=== PATIENT | male | born 1955 | race American Indian/Alaskan Native ===

== ENCOUNTER 2017-06-13 16:26 | Emergency (ER) | payer OTHER ==
[~2017-06-13] VITALS: Ht 177.8 cm; Wt 68.0 kg
[~2017-06-13 16:26] MED LIST: CYCLOBENZAPRINE10 MG; FOLIC ACID1 MG PO; THIAMINE HCL100 MG PO; TRAMADOL HCL50 MG
[2017-06-23] MEDS ORDERED: ULTRAM50 MG PO (11:40)
== END 2017-06-13 18:37 | disposition home or self-care (01) ==
LOC: ED 16:26
PROC: 2W3RX1Z Immobilization of Left Lower Leg using Splint (ICD-10-PCS; principal; 2017-06-13)
DX: S82.842A Displaced bimalleolar fracture of left lower leg, initial encounter for closed fracture (principal); F17.200 Nicotine dependence, unspecified, uncomplicated; W00.0XXA Fall on same level due to ice and snow, initial encounter
CPT/HCPCS: 29515; 72100; 73610; 99283

== ENCOUNTER 2017-06-24 07:40 | Day surgery (SDC) | payer OTHER ==
[~2017-06-24] VITALS: Ht 167.6 cm; Wt 74.8 kg
[~2017-06-24 07:40] MED LIST changes: +ULTRAM50 MG PO
[2017-06-24] MEDS ORDERED: ADVIL200 M1 PO (08:06)
--- NOTE | 2017-06-24 08:36 | NUR ---
RAILS UP X2 INSTRUCTED TO NOT GET OOB WITH OUT ASSIST. STATES OK.
--- NOTE | 2017-06-24 08:51 | NUR ---
RATES PAIN 5/10 2MG MORE OF MORPHINE GIVEN.
[2017-06-24] MEDS ORDERED: HYDROCODON-ACE1 EA11 PO (11:10)
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
--- NOTE | 2017-06-25 07:51 | OR ---
[facility] [address] [place], [place] [address] Signed DATE OF OPERATION: 06/24/2017 SURGEON: Candice Osman MD PREOPERATIVE DIAGNOSIS: Severely displaced bimalleolar ankle fracture, left. POSTOPERATIVE DIAGNOSIS: Severely displaced bimalleolar ankle fracture, left. PROCEDURE PERFORMED: Open reduction and internal fixation, left bimalleolar ankle fracture. LUMBER MARKER: AICHA Preston was present in critical positioning, retraction, and wound closure. ANESTHESIA: Spinal with sciatic block. TOURNIQUET TIME: 50 minutes. IMPLANTS: A 3.8 x 130 FibuLock with 2 locking screws and a 3.5 mm hook plate with 3 screws. BRIEF HISTORY: Ladarius is a 61-year-old gentleman, who suffered a ground-level fall with a fracture and dislocation of his ankle. It was reduced in the ER, showed up in my clinic 9 days later. The risks, benefits, and alternatives of surgery were discussed with him and he elected to proceed. DESCRIPTION OF PROCEDURE: Once consent was obtained, he was taken to the operating room. After adequate anesthesia, he was placed on the operating room table. All downside pressure points were well-padded. The left leg was placed in well-padded proximal thigh tourniquet and prepped and draped in standard sterile fashion. Leg was exsanguinated using an Esmarch bandage. Tourniquet inflated to 250 mmHg. The fibula was marked out on image intensifier views. The fracture was then closed, reduced, and clamped through 2 stab Electronically Signed By: CANDICE OSMAN MD 06/25/17 0751 PATIENT NAME: LADARIUS ABBASI OPERATIVE REPORT DATE OF : 59 PHYSICIAN: CANDICE OSMAN MD REPORT #: [id number] REPORT IS CONFIDENTIAL AND NOT TO BE RELEASED WITHOUT AUTHORIZATION [facility] [address] [place], [place] [address] Signed incisions. The reduction was anatomic and near anatomic. A 1 cm incision was made distal to the tip of the fibula, blunt dissection down to the tip. The first K-wire was then introduced and passed up the canal of the fibula. This was reamed using the 6 mm reamer. The longer guidewire was then exchanged and the proximal fibula was reamed. There was mild chowder with the 4.0 drill. The 3.8 FibuLock was then selected placed into the fibula and advanced until it was properly seated. The proximal release was then deployed. The 2 distal interlocking screws were placed through separate stab incisions. The clamp was released. The fracture remained anatomically reduced. The wounds were copiously irrigated and closed with zuhair. Attention was then turned to the medial side. A qfcm-sec-ieye incision was then made over the medial malleolus. Blunt dissection down to the periosteum. The periosteum was split and elevated and the fracture piece was reduced using the June 23, 2017ick and a clamp. It was held in position and pinned with a K-wire. We then placed the hook plate over the K-wire and passed until it was well seated. We hooked the fragment and placed the plate against the tibia. One screw was placed proximally. The K-wire was then removed and a second screw was placed from the tip of the fracture fragment across the fracture engaging the body of the tibia. The third screw was then placed proximally. Anatomic reduction was obtained. The wound was copiously irrigated with antibiotic solution and closed with 2-0 Monocryl and zuhair. Both wounds were dressed with Mepilex Ag dressing, ABD, and Gaurav wrap. This was placed back into his fracture boot, taken to recovery room in satisfactory condition. All sponge, needle, and instrument counts were correct. Candice Osman MD BA/MODL /[id number] Electronically Signed By: CANDICE OSMAN MD 06/25/17 0751 PATIENT NAME: LADARIUS ABBASI OPERATIVE REPORT DATE OF : 59 PHYSICIAN: CANDICE OSMAN MD REPORT #: [id number] REPORT IS CONFIDENTIAL AND NOT TO BE RELEASED WITHOUT AUTHORIZATION
== END 2017-06-24 13:45 | disposition home or self-care (01) ==
LOC: DS 07:40
PROVIDERS: Specialist
PROC: 0QSH04Z Reposition Left Tibia with Internal Fixation Device, Open Approach (ICD-10-PCS; principal; 2017-06-24 09:45)
DX: S82.842A Displaced bimalleolar fracture of left lower leg, initial encounter for closed fracture (principal); F17.210 Nicotine dependence, cigarettes, uncomplicated; Z98.890 Other specified postprocedural states; Z86.73 Personal history of transient ischemic attack (TIA), and cerebral infarction without residual deficits; Z79.899 Other long term (current) drug therapy; W22.8XXA Striking against or struck by other objects, initial encounter; Y93.89 Activity, other specified; Y92.488 Other paved roadways as the place of occurrence of the external cause
CPT/HCPCS: 01480; 64445; 73600; 76942; C1713; J0690; J1100; J1885; J2250; J2270; J2405; J2704; J2765; J3010; J7120

== ENCOUNTER 2020-01-14 11:00 | Emergency (ER) | payer OTHER ==
[~2020-01-14] VITALS: Ht 167.6 cm; Wt 72.6 kg
--- OUTSIDE RECORDS SUMMARY | ~2020-01-14 | XMS | Clinical Summary ---
Demographics + + + | Address | [address] | | | [place] [address] | + + + | Home Phone | | + + + | Preferred Language | Unknown | + + + | Marital Status | Single | + + + | Taoist Affiliation | Unknown | + + + | Race | Unknown | + + + | Ethnic Group | Unknown | + + + Author + + + | Author | [facility] | | | and [place] | + + + | Organization | [facility] | | | and [place] | + + + | Address | Unknown | + + + | Phone | Unavailable | + + + Support + + +---------+ + | Name | Relationship | Address | Phone | + + +---------+ + | Cheyenne | ECON | Unknown | | | [place] | | | | + + +---------+ + Care Team Providers + +------+ + | Care Junior Linux Administrator Name | Role | Phone | + +------+ + | No, Physician | PCP | Unavailable | + +------+ + Allergies No Known Allergies Medications No known medications Active Problems Not on file Immunizations + + + + | Name | Administration Dates | Next Due | + + + + | PNEUMOCOCCAL | 03/22/2014 | | | POLYSACCHARIDE | | | | 23-VALENT (PPSV23) | | | + + + + | TDAP, (ADOL/ADULT) | 03/23/2019 | | + + + + Social History + +-------+ +--------+------+ | Tobacco Use | Types | Packs/Day | Years | Date | | | | | Used | | + +-------+ +--------+------+ | Current Every Day | | 1 | | | | Smoker | | | | | + +-------+ +--------+------+ + + + | Sex Assigned at | Date Recorded | | | | + + + | Not on file | | + + + Last Filed Vital Signs + + + + + | Vital Sign | Reading | Time Taken | Comments | + + + + + | Blood Pressure | 128/70 | 03/23/2019 2:08 PM | | | | | PDT | | + + + + + | Pulse | 84 | 03/23/2019 2:08 PM | | | | | PDT | | + + + + + | Temperature | 37.1 C (98.8 F) | 03/23/2019 10:55 AM | | | | | PDT | | + + + + + | Respiratory Rate | 18 | 03/23/2019 1:15 PM | | | | | PDT | | + + + + + | Oxygen Saturation | 98% | 03/23/2019 2:08 PM | | | | | PDT | | + + + + + | Inhaled Oxygen | - | - | | | Concentration | | | | + + + + + | Weight | 72.6 kg (160 lb) | 03/23/2019 10:55 AM | | | | | PDT | | + + + + + | Height | 167.6 cm (5' 6") | 03/23/2019 10:55 AM | | | | | PDT | | + + + + + | Body Mass Index | 25.82 | 03/23/2019 10:55 AM | | | | | PDT | | + + + + + Plan of Treatment + + + + + | Health Maintenance | Due Date | Last | Comments | | | | Done | | + + + + + | Colorectal Cancer | | | | | Screening | 8 | | | | (Colonoscopy) | | | | + + + + + | Vaccine: Zoster (1 | | | | | of 2) | 8 | | | + + + + + | Vaccine: Influenza | | 03/30/20 | | | (#1) | 0 | 17, | | | | | 07/01/19 | | | | | 17, | | | | | 04/18/20 | | | | | 15, | | | | | Addition | | | | | al | | | | | history | | | | | exists | | + + + + + | Vaccine: | | 03/23/20 | | | Dtap/Tdap/Td (4 - | 9 | 19, | | | Td) | | 04/10/20 | | | | | 18, | | | | | 09/09/19 | | | | | 12 | | + + + + + | Hepatitis C | Completed | 03/22/20 | | | Screening | | 14 | | + + + + + | Vaccine: | Completed | 03/22/20 | | | Pneumococcal 19-64 | | 14 | | + + + + + Results Not on filefrom Last 3 Months Insurance + +--------+ +--------+ +---------+--------+ | Payer | Benefi | Subscriber | Effect | Phone | Address | Type | | | t Plan | ID | tod | | | | | | / | | Dates | | | | | | Group | | | | | | + +--------+ +--------+ +---------+--------+ | COMMERCIAL GENERIC | COMMER | [id number] | 06/15/19 | | | PPO | | | CIAL | | 19-Pre | | | | | | PPO | | sent | | | | | | OTHER | | | | | | + +--------+ +--------+ +---------+--------+ | [employer] | MODA | [id number] | | [phone] | | Medica | | MEDICAID HMO | HEALTH | | [phone]-Pr | 1 | | id | | | MDCD | | esent | | | | | | [place] | | | | | | + +--------+ +--------+ +---------+--------+ + +--------+ +--------+ + + | Guarantor Name | Accoun | Relation to | Date | Phone | Billing Address | | | t Type | Patient | of | | | | | | | | | | + +--------+ +--------+ + + | Ladarius Sheriff | Person | Self [birth year] | | [address] | | [place] | al/Daryl | | 8 | [phone] | [place] | | | hillary | | | 6 (Home) | [address] | + +--------+ +--------+ + + | Ladarius Sheriff | Clyde | Self | [birth year] | | [address] | | [place] | Alliance Party | | 1956 | [phone] | [place] | | | Liabil | | | [address] ([place]) | [address] | | | ity | | | | | + +--------+ +--------+ + + Advance Directives + + + + + | Type | Date Recorded | Patient | Explanation | | | | Bi Lead | | + + + + + | Power of | | | | | Deck Specialist | | | | + + + + + | Advance | 03/23/2019 12:00 | | | | Directive | PM | | | + + + + +
--- OUTSIDE RECORDS SUMMARY | ~2020-01-14 | XMS | Encounter Summary ---
Demographics + + + | Address | [address] | | | [place] [address] | + + + | Home Phone | | + + + | Preferred Language | Unknown | + + + | Marital Status | | + + + | Christianity Affiliation | Unknown | + + + | Race | or | + + + | Ethnic Group | Not or | + + + Author + + + | Author | [facility] [employer] [facility] | + + + | Organization | [facility] [employer] [facility] | + + + | Address | Unknown | + + + | Phone | Unavailable | + + + Support + + + + + | Name | Relationship | Address | Phone | + + + + + | Elen Sheriff | ECON | [address] | | | | | #[place], [place] | | | | | [address] | | + + + + + Care Team Providers + +------+ + | Care Pharmacy Helper Name | Role | Phone | + +------+ + PCP | Unavailable | + +------+ + Encounter Details +--------+ + + + + | Date | Type | Department | Care Team | Description | +--------+ + + + + | 11/15/ | Office | General Internal | Note, Outpatient | Progress Note | | 1997 | Visit-Trans | Medicine [address] | Clinic | | | | criluiza | Mitzi [facility] | | | | | | Mailcode: [id number] | | | | | | Outpatient Clinic | | | | | | [facility], [address] | | | | | | [place], [place] | | | | | | [address] | | | | | | [phone] | | | +--------+ + + + + Social History + +-------+ +--------+------+ | Tobacco Use | Types | Packs/Day | Years | Date | | | | | Used | | + +-------+ +--------+------+ | Never Assessed | | | | | + +-------+ +--------+------+ + + + | Sex Assigned at | Date Recorded | | | | + + + | Not on file | | + + + + + + + | Job Start Date | Occupation | Industry | + + + + | Not on file | Not on file | Not on file | + + + + + + + + | Travel History | Travel Start | Travel End | + + + + + + | No recent travel history available. | + + documented as of this encounter Progress Notes Interface, Brewery Technician In - 07/05/2006 5:00 AM PST CLINIC DATE: 11/15/97 OTOLARYNGOLOGY CLINIC Ladarius is seen postoperatively for a right tympanomastoidectomy with canal wall up and a tympanoplasty. Gelfoam and wicking was removed from the outer ear canal. There is still a little bare bone where the incision was made over the posterior canal. However the canal appears to be sealing quite satisfactorily. There is no discharge or inflammation. The sutures are removed. The patient is doing well and he was asked to return in four weeks for follow-up. Fidencio Claire M.D. Professor and Clinical Pharmacologist, Department of Otolaryngology Head and Neck Surgery MORELIA:rani documented in this encounter Plan of Treatment Not on filedocumented as of this encounter Visit Diagnoses Not on filedocumented in this encounter"
--- OUTSIDE RECORDS SUMMARY | ~2020-01-14 | XMS | Encounter Summary ---
Demographics + + + | Address | [address] | | | [place] [address] | + + + | Home Phone | | + + + | Preferred Language | Unknown | + + + | Marital Status | | + + + | Nondenominational Affiliation | Unknown | + + + | Race | or | + + + | Ethnic Group | Not or | + + + Author + + + | Author | [facility] [employer] [facility] | + + + | Organization | [facility] [employer] [facility] | + + + | Address | Unknown | + + + | Phone | Unavailable | + + + Support + + + + + | Name | Relationship | Address | Phone | + + + + + | Elen Sheriff | ECON | [address] | | | | | #[place] | | | | | [address] | | + + + + + Care Team Providers + +------+ + | Care Automobile Mechanic Helper Name | Role | Phone | + +------+ + PCP | Unavailable | + +------+ + Encounter Details +--------+ + + + + | Date | Type | Department | Care Team | Description | +--------+ + + + + | 06/30/ | Document-Sc | NON-[facility] EPIC | Wei [facility] | | | 2015 | edwina | Department | SON[facility] | | | | | | [facility] [address] | | | | | | [address] | | | | | | [address] | | | | | | [place] [address] | | | | | | [phone] | | | | | | | | +--------+ + + + [...] + + documented as of this encounter Plan of Treatment Not on filedocumented as of this encounter Visit Diagnoses Not on filedocumented in this encounter"
--- OUTSIDE RECORDS SUMMARY | ~2020-01-14 | XMS | Encounter Summary ---
Demographics + + + | Address | [address] | | | [place] [address] | + + + | Home Phone | | + + + | Preferred Language | Unknown | + + + | Marital Status | | + + + | Rastafarian Affiliation | Unknown | + + + | Race | or | + + + | Ethnic Group | Not or | + + + Author + + + | Author | [facility] [employer] [facility] | + + + | Organization | [facility] [employer] [facility] | + + + | Address | Unknown | + + + | Phone | Unavailable | + + + Support + + + + + | Name | Relationship | Address | Phone | + + + + + | Elen Sheriff | ECON | [address] | | | | | #[place], [place] | | | | | [address] | | + + + + + Care Team Providers + +------+ + | Care Infusion Pharmacist Name | Role | Phone | + +------+ + | Wei Eden | PCP | | + +------+ + Reason for Visit + + + | Reason | Comments | + + + | Examination Of Skin | 2wk f/u on body rash | + + + Office Visit - E/M Services (Routine) +--------+ + + + + + | Status | Reason | Specialty | Diagnoses / | Referred By | Referred To | | | | | Procedures | Contact | Contact | +--------+ + + + + + | Closed | Specialty | Dermatology | Diagnoses | Drm Med | Drm Med | | | Services | | Rash and | [address] | | | Required | | other | [address] | [address] | | | | | nonspecific | Center for | Center for | | | | | skin | Health and | Health and | | | | | eruption | Healing, | Healing, | | | | | Contact | [address], | [address], | | | | | dermatitis | [address]th Floor | [address] Floor | | | | | and other | [place], [place] | [place] | | | | | eczema, due | [address] | [address] | | | | | to | Phone: | Phone: | | | | | unspecified | [phone] | [phone] | | | | | cause | Fax: | Fax: | | | | | Procedures | [phone] | [phone] | | | | | [place] | | | | | | | OFFICE/OUTPT | | | | | | | | | | | | | | VISIT,EST,LE | | | | | | | HUBERT III | | | +--------+ + + + + + Encounter Details +--------+---------+ + + + | Date | Type | Department | Care Team | Description | +--------+---------+ + + + | 09/07/ | Office | Dermatology | Enrike Velasquez, | Rash and other | | 2015 | Visit | [facility] at [facility] [address] | MD [address] | nonspecific skin | | | | [address] [place] | [place], [place] | eruption (Primary | | | | for Health and | [address] | Dx) | | | | [facility] [address], | [phone] | | | | | [address] Floor | | | | | | [place], [place] | | | | | | [address] | | | | | | [phone] | | | +--------+---------+ + + + Social History + + + +--------+------+ | Tobacco Use | Types | Packs/Day | Years | Date | | | | | Used | | + + + +--------+------+ | Current Every Day | Cigarettes | 20 | | | | Smoker | | | | | + + + +--------+------+ + +---+---+---+ | Smokeless Tobacco: | | | | | Never Used | | | | + +---+---+---+ + + +---------+ + | Alcohol Use | Drinks/Week | oz/Week | Comments | + + +---------+ + | Not Asked | | | | + + +---------+ + + + + | Sex Assigned at [...] documented as of this encounter Progress Notes Enrike Velasquez MD - 09/02/2014 9:04 AM PDT59 YO man Last seen Dr Pruitt 08/27. Pt had been rx for scabies before being seen here & came in to be seen with multiple papules- r kevin on Trunk & predominenently on buttocks & post thighs . Bx L lower back & L flank = spong iotic dermatitis with eos- compatible with arthropod bite . No rx Pending results Bx. Has r x self Many times q week Here to have a skin exam Review of Systems: Other than stated in the HPI and PMHx, the patient denied any fever, chills, abdominal pain , diarrhea, VIGIL, vision changes, swollen lymph nodes, dizziness, mouth lesions, genital lesio ns, weight change, psychiatric changes, arthalgias, chest pain, weakness, or respiratory com plaints. PE: Well developed, well nourished white man oriented in Some distress. papular rash buttocks & post thighs- all healed - only PIPA lesions Finger webs- neg wrist burows - none genital lesion neg Other than stated above, there were no pertinent findings on scalp, face, neck, eyelids, l ips, abdomen, chest, back, bilateral arms, bilateral legs, digits. A/P: TAC oint bid Hydroxyzine 25 mg Daily hs see prn documented i n this encounter Plan of Treatment Not on filedocumented as of this encounter Visit Diagnoses + + | Diagnosis | + + | Rash and other nonspecific skin eruption - Primary | + + documented in this encounter"
--- OUTSIDE RECORDS SUMMARY | ~2020-01-14 | XMS | Encounter Summary ---
Demographics + + + | Address | [address] | | | [place] [address] | + + + | Home Phone | | + + + | Preferred Language | Unknown | + + + | Marital Status | | + + + | Episcopal Affiliation | Unknown | + + + | Race | or | + + + | Ethnic Group | Not or | + + + Author + + + | Author | [facility] [employer] [facility] | + + + | Organization | [facility] | + + + | Address | Unknown | + + + | Phone | Unavailable | + + + Support + + + + + | Name | Relationship | Address | Phone | + + + + + | Elen Sheriff | ECON | [address] | | | | | #[place] | | | | | [address] | | + + + + + Care Team Providers + +------+ + | Care Production Trainer Name | Role | Phone | + +------+ + PCP | Unavailable | + +------+ + Encounter Details +--------+ + + + + | Date | Type | Department | Care Team | Description | +--------+ + + + + | 11/07/ | Procedure - | [facility] | Record, Operation | Operative Report | | 1997 | | [facility] [place] [address] | | | | | Transcribed | [facility] | | | | | | for Health and | | | | | | [facility] | | | | | | [place], [place] | | | | | | [address] | | | | | | [phone] | | | +--------+ + + + [...] Not on filedocumented as of this encounter Procedures + +--------+ + + + | Procedure Name | Priori | Date/Time | Associated Diagnosis | Comments | | | ty | | | | + +--------+ + + + | OPERATION RECORD | | 11/07/1997 | | Results for this | | | | 12:00 AM | | procedure are in the | | | | PDT | | results section. | + +--------+ + + + documented in this encounter Results OPERATION RECORD (11/07/1997 12:00 AM PDT) + + | Procedure Note | + + | 11/07/1997 12:00 AM PDT [place] | | [facility] | | [address], [place] [address] | | [facility] | | | | OPERATION RECORD | | | | Med Rec No.: [id number] Date: 11/07/97 | | | | Name: Ladarius Sheriff | | | | | | ATTENDING SURGEON: | | Fidencio Claire M.D. | | Professor and Sports Psychologist, | | Department of Otolaryngology | | Head and Neck Surgery | | MEAT GRINDER(S): | | Shadi Matos M.D. | | Resident, Otolaryngology, | | Head and Neck Surgery | | PREOPERATIVE DIAGNOSIS(ES): Right chronic suppurative otitis media. | | Tympanic membrane perforation. | | | | POSTOPERATIVE DIAGNOSIS(ES): Same. | | | | OPERATION(S) PERFORMED: Right tympanomastoidectomy (canal wall up). | | | | SPECIMEN(S) REMOVED: None. | | | | INDICATIONS: The patient is a 42-year-old male with | | chronic right ear drainage. It has been | | unresponsive to medical therapy. he | | has a magnetic resonance imaging scan which reveals inflammation throughout | | his mastoid cavity. He is here for operative repair. | | | | FINDINGS: The patient has an anterior perforation | | approximately one-quarter of the drum. It | | was central. The middle ear was | | filled with thick mucoid discharge and this was sent for culture. The | | ossicles were intact. The posterior middle ear space was unremarkable. The | | mastoid cavity was very poorly pneumatized. There was some thickened mucosa | | and some granulation tissue in the antrum. No cholesteatoma was noted. No | | concerning masses or lesions were noted. The facial nerve was identified | | and preserved. The chordae tympani was preserved. The semicircular canals | | were identified and preserved. The ossicles were identified and preserved. | | | | PROCEDURE: The patient was properly identified, taken | | to the Operating Room, and placed in the | | supine position. General | | anesthesia was induced. The facial nerve monitor was used in the standard | | fashion and monitored throughout the case. He was sterilely prepped and | | draped in the standard fashion. His right ear was examined under the | | microscope. The anterior perforation was noted. Through this thick | | purulent discharge was suctioned and sent for culture. | | | | | | | | | | A vascular strip incision was then made. A #1 knife was used to make | | incisions at twelve and six o'clock and a #2 knife was used to make an | | incision approximately 3 mm lateral to the annulus. A postauricular | | incision was then made with a #15 blade. This was carried through skin and | | down to the temporalis fascia. Bovie electrocautery was used to make | | periosteal flaps. A T-incision was made at the temporal line. A periosteal | | elevator was used to expose mastoid bone and extend forward to the external | | auditory canal. A true temporalis fascia was harvested and set aside for a | | graft. Hemostasis was obtained with Bovie electrocautery. | | | | The mastoid bone was then identified and a complete mastoidectomy was | | performed. A #6 cutting bur was used to drill up at the tegmen and the | | posterior canal. The bone was very hard and poorly pneumatized. This was | | carried back to the sigmoid sinus which was identified and skeletonized. | | Drilling continued along the roof up towards the antrum. The antrum was | | identified. There was some granulation tissue throughout the a antrum | | overlying the semicircular canal and up towards the incus. This was drilled | | down to smooth bone. The canal wall was thin, but left intact. The | | sinodural angle was identified and drilled completely. | | | | Drilling continued up into the antrum with a #3 ren drill to expose the | | incus. It was present and mobile. The facial nerve canal could be seen | | deep to the horizontal canal. There was still some granulation above the | | horizontal canal. This was drilled down to the superior canal. Drilling | | continued inferiorly along the sigmoid. This was thoroughly irrigated and | | all gross disease and granulation had been removed. There was no notable | | abnormality to the granulation or to the air cells. The tympanomeatal flap | | was then raised in the ear canal. The middle ear mucosa was fairly normal | | posteriorly, but somewhat thickened anteriorly. The ossicles were | | identified and were normal and mobile. The chordae tympani was identified | | and preserved. Elevation continued up to the malleus. | | | | The tympanic membrane perforation was rimmed with a middle ear needle. Cup | | forceps were used to remove the remaining drum. Gelfoam soaked in | | bacitracin was then used to fill the middle ear cavity. It was also placed | | along some of the air cells in the mastoid cavity. The previously harvested | | temporalis fascia graft was then inserted on top of the Gelfoam underneath | | the [place] tympanic membrane. This was tucked anteriorly. It was laid back | | along the canal wall and the tympanomeatal flap was laid against this. | | The previous vascular strip incision was then laid in its previous position | | and the medial ear canal was filled with Gelfoam. An Atlantic-Wick was placed on | | top of this. The postauricular incision was closed with interrupted 4-0 | | | | Vicryl and a running 5-0 nylon. A mastoid dressing was applied. The facial | | nerve monitor was then discontinued. | | | | The patient was then extubated and taken to the Post Anesthesia Care Unit in | | good condition. | | | | | | | | | | | | | | | | | | | | | | | | | | | | There were no apparent complications. | | | | Doctor Claire was present throughout the entire procedure. | | | | | | | | Shadi Matos M.D. | | Resident, Otolaryngology, | | Head and Neck Surgery | | Fidencio Claire M.D. | | Professor and Sports Psychologist, | | Department of Otolaryngology | | Head and Neck Surgery | | [place] | | | | A | | | | cc: | | | + + documented in this encounter Visit Diagnoses Not on filedocumented in this encounter"
--- OUTSIDE RECORDS SUMMARY | ~2020-01-14 | XMS | Encounter Summary ---
Demographics + + + | Address | [address] | | | [place] [address] | + + + | Home Phone | | + + + | Preferred Language | Unknown | + + + | Marital Status | | + + + | Spiritism Affiliation | Unknown | + + + | Race | or | + + + | Ethnic Group | Not or | + + + Author + + + | Author | [facility] | + + + | Organization | [facility] | + + + | Address | Unknown | + + + | Phone | Unavailable | + + + Support + + + + + | Name | Relationship | Address | Phone | + + + + + | Elen Sheriff | ECON | [address] | | | | | #[place] | | | | | [address] | | + + + + + Care Team Providers + +------+ + | Care Buildings Painter Name | Role | Phone | + +------+ + PCP | Unavailable | + +------+ + Encounter Details +--------+ + + + + | Date | Type | Department | Care Team | Description | +--------+ + + + + | 11/07/ | Results | Registration [id number] | | | | 1997 | Only | [address] | | | | | | [address] Mailcode: [address] | | | | | | [place] | | | | | | [address] | | | | | | [phone] | | | +--------+ + + + [...] | + +--------+ + + + | CULTURE, EAR BACTI | Routin | 11/07/1997 | | Results for this | | | e | 12:20 PM | | procedure are in the | | | | PDT | | results section. | + +--------+ + + + documented in this encounter Results CULTURE, EAR BACTI (11/07/1997 12:20 PM PDT) + + + + + + | Component | Value | Ref Range | Performed | Pathologist | | | | | At | Signature | + + + + + + | CULTURE | Cult Ear | | | | | RESULT | ""Gram Smear:[facility] | | | | | | NO ORGANISMS SEEN | | | | | | WBC | | | | | | RARE | | | | | | Epi RARE | | | | | | RBC | | | | | | 1+Diagnosis | | | | | | NOT INDICATEDTest | | | | | | Ordered EAR | | | | | | CULTUREOrdering Loc | | | | | | SSUSpec Set Up | | | | | | Date pec Set Up | | | | | | Time | | | | | | 1700Source Body Site | | | | | | RIGHT MIDDLE | | | | | | EARReport Status | | | | | | FINALPrelim Result | | | | | | NO GROWTH TO | | | | | | DATECulture Result | | | | | | GROWTH, SEE | | | | | | ISOLATE(S)Date Of Final | | | | | | Re [id number] | | | | | | 01 Prelim Isolate | | | | | | 1 COLONY(S) GRAM POS | | | | | | COCCI Final Isolate | | | | | | 1 COLONY(S) | | | | | | STAPHYLOCOCCUS COAGULASE | | | | | | NEGATIVE | | | | + + + + + + + + | Specimen | + + | | + + + + + + + | Performing | Address | City/State/Zipcode | Phone Number | | Organization | | | | + + + + + | [facility] | [address] | [place] [address] | | | PATHOLOGY | [address] | | | + + + + + documented in this encounter Visit Diagnoses Not on filedocumented in this encounter
--- OUTSIDE RECORDS SUMMARY | ~2020-01-14 | XMS | Encounter Summary ---
Demographics + + + | Address | [address] | | | [place] [address] | + + + | Home Phone | | + + + | Preferred Language | Unknown | + + + | Marital Status | | + + + | Cheondoism Affiliation | Unknown | + + + | Race | or | + + + | Ethnic Group | Not or | + + + Author + + + | Author | [facility] | + + + | Organization | [facility] [employer] [facility] | + + + | Address | Unknown | + + + | Phone | Unavailable | + + + Support + + + + + | Name | Relationship | Address | Phone | + + + + + | Elen Sheriff | ECON | [address] | | | | | #[place] | | | | | [address] | | + + + + + Care Team Providers + +------+ + | Care Tuckpointer Cleaner Caulker Name | Role | Phone | + +------+ + PCP | Unavailable | + +------+ + Encounter Details +--------+ + + + + | Date | Type | Department | Care Team | Description | +--------+ + + + + | 11/07/ | Results | Registration [id number] | | | | 1997 | Only | [address] | | | | | | [address] Mailcode: [address] | | | | | | [place] | | | | | | [address] | | | | | | [phone] | | | +--------+ + + + [...] | | | | | | Re [id number] | | | | | | 01 [...] | + + + + + | [facility] | [address] | [place] [address] | | | PATHOLOGY | [address] | | | + + + + + documented in this encounter Visit Diagnoses Not on filedocumented in this encounter
--- OUTSIDE RECORDS SUMMARY | ~2020-01-14 | XMS | Encounter Summary ---
Demographics + + + | Address | [address] | | | [place] [address] | + + + | Home Phone | | + + + | Preferred Language | Unknown | + + + | Marital Status | | + + + | Yarsani Affiliation | Unknown | + + + | Race | or | + + + | Ethnic Group | Not or | + + + Author + + + | Author | [facility] | + + + | Organization | [facility] | + + + | Address | Unknown | + + + | Phone | Unavailable | + + + Support + + + + + | Name | Relationship | Address | Phone | + + + + + | Elen Sheriff | ECON | [address] | | | | | #[place] | | | | | [address] | | + + + + + Care Team Providers + +------+ + | Care Sales Designer Name | Role | Phone | + +------+ + | Wei Flannery | PCP | | + +------+ + Reason for Visit + + + | Reason | Comments | + + + | New patient | | | consultation | | + + + | Dermatitis | | + + + Consultation (Routine) +--------+ + + + + + | Status | Reason | Specialty | Diagnoses / | Referred By | Referred To | | | | | Procedures | Contact | Contact | +--------+ + + + + + | Closed | Specialty | Dermatology | Diagnoses | [facility] | [facility] | | | Services | | Contact | Wei Eugene | [address] | | | Required | | dermatitis | [place] | [address] | | | | | and other | [place] | [facility] for | | | | | eczema, due | HEALTH | Health and | | | | | to | CENTER | Healing, | | | | | unspecified | [address] | [address], | | | | | cause | [facility] | [address] Floor | | | | | dermatitis. | [address] | [place], [place] | | | | | likely | [address] | [address] | | | | | scabies w/ | [place], | Phone: | | | | | noncompliant | [place] [address] | [phone] | | | | | pt | Phone: | Fax: | | | | | Procedures | [phone] | [phone] | | | | | eval & tx | Fax: | | | | | | | [phone] | | +--------+ + + + + + Encounter Details +--------+---------+ + + + | Date | Type | Department | Care Team | Description | +--------+---------+ + + + | 08/01/ | Office | Dermatology | Greg Garza, | Rash and other | | 2014 | Visit | Medical at [facility] [address] | MD [address] | nonspecific skin | | | | [address] | [place], [place] | eruption (Primary | | | | for Health and | [address] | Dx) | | | | Healing, [address], | [phone] | | | | | 16 Floor | | | | | | [place], [place] | | | | | | [address] | | | | | | [phone] | | | +--------+---------+ + + + [...] + + documented as of this encounter Last Filed Vital Signs + + + + + | Vital Sign | Reading | Time Taken | Comments | + + + + + | Blood Pressure | - | - | | + + + + + | Pulse | - | - | | + + + + + | Temperature | - | - | | + + + + + | Respiratory Rate | - | - | | + + + + + | Oxygen Saturation | - | - | | + + + + + | Inhaled Oxygen | - | - | | | Concentration | | | | + + + + + | Weight | 80.2 kg (176 lb 12.9 | 08/01/2014 1:18 PM | | | | oz) | PST | | + + + + + | Height | - | - | | + + + + + | Body Mass Index | - | - | | + + + + + documented in this encounter Patient Instructions Patient Instructions Cheyenne Cuevas MA - 08/01/2014 1:20 PM PSTPrevent Winter Itch The winter time usually means forced dry heat in the home and hot showers- two major causes of dry skin. Here are some tips that can prevent you from developing dry and itchy skin ov er the winter time. Do not use hot water. Hot water removes your natural skin oils more quickly. Warm water is best for bathing. Use a gentle cleanser. Soaps can strip oils from the skin. Stop using deodorant bars, antib acterial soaps, perfumed soaps, and skin care products containing alcohol, like hand sanitiz ers. Look for either a mild, fragrance-free soap or a soap substitute that moisturizes. Limit time in the bathtub or shower. A 5- to 10-minute bath or shower adds moisture to the skin. Spending more time in the water often leaves your skin less hydrated than before you s tarted unless you use a thick moisturizer on your skin after bathing. Do not bathe more ofte n than once a day. Moisturize right after baths and showers. To lock in moisture from a bath or shower, apply a moisturizer while the skin is still damp. The thicker the moisturizer, the better. Before you shave, soften skin. It is best to shave right after bathing, when hairs are soft . To lessen the irritating effects of shaving your face or legs, use a shaving cream or gel. Leave the product on your skin about 3 minutes before starting to shave. Shave in the direc tion that the hair grows. Change razor blades after 5 to 7 shaves. A dull blade bothers dry skin. Use a humidifier. Keep the air in your home moist with a humidifier. Soothe chapped lips. At bedtime, apply a lip balm that contains petrolatum. Other names for this ingredient are petroleum jelly and mineral oil. Cover up outdoors in the winter. In the cold, wear a scarf to help prevent chapped lips and gloves to protect hands and help prevent chapped hands. Be good to your face. If you have very dry skin, cleanse your face just once a day, at nigh t. In the morning, rinse your face with cool water. THE "ABCDE" RULE AND MELANOMA DETECTION Asymmetry - compare one half of the growth to the other half to determine if the halves are equal in size. Border - If the mole's border is irregular, notched, scalloped, or indistinct, it should be checked by a doctor. Color - Variation of color (e.g., more than one color or shade) within a mole is a suspicio us finding. Diameter - Any mole that has a diameter larger than a pencil's eraser should be checked by a doctor. Evolving - If a mole is changing in size, shape, color, elevation, surface texture or becom es itchy or painful, it should be checked by a doctor. Additional sunscreen and melanoma information is available at the following websites: http://www.[facility].edu/xd/health/services/dermatology/for-patients/health_info.cfm - [facility] Derm atology http://www.aad.org/public/sun/smart.html - AAD Website documented in this encounter Progress Notes Doc Pruitt MD - 08/18/2014 10:05 PM PSTI have seen and examined the pt w/ the resident. I have read and edited, when appropriate, the resident's note and I agree w/ the history, ex am, assessment, and plan. I directly supervised and/or performed the procedures. Procedures were performed after a P ARQ conference and resulting scars were discussed. Greg Seals MD - 0 08/18/2014 8:31 AM PST Quick Note: Patient missed his follow-up appt. Attempted to call patient - but mail box full. Will try again, but may have to send letter informing him of diagnosis. Greg Seals MD - 08/01/2014 1:38 PM PST DERMATOLOGY NEW PATIENT VISIT Primary Care Provider: Wei FLANNERY Referring Provider: Wei Flannery CHIEF COMPLAINT: rash HISTORY OF PRESENT ILLNESS: Ladarius Sheriff is a 59 y.o. male who presents for evaluation of rash since March, prev iously treated as scabies. Patient states that since March he has developed small itchy bu mps on trunk, buttocks, and posterior thighs. He does report a history of childhood eczema, but has not had problems with this since younger. He was seen by his PCP who has treated h im with scabies with not much improvement. He is currently using Triamcinolone which helps with the itch. Pt otherwise feels well. No fevers, chills, weight loss, night sweats or LAD . The patient's dermatology intake form was reviewed, signed, and dated. His relevant PMH, F H, and SH includes: PAST MEDICAL HISTORY: No history of melanoma or non-melanoma skin cancer. Eczema FAMILY HISTORY: No history of melanoma or non-melanoma skin cancer. SOCIAL HISTORY: Occasional alcohol. 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 In addition, he denies fever, chills, sweats, weight loss or loss of appetite, and has no further skin complaints. PHYSICAL EXAMINATION: Wt 80.2 kg (176 lb 12.9 oz) Well-developed, well-nourished male in no acute distress. Awake, alert and oriented. Plea vivek and cooperative mood. A complete skin examination was performed including the scalp/hair, head/face, eyelids/conj unctivae, lips, teeth, gums, oropharynx, neck, chest, back, abdomen, buttocks, bilateral arm s and legs, bilateral hands and feet, and nails. Findings were within normal limits except for the following: Multiple small 2-6 mm brown slightly scaly thin papules scattered on trunk but predominantl y on buttocks and posterior thighs Negative Darier's sign ASSESSMENT AND PLAN: 1. Multiple small 2-6 mm brown slightly scaly thin papules scattered on trunk but predomin antly on buttocks and posterior thighs - possibly PLC v resolving nummular dermatitis v mast ocytosis (UP) v bites with PIPA v less likely DH with PIPA -- 4 mm punch biopsy performed today; will contact patient with results and arrange for fur ther care if needed Procedure Note - Biopsy by Punch Technique x 2, L flank and L lower back Prior to beginning the procedure the team paused to verify the patient's identity, as well as the procedure to be performed and the biopsy site. All equipment required was ready and available. The patient was positioned appropriately. After PARQ addressed and scar factors discussed, the area was prepped with an isopropyl alcohol pad. Anesthesia was obtained by alicea bcutaneous infusion of buffered 1% lidocaine with 1:100,000 epinephrine. The punch biopsy w as performed and the resultant defect closed with 4-0 nylon suture. Blood loss was minimal. The site was dressed with white petrolatum jelly and a bandage. Verbal and written wound c are instructions were given to the patient. Patient reports no pain after the procedure. --Suture(s) to be removed in 10-14 days. --further recommendations pending biopsies RETURN VISIT: 2 weeks Department of Dermatology [facility] 08/01/2014 documented in this en counter Plan of Treatment Not on filedocumented as of this encounter Procedures + +--------+ + + + | Procedure Name | Priori | Date/Time | Associated Diagnosis | Comments | | | ty | | | | + +--------+ + + + | GA BIOPSY, EACH | Routin | 08/04/2014 | Rash and other | | | ADDED LESION | e | 3:27 PM | nonspecific skin | | | | | PST | eruption | | + +--------+ + + + | GA BIOPSY OF SKIN | Routin | 08/04/2014 | Rash and other | | | LESION | e | 3:27 PM | nonspecific skin | | | | | PST | eruption | | + +--------+ + + + | DERM PATHOLOGY | Routin | 08/01/2014 | Rash and other | Results for this | | | e | | nonspecific skin | procedure are in the | | | | | eruption | results section. | + +--------+ + + + documented in this encounter Results DERM PATHOLOGY (08/01/2014) + + + + + + | Component | Value | Ref Range | Performed | Pathologist | | | | | At | Signature | + + + + + + | DERMATOPATH | SOURCE OF SPECIMEN:A Lt. | | [facility] | | | OLOGY(WET | lower back, Lt. flank, | | DERMATOPATH | | | MNT) | punch biopsy | | OLOGY | | | | CLINICAL | | | | | | DESCRIPTION:Multiple | | | | | | brown small 4-6 mm | | | | | | slightly scaly pruritic | | | | | | papules scattered | | | | | | ontrunk, buttocks, | | | | | | posterior thighs; | | | | | | nummular dermatitis vs | | | | | | PLC vsmastocytosis vs | | | | | | bites with PIPA vs less | | | | | | likely DH with PIPA. | | | | | | GROSS | | | | | | DESCRIPTION:Received in | | | | | | formalin is a specimen | | | | | | labeled [place], | | | | | | Ladarius:A: Specimen is | | | | | | labeled "L lower back" | | | | | | and consists of two 4mm | | | | | | punches ofbrown-valdez | | | | | | skin, cut to depths of | | | | | | 6mm and 4mm. The larger | | | | | | tissue is inkedblue, the | | | | | | smaller tissue is inked | | | | | | black, and both are | | | | | | bisected. Both | | | | | | areentirely submitted in | | | | | | cassette A1. | | | | | | MICROSCOPIC | | | | | | DESCRIPTION:There is | | | | | | focal parakeratosis | | | | | | overlying foci of | | | | | | spongiosis, and | | | | | | asuperficial and | | | | | | mid-perivascular mixed | | | | | | infiltrate of | | | | | | lymphocytes andscattered | | | | | | eosinophils. Tryptase | | | | | | highlights mostly | | | | | | expected numbers of | | | | | | mastcells. | | | | | | DIAGNOSIS:SPONGIOTIC | | | | | | MIXED DERMATITIS WITH | | | | | | EOSINOPHILS X2. | | | | | | NOTE: The changes are | | | | | | similar in both | | | | | | specimens, where the | | | | | | numbers ofeosinophils, | | | | | | and extension around | | | | | | adnexae, suggest the | | | | | | possibility ofARTHROPOD | | | | | | BITE REACTION. The | | | | | | differential includes | | | | | | primary | | | | | | spongioticconditions, | | | | | | while the changes are | | | | | | not typical of | | | | | | pityriasis lichenoides | | | | | | ordermatitis | | | | | | herpetiformis. | | | | | | KPW:mm2/ My | | | | | | electronic signature | | | | | | indicates that I have | | | | | | personally reviewed | | | | | | alldiagnostic slides, | | | | | | the gross and/or | | | | | | microscopic portion of | | | | | | thisreport and | | | | | | formulated the final | | | | | | diagnosis. | | | | | | Rendering Diagnostician: | | | | | | Aleksander Huynh | | | | | | HanPathologistElectroni | | | | | | reva Signed 08/04/2014 | | | | | | 11:06AM | | | | + + + + + + + + | Specimen | + + | Biopsy | + + + + + + + | Performing | Address | City/State/Zipcode | Phone Number | | Organization | | | | + + + + + | [facility] | [address] | [place] [address] | | | DERMATOPATHOLOGY | [address] | | | + + + + + documented in this encounter Visit Diagnoses + + | Diagnosis | + + | Rash and other nonspecific skin eruption - Primary | + + documented in this encounter
--- OUTSIDE RECORDS SUMMARY | ~2020-01-14 | XMS | Encounter Summary ---
Demographics + + + | Address | [address] | | | [place] [address] | + + + | Home Phone | | + + + | Preferred Language | Unknown | + + + | Marital Status | | + + + | Judaism Affiliation | Unknown | + + + | Race | or | + + + | Ethnic Group | Not or | + + + Author + + + | Author | [facility] [employer] | + + + | Organization | [facility] [employer] [facility] | + + + | Address | Unknown | + + + | Phone | Unavailable | + + + Support + + + + + | Name | Relationship | Address | Phone | + + + + + | Elen Sheriff | ECON | [address] | | | | | #[place] | | | | | [address] | | + + + + + Care Team Providers + +------+ + | Care Electrician Control Equipment Name | Role | Phone | + [...] [facility] | | | | | | [facility] [address] | | | | | | [address] | | | | | | [address] | | | | | | [place] [address] | | | | | | [phone] | | | | | | | [...]
--- OUTSIDE RECORDS SUMMARY | ~2020-01-14 | XMS | Encounter Summary ---
Demographics + + + | Address | [address] | | | [place] [address] | + + + | Home Phone | | + + + | Preferred Language | Unknown | + + + | Marital Status | | + + + | Rastafari Affiliation | Unknown | + + + | Race | or | + + + | Ethnic Group | Not or | + + + Author + + + | Author | [facility] | + + + | Organization | [facility] [employer] [facility] | + + + | Address | Unknown | + + + | Phone | Unavailable | + + + Support + + + + + | Name | Relationship | Address | Phone | + + + + + | Elen Sheriff | ECON | [address] | | | | | #[place] | | | | | [address] | | + + + + + Care Team Providers + +------+ + | Care Signal Tester Name | Role | Phone | + +------+ + PCP | Unavailable | + +------+ + Encounter Details +--------+ + + + + | Date | Type | Department | Care Team | Description | +--------+ + + + + | 11/07/ | Procedure - | Digestive Health | Record, Operation | Operative Report | | 1997 | | Center at [facility] [address] | | | | | Transcribed | [facility] | | | | | | for Health and | | | | | | [facility] [address] | | | | | | [place], [place] | | | | | | [address] | | | | | | [phone] | | | +--------+ + + + [...] + + | 11/07/1997 12:00 AM PDT [place] | | [facility] | | [address] [place], [place] [address] | | [facility] | | | | OPERATION RECORD | | | | Med Rec No.: [id number] Date: 11/07/97 | | | | Name: Ladarius Sheriff | | | | | | ATTENDING SURGEON: | | Fidencio Claire M.D. | | Professor and Cardio Clinician, | | Department of Otolaryngology | | Head and Neck Surgery | | PRESS TENDER SMOKE SIGNAL(S): | | Shadi Matos M.D. | | [...] of the Gelfoam underneath | | the sk[place] tympanic membrane. This was tucked anteriorly. It was laid back | | along the canal wall and the tympanomeatal flap was laid against this. | | The previous vascular strip incision was then laid in its previous position | | and the medial ear canal was filled with Gelfoam. An Ava-Wick was placed on | | top of [...] Fidencio Claire M.D. | | Professor and Cardio Clinician, | | Department of Otolaryngology | | Head and Neck Surgery | | Ramiro | | | | A | | | | cc: | | | + + documented in this encounter Visit Diagnoses Not on filedocumented in this encounter"
--- OUTSIDE RECORDS SUMMARY | ~2020-01-14 | XMS | Encounter Summary ---
Demographics + + + | Address | [address] | | | [place] [address] | + + + | Home Phone | | + + + | Preferred Language | Unknown | + + + | Marital Status | | + + + | Hoahaoism Affiliation | Unknown | + + + | Race | or | + + + | Ethnic Group | Not or | + + + Author + + + | Author | [facility] | + + + | Organization | [facility] [employer] [facility] | + + + | Address | Unknown | + + + | Phone | Unavailable | + + + Support + + + + + | Name | Relationship | Address | Phone | + + + + + | Elen Sheriff | ECON | [address] | | | | | #[place], [place] | | | | | [address] | | + + + + + Care Team Providers + +------+ + | Care Energy Systems Laboratory Director Name | Role | Phone | + [...] | | | | and other | [place] | | | | | eczema, due | [address] | [address] | | | | | to | Phone: | Phone: | | | | | unspecified | [phone] | [phone] | | | | | cause | Fax: | Fax: | | | | | Procedures | [phone] | [phone] | | | | | [place] | | | | | | | [...] | 2015 | Visit | Medical at [facility] [address] | MD [address] | nonspecific skin | | | | [address] [place] | [place], [place] | eruption (Primary | | | | for Health and | [address] | Dx) | | | | [facility], [facility] 1, | [phone] | | | | | 16th Floor | | | | | | [place], [place] | | | | | | [address] | | | | | | [phone] | | | +--------+---------+ + + + [...]
--- OUTSIDE RECORDS SUMMARY | ~2020-01-14 | XMS | Encounter Summary ---
Demographics + + + | Address | [address] | | | [place] [address] | + + + | Home Phone | | + + + | Preferred Language | Unknown | + + + | Marital Status | | + + + | Sikhism Affiliation | Unknown | + + + | Race | or | + + + | Ethnic Group | Not or | + + + Author + + + | Author | [facility] | + + + | Organization | [facility] | + + + | Address | Unknown | + + + | Phone | Unavailable | + + + Support + + + + + | Name | Relationship | Address | Phone | + + + + + | Elen Sheriff | ECON | [address] | | | | | #[place], [place] | | | | | [address] | | + + + + + Care Team Providers + +------+ + | Care Viticulturist Name | Role | Phone | + +------+ + PCP | Unavailable | + +------+ + Encounter Details +--------+ + + + + | Date | Type | Department | Care Team | Description | +--------+ + + + + | 12/14/ | Office | General Internal | Note, Outpatient | Progress Note | | 1997 | Visit-Trans | Medicine [address] | Clinic | | | | criluiza | [facility] [place] | | | | | | Mailcode: [id number] | | | | | | Outpatient Clinic | | | | | | [facility], [address] | | | | | | [place], [place] | | | | | | [address] | | | | | | [phone] | | | +--------+ + + + [...] as of this encounter Progress Notes Interface, [employer] In - 07/02/2006 1:04 AM [facility] CL[facility] DATE: 12/14/97 OTOLARYNGOLOGY CLINIC: Mr. Sheriff is now five weeks post tympanomastoidectomy on the right. His right ear is no longer draining. Examination shows still a very small portion of granulation tissue on the posterior canal wall. The drum is intact and appears to be mobile. His hearing test today shows an SRT of 25 with excellent hearing except for high frequency loss, very little air-bone gap. At this particular time, I advised him to continue to keep his ear dry for another month. I touched the canal with some Gentian johan. He is to be rechecked as necessary. Fidencio Claire M.D. Professor and Evidence Custodian, Department of Otolaryngology Head and Neck Surgery [place]/sct documented in this encounter Plan of Treatment Not on filedocumented as of this encounter Visit Diagnoses Not on filedocumented in this encounter"
--- OUTSIDE RECORDS SUMMARY | ~2020-01-14 | XMS | Clinical Summary ---
Demographics + + + | Address | [address] | | | [place] [address] | + + + | Home Phone | | + + + | Preferred Language | Unknown | + + + | Marital Status | | + + + | Baptism Affiliation | Unknown | + + + | Race | or | + + + | Ethnic Group | Not or | + + + Author + + + | Author | [facility] | + + + | Organization | [facility] | + + + | Address | Unknown | + + + | Phone | Unavailable | + + + Support + + + + + | Name | Relationship | Address | Phone | + + + + + | Elen Sheriff | ECON | [address] | | | | | [place], [place] | | | | | [address] | | + + + + + Care Team Providers + +------+ + | Care Eating Disorder Psychologist Name | Role | Phone | + +------+ + | Wei Eden | PCP | | + +------+ + Source Comments AMANDA is fully live on both [facility] Ambulatory and [facility] InPatient.[facility] Allergies No Known Allergies Medications + + + +---------+------+------+-------+ | Medication | Sig | Dispensed | Refills | Star | End | Statu | | | | | | t | Date | s | | | | | | Date | | | + + + +---------+------+------+-------+ | triamcinolone | Apply to affected | 454 g | 1 | 03/2 | | Activ | | acetonide 0.1 % | area two times | | | 6/20 | | e | | topical ointment | daily. Apply thin | | | 15 | | | | | film to affected | | | | | | | | areas. | | | | | | + + + +---------+------+------+-------+ | hydrOXYzine 25 mg | Take 1 tablet by | 30 | 3 | 03/2 | | Activ | | oral tablet | mouth every four | tablet | | 6/20 | | e | | | hours as needed. | | | 15 | | | + + + +---------+------+------+-------+ Active Problems + + + | Problem | Noted Date | + + + | Rash and other nonspecific skin eruption | 08/18/2014 | + + + Social History + + [...] recent travel history available. | + + Last Filed Vital Signs + [...] Health Maintenance | Due Date | Last Done | Comments | + + + + + | Pneumococcal | | | | | vaccination (1 of 1 | 4 | | | | - PPSV23) | | | | + + + + + | Influenza (Flu) | | | | | vaccination (#1) | 9 | | | + + + + + Results Not on filefrom Last 3 Months Insurance + +--------+ +--------+ + +--------+ | Payer | Benefi | Subscriber | Effect | Phone | Address | Type | | | t Plan | ID | tod | | | | | | / | | Dates | | | | | | Group | | | | | | + +--------+ +--------+ + +--------+ | [place] | OHP | xxxxxxxx | 06/15/19 | [phone] | [address] | [address] | | | PLUS | | 14-Pre | 6 | [address] | id | | | OPEN | | sent | | [place], [place] | | | | CARD | | | | [id number] | | + +--------+ +--------+ + +--------+ | [facility] | [facility] | xxxxxxxxx | Effect | | | Agency | | SERVICE | | | tod | | | | | | HEALTH | | for | | | | | | | | all | | | | | | SERVIC | | dates | | | | | | E | | | | | | + +--------+ +--------+ + +--------+ + +--------+ +--------+ + + | Guarantor Name | Accoun | Relation to | Date | Phone | Billing Address | | | t Type | Patient | of | | | | | | | | | | + +--------+ +--------+ + + | Ladarius Sheriff | Person | Self [birth year] | | [address] | | | al/Fam | | 1956 | [phone] | [place], [place] | | | hillary | | | 6 (Home) | [address] | + +--------+ +--------+ + + | Ladarius Sheriff | Agency | Self | [birth year] | | [address] | | | | | 1956 | [phone] | [place], [place] | | | | | | [address] (Home) | [address] | + +--------+ +--------+ + +"
--- OUTSIDE RECORDS SUMMARY | ~2020-01-14 | XMS | Encounter Summary ---
Demographics + + + | Address | [address] | | | [place] [address] | + + + | Home Phone [...] + + | Author | [facility] [employer] [facility] | + + + | Organization | [facility] [employer] [facility] | + [...] #[place], [place] | | | | | [address] | | + + + + + Care Team Providers + +------+ + | Care Sausage Canner Name | Role | Phone | + [...] Clinic | | | | | | [facility], [address] | | | | | | [place], [place] | | | | | | [address] | | | | | | [phone] | | | +--------+ + + + [...] as of this encounter Progress Notes Interface, Floral Assistant In - 07/02/2006 1:04 AM [facility] CLINIC DATE: 12/14/97 OTOLARYNGOLOGY CLINIC: [...] as necessary. Fidencio Claire M.D. Professor and Gelatin Plant Supervisor, Department of Otolaryngology Head and Neck Surgery MORELIA/sct documented in this encounter Plan of Treatment Not on filedocumented as of this encounter Visit Diagnoses Not on filedocumented in this encounter"
--- OUTSIDE RECORDS SUMMARY | ~2020-01-14 | XMS | Encounter Summary ---
Demographics + + + | Address | [address] | | | [place] [address] | + + + | Home Phone | | + + + | Preferred Language | Unknown | + + + | Marital Status | | + + + | Gnosticist Affiliation | Unknown | + + + | Race | or | + + + | Ethnic Group | Not or | + + + Author + + + | Author | [facility] [employer] [facility] | + + + | Organization | [facility] [employer] [facility] | + + + | Address | Unknown | + + + | Phone | Unavailable | + + + Support + + + + + | Name | Relationship | Address | Phone | + + + + + | Elen Sheriff | ECON | [address] | | | | | #[place] | | | | | [address] | | + + + + + Care Team Providers + +------+ + | Care Visitor Services Representative Name | Role | Phone | + [...] | | | | and other | [facility] for | | | | | eczema, due | HEALTH | Health and | | | | | to | CENTER | Healing, | | | | | unspecified | [address] | [address], | | | | | cause | [facility] | [address] Floor | | | | | dermatitis. | [address] | [place], [place] | | | | | likely | [address] | [address] | | | | | scabies w/ | [place], | Phone: | | | | | noncompliant | [place] [address] | [phone] | | | | | pt | Phone: | Fax: | | | | | Procedures | [phone] | [phone] | | | | | eval & tx | Fax: | | | | | | | [phone] | | +--------+ + + + + + Encounter Details +--------+---------+ + + + | Date | Type | Department | Care Team | Description | +--------+---------+ + + + | 08/01/ | Office | Dermatology | Greg Garza, | Rash and other | | 2014 | Visit | [facility] [address] | MD [address] | nonspecific skin | | | | [address] | [place], [place] | eruption (Primary | | | | for Health and | [address] | Dx) | | | | Healing, [address], | [phone] | | | | | [address] Floor | | | | | | [place], [place] | | | | | | [address] | | | | | | [phone] | | | +--------+---------+ + + + [...] information is available at the following websites: [email or web address] - [facility] Derm atology [email or web address]://[email or web address]/public/sun/[email or web address] - [facility] Website documented [...] 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 MEDICATIONS: Current Medication List Not on File [...] RETURN VISIT: 2 weeks Department of Dermatology [facility] 08/01/2014 documented in this en counter Plan of Treatment Not on filedocumented as of this encounter Procedures + +--------+ + + + | Procedure Name | Priori | Date/Time | Associated Diagnosis | Comments | | | ty | | | | + +--------+ + + + | [place] BIOPSY, EACH | Routin | 08/04/2014 | Rash and other | | | ADDED LESION | e | 3:27 PM | nonspecific skin | | | | | PST | eruption | | + +--------+ + + + | [place] BIOPSY OF SKIN | Routin | 08/04/2014 [...] AMANDA | [address] | [place] [address] | | | DERMATOPATHOLOGY | [address] | | | + + + + + documented in this encounter Visit Diagnoses + + | Diagnosis | + + | Rash and other nonspecific skin eruption - Primary | + + documented in this encounter
--- OUTSIDE RECORDS SUMMARY | ~2020-01-14 | XMS | Encounter Summary ---
Demographics + + + | Address | [address] | | | [place] [address] | + + + | Home Phone | | + + + | Preferred Language | Unknown | + + + | Marital Status | | + + + | Tenriism Affiliation | Unknown | + + + | Race | or | + + + | Ethnic Group | Not or | + + + Author + + + | Author | [facility] | + + + | Organization | [facility] | + + + | Address | Unknown | + + + | Phone | Unavailable | + + + Support + + + + + | Name | Relationship | Address | Phone | + + + + + | Elen Sheriff | ECON | [address] | | | | | #[place], [place] | | | | | [address] | | + + + + + Care Team Providers + +------+ + | Care Search Director Name | Role | Phone | + +------+ + PCP | Unavailable | + +------+ + Encounter Details +--------+ + + + + | Date | Type | Department | Care Team | Description | +--------+ + + + + | 10/30/ | Office | General Internal | Note, Outpatient | Progress Note | | 1997 | Visit-Trans | Medicine [address] | Clinic | | | | cribed | [address] | | | | | | Mailcode: [id number] | | | | | | Outpatient Clinic | | | | | | [facility], [address] | | | | | | [place], [place] | | | | | | [address] | | | | | | [phone] | | | +--------+ + + + [...] as of this encounter Progress Notes Interface, Specialty Food Products Supervisor In - 07/09/2006 1:03 AM PST CLINIC DATE: 10/30/97 OTOLARYNGOLOGY CLINIC Mr. 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 He is being referred by Dr. Wilkins in [place], mainly because of abnormal x-rays suggesting petrous involvement. He states that he has had a problem off and on for many years, but the past year and a half there have been repetitive ear infections and his ear has continued to drain, occasionally quite painful, associated with some odor, but most of the time very much mucus. He does describe removing a foxtail sticker from his ear about three months ago which he felt was irritating and causing some of the discharge, but he had discharge long before. His hearing has diminished on the right side. He denies any dizziness or unsteadiness, however. He has been seen by Dr. Wilkins since early September. He was treated with Cortisporin Otic drops and Ciprofloxacin. This was then followed because his symptoms did not completely improve. He was followed with Lotrisone ointment to the external canal, which the patient feels has given some relief and then he was started on Levaquin along with Cortisporin drops and Tylenol for pain because of a recurrence of symptoms six days ago. He gives no history of ear operations in the past. 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 FAMILY HISTORY: Positive in that his brother has an ear problem. The patient himself says that he has not been particularly good about taking his medications and has frequently stopped taking them in the past. PAST MEDICAL HISTORY: No history of cardiac, pulmonary, gastrointestinal or genitourinary complaints. He states that he has never had hepatitis or diabetes. MEDICATIONS: 1. Tylenol with codeine, p.r.n. 2. Cortisporin. 3. Levaquin, 500 mg once a day. PREVIOUS SURGERIES: None. ALLERGIES: None to drugs or medications. No types of food. Pollen - negative. HABITS: He has smoked for 29 years, a pack plus a day. Alcohol is significant. He has had a problem with alcohol and drug abuse in the past. Caffeine - ten plus cups a day. PHYSICAL EXAMINATION: Exam reveals a pleasant German male in no distress. Ears - tympanic membrane on the right demonstrates 50% perforation. There is very thick, yellowish, tenacious mucus which was aspirated from the anterior portion of the ear canal. The remainder of his ear shows some thickness of the drum but no active discharge at this time. Air conduction is slightly better than bone conduction in both ears, although the patient lateralizes to the right. Nose is clear, there is no discharge. Mouth- there are no significant oral lesions. There are several teeth missing. Hypopharynx and larynx - unable to see. NECK: No unusual adenopathy. Thyroid is not enlarged. Audiogram was sent down by Dr. Watt and shows an asymmetric neurosensory hearing loss. High tone loss on the right at 4000, coming back up at 6000 and a 25 to 35 decibel air conduction level with 10 to 15 decibel air conduction level threshold on the right. The patient came with his x-rays which were reviewed. He had an MRI which showed significant mastoid disease. However, it is difficult for me to interpret the extension into the piriform aperture. 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 The patient is a candidate for tympanomastoidectomy, certainly on the basis of my findings, although the extension into the petrous is still undecided. I will review the films with Dr. Cueva. The patient will be scheduled within the next couple weeks. Fidencio Claire M.D. Professor and Loop Tender, Department of Otolaryngology Head and Neck Surgery MORELIA/monserrat documented in this encounter Plan of Treatment Not on filedocumented as of this encounter Visit Diagnoses Not on filedocumented in this encounter"
--- OUTSIDE RECORDS SUMMARY | ~2020-01-14 | XMS | Encounter Summary ---
Demographics + + + | Address | [address] | | | [place] [address] | + + + | Home Phone | | + + + | Preferred Language | Unknown | + + + | Marital Status | | + + + | Adventist Affiliation | Unknown | + + + | Race | or | + + + | Ethnic Group | Not or | + + + Author + + + | Author | [facility] [employer] [facility] | + + + | Organization | [facility] [employer] [facility] | + + + | Address | Unknown | + + + | Phone | Unavailable | + + + Support + + + + + | Name | Relationship | Address | Phone | + + + + + | Elen Sheriff | ECON | [address] | | | | | #[place], [place] | | | | | [address] | | + + + + + Care Team Providers + +------+ + | Care Edge Worker Name | Role | Phone | + [...] Clinic | | | | | | [facility], [address] | | | | | | [place], [place] | | | | | | [address] | | | | | | [phone] | | | +--------+ + + + [...] as of this encounter Progress Notes Interface, Agile Java Developer In - 07/09/2006 1:03 AM PST CLINIC DATE: 10/30/97 OTOLARYNGOLOGY CLINIC Mr. 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 He is being referred by Dr. Wilkins in [place], mainly because of abnormal x-rays suggesting petrous [...] day. PHYSICAL EXAMINATION: Exam reveals a pleasant Brazilian male in no distress. Ears - tympanic [...] couple weeks. Fidencio Claire M.D. Professor and Administrative Assistant Front Desk, Department of Otolaryngology Head and Neck Surgery MORELIA/monserrat documented in this encounter Plan of Treatment Not on filedocumented as of this encounter Visit Diagnoses Not on filedocumented in this encounter"
--- OUTSIDE RECORDS SUMMARY | ~2020-01-14 | XMS | Encounter Summary ---
Demographics + + + | Address | [address] | | | [place] [address] | + + + | Home Phone | | + + + | Preferred Language | Unknown | + + + | Marital Status | Single | + + + | Latter-Day Affiliation | Unknown | + + + | Race | Unknown | + + + | Ethnic Group | Unknown | + + + Author + + + | Author | [facility] | | | and [place] | + + + | Organization | [facility] | | | and [...] Team Providers + +------+ + | Care Manager Quality Systems Name | Role | Phone | + +------+ + PCP | Unavailable | + +------+ + Encounter Details +--------+ + + + + | Date | Type | Department | Care Team | Description | +--------+ + + + + | 03/21/ | Hospital | [facility] | Conversion | Hypotension, | | 2013 - | Encounter | [facility] | Transaction, | unspecified; Acute | | | | CLINICAL DECISION | Provider Unknown | respiratory failure | | 04/03/ | | [address] | [phone] | (FORM[facility]); Altered | | 2013 | | [place], [place] | | mental status; | | | | [phone] | | Alcohol withdrawal | | | | [phone] | | syndrome ([facility]); | | | | | | Unspecified | | | | | | essential | | | | | | hypertension; DTs | | | | | | (delirium tremens) | | | | | | ([facility]) | +--------+ + + + + Social [...] on file | | + + + documented as of this encounter Discharge Summaries Lang Flannery MD - 04/03/2014 1:14 PM PDTFormatting of this note might be diff erent from the original. Discharge Summaries by Lang Flannery MD at 04/03/14 1314 Author: Lang Flannery MD Service: Hospitalist Author Type: Physician Filed: 04/04/14 0113 Date of Service: 04/03/141313 Status: Signed Photographs Curator: Lang Flannery MD (Physician) [facility] Service: Hospitalist Discharge Summary Date of Admission: 03/21/2014 Date of Discharge: 04/03/2014 Discharge Provider: Lang Flannery MD Treatment Team: Admitting Provider: Ravin Avila MD Discharge Diagnoses: Principal Problem (Resolved): Alcohol withdrawal syndrome Active Problems: Alcohol abuse, continuous Resolved Problems: Aspiration into lower respiratory tract Acute respiratory failure Altered mental status DTs (delirium tremens) Procedures: * No surgery found * Significant Diagnostic Studies: X-ray Chest 1 View 04/01/2014 1. Minimal bibasilar subsegmental atelectasis. Xr Chest 1 View 03/31/2014 1. Resolution of previous alveolar infiltrates with probable residual mild i nterstitial pulmonary edema and or acute/chronic bronchitis. 2. Satisfactory left PICC line . X-ray Chest 1 View 03/28/2014 1. Decreasing atelectasis/pneumonia at the left lung base. 2. Persistent di ffuse mild interstitial infiltrate suggesting interstitial pulmonary edema, unchanged. 3. I nterval removal of the nasogastric feeding tube. F HISTORY OF PRESENTATION: As per population health coach admitting H and P and transfer note " Laadrius Abbasi is a 58 y. o. male who apparently today was found down by his family in [place]. He was transferred to a hospital in this region where he was admitted due to delirium tremens and alcohol withdrawa l. The patient became more agitated overnight, requiring up to 20 mg of Ativan. He continued to be very agitated and required intubation for patient safety. The patient was consulted t o us and transferred to our institution due to respiratory failure secondary to alcohol with drawal. ICU Timeline: 03/21: Admit to ICU. Transferred from [facility]. Last drink thought to be early in the am of 03/21. 03/22: No acute events. DT's managed with Precedex. Now on SBT and beginning to wake. During SBT spiked a fever. Will hold off on extubation. Started on Zosyn. 03/23: No acute events. Sedation holiday this am. More appropriate. Calm. No acute evidence of w/d. Required 1L NS overnight for hypotension. Increased secretions this am. 03/24: Episode of acute delirium overnight despite Precedex. Increased to 1.5mcg/kg/min. 03/25: Remained extubated overnight. Requires intermittent NT suctioning for upper airway i ssues (coarse/sonorous). Agitated intermittently. Remains on Dex. Transitioned from Valium t o Haldol with some improvement. 03/26: Re intubated. 03/27: Extubated. 03/28: remained extubated HOSPITAL COURSE: After transfr to acute care floor patient remained weak and confused and this cleared slowl y during his stay in acute care floor, discussion swere done with sister Noelle with regards to where patient could be discharged too and finallyfamily and patient decided on discharge to SNF for further strengthening . During stay in hospital tarun couselled extensively to s top dringking alcohol and warned of consequences all the way leading to if he continue d to drink alcohol. Past Medical History Diagnosis Date Current smoker No past surgical history on file. No Known Allergies No prescriptions prior to admission DISCHARGE EXAM Vital Signs: BP 125/73 | Pulse 119 | Temp(Src) 99.8 F (37.7 C) (Oral) | Resp 18 | Ht 1.702 m (5' 7") | Wt 72.938 kg (160 lb 12.8 oz) | BMI 25.18 kg/m2 | SpO2 98% Physical Exam General Appearance: Alert, cooperative, no distress, appears older than stated age, not sh aky anymore Head: Normocephalic, without obvious abnormality, atraumatic Eyes: PERRL, conjunctiva/corneas clear, EOM's intact, fundi benign, both eyes Ears: Normal TM's and external ear canals, both ears Nose: Nares normal, status post cleft lip repair mucosa normal, no drainage or sinus tende rness Throat: Lips, mucosa, and tongue normal; teeth and gums normal Neck: Supple, symmetrical, trachea midline, no adenopathy; thyroid: No enlargement/tenderness/nodules; no carotid bruit or JVD Back: Symmetric, no curvature, ROM normal, no CVA tenderness Lungs: Clear to auscultation bilaterally, respirations unlabored Chest wall: No tenderness or deformity Heart: Regular rate and rhythm, S1 and S2 normal, no murmur, rub or gallop Abdomen: Soft, non-tender, bowel sounds active all four quadrants, no masses, no organomegaly Extremities: Extremities normal, atraumatic, no cyanosis or edema Pulses: 2+ and symmetric all extremities Skin: Skin color, texture, turgor normal, no rashes or lesions Lymph nodes: Cervical, supraclavicular, and axillary nodes normal Neurologic: CNII-XII intact. Motor strength equal upper and lower extremity, 4 over 5. Disposition: Home Condition: Good Code Status: Full Code Discharge Instructions Referral to Speech Therapy Referral Priority: Routine Referral Type: Speech Therapy Referral Reason: Specialty Services Required Requested Specialty: Speech Pathology Number of Visits Requested: 1 Referral to Physical Therapy Referral Priority: Routine Referral Type: Physical Medicine Referral Reason: Specialty Services Required Requested Specialty: Physical Therapy Number of Visits Requested: 1 Referral to Occupational Therapy Referral Priority: Routine Referral Type: Occupational Therapy Referral Reason: Specialty Services Required Requested Specialty: Occupational Therapy Number of Visits Requested: 1 Diet Cardiac Order Comments: Dysphagia Advanced Recommendations Set up with meals;Check on patients frequently throught out meals;Dysphagia treatment Risk for Aspiration Mild Compensatory Swallowing Strategies Upright as possible for all oral intake;Small bites/sips;Eat/feed slowly;No straws Recommended Form of Meds Meds floated in puree Activity as Advised by Physical Therapy Call MD for: Temperature > 100.4F (38C) Call MD for: Persistant Nausea and Vomiting Follow up: AICHA Forbes Medication List START taking these medications folic acid 1 MG tablet QTY: 30 tablet Refills: 0 Commonly known as: FOLVITE Take 1 tablet by mouth daily. ipratropium-albuterol 0.5-2.5 mg/3mL QTY: 360 mL Refills: 0 Commonly known as: DUO-NEB Take 3 mLs by nebulization every 6 (six) hours as needed (wheezing). metoprolol 25 MG tablet QTY: 60 tablet Refills: 11 Commonly known as: LOPRESSOR Take 1 tablet by mouth 2 (two) times daily. nicotine 14 MG/24HR QTY: 30 patch Refills: 0 Commonly known as: NICODERM CQ Place 1 patch onto the skin daily. thiamine 100 MG tablet QTY: 30 tablet Refills: 0 Commonly known as: VITAMIN B-1 Take 1 tablet by mouth daily. 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 You may get the following medications from any pharmacy - folic acid 1 MG tablet - ipratropium-albuterol 0.5-2.5 mg/3mL - metoprolol 25 MG tablet - nicotine 14 MG/24HR - thiamine 100 MG tablet An After Visit Summary was printed and given to the patient. Patient verbalized understanding, agreement, and compliance with discharge plan. Discharge took more than 35 minutes, to include final examination, discussion of admission , and preparation of prescriptions, instructions for on-going care, follow-up and documentat ion of discharge summary. Lang Flannery MD 04/03/2014 documented in this encounter Progress Notes Katia Raines MS CCC-TURBINE ENGINE ASSEMBLER - 04/03/2014 2:24 PM PDTFormatting of this note might be differen t from the original. Therapy Progress Note by Katia Raines MS CCC-TURBINE ENGINE ASSEMBLER at 04/03/14 2089 Author: Katia Raines MS CCC-TURBINE ENGINE ASSEMBLER Service: (none) Author Type: Speech and Language Pathol ogist Filed: 04/03/14 2587 Date of Service: 04/03/141423 Status: Signed Photographs Curator: Katia Raines MS CCC-TURBINE ENGINE ASSEMBLER (Speech and Language Pathologist) 04/03/14 7797 Swallowing Assessment Eval Swallowing Treatment Yes Thin Presentation Straw;Self Fed Oral Phase Thin WFL Pharyngeal Phase No overt signs or symptoms of aspiration Regular Presentation Self Fed Oral Phase WFL Pharyngeal Phase No overt signs or symptoms of aspiration Recommendations Liquids Consistency Recommendations Thin Diet Consistency Recommendation Regular Recommendations Check on patients frequently throught out meals;Set up with meals Risk for Aspiration Mild Compensatory Swallowing Strategies Upright as possible for all oral intake;Small bites/sips ;Eat/feed slowly Recommended Form of Meds Meds with recommended liquid Summary Pt w/imp'd ability to tolerate thin liquids when alternating w/ solid food trials. Pt able to recall swallow precautions independently. Pt reports he is d/cing today, if not, pt's diet can be upgraded to regular textures w/thin liquids. No need for further skilled sp eech therapy at this time. Staff Notified RN Plan of Care Treatment Plan No futher therapy recommended;Discharge from at this time Dysphagia Goals Pt will have safe/efficient oral intake Thin liquids;Regular diet;Goal met Pt will tolerate tolerate liquid consistency Thin liquids;Goal met KATIA RAINES MS CCC-TURBINE ENGINE ASSEMBLER 04/03/2014 onversion Black saction, Provider Unknown - 04/03/2014 2:02 PM PDTFormatting of this note might be differen t from the original. Case Management by Afua Granda RN at 04/03/14 3423 Author: Afua Granda RN Service: (none) Author Type: Registered Nurse Filed: 04/03/14 7508 Date of Service: 04/03/141401 Status: Signed Photographs Curator: Afua Granda RN (Registered Nurse) Disposition: [facility] [place] Transportation: Facility Van All orders, signed AVS, and prescriptions have been faxed All DC paperwork completed Patient and family in agreement with discharge plan Medicare important message (N/A): AFUA GRANDA onver mynor Transaction, Provider Unknown - 04/03/2014 12:46 PM PDT Progress Notes by MC Leyva at 04/03/14 5983 Author: MC Leyva Service: (none) Author Type: Registered Dietitian Filed: 04/03/14 1255 Date of Service: 04/03/14 1246 Status: Signed Photographs Curator: MC Leyva (Registered Dietitian) Nutrition Assessment and Recommendations Assessment: Moderate to high nutrition risk follow up. Pt was walking [id number] in the room when I visited. Pt reported he tolerates his diet well. He had eggs and sausage at breakfast to day. Nutritionally pertinent labs: elevated FBS 108 today Current intake: dysphagia advanced diet. Thin liquid. Nutrition Diagnosis: Dysphagia Intervention: Diet advancement per ST Goals: po intake meeting 75% of his nutrition needs, Recommendations: Continue current diet as ordered. Monitoring: Will follow up in 5 days Hiral Hermosillo MS.CN. onver mynor Transaction, Provider Unknown - 04/03/2014 11:50 AM PDT Case Management by Afua Granda RN at 04/03/14 1150 Author: Afua Granda RN Service: (none) Author Type: Registered Nurse Filed: 04/03/14 1401 Date of Service: 04/03/14 1150 Status: Addendum Photographs Curator: Afua Granda RN (Registered Nurse) Related Notes: Original Note by Afua Granda RN (Registered Nurse) filed at 04/03/14 11 53 CM spoke with patient's sister Elizabeth [phone] regarding patient returning to her home or to [facility]. Elizabeth stated she is unable to provide care for her brother as of this time due to additional family issues. Patient and sister are in agreement for transfer to [facility] at discharge. SNF paperwork signed and on chart. [facility] transportation at discharge. onver mynor Transaction, Provider Unknown - 04/03/2014 11:10 AM PDT Case Management by Afua Granda RN at 04/03/14 1110 Author: Afua Granda RN Service: (none) Author Type: Registered Nurse Filed: 04/03/14 1113 Date of Service: 04/03/14 1110 Status: Signed Photographs Curator: Afua Granda RN (Registered Nurse) CM spoke with Carlos A Street Sweeper Operator of [facility], Carlos A stated bed available for paul will today, requesting updated clinical. Clinical e faxed to [phone] per request. Carlos A to notify CM when clinical has been reviewed and patient is accepted for placement. onver mynor Transaction, Provider Unknown - 04/03/2014 9:14 AM PDT Therapy Progress Note by JOSEPH Mace at 04/03/14913 Author: JOSEPH Mace Service: (none) Author Type: Occupational Therapist Filed: 04/03/14 1017 Date of Service: 04/03/14913 Status: Signed Photographs Curator: JOSEPH Mace (Occupational Therapist) 04/03/14913 OT Last Visit OT Received On 04/03/14 Reason for Treatment Deconditioning Requires OT Follow Up No Assistance Required Independent Propeller Engineer Needed No Family/Caregiver Present No Other Comments Comments Pt up walking around in room independently upon OT arrival. Pt completed re-asses sment of cognition using the [place] Cognitive Assessment. Pt scored 22/30 (73%) indicating mild cog deficits which is an improvement from previously scoring 14/22 (63%). The pt was u nable to complete trailmaking task, able to copy a [place], able to draw a clock but not able to accurately place the hands. Pt was able to name 3/3 animals. no difficulty noted with at tention tasks, pt was only able to name 6 words beginning with "S" in 1 minute (WNL is 11 or better), able to recall 0/5 words after delay, oriented 6/6. Pt also completed the home saf ety questionnaire See below for details. LE Dressing LE Dressing (declined-pt states he will be showering soon ) Activity Tolerance Activity Tolerance Patient tolerated treatment well Safety Devices Type of Devices Call lite in place Safety Awareness Questionnaire: 1. If you fell down at home and couldn't get up, what would you do? Crawl to the phone and call 911 2. If a herrera of grease caught on fire, what would you do? Use a fire extinguisher to put it out 3 What would you do if you had a cold? Take cold medicine 4. What would you do if a child swallowed poison? Make him puke it up and call 911 5. What would you do if you smelled gas in your house? Open windows, call the [employer] and get out 6. What would you do if your furnace would not work and you knew it was going to get cold? Use the electric heater or the wood stove 7. What would you do if your neighbor was out of town and you saw strangers? Call the microfabrication engineer manager 8. What would you do if your roommate fall? Call 911 9. What would you do if you got something in your eye? Flush it out 10. What if your toaster cord was frayed and you had been shocked before? Throw it away and not use it anymore 11. What would you do if your tooth started to ache? Go to the Dentist 12. What would you do if you need to get a can of soup out of the cabinet that was higher t ashby you could reach? Use a step stool 13. What would you do if you found a stray dog in your yard and it was growling at you? Grab a stick and connie it off... Or shoot it. With cueing pt stated he would call the [employer] 14. What would you do if you dropped a glass bowl of vegetables onto the floor and it broke ? Sweep it up into a dust herrera and throw it all away Scoring: Good- Requires occasional verbal cues only Fair- Requires frequent verbal cues Poor -Requires constant verbal cues 04/03/14 0914 Plan Treatment Interventions (Per OT POC ) Progress Progressing toward goals Requires OT Follow Up No Recommendation Recommendation No skilled OT; OT recommends assistance with IADLs at home with medication m anagement, cooking, and driving tasks d/t cog deficits -difficulty with memory and visuospat ial abilities; pt states he has a friend who is a caregiver that he could ask for assistance . No Skilled OT Safe to return home with IADL assistance d/t cog deficits Equipment Recommended Shower chair with back;Grab bars withing home Education Completed: Education Topic: home safety; cognitive deficits Completed with: Patient, Spouse / Significant Other, Family, Caregiver Completed by: Written Material, Verbal Education, Demonstration Response to Education: Stated Understanding, Returned Demonstration, Reinforcement Bella jeffers for Education Understanding Occupational Therapy Plan: Discontinue OT services at this time. Reason for D/C: no need for continued skilled acu te OT The following recommendations are made for d/c planning at this time: Return to home w/ family support Pt would benefit from OPOT for inc indep with IADLs and for improved cognition Lang Goodman MD - 04/02/2014 8:19 AM PDTFormatting of this note might be different f rom the original. Progress Notes by Lang Flannery MD at 04/02/14818 Author: Lang Flannery MD Service: Hospitalist Author Type: Physician Filed: 04/02/14 1634 Date of Service: 04/02/14818 Status: Signed Photographs Curator: Lang Flannery MD (Physician) [facility] Service: Hospitalist Progress Note Hospital Day: LOS: 12 days Post-Op Day: * No surgery found * SUBJECTIVE Patient Summary: Events Overnight: Patient seen and examined at bedside and follow-up. Patient continu es to be hemodynamically stable, continues to be afebrile, he continues to show no signs of delirium tremens. Patient has been eating more, has been ambulating, he continues to feel s tronger and asks when he can go home. He denies any chest pain, denies any shortness of anjali ath. He has not had any diarrhea, he has not been having any nausea. He did not appear con fused to me today. Scheduled Medications docusate sodium 100 mg Oral BID Or docusate 100 mg Per OG Tube BID enoxaparin 40 mg Subcutaneous Q24H eucerin Topical Daily folic acid 1 mg Oral Daily lidocaine buffered 1% 0.5 mL Intradermal Once metoprolol 5 mg Intravenous Q6H nicotine 1 patch Transdermal Daily polyethylene glycol 17 g Oral Daily QUEtiapine 50 mg Oral Nightly sodium chloride 0.9 % 10 mL Intravenous Q12H VARUN thiamine 100 mg Oral Daily Continuous Infusions PRN Medications acetaminophen, acetaminophen, diazepam, diazepam, diazepam, hydrALAZINE, ipratropium-albute rol, nystatin, ondansetron, ondansetron, sodium chloride 0.9 % OBJECTIVE Vital Signs: BP 130/74 | Pulse 105 | Temp(Src) 99 F (37.2 C) (Oral) | Resp 16 | Ht 1.702 m (5' 7") | Wt 73.029 kg (161 lb) | BMI 25.21 kg/m2 | SpO2 96% General Appearance: Alert, cooperative, no distress, appears older than stated age, not shaky anymore Head: Normocephalic, without obvious abnormality, atraumatic Eyes: PERRL, conjunctiva/corneas clear, EOM's intact, fundi benign, both eyes Ears: Normal TM's and external ear canals, both ears Nose: Nares normal, status post cleft lip repair mucosa normal, no drainage or sinus t enderness Throat: Lips, mucosa, and tongue normal; teeth and gums normal Neck: Supple, symmetrical, trachea midline, no adenopathy; thyroid: No enlargement/tenderness/nodules; no carotid bruit or JVD Back: Symmetric, no curvature, ROM normal, no CVA tenderness Lungs: Clear to auscultation bilaterally, respirations unlabored Chest wall: No tenderness or deformity Heart: Regular rate and rhythm, S1 and S2 normal, no murmur, rub or gallop Abdomen: Soft, non-tender, bowel sounds active all four quadrants, no masses, no organomegaly Extremities: Extremities normal, atraumatic, no cyanosis or edema Pulses: 2+ and symmetric all extremities Skin: Skin color, texture, turgor normal, no rashes or lesions Lymph nodes: Cervical, supraclavicular, and axillary nodes normal Neurologic: CNII-XII intact. Motor strength equal upper and lower extremity, 4 over 5. DATA CBC: Lab Results Component Value Date WBC 12.2* 04/01/2014 RBC 3.05* 04/01/2014 HGB 8.8* 04/01/2014 HCT 27.6* 04/01/2014 MCV 90.5 04/01/2014 MCH 28.9 04/01/2014 MCHC 31.9* 04/01/2014 RDW 53.8* 04/01/2014 PLT 650* 04/01/2014 MPV 6.9 04/01/2014 DIFFTYPE MANUAL 04/01/2014 CMP: Lab Results Component Value Date NA 139 04/02/2014 K 3.4* 04/02/2014 CL 106 04/02/2014 CO2 25 04/02/2014 ANIONGAP 11 04/02/2014 GLUF 103* 04/02/2014 BUN 16 04/02/2014 CREATININE 0.62* 04/02/2014 BCR 26 04/02/2014 CA 8.8 04/02/2014 PROT 7.7 03/30/2014 ALB 3.4* 03/30/2014 GLOB 4.3 03/30/2014 BILITOT 0.4 03/30/2014 ALP 111 03/30/2014 AST 21 03/30/2014 ALT 17 03/30/2014 EGFR >60 04/02/2014 Calcium: No results found for this basename: CALCIUM Magnesium: Lab Results Component Value Date MG 1.7 04/02/2014 Phosphorus: Lab Results Component Value Date PHOS 3.9 04/02/2014 PT/INR: Lab Results Component Value Date INR 1.0 03/22/2014 PTT: No results found for this basename: APTT [APTT} U/A: Lab Results Component Value Date CLARITYU CLEAR 04/01/2014 LEUKOCYTESUR NEGATIVE 04/01/2014 NITRITE NEGATIVE 04/01/2014 UROBILINOGEN 0.2 04/01/2014 PHUR 6.0 04/01/2014 BLOODU NEGATIVE 04/01/2014 KETONES NEGATIVE 04/01/2014 BILIRUBINUR NEGATIVE 04/01/2014 GLUCOSEU NEGATIVE 04/01/2014 X-ray Abdomen 1 View 03/27/2014 1. New enteric tubes as above. The Dobbhoff tube is superimposed over the ga stric fundus and is new. The nasogastric tube is pre-existing and the tip is superimposed ov er the gastric antrum 2. Stable interstitial edema, perhaps evidence of pneumonitis or diff use infection. Retrocardiac atelectasis or infiltrate is unchanged also Electronically sign ed by Ash Diaz MD on 03/27/2014 12:08 PM X-ray Chest 1 View 04/01/2014 1. Minimal bibasilar subsegmental atelectasis. Xr Chest 1 View 03/31/2014 1. Resolution of previous alveolar infiltrates with probable residual mild i nterstitial pulmonary edema and or acute/chronic bronchitis. 2. Satisfactory left PICC line . X-ray Chest 1 View 03/28/2014 1. Decreasing atelectasis/pneumonia at the left lung base. 2. Persistent di ffuse mild interstitial infiltrate suggesting interstitial pulmonary edema, unchanged. 3. I nterval removal of the nasogastric feeding tube. X-ray Chest 1 View 03/27/2014 1. Extensive interstitial pulmonary changes without cardiac enlargement. Kathia cation is ARDS or noncardiogenic pulmonary edema. Pneumonia less likely. Small left pleural effusion. 2. Proper position of ET tube, central line and recently added feeding tube Meaghan ctronically signed by Tino Crain MD on 03/27/2014 6:52 PM X-ray Chest 1 View 03/27/2014 1. Persistent left lower lobe segmental atelectasis/pneumonia. 2. Mild impr ovement of diffuse interstitial lung infiltrates, nonspecific, possibly representing interst itial pulmonary edema. 3. Satisfactory position of life-support catheters. X-ray Chest 1 View 03/26/2014 1. Endotracheal tube and nasogastric tube remain in satisfactory position. 2. Lungs show a coarse reticular pattern suggesting interstitial edema unchanged from yesterd ay but slowly increasing since admission. Electronically signed by Nguyễn Garnica DO on 7:07 AM X-ray Chest Ap Only 03/25/2014 1. Tubes and lines, as above. No pneumothorax. 2. Severe diffuse lung diseas e, similar to the prior study. 14 9:55 PM PROBLEM LIST Principal Problem: Alcohol withdrawal syndrome Active Problems: Aspiration into lower respiratory tract Altered mental status DTs (delirium tremens) Alcohol abuse, continuous ASSESSMENT & PLAN Patient Active Hospital Problem List: Alcohol withdrawal syndrome (03/21/2014) Assessment: Improved Plan: valium as needed, continue thiamine as oral instead of IV, Continue PT. diet as p er speech therapy recommendation. I did discuss with the patient's sister Noelle as to [facility] the patient can be taken care of at her house. According to Noelle she would not be able to watch him all the time and he could wander off. As well as she does not believe he is at baseline. Altered mental status (03/21/2014) Assessment: improving Plan: Continue with Seroquel, valium prn as noted above DTs (delirium tremens) (03/21/2014) Assessment: Improving Plan: As above Alcohol abuse, continuous (03/21/2014) Assessment: Chronic Plan: Patient advised to stop drinking and start going to AA on discharge. Aspiration pneumonia Assessment: Acute from his alcohol intoxication Plan: Discontinue Zosyn for now , CBC slightly elevated, repeat urinalysis negative, repea t chest x-ray only shows atelectasis. We will continue with incentive spirometry. I explained lab findings and plan of care to patient and his friends at bedside and they ve rbalized understanding and agreement and had no more questions for me after my interaction w ith him. More than 25 minutes spent directly face to face with patient and more than 65% spe nt for physical examination and talking with patient and his friends and cousins at bedside , on chart review, coordinating care with other providers, formulating a plan of care and ma nagement as well as Computerized Physician Clergy Member. Dictation software, [employer], used which may contain error for similar sounding words even af ter review. Disposition: To SNF tomorrow Code Status: Full Code Lang Flannery MD 04/02/2014 onversion Transaction, Provider Unknown - 04/01/2014 1:55 PM PDTFormatting of this note might be diff erent from the original. Therapy Progress Note by GODWIN Guzman at 04/01/14 2390 Author: GODWIN Guzman Service: (none) Author Type: Occupational Therapist Filed: 04/01/14 2491 Date of Service: 04/01/14 5052 Status: Signed Photographs Curator: GODWIN Guzman (Vessel Crew Member) 04/01/14 1887 OT Last Visit OT Received On 10/18/14 Reason for Treatment Deconditioning Requires OT Follow Up Yes Assistance Required Independent Propeller Engineer Needed No Family/Caregiver Present No Precautions Other Precautions fall precautions Other Comments Comments pt standing at bedside upon SB arrival. pt willing to participate in therapy sess ion today. Discussed OT role. Pt demo UE ex hes been working on. pt able to demo ex. while s tanding with blue theraband 15x2 chest pull elbow flex/ext. Per pt. report has L shoulder st iffness from old injury. Pt given yellow theraband for less resistance during ex. activities . Pt able to demo 12x2 diagonal up/down. Pt needing verbal cueing/instruction for proper joshua hnique. Activity Tolerance Activity Tolerance Patient tolerated treatment well Safety Devices Safety Devices in Place Yes Type of Devices Call lite in place 04/01/14 9349 Plan Treatment Interventions (per OT POC) Progress Progressing toward goals Requires OT Follow Up Yes Recommendation Recommendation Short-term skilled OT;Long-term skilled OT Equipment Recommended Grab bars withing home Education Completed: Education Topic: OT role, UE strengthening Completed with: Patient, Completed by: Verbal Education, Demonstration Response to Education: Stated Understanding, Returned Demonstration, Reinforcement Bella jeffers for Education Understanding Occupational Therapy Plan: Continue OT treatment per POC Migdalia Sanchez MS CCC-TURBINE ENGINE ASSEMBLER - 04/01/2014 12:08 PM PDT Therapy Progress Note by Katia Raines MS CCC-TURBINE ENGINE ASSEMBLER at 04/01/14 1208 Author: Katia Raines MS CCC-TURBINE ENGINE ASSEMBLER Service: (none) Author Type: Speech and Language Pathol ogist Filed: 04/01/14 1208 Date of Service: 04/01/14 1208 Status: Signed Photographs Curator: Katia Raines MS CCC-TURBINE ENGINE ASSEMBLER (Speech and Language Pathologist) 04/01/14 1150 Swallowing Assessment Eval Swallowing Treatment Yes Thin Presentation Cup;Self Fed Oral Phase Thin WFL Pharyngeal Phase No overt signs or symptoms of aspiration Regular Presentation Self Fed Oral Phase Prolonged mastication Pharyngeal Phase No overt signs or symptoms of aspiration Recommendations Liquids Consistency Recommendations Thin Diet Consistency Recommendation Dysphagia Advanced Recommendations Set up with meals;Check on patients frequently throught out meals;Dysphagia treatment Risk for Aspiration Mild Compensatory Swallowing Strategies Upright as possible for all oral intake;Small bites/sips ;Eat/feed slowly;No straws Recommended Form of Meds Meds floated in puree Summary Pt w/imp'd ability to tolerate thin liquids w/DA lunch texture. Pt following swallo w precautions independently. TURBINE ENGINE ASSEMBLER to f/u 1x to ensure tolerance of thin liquids. Staff Notified RN Plan of Care Treatment Plan Alter current plan;Follow up x1 to ensure tolerance Dysphagia Goals Pt will tolerate tolerate liquid consistency Goal progressing KATIA RAINES MS CCC-TURBINE ENGINE ASSEMBLER 04/01/2014 Ron Aponte MD - 04/01/2014 9:19 AM PDTFormatting of this note might be different from the o riginal. Progress Notes by Lang Flannery MD at 04/01/14918 Author: Lang Flannery MD Service: Hospitalist Author Type: Physician Filed: 04/01/14 1442 Date of Service: 04/01/14918 Status: Signed Photographs Curator: Lang Flannery MD (Physician) [facility] Service: Hospitalist Progress Note Hospital Day: LOS: 11 days Post-Op Day: * No surgery found * SUBJECTIVE Patient Summary: Events Overnight: Patient seen and examined at bedside and follow-up, regine rivero nurse and cousins are visiting, patient is able to conversation with them. According to the nurse the patient normally walks all over the [place]. In people watch out for him. Aicha cruz wishes to go home to sister's house and according to the nurse and cousins alcohol is not allowed in the house, however patient's sister has medical problems too. Patient is orie nted to place and person but is off on time by the date however he was looking at the board, no slurred speech. Patient has been eating more, has been ambulating, he continues to feel stronger and asks when he can go home. He denies any chest pain, denies any shortness of b reath. He has not had any diarrhea, he has not been having any nausea. He still seems to b e confused. Scheduled Medications docusate sodium 100 mg Oral BID Or docusate 100 mg Per OG Tube BID enoxaparin 40 mg Subcutaneous Q24H eucerin Topical Daily folic acid (FOLVITE) IVPB 1 mg Intravenous Daily lidocaine buffered 1% 0.5 mL Intradermal Once metoprolol 5 mg Intravenous Q6H nicotine 1 patch Transdermal Daily polyethylene glycol 17 g Oral Daily QUEtiapine 50 mg Oral Nightly sodium chloride 0.9 % 10 mL Intravenous Q12H VARUN thiamine (VITAMIN B1) IVPB 100 mg Intravenous Q24H Continuous Infusions PRN Medications acetaminophen, acetaminophen, diazepam, diazepam, diazepam, hydrALAZINE, ipratropium-albute rol, nystatin, ondansetron, ondansetron, sodium chloride 0.9 % OBJECTIVE Vital Signs: BP 129/75 | Pulse 111 | Temp(Src) 98.1 F (36.7 C) (Oral) | Resp 21 | Ht 1.702 m (5' 7") | Wt 74.571 kg (164 lb 6.4 oz) | BMI 25.74 kg/m2 | SpO2 97% General Appearance: Alert, cooperative, no distress, appears older than stated age, not shaky anymore Head: Normocephalic, without obvious abnormality, atraumatic Eyes: PERRL, conjunctiva/corneas clear, EOM's intact, fundi benign, both eyes Ears: Normal TM's and external ear canals, both ears Nose: Nares normal, status post cleft lip repair mucosa normal, no drainage or sinus t enderness Throat: Lips, mucosa, and tongue normal; teeth and gums normal Neck: Supple, symmetrical, trachea midline, no adenopathy; thyroid: No enlargement/tenderness/nodules; no carotid bruit or JVD Back: Symmetric, no curvature, ROM normal, no CVA tenderness Lungs: Clear to auscultation bilaterally, respirations unlabored Chest wall: No tenderness or deformity Heart: Regular rate and rhythm, S1 and S2 normal, no murmur, rub or gallop Abdomen: Soft, non-tender, bowel sounds active all four quadrants, no masses, no organomegaly Extremities: Extremities normal, atraumatic, no cyanosis or edema Pulses: 2+ and symmetric all extremities Skin: Skin color, texture, turgor normal, no rashes or lesions Lymph nodes: Cervical, supraclavicular, and axillary nodes normal Neurologic: CNII-XII intact. Motor strength equal upper and lower extremity, 4 over 5. DATA CBC: Lab Results Component Value Date WBC 12.2* 04/01/2014 RBC 3.05* 04/01/2014 HGB 8.8* 04/01/2014 HCT 27.6* 04/01/2014 MCV 90.5 04/01/2014 MCH 28.9 04/01/2014 MCHC 31.9* 04/01/2014 RDW 53.8* 04/01/2014 PLT 650* 04/01/2014 MPV 6.9 04/01/2014 DIFFTYPE MANUAL 04/01/2014 CMP: Lab Results Component Value Date NA 143 04/01/2014 K 3.6 04/01/2014 CL 110* 04/01/2014 CO2 28 04/01/2014 ANIONGAP 9 04/01/2014 GLUF 108* 04/01/2014 BUN 22 04/01/2014 CREATININE 0.73 04/01/2014 BCR 30 04/01/2014 CA 8.9 04/01/2014 PROT 7.7 03/30/2014 ALB 3.4* 03/30/2014 GLOB 4.3 03/30/2014 BILITOT 0.4 03/30/2014 ALP 111 03/30/2014 AST 21 03/30/2014 ALT 17 03/30/2014 EGFR >60 04/01/2014 Calcium: No results found for this basename: CALCIUM Magnesium: Lab Results Component Value Date MG 2.1 04/01/2014 Phosphorus: Lab Results Component Value Date PHOS 4.4 04/01/2014 PT/INR: Lab Results Component Value Date INR 1.0 03/22/2014 PTT: No results found for this basename: APTT [APTT} U/A: Lab Results Component Value Date CLARITYU CLEAR 04/01/2014 LEUKOCYTESUR NEGATIVE 04/01/2014 NITRITE NEGATIVE 04/01/2014 UROBILINOGEN 0.2 04/01/2014 PHUR 6.0 04/01/2014 BLOODU NEGATIVE 04/01/2014 KETONES NEGATIVE 04/01/2014 BILIRUBINUR NEGATIVE 04/01/2014 GLUCOSEU NEGATIVE 04/01/2014 X-ray Abdomen 1 View 03/27/2014 1. New enteric tubes as above. The Dobbhoff tube is superimposed over the ga stric fundus and is new. The nasogastric tube is pre-existing and the tip is superimposed ov er the gastric antrum 2. Stable interstitial edema, perhaps evidence of pneumonitis or diff use infection. Retrocardiac atelectasis or infiltrate is unchanged also Electronically sign ed by Ash Diaz MD on 03/27/2014 12:08 PM X-ray Chest 1 View 04/01/2014 1. Minimal bibasilar subsegmental atelectasis. Xr Chest 1 View 03/31/2014 1. Resolution of previous alveolar infiltrates with probable residual mild i nterstitial pulmonary edema and or acute/chronic bronchitis. 2. Satisfactory left PICC line . X-ray Chest 1 View 03/28/2014 1. Decreasing atelectasis/pneumonia at the left lung base. 2. Persistent di ffuse mild interstitial infiltrate suggesting interstitial pulmonary edema, unchanged. 3. I nterval removal of the nasogastric feeding tube. X-ray Chest 1 View 03/27/2014 1. Extensive interstitial pulmonary changes without cardiac enlargement. Kathia cation is ARDS or noncardiogenic pulmonary edema. Pneumonia less likely. Small left pleural effusion. 2. Proper position of ET tube, central line and recently added feeding tube Meaghan ctronically signed by Tino Crain MD on 03/27/2014 6:52 PM X-ray Chest 1 View 03/27/2014 1. Persistent left lower lobe segmental atelectasis/pneumonia. 2. Mild impr ovement of diffuse interstitial lung infiltrates, nonspecific, possibly representing interst itial pulmonary edema. 3. Satisfactory position of life-support catheters. X-ray Chest 1 View 03/26/2014 1. Endotracheal tube and nasogastric tube remain in satisfactory position. 2. Lungs show a coarse reticular pattern suggesting interstitial edema unchanged from yesterd ay but slowly increasing since admission. Electronically signed by Nguyễn Garnica DO on 7:07 AM X-ray Chest Ap Only 03/25/2014 1. Tubes and lines, as above. No pneumothorax. 2. Severe diffuse lung diseas e, similar to the prior study. 14 9:55 PM PROBLEM LIST Principal Problem: Alcohol withdrawal syndrome Active Problems: Aspiration into lower respiratory tract Altered mental status DTs (delirium tremens) Alcohol abuse, continuous ASSESSMENT & PLAN Patient Active Hospital Problem List: Alcohol withdrawal syndrome (03/21/2014) Assessment: Improved Plan: valium as needed, continue thiamine as oral instead of IV, and we will discontinue the CIWA-Ar protocol. Continue PT. diet as per speech therapy recommendation Altered mental status (03/21/2014) Assessment: improving Plan: Continue with Seroquel, valium prn as noted above DTs (delirium tremens) (03/21/2014) Assessment: Improving Plan: As above Alcohol abuse, continuous (03/21/2014) Assessment: Chronic Plan: Patient advised to stop drinking and start going to AA on discharge. Aspiration pneumonia Assessment: Acute from his alcohol intoxication Plan: Discontinue Zosyn for now , CBC slightly elevated, repeat urinalysis negative, repea t chest x-ray only shows atelectasis. We will continue with incentive spirometry. I explained lab findings and plan of care to patient and his friends at bedside and they ve rbalized understanding and agreement and had no more questions for me after my interaction w ith him. More than 35 minutes spent directly face to face with patient and more than 65% spe nt for physical examination and talking with patient and his friends and cousins at bedside , on chart review, coordinating care with other providers, formulating a plan of care and ma nagement as well as Computerized Physician Clergy Member. Dictation software, [employer], used which may contain error for similar sounding words even af ter review. Disposition:HOme vs SNF Code Status: Full Code Lang Flannery MD 04/01/2014 onversion Transaction, Provider Unknown - 03/31/2014 4:26 PM PDTFormatting of this note might be diff erent from the original. Case Management by Sailaja Pagan RN at 03/31/14 5117 Author: Sailaja Pagan RN Service: (none) Author Type: Registered Nurse Filed: 03/31/14 1253 Date of Service: 03/31/14 1626 Status: Addendum Photographs Curator: Sailaja Pagan RN (Registered Nurse) Related Notes: Original Note by Sailaja Pagan RN (Registered Nurse) filed at 03/31 1630 Discharge Planning: Received return call from Jessica at [facility] in [place], [place] a t approx noon today. Jessica stated they anticipate they can accept pt after he no longer re quires a sitter for at least 48hrs-Per Jessica, earliest can accept is Thursday. Per Nancy WOODARD lead, pt no longer needs a sitter and has been discontinued today. Jessica at [facility] stated they will need to re-review and verify coverage on Thursday befo re can finalize acceptance to their facility. Dr. Blackwood will be facility MD. Faxed referral to [facility] in [place], [place] as backup-if not accepted to [facility] on Thursday, will need to f/u with [facility]. Met with pt to discuss. Informed of need for rehab, and that [facility] will likely a ccept him on Thursday. Pt pleasant, but very quiet, almost whispering-did not indicate willin gness or unwillingness to go. Will need to f/u with him on Thursday for his ability to partic ipate in decisions. Pt also has a sister who has visited, not currently visiting. SAILAJA PAGAN 03/31/2014 4:30 PM Jessica Rae COTA - 03/31/2014 1:45 PM PDT Therapy Progress Note by GODWIN Garcia at 03/31/14 9557 Author: GODWIN Garcia Service: (none) Author Type: Occupational Therapy Assistan t Filed: 03/31/14 1865 Date of Service: 03/31/14 1345 Status: Addendum Photographs Curator: GODWIN Garcia (Vessel Crew Member) Related Notes: Original Note by SB Ortiz/Marquis (Vessel Crew Member) filed at 03/31/14 9236 03/31/14 1345 Plan Treatment Interventions ADL retraining;Functional transfer training;Functional dynamic acti vities;UE strengthening;Cognitive reorientation;Patient/Family training Progress Progressing toward goals Requires OT Follow Up Yes Recommendation Recommendation Short-term skilled OT;Long-term skilled OT Equipment Recommended Grab bars withing home;AD walker;Shower chair with back 03/31/14 1345 OT Last Visit OT Received On 03/31/14 Reason for Treatment Deconditioning Requires OT Follow Up Yes Assistance Required Independent Propeller Engineer Needed No Family/Caregiver Present No Therapeutic Exercise - Strength Strength Yes Strength Exercise Provided blue theraband: elbow flex/ext for x 10 rep for x 2 reps. Exercise Tools Exercise Tools Yes Theraband Use blue theraband for elbow flex/ext to increase UE. Education Completed: Education Topic: HEP Completed with: Patient Completed by: Verbal Education Response to Education: Stated Understanding Occupational Therapy Plan: Continue OT treatment per POC The following recommendations are made for d/c planning at this time: Return to home w/ family support Horacio SPIVEY 03/31/2017 2:03 Horacio SPIVEY present and participating as directed per GODWIN this date in care of the pa anthony. The patient and patient's caregiver was aware and in agreement with the student's par ticipation in the care provided on this date. I have read and reviewed this annotation of the therapy session completed on 03/31/2014 as documented by the OT/S. I am in agreement with this annotation and the billing of this melissa ent for the date of services provided on 03/31/2014 . I was present and involved in the care of this patient throughout the entirety of the session. GODWIN GARCIA 03/31/2014 onversion Transac tion, Provider Unknown - 03/31/2014 11:47 AM PDTFormatting of this note might be different f rom the original. Therapy Progress Note by Flor Garcia PT at 03/31/14 4333 Author: Flor Garcia PT Service: (none) Author Type: Physical Therapist Filed: 03/31/14 4568 Date of Service: 03/31/14 7974 Status: Signed Photographs Curator: Flor Jose, PT (Physical Therapist) 03/31/14 7317 PT Last Visit PT Received On 03/31/14 Reason for Treatment Deconditioning Requires PT Follow Up No Follow up PT Only? No Assistance Required Independent Other Comments Comments Pt in bed sleeping, wakes easily and agreeable to PT. Improved to independent w/m obility, SBA only for line management and navigation. Improved orientation but may continue to have cog needs. Appears safe to d/c per elderly mobility scale. Bed Mobility Supine to Sit Modified independent Transfers Sit to/from Stand Independent Mobility Ambulation Assistance Independent;Supervision (SBA for lines and navigation) Maximal Ambulation Distance (feet) 200 Total Ambulation Distance (feet) 200 Distance limited by? Therapist/staff discretion Pattern Alternating;Decreased redd Assistive Device None Balance Balance (see elderly mobility scale) Modalities Other Therapy ed on mobility techniques, fall precautions, poc and recommendations Activity Tolerance Activity Tolerance Patient tolerated treatment without report of fatigue Nurse Made Aware RN Raheem notified of pt mobility status and recommendations Safety Devices Safety Devices in Place Not applicable Plan Treatment/Interventions Discharge skilled PT services Recommendation Recommendations Other (comment) (improved mobility but may have continued cog needs) Equipment Recommended None Elderly Mobility Scale Lying to Sitting 2 Independent 1 Needs help of 1 person 0 Needs help of 2+ people Sitting to Lying 2 Independent 1 Needs help of 1 person 0 Needs help of 2+ people Sitting to Standing 3 Independent in under 3 seconds 2 Independent in over 3 seconds 1 Needs help of 1 person 0 Needs help of 2+ people Standing 3 Stands without support and able to reach 2 Stands without support but needs support to reach 1 Stands but needs support 0 Stands only with physical support of another person Gait 3 Independent (+ / - stick) 2 Independent with frame 1 Mobile with walking aid but erratic / unsafe 0 Needs physical help to walk or constant supervision Timed Walk (6 metres) Recorded time in seconds: 3 Under 15 seconds 2 16 30 seconds 1 Over 30 seconds 0 Unable to cover 6 metres Functional Reach 4 Over 20 cm. 2 10 - 20 cm. 0 Under 10 cm. Total Score: 20/ 20 Scores over 14 Generally these patients are able to perform mobility manoeuvres alone a nd safely and are independent in basic ADL. Scores between 10 13 generally these patients are borderline in terms of safe mobil ity and independence in ADL i.e. they require some help with some mobility manoeuvres. Scores under 10 generally these patients are dependent in mobility manoeuvres; require help with basic ADL, such as transfers, toileting and dressing. Higher EMS scores for hospitalized patients discharged to home (range=14 20 points) edelmira red with those discharged to home with a caregiver (range=5 13 points) or discharged to [facility] home (range=0 6 points). (Mason et al. 1996) onver mynor Transaction, Provider Unknown - 03/31/2014 9:52 AM PDT Case Management by Sailaja Pagan RN at 03/31/14 0952 Author: Sailaja Pagan RN Service: (none) Author Type: Registered Nurse Filed: 03/31/14 1028 Date of Service: 03/31/14951 Status: Addendum Photographs Curator: Sailaja Pagan RN (Registered Nurse) Related Notes: Original Note by Sailaja Pagan RN (Registered Nurse) filed at 03/31 1021 Discharge Planning: No return calls from [facility] at this time. Called Anin oseguera coordinator for [facility] in [place], [place], left VM awaiting return call re: if they will accept to their facility. SAILAJA PAGAN 03/31/2014 9:53 AM 1020 Received return call from Jessica at [facility]. Jessica stated they have not yet agreed to accept pt to their facility. Requested updated MD, case mgt, and therapy notes b e e-faxed to [phone] (done). She will call back with decision. SAILAJA PAGAN 03/31/2014 10:21 AM [address] [facility] in [place], [place] as backup. Will discuss w/pt and f amily today. SAILAJA PAGAN 03/31/2014 10:28 AM ang Granado MD - 03/31/2014 8:21 AM PDTFormatting of this note might be different f rom the original. Progress Notes by Lang Flannery MD at 03/31/14820 Author: Lang Flannery MD Service: Hospitalist Author Type: Physician Filed: 03/31/141803 Date of Service: 03/31/14820 Status: Addendum Photographs Curator: Lang Flannery MD (Physician) Related Notes: Original Note by Lang Flannery MD (Physician) filed at 03/31/141802 [facility] Service: Hospitalist Progress Note Hospital Day: LOS: 10 days Post-Op Day: * No surgery found * SUBJECTIVE Patient Summary: Events Overnight: Patient seen and examined at bedside and follow-up, Patient is orien vipin to place and person but not the time, no slurred speech. Patient has been eating more, has been ambulating, he continues to feel stronger and asks when he can go home. He denies any chest pain, denies any shortness of breath. He has not had any diarrhea, he has not bee n having any nausea. He still seems to be confused. Scheduled Medications docusate sodium 100 mg Oral BID Or docusate 100 mg Per OG Tube BID enoxaparin 40 mg Subcutaneous Q24H eucerin Topical Daily folic acid (FOLVITE) IVPB 1 mg Intravenous Daily lidocaine buffered 1% 0.5 mL Intradermal Once metoprolol 5 mg Intravenous Q6H nicotine 1 patch Transdermal Daily piperacillin-tazobactam 3.375 g Intravenous Q8H polyethylene glycol 17 g Oral Daily QUEtiapine 50 mg Oral Nightly sodium chloride 0.9 % 10 mL Intravenous Q12H VARUN thiamine (VITAMIN B1) IVPB 100 mg Intravenous Q24H Continuous Infusions PRN Medications acetaminophen, acetaminophen, diazepam, diazepam, diazepam, hydrALAZINE, ipratropium-albute rol, nystatin, ondansetron, ondansetron, sodium chloride 0.9 % OBJECTIVE Vital Signs: BP 136/81 | Pulse 106 | Temp(Src) 99.1 F (37.3 C) (Oral) | Resp 20 | Ht 1.702 m (5' 7") | Wt 76.023 kg (167 lb 9.6 oz) | BMI 26.24 kg/m2 | SpO2 90% General Appearance: Alert, cooperative, no distress, appears older than stated age, not shaky anymore Head: Normocephalic, without obvious abnormality, atraumatic Eyes: PERRL, conjunctiva/corneas clear, EOM's intact, fundi benign, both eyes Ears: Normal TM's and external ear canals, both ears Nose: Nares normal, status post cleft lip repair mucosa normal, no drainage or sinus t enderness Throat: Lips, mucosa, and tongue normal; teeth and gums normal Neck: Supple, symmetrical, trachea midline, no adenopathy; thyroid: No enlargement/tenderness/nodules; no carotid bruit or JVD Back: Symmetric, no curvature, ROM normal, no CVA tenderness Lungs: Clear to auscultation bilaterally, respirations unlabored Chest wall: No tenderness or deformity Heart: Regular rate and rhythm, S1 and S2 normal, no murmur, rub or gallop Abdomen: Soft, non-tender, bowel sounds active all four quadrants, no masses, no organomegaly Extremities: Extremities normal, atraumatic, no cyanosis or edema Pulses: 2+ and symmetric all extremities Skin: Skin color, texture, turgor normal, no rashes or lesions Lymph nodes: Cervical, supraclavicular, and axillary nodes normal Neurologic: CNII-XII intact. Weak, but eqaul upper and lower and left and right extremit ies DATA CBC: Lab Results Component Value Date WBC 12.1* 03/31/2014 RBC 3.09* 03/31/2014 HGB 9.1* 03/31/2014 HCT 27.9* 03/31/2014 MCV 90.2 03/31/2014 MCH 29.3 03/31/2014 MCHC 32.5 03/31/2014 RDW 52.5 03/31/2014 PLT 629* 03/31/2014 MPV 6.8 03/31/2014 DIFFTYPE MANUAL 03/31/2014 CMP: Lab Results Component Value Date NA 142 03/31/2014 K 3.4* 03/31/2014 CL 107 03/31/2014 CO2 30 03/31/2014 ANIONGAP 8 03/31/2014 GLUF 145* 03/31/2014 BUN 23 03/31/2014 CREATININE 0.81 03/31/2014 BCR 28 03/31/2014 CA 9.1 03/31/2014 PROT 7.7 03/30/2014 ALB 3.4* 03/30/2014 GLOB 4.3 03/30/2014 BILITOT 0.4 03/30/2014 ALP 111 03/30/2014 AST 21 03/30/2014 ALT 17 03/30/2014 EGFR >60 03/31/2014 Calcium: No results found for this basename: CALCIUM Magnesium: Lab Results Component Value Date MG 2.0 03/31/2014 Phosphorus: Lab Results Component Value Date PHOS 4.3 03/31/2014 PT/INR: Lab Results Component Value Date INR 1.0 03/22/2014 PTT: No results found for this basename: APTT [APTT} U/A: Lab Results Component Value Date CLARITYU CLEAR 03/25/2014 LEUKOCYTESUR NEGATIVE 03/25/2014 NITRITE NEGATIVE 03/25/2014 UROBILINOGEN 4.0* 03/25/2014 PHUR 8.5* 03/25/2014 BLOODU TRACE* 03/25/2014 KETONES TRACE* 03/25/2014 BILIRUBINUR NEGATIVE 03/25/2014 GLUCOSEU NEGATIVE 03/25/2014 X-ray Abdomen 1 View 03/27/2014 1. New enteric tubes as above. The Dobbhoff tube is superimposed over the ga stric fundus and is new. The nasogastric tube is pre-existing and the tip is superimposed ov er the gastric antrum 2. Stable interstitial edema, perhaps evidence of pneumonitis or diff use infection. Retrocardiac atelectasis or infiltrate is unchanged also Electronically sign ed by Ash Diaz MD on 03/27/2014 12:08 PM X-ray Chest 1 View 03/28/2014 1. Decreasing atelectasis/pneumonia at the left lung base. 2. Persistent di ffuse mild interstitial infiltrate suggesting interstitial pulmonary edema, unchanged. 3. I nterval removal of the nasogastric feeding tube. X-ray Chest 1 View 03/27/2014 1. Extensive interstitial pulmonary changes without cardiac enlargement. Kathia cation is ARDS or noncardiogenic pulmonary edema. Pneumonia less likely. Small left pleural effusion. 2. Proper position of ET tube, central line and recently added feeding tube Meaghan ctronically signed by Tino Crain MD on 03/27/2014 6:52 PM X-ray Chest 1 View 03/27/2014 1. Persistent left lower lobe segmental atelectasis/pneumonia. 2. Mild impr ovement of diffuse interstitial lung infiltrates, nonspecific, possibly representing interst itial pulmonary edema. 3. Satisfactory position of life-support catheters. X-ray Chest 1 View 03/26/2014 1. Endotracheal tube and nasogastric tube remain in satisfactory position. 2. Lungs show a coarse reticular pattern suggesting interstitial edema unchanged from yesterd ay but slowly increasing since admission. Electronically signed by Nguyễn Garnica DO on 7:07 AM X-ray Chest Ap Only 03/25/2014 1. Tubes and lines, as above. No pneumothorax. 2. Severe diffuse lung diseas e, similar to the prior study. 14 9:55 PM X-ray Chest 1 View 03/25/2014 1. Worsening of diffuse mixed interstitial and airspace infiltrates, but with interval removal of the ET tube. 2. Unchanged NG tube. 3. Subtle left effusion. Electron ically signed by Tai Chacon MD on 03/25/2014 8:03 AM X-ray Chest 1 View 03/24/2014 1. Endotracheal tube tip is slightly low at the molly and could be repositio kaila. Otherwise stable chest. X-ray Chest 1 View 03/23/2014 1. Tubes and lines, as above. No pneumothorax. 2. Persistent mild bilateral i nfiltrates or edema with little significant change. X-ray Chest 1 View 03/22/2014 1. Developing mild infiltrate in the right lung base. Otherwise stable chest. LEM LIST Principal Problem: Alcohol withdrawal syndrome Active Problems: Aspiration into lower respiratory tract Altered mental status DTs (delirium tremens) Alcohol abuse, continuous ASSESSMENT & PLAN Patient Active Hospital Problem List: Alcohol withdrawal syndrome (03/21/2014) Assessment: Improved Plan: Continue CIWA-Ar protocol, valium as needed, continue vitamin B, and we may be able to discontinue the CIWA-Ar protocol. Continue PT. diet as per speech therapy recommendati on Altered mental status (03/21/2014) Assessment: improving Plan: Continue with Seroquel, valium prn as noted above DTs (delirium tremens) (03/21/2014) Assessment: Improving Plan: As above Alcohol abuse, continuous (03/21/2014) Assessment: Chronic Plan: Patient advised to stop drinking and start going to AA on discharge. Aspiration pneumonia Assessment: Acute from his alcohol intoxication Plan: Continue Zosyn for now dc tomorrow, CBC slightly elevated, will repeat urinalysis aft er catheter has been removed, we will also repeat chest x-ray tomorrow. We will continue wi th incentive spirometry. I explained lab findings and plan of care to patient and he verbalized understanding and ag reement and had no more questions for me after my interaction with him. More than 35 minutes spent directly face to face with patient and more than 65% spent for physical examination and talking with patient at bedside, on chart review, coordinating care with other provider s, formulating a plan of care and management as well as Computerized Physician Clergy Member. Dictation software, [employer], used which may contain error for similar sounding words even af ter review. Disposition:HOme vs SNF Code Status: Full Code Lang Flannery MD 03/31/2014 onversion Transaction, Provider Unknown - 03/30/2014 3:58 PM PDTFormatting of this note might be diff erent from the original. Case Management by Sailaja Pagan RN at 03/30/14 7676 Author: Sailaja Pagan RN Service: (none) Author Type: Registered Nurse Filed: 03/30/14 1212 Date of Service: 03/30/141557 Status: Signed Photographs Curator: Sailaja Pagan RN (Registered Nurse) Discharge Planning: Called Christina at [facility] in [place], [place] re: if they have agr eed to accept pt when he is medically stable. Left VM, awaiting return call. SAILAJA PAGAN 03/30/2014 3:59 PM onver mynor Transaction, Provider Unknown - 03/30/2014 2:15 PM PDT Progress Notes by Lakeisha De La Rosa RD at 03/30/14 1415 Author: Lakeisha De La Rosa RD Service: (none) Author Type: Registered Dietitian Filed: 03/30/14 1427 Date of Service: 03/30/14 141 Status: Signed Photographs Curator: Lakeisha De La Rosa RD (Registered Dietitian) Nutrition Assessment and Recommendations Assessment: Consult today initially for TPN, but order was discontinued d/t advanced diet o rder. Pt seen by TURBINE ENGINE ASSEMBLER today and placed on dysphagia advanced diet with nectar thickened liqui ds. He is OK for sips of water between meals. Pt reports he is hungry today. His responses t o questions are delayed, but he answers appropriately. Current intake: Pt reports he ate 2 containers of peaches, a pudding, diana crackers. He r equested a bowl of oatmeal with butter, brown sugar, and toast for breakfast. Ordered pt a M agic Cup, will monitor for acceptance. Nutrition Diagnosis: Swallowing difficulty r/t prior mechanical ventilation as evidenced by dysphagia diet order Intervention: Diet/liquids per TURBINE ENGINE ASSEMBLER General diet Encourage intake Magic Cups on meal trays. Goals: Pt will consume at least 75% of all meals and snacks. Recommendations: 1) House diet to ensure consistent meal delivery 2) Magic Cups TID on meal trays. Monitoring: Will follow up in [address] La Rosa RD 03/30/2014 2:27 PM onver mynor Transaction, Provider Unknown - 03/30/2014 10:05 AM PDT Therapy Progress Note by REGINALDO Matute/Yobani at 03/30/14 1005 Author: JOSEPH Matute Service: (none) Author Type: Occupational Therapist Filed: 03/30/14 1241 Date of Service: 03/30/14 1005 Status: Signed Photographs Curator: JOSEPH Matute (Occupational Therapist) 03/30/14 1005 OT Last Visit OT Received On 03/30/14 Reason for Treatment Deconditioning Requires OT Follow Up Yes Propeller Engineer Needed No Family/Caregiver Present No Grooming Grooming Level of Assistance Independent Grooming Where Assessed Other (Comment) (seated in chair) Grooming Comments pt. was able to wash his face and comb his hair, given additional time to complete task. Therapeutic Exercise - Strength Strength Yes Strength Exercise Provided blue tband: shoulder abd/add, elbow flex/ext 15 reps x1. Pt. wou ld benefit from further education and practice in UE HEP to increase strength for mobility a nd transfers. Additional Activities Additional Activities Comments This OT administered the Shashi Cognitive Assessment (MoCA )-BLIND, pt. scoring 14/22, which suggests moderate cognitive impairment. This is recommende d supervision for safety during all ADLs/IADLs. Pt. was able to repeat numbers forwards, but not backwards. Pt. was able to subtract 7 andrew 100 and continue sequnece 4x. Pt. was able to repeat sentences, and name 8 words beginning with the letter "F" in one minute. Pt. was u nable to recall 0/5 words. Pt. oriented to month/year/place. Currently there is a sitter in the room. 03/30/14 1005 Plan Treatment Interventions ADL retraining;Endurance training;Cognitive reorientation;Patient/F amily training;UE strengthening Progress Progressing toward goals Requires OT Follow Up Yes Recommendation Recommendation Short-term skilled OT;24 hour supervision/assist;Long-term skilled OT Equipment Recommended Shower chair with back;Grab bars withing home;AD walker Education Completed: Education Topic: ADLs. UE strengthening, cognitive reintegration Completed with: Patient Completed by: Verbal Education, Demonstration Response to Education: Stated Understanding, Returned Demonstration, Reinforcement Bella jeffers for Education Understanding Occupational Therapy Plan: Continue OT treatment per POC The following recommendations are made for d/c planning at this time: Cont. Acute skilled OT services Return to home w/ 24 hr assistance SNF Barriers to d/c at this time include: Equipment needs shower chair, grab bars, FWW Physical deficits impacting functional independence Self-care deficits impacting functional independence VENANCIO Matute, CSRS 03/30/2014 Lilian Luna, MS CCC-TURBINE ENGINE ASSEMBLER - 03/30/2014 9:34 AM PDTFormatting of this note might be different fr om the original. Therapy Progress Note by Lilian Carter MS CCC-TURBINE ENGINE ASSEMBLER at 03/30/14933 Author: Lilian Carter MS CCC-TURBINE ENGINE ASSEMBLER Service: (none) Author Type: Speech Therapist Filed: 03/30/1452 Date of Service: 03/30/14933 Status: Signed Photographs Curator: Lilian Carter MS CCC-TURBINE ENGINE ASSEMBLER (Speech Therapist) 03/30/14933 Swallowing Assessment Eval Swallowing Treatment Yes Initial Swallow Assessment Behavior/Cognition Alert;Cooperative Patient Positioning Upright in chair Baseline Vocal Quality Weak Volitional Cough Strong Thin Presentation Cup;Self Fed (6 oz while alt with solid trials) Oral Phase Thin WFL Pharyngeal Phase Delayed swallow initiated;Decreased laryngeal elevation upon palpation;Thr oat clearing - immediate;Cough - immediate (cough x1) [place]rum Presentation Cup;Self Fed (4 oz while alt with trials) Oral WFL Pharyngeal Phase Delayed swallow initiated;Decreased laryngeal elevation upon palpation Puree Presentation Self Fed;Spoon Oral Phase WFL Pharyngeal Delayed Swallow;Decreased Laryngeal Elevation Dysphagia Mechanically Altered Presentation Self Fed;Spoon Oral Phase WFL;Prolonged mastication Pharyngeal Phase Delayed Swallow;Decreased Laryngeal Elevation Regular Presentation Self Fed Oral Phase Prolonged mastication Pharyngeal Phase Delayed Swallow;Decreased Laryngeal Elevation;Cough - Delayed Recommendations Liquids Consistency Recommendations [place]rum thick;Sips of thin water ok between meals-wait 3 0 min Diet Consistency Recommendation Dysphagia Advanced Recommendations Dysphagia treatment;Set up with meals;Check on patients frequently throught out meals Risk for Aspiration Mild (mild to mod) Compensatory Swallowing Strategies Upright as possible for all oral intake;Remain upright f or 30 minutes after meals;Alternate solids and liquids;No straws;Small bites/sips;Eat/feed s lowly;Effortful swallow Recommended Form of Meds Meds with recommended liquid Summary Pt swallow reassessed. Recommend NT with DA. okay for thin liquid between. Pt wi th immeidate coughing x1 with thin and some sporatic throat clearing. Staff Notified MD;RN Plan of Care Treatment Plan ST to follow;Dysphagia treatment;Daily 4 to 6 times a week Follow up treatments Swallow strategies;Diet tolerance monitoring;Patient/Family education; Assessment for upgrade Dysphagia Goals Jail Goals Safe/efficient oral intake Pt will have safe/efficient oral intake Ice chips;Goal met;Thin liquids;New/revised goal Short Term Goals Tolerate diet upgrade trials;Tolerate liquid consistency Pt will tolerate diet upgrade trials Goal met Pt will tolerate tolerate liquid consistency Thin liquids;With min supervision;New/revised goal Fadi, Lang Brown MD - 03/30/2014 9:04 AM PDTFormatting of this note might be different from th e original. Progress Notes by Lang Flannery MD at 03/30/14 0904 Author: Lang Flannery MD Service: Hospitalist Author Type: Physician Filed: 03/30/14 1618 Date of Service: 03/30/14903 Status: Signed Photographs Curator: Lang Flannery MD (Physician) [facility] Service: Hospitalist Progress Note Hospital Day: LOS: 9 days Post-Op Day: * No surgery found * SUBJECTIVE Patient Summary: Events Overnight: Patient seen and examined at bedside and follow-up, Patient is orien vipin to place and person but not the time, no slurred speech. Patient states he feels strong er today, wants to eat, speech therapy has seen him and advance his diet. He denies any ch est pain, denies any shortness of breath. He has not had any diarrhea, he has not been havi ng any nausea. He has episodes of confusion. Scheduled Medications docusate sodium 100 mg Oral BID Or docusate 100 mg Per OG Tube BID enoxaparin 40 mg Subcutaneous Q24H eucerin Topical Daily fat emulsion 250 mL Intravenous Daily folic acid (FOLVITE) IVPB 1 mg Intravenous Daily insulin aspart 0-16 Units Subcutaneous Q6H lidocaine buffered 1% 0.5 mL Intradermal Once metoprolol 5 mg Intravenous Q6H nicotine 1 patch Transdermal Daily piperacillin-tazobactam 3.375 g Intravenous Q8H polyethylene glycol 17 g Oral Daily QUEtiapine 50 mg Oral Nightly sodium chloride 0.9 % 10 mL Intravenous Q12H VARUN thiamine (VITAMIN B1) IVPB 100 mg Intravenous Q24H Continuous Infusions TPN ADULT 50 mL/hr at 03/29/14 2137 PRN Medications acetaminophen, acetaminophen, dextrose, diazepam, diazepam, diazepam, hydrALAZINE, ipratrop ium-albuterol, lip moisturizer, magnesium sulfate, magnesium sulfate, magnesium sulfate, nys tatin, nystatin, ondansetron, ondansetron, potassium chloride, potassium chloride, potassium chloride, sodium chloride 0.9 %, sodium phosphate IVPB 15 mmol, sodium phosphate IVPB 30 mm ol OBJECTIVE Vital Signs: BP 146/83 | Pulse 88 | Temp(Src) 98.2 F (36.8 C) (Oral) | Resp 18 | Ht 1.702 m (5' 7") | Wt 76.023 kg (167 lb 9.6 oz) | BMI 26.24 kg/m2 | SpO2 100% General Appearance: Alert, cooperative, no distress, appears older than stated age, not shaky anymore Head: Normocephalic, without obvious abnormality, atraumatic Eyes: PERRL, conjunctiva/corneas clear, EOM's intact, fundi benign, both eyes Ears: Normal TM's and external ear canals, both ears Nose: Nares normal, status post cleft lip repair mucosa normal, no drainage or sinus t enderness Throat: Lips, mucosa, and tongue normal; teeth and gums normal Neck: Supple, symmetrical, trachea midline, no adenopathy; thyroid: No enlargement/tenderness/nodules; no carotid bruit or JVD Back: Symmetric, no curvature, ROM normal, no CVA tenderness Lungs: Clear to auscultation bilaterally, respirations unlabored Chest wall: No tenderness or deformity Heart: Regular rate and rhythm, S1 and S2 normal, no murmur, rub or gallop Abdomen: Soft, non-tender, bowel sounds active all four quadrants, no masses, no organomegaly Extremities: Extremities normal, atraumatic, no cyanosis or edema Pulses: 2+ and symmetric all extremities Skin: Skin color, texture, turgor normal, no rashes or lesions Lymph nodes: Cervical, supraclavicular, and axillary nodes normal Neurologic: CNII-XII intact. Weak, but eqaul upper and lower and left and right extremit ies DATA CBC: Lab Results Component Value Date WBC 11.9* 03/30/2014 RBC 3.34* 03/30/2014 HGB 9.6* 03/30/2014 HCT 29.5* 03/30/2014 MCV 88.5 03/30/2014 MCH 28.8 03/30/2014 MCHC 32.5 03/30/2014 RDW 52.1 03/30/2014 PLT 597* 03/30/2014 MPV 6.9 03/30/2014 DIFFTYPE AUTOMATED 03/30/2014 CMP: Lab Results Component Value Date NA 142 03/30/2014 K 3.2* 03/30/2014 CL 102 03/30/2014 CO2 33* 03/30/2014 ANIONGAP 10 03/30/2014 GLUF 109* 03/30/2014 BUN 19 03/30/2014 CREATININE 0.74 03/30/2014 BCR 26 03/30/2014 CA 9.2 03/30/2014 PROT 7.7 03/30/2014 ALB 3.4* 03/30/2014 GLOB 4.3 03/30/2014 BILITOT 0.4 03/30/2014 ALP 111 03/30/2014 AST 21 03/30/2014 ALT 17 03/30/2014 EGFR >60 03/30/2014 Calcium: No results found for this basename: CALCIUM Magnesium: Lab Results Component Value Date MG 2.2 03/30/2014 Phosphorus: Lab Results Component Value Date PHOS 4.5 03/30/2014 PT/INR: Lab Results Component Value Date INR 1.0 03/22/2014 PTT: No results found for this basename: APTT [APTT} U/A: Lab Results Component Value Date CLARITYU CLEAR 03/25/2014 LEUKOCYTESUR NEGATIVE 03/25/2014 NITRITE NEGATIVE 03/25/2014 UROBILINOGEN 4.0* 03/25/2014 PHUR 8.5* 03/25/2014 BLOODU TRACE* 03/25/2014 KETONES TRACE* 03/25/2014 BILIRUBINUR NEGATIVE 03/25/2014 GLUCOSEU NEGATIVE 03/25/2014 X-ray Abdomen 1 View 03/27/2014 1. New enteric tubes as above. The Dobbhoff tube is superimposed over the ga stric fundus and is new. The nasogastric tube is pre-existing and the tip is superimposed ov er the gastric antrum 2. Stable interstitial edema, perhaps evidence of pneumonitis or diff use infection. Retrocardiac atelectasis or infiltrate is unchanged also Electronically sign ed by Ash Diaz MD on 03/27/2014 12:08 PM X-ray Chest 1 View 03/28/2014 1. Decreasing atelectasis/pneumonia at the left lung base. 2. Persistent di ffuse mild interstitial infiltrate suggesting interstitial pulmonary edema, unchanged. 3. I nterval removal of the nasogastric feeding tube. X-ray Chest 1 View 03/27/2014 1. Extensive interstitial pulmonary changes without cardiac enlargement. Kathia cation is ARDS or noncardiogenic pulmonary edema. Pneumonia less likely. Small left pleural effusion. 2. Proper position of ET tube, central line and recently added feeding tube Meaghan ctronically signed by Tino Crain MD on 03/27/2014 6:52 PM X-ray Chest 1 View 03/27/2014 1. Persistent left lower lobe segmental atelectasis/pneumonia. 2. Mild impr ovement of diffuse interstitial lung infiltrates, nonspecific, possibly representing interst itial pulmonary edema. 3. Satisfactory position of life-support catheters. X-ray Chest 1 View 03/26/2014 1. Endotracheal tube and nasogastric tube remain in satisfactory position. 2. Lungs show a coarse reticular pattern suggesting interstitial edema unchanged from yesterd ay but slowly increasing since admission. Electronically signed by Nguyễn Garnica DO on 7:07 AM X-ray Chest Ap Only 03/25/2014 1. Tubes and lines, as above. No pneumothorax. 2. Severe diffuse lung diseas e, similar to the prior study. 14 9:55 PM X-ray Chest 1 View 03/25/2014 1. Worsening of diffuse mixed interstitial and airspace infiltrates, but with interval removal of the ET tube. 2. Unchanged NG tube. 3. Subtle left effusion. Electron ically signed by Tai Chacon MD on 03/25/2014 8:03 AM X-ray Chest 1 View 03/24/2014 1. Endotracheal tube tip is slightly low at the molly and could be repositio kaila. Otherwise stable chest. X-ray Chest 1 View 03/23/2014 1. Tubes and lines, as above. No pneumothorax. 2. Persistent mild bilateral i nfiltrates or edema with little significant change. X-ray Chest 1 View 03/22/2014 1. Developing mild infiltrate in the right lung base. Otherwise stable chest. LEM LIST Principal Problem: Alcohol withdrawal syndrome Active Problems: Altered mental status DTs (delirium tremens) Alcohol abuse, continuous ASSESSMENT & PLAN Patient Active Hospital Problem List: Alcohol withdrawal syndrome (03/21/2014) Assessment: Improved Plan: Continue CIWA-Ar protocol, valium as needed, continue vitamin B, may be able to dis continue sitter in a day or 2, discontinue TPN. Continue PT. 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 Aspiration pneumonia Assessment: Acute from his alcohol intoxication Plan: Continue Zosyn for now dc in a couple of days, CBC slightly elevated I explained lab findings and plan of care to patient and niece and they verbalized understa nding and agreement and had no more questions for me after my interaction with them. More th an 35 minutes spent directly face to face with patient and more than 65% spent for physical examination and talking with patient and relatives at bedside, on chart review, coordinatin g care with other providers, formulating a plan of care and management as well as Computeriz ed Physician Clergy Member. Dictation software, [employer], used which may contain error for similar sounding words even af ter review. Disposition:HOme vs SNF Code Status: Full Code Lang Flannery MD 03/30/2014 onversion Transaction, Provider Unknown - 03/30/2014 8:50 AM PDTFormatting of this note might be diff erent from the original. Therapy Progress Note by Flor Garcia, PT at 03/30/14 0850 Author: Flor Garcia, PT Service: (none) Author Type: Physical Therapist Filed: 03/30/1442 Date of Service: 03/30/14849 Status: Addendum Photographs Curator: Flor Garcia, PT (Physical Therapist) Related Notes: Original Note by Flor Garcia, PT (Physical Therapist) filed at 03/30/1438 03/30/14849 PT Last Visit PT Received On 03/30/14 Reason for Treatment Deconditioning Requires PT Follow Up Yes Follow up PT Only? No Assistance Required 1 person;2 person (2pA only for lines) Other Comments Comments Pt with improved CIWA score to 4 today, pt coorperative and following commands. A greeable to PT. Improved to sBA for transfers but requires Steve for gait for safety d/t mil n-mod balance deficits. Needs ongoing PT for strength/balance/mobility training. Pt unable to accurately describe living situation but will either need SNF or 24hr assist at this gregory e. Cognition Overall Cognitive Status Impaired Transfers Sit to/from Stand Standby assist;Verbal instruction Mobility Ambulation Assistance Minimal assist Maximal Ambulation Distance (feet) 400 Total Ambulation Distance (feet) 400 Distance limited by? Therapist/staff discretion Pattern Alternating;Decreased redd Assistive Device Walker front wheeled Modalities Modalities Other therapy Other Therapy ed on mobility techniques, ad use, fall precautions, poc and recommendations Activity Tolerance Activity Tolerance Patient limited by fatigue Nurse Made Aware VANCE Dominguez notified of pt mobility status and recommendations Safety Devices Safety Devices in Place Yes Type of Devices 2:1 sitter maintained (fall precautions) Plan Treatment/Interventions Continue per Primary PT POC Progress Progressing toward goals Recommendation Recommendations SNF;Home with 24 hr supervision/assist Equipment Recommended (currently needs walker) Pre/peak/post Position BP Pulse rate O2 sats L/min End amb 128/71 100 6 nc onver mynor Transaction, Provider Unknown - 03/30/2014 7:55 AM PDT Progress Notes by Flaca Hernandez RPH at 03/30/14 9942 Author: Flaca Hernandez RPH Service: (none) Author Type: Pharmacist Filed: 03/30/14 0752 Date of Service: 03/30/14754 Status: Signed Photographs Curator: Flaca Hernandez RPH (Pharmacist) INITIATION OF Parenteral Nutrition: PERIPHERAL LINE formula started 03/29. In Epic, a PIC C line is noted. Will look into this and inquire about starting central line TPN formulatio toshia Abbasi 58 y.o. male Height: Ht Readings from Last 1 Encounters: 03/29/14 1.702 m (5' 7") Weight: Wt Readings from Last 1 Encounters: 03/29/14 76.023 kg (167 lb 9.6 oz) Creatinine: CREATININE Date Value Range Status 03/30/2014 0.74 0.70 - 1.30 mg/dL Final Testing performed at [facility], [address] [place] [address] Estimated CrCl : CREATININE: 0.74 (03/30/14 050) Estimated creatinine clearance - 104.2 mL/min Estimated Needs: Basal Energy Expenditure (BEE): 1584 Range of total caloric requirement = 1584 to 1900 Protein Requirements: Maintenance, Stressed: 1 -1.2 g/kg/day PN Line: Peripheral Dextrose: 10% Amino Acids: 3% Lipid 20% 250 mL PN Rate on Day 1: 50 mL/hr for 24 hours Pharmacist: FLACA HERNANDEZ 03/30/2014 7:41 AM onver mynor Transaction, Provider Unknown - 03/30/2014 5:02 AM PDT Nurse Progress Note by Estrella Pruitt RN at 03/30/14501 Author: Estrella Pruitt RN Service: (none) Author Type: Registered Nurse Filed: 03/30/14 0504 Date of Service: 03/30/14501 Status: Signed Photographs Curator: Estrella Pruitt RN (Registered Nurse) Patient resting in bed. Vital signs have been stable. He has been afebrile. Patient did b ecome agitated and trying to climb out of bed. Medicated per CIWA protocol. No complaints o f nausea, vomiting, or pain. Otherwise no acute changes from previous assessment. Patient visualized hourly and needs addressed. Will discuss plan of care with oncoming RN. igdalia childers MS CCC-TURBINE ENGINE ASSEMBLER - 03/29/2014 5:49 PM PDT Therapy Progress Note by Katia Raines MS CCC-TURBINE ENGINE ASSEMBLER at 03/29/141748 Author: Katia Raines MS CCC-TURBINE ENGINE ASSEMBLER Service: (none) Author Type: Speech and Language Pathol ogist Filed: 03/29/141748 Date of Service: 03/29/141748 Status: Signed Photographs Curator: Katia Raines MS CCC-TURBINE ENGINE ASSEMBLER (Speech and Language Pathologist) 03/29/14 170 Swallowing Assessment Eval Swallowing Treatment Yes Ice Chips Presentation Spoon Oral Phase WFL Pharyngeal Phase Cough - Delayed;Throat Clearing - Delayed;Throat Clearing - Immediate;Coug h - Immediate;Decreased laryngeal elevation upon palpation Recommendations Liquids Consistency Recommendations NPO/No liquids (oral swabs for comfort) Diet Consistency Recommendation NPO/No solids Recommendations Dysphagia treatment Risk for Aspiration Severe Recommended Form of Meds (non oral is most safe) Summary Pt con'ts to demo delayed swallow initiation, congested weak cough after all ice ch ip trials. Sitter reported that she asked family to stop giving pt ice chips d/t pt coughing consistently w/them earlier in the day. Staff Notified RN Plan of Care Treatment Plan Continue with current plan Follow up treatments Assessment for upgrade;Patient/Family education KATIA RAINES MS CCC-TURBINE ENGINE ASSEMBLER 03/29/2014 onversion Black saction, Provider Unknown - 03/29/2014 4:15 PM PDTFormatting of this note might be differen t from the original. Case Management by Farrah Lau RN at 03/29/145 Author: Farrah Lau RN Service: (none) Author Type: Registered Nurse Filed: 03/29/14 161 Date of Service: 03/29/141614 Status: Signed Photographs Curator: Farrah Lau RN (Registered Nurse) DCP- On list at [facility]. Is a [employer] client. Livier Jiménez, wire bound box machine operator, for black sport and PCP. Possible plan for TPN. No order as yet. onver mynor Transaction, Provider Unknown - 03/29/2014 1:30 PM PDT Therapy Progress Note by Raven Ladd OTR/L at 03/29/14 1330 Author: Raven Ladd OTR/Yobani Service: (none) Author Type: Occupational Therapist Filed: 03/29/14 1452 Date of Service: 03/29/14 1330 Status: Signed Photographs Curator: REGINALDO Matute/L (Occupational Therapist) 03/29/14 1330 OT Last Visit OT Received On 03/29/14 Requires OT Follow Up On hold;Yes Pt.'s RN noted pt. Is not following commands and withdrawing at this time. Plan to follow u p for OT tx tomorrow, 03/30/14. HUBER Matute/Yobani, CSRS 03/29/2014 onver mynor Transaction, Provider Unknown - 03/29/2014 1:28 PM PDT Therapy Progress Note by Flor Garcia, PT at 03/29/14 1328 Author: Flor Garcia PT Service: (none) Author Type: Physical Therapist Filed: 03/29/14 1331 Date of Service: 03/29/14 1328 Status: Signed Photographs Curator: Flor Garcia PT (Physical Therapist) 03/29/14 1328 PT Last Visit PT Received On 03/29/14 Requires PT Follow Up On hold;Yes (see comments) Other Comments Comments Pt transferred to acute floor last PM. Continues to be on CIWA, score 8-11 this A M. Spoke w/VANCE Dominguez who notes pt still actively withdrawing, confused, attempted to crawl OOB and not following commands. Currently inappropriate to participate in PT. Will f/u for continued mobility training if appropriate. ang Granado MD - 03/29/2014 8:11 AM PDTFormatting of this note might be different f rom the original. Progress Notes by Lang Flannery MD at 03/29/14810 Author: Lang Flannery MD Service: Hospitalist Author Type: Physician Filed: 03/29/141611 Date of Service: 03/29/14810 Status: Signed Photographs Curator: Lang Flannery MD (Physician) [facility] Service: Hospitalist Progress Note Hospital Day: LOS: 8 days Post-Op Day: * No surgery found * SUBJECTIVE Patient Summary: Events Overnight: Patient seen and examined at bedside and follow-up, Patient is orien vipin to place and person but not the time, no slurred speech. He appears less shaky than yes terday but is still weak. He and he continues to be nothing by mouth. He denies any chest pain denies any shortness of breath. He has episodes of confusion. Scheduled Medications docusate sodium 100 mg Oral BID Or docusate 100 mg Per OG Tube BID enoxaparin 40 mg Subcutaneous Q24H eucerin Topical Daily folic acid (FOLVITE) IVPB 1 mg Intravenous Daily furosemide 40 mg Intravenous Once lidocaine buffered 1% 0.5 mL Intradermal Once metoprolol 5 mg Intravenous Q6H piperacillin-tazobactam 3.375 g Intravenous Q8H polyethylene glycol 17 g Oral Daily QUEtiapine 50 mg Oral Nightly sodium chloride 0.9 % 10 mL Intravenous Q12H VARUN sodium chloride 0.9 % 10 mL Intravenous Q12H VARUN thiamine (VITAMIN B1) IVPB 100 mg Intravenous Q24H Continuous Infusions PRN Medications acetaminophen, acetaminophen, diazepam, diazepam, diazepam, hydrALAZINE, ipratropium-albute rol, lip moisturizer, magnesium sulfate, magnesium sulfate, magnesium sulfate, magnesium sul fate, nystatin, nystatin, ondansetron, ondansetron, phosphorus, potassium chloride, potassiu m chloride, potassium chloride, potassium chloride, potassium chloride, potassium chloride, sodium chloride 0.9 %, sodium chloride 0.9 %, sodium phosphate IVPB 15 mmol sodium phosphate IVPB 30 mmol OBJECTIVE Vital Signs: BP 138/81 | Pulse 106 | Temp(Src) 98.4 F (36.9 C) (Axillary) | Resp 38 | Ht 1.702 m (5' 7.01") | Wt 76.023 kg (167 lb 9.6 oz) | BMI 26.24 kg/m2 | SpO2 91% General Appearance: Alert, cooperative, no distress, appears older than stated age, melissa ent still shaky Head: Normocephalic, without obvious abnormality, atraumatic Eyes: PERRL, conjunctiva/corneas clear, EOM's intact, fundi benign, both eyes Ears: Normal TM's and external ear canals, both ears Nose: Nares normal, status post cleft lip repair mucosa normal, no drainage or sinus t enderness Throat: Lips, mucosa, and tongue normal; teeth and gums normal Neck: Supple, symmetrical, trachea midline, no adenopathy; thyroid: No enlargement/tenderness/nodules; no carotid bruit or JVD Back: Symmetric, no curvature, ROM normal, no CVA tenderness Lungs: Clear to auscultation bilaterally, respirations unlabored Chest wall: No tenderness or deformity Heart: Regular rate and rhythm, S1 and S2 normal, no murmur, rub or gallop Abdomen: Soft, non-tender, bowel sounds active all four quadrants, no masses, no organomegaly Extremities: Extremities normal, atraumatic, no cyanosis or edema Pulses: 2+ and symmetric all extremities Skin: Skin color, texture, turgor normal, no rashes or lesions Lymph nodes: Cervical, supraclavicular, and axillary nodes normal Neurologic: CNII-XII intact. Weak, but eqaul upper and lower and left and right extremit ies DATA CBC: Lab Results Component Value Date WBC 13.2* 03/29/2014 RBC 3.22* 03/29/2014 HGB 9.3* 03/29/2014 HCT 28.8* 03/29/2014 MCV 89.2 03/29/2014 MCH 28.7 03/29/2014 MCHC 32.2 03/29/2014 RDW 52.5 03/29/2014 PLT 523* 03/29/2014 MPV 7.2 03/29/2014 DIFFTYPE AUTOMATED 03/29/2014 CMP: Lab Results Component Value Date NA 138 03/29/2014 K 3.1* 03/29/2014 CL 96* 03/29/2014 CO2 31 03/29/2014 ANIONGAP 14 03/29/2014 GLUF 115* 03/29/2014 BUN 12 03/29/2014 CREATININE 0.70 03/29/2014 BCR 17 03/29/2014 CA 9.4 03/29/2014 PROT 6.6 03/22/2014 ALB 2.4* 03/22/2014 BILITOT 0.6 03/22/2014 ALP 191* 03/22/2014 AST 153* 03/22/2014 ALT 77* 03/22/2014 EGFR >60 03/29/2014 Calcium: No results found for this basename: CALCIUM Magnesium: Lab Results Component Value Date MG 2.0 03/29/2014 Phosphorus: Lab Results Component Value Date PHOS 4.4 03/29/2014 PT/INR: Lab Results Component Value Date INR 1.0 03/22/2014 PTT: No results found for this basename: APTT [APTT} U/A: Lab Results Component Value Date CLARITYU CLEAR 03/25/2014 LEUKOCYTESUR NEGATIVE 03/25/2014 NITRITE NEGATIVE 03/25/2014 UROBILINOGEN 4.0* 03/25/2014 PHUR 8.5* 03/25/2014 BLOODU TRACE* 03/25/2014 KETONES TRACE* 03/25/2014 BILIRUBINUR NEGATIVE 03/25/2014 GLUCOSEU NEGATIVE 03/25/2014 X-ray Abdomen 1 View 03/27/2014 1. New enteric tubes as above. The Dobbhoff tube is superimposed over the ga stric fundus and is new. The nasogastric tube is pre-existing and the tip is superimposed ov er the gastric antrum 2. Stable interstitial edema, perhaps evidence of pneumonitis or diff use infection. Retrocardiac atelectasis or infiltrate is unchanged also Electronically sign ed by Ash Diaz MD on 03/27/2014 12:08 PM X-ray Chest 1 View 03/28/2014 1. Decreasing atelectasis/pneumonia at the left lung base. 2. Persistent di ffuse mild interstitial infiltrate suggesting interstitial pulmonary edema, unchanged. 3. I nterval removal of the nasogastric feeding tube. X-ray Chest 1 View 03/27/2014 1. Extensive interstitial pulmonary changes without cardiac enlargement. Kathia cation is ARDS or noncardiogenic pulmonary edema. Pneumonia less likely. Small left pleural effusion. 2. Proper position of ET tube, central line and recently added feeding tube Meaghan ctronically signed by Tino Crain MD on 03/27/2014 6:52 PM X-ray Chest 1 View 03/27/2014 1. Persistent left lower lobe segmental atelectasis/pneumonia. 2. Mild impr ovement of diffuse interstitial lung infiltrates, nonspecific, possibly representing interst itial pulmonary edema. 3. Satisfactory position of life-support catheters. X-ray Chest 1 View 03/26/2014 1. Endotracheal tube and nasogastric tube remain in satisfactory position. 2. Lungs show a coarse reticular pattern suggesting interstitial edema unchanged from yesterd ay but slowly increasing since admission. Electronically signed by Nguyễn Garnica DO on 7:07 AM X-ray Chest Ap Only 03/25/2014 1. Tubes and lines, as above. No pneumothorax. 2. Severe diffuse lung diseas e, similar to the prior study. 14 9:55 PM X-ray Chest 1 View 03/25/2014 1. Worsening of diffuse mixed interstitial and airspace infiltrates, but with interval removal of the ET tube. 2. Unchanged NG tube. 3. Subtle left effusion. Electron ically signed by Tai Chacon MD on 03/25/2014 8:03 AM X-ray Chest 1 View 03/24/2014 1. Endotracheal tube tip is slightly low at the molly and could be repositio kaila. Otherwise stable chest. X-ray Chest 1 View 03/23/2014 1. Tubes and lines, as above. No pneumothorax. 2. Persistent mild bilateral i nfiltrates or edema with little significant change. X-ray Chest 1 View 03/22/2014 1. Developing mild infiltrate in the right lung base. Otherwise stable chest. LEM LIST Principal Problem: Alcohol withdrawal syndrome Active Problems: Altered mental status DTs (delirium tremens) Alcohol abuse, continuous ASSESSMENT & PLAN Patient Active Hospital Problem List: Alcohol withdrawal syndrome (03/21/2014) Assessment: Ongoing Plan: Continue CIWA-Ar protocol, valium as needed, continue vitamin B, continue sitter, w e will start TPN. Continue PT. 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 Aspiration pneumonia Assessment: Acute from his alcohol intoxication Plan: Continue Zosyn for now dc in a couple of days, CBC slightly elevated I explained lab findings and plan of care to patient and niece and they verbalized understa nding and agreement and had no more questions for me after my interaction with them. More th an 35 minutes spent directly face to face with patient and more than 65% spent for physical examination and talking with patient and relatives at bedside, on chart review, coordinatin g care with other providers, formulating a plan of care and management as well as Computeriz ed Physician Clergy Member. Dictation software, [employer], used which may contain error for similar sounding words even af ter review. Disposition:HOme vs SNF Code Status: Full Code Lang Flannery MD 03/29/2014 onversion Transaction, Provider Unknown - 03/29/2014 5:27 AM PDTFormatting of this note might be diff erent from the original. Nurse Progress Note by Smita Childers RN at 03/29/14526 Author: Smita Childers RN Service: (none) Author Type: Registered Nurse Filed: 03/29/1431 Date of Service: 03/29/14526 Status: Signed Photographs Curator: Smita Childers RN (Registered Nurse) Pt continues to be restless, increased resp rate coming down to 30s. Pt denies SOB or pain. Pt refused oral care, but allowed RN to wash his face. Rectal tube and seymour in place. PT i s able to answer some questions appropriately but others not so well. Pts speech ranges from slurred to comprehensible. Pt has no questions at this time. Pt has been repositioned. Pt a lso is changing positions frequently himself. SMITA CHILDERS onver mynor Transaction, Provider Unknown - 03/29/2014 2:03 AM PDT Nurse Progress Note by Smita Childers RN at 03/29/14202 Author: Smita Childers RN Service: (none) Author Type: Registered Nurse Filed: 03/29/14203 Date of Service: 03/29/14202 Status: Signed Photographs Curator: Smita Childers RN (Registered Nurse) Patient continues to be restless and sweaty, valium IV given. SMITA CHILDERS onver mynor Transaction, Provider Unknown - 03/28/2014 7:07 PM PDT Progress Notes by Yesi Higginbotham RN at 03/28/141906 Author: Yesi Higginbotham RN Service: (none) Author Type: Registered Nurse Filed: 03/28/141907 Date of Service: 03/28/141906 Status: Signed Photographs Curator: Yesi Higginbotham RN (Registered Nurse) Transfer to [place] [address] via wheelchair without incident. VSS. No Pain complaints. Report watts d to VANCE Amezcua onver mynor Transaction, Provider Unknown - 03/28/2014 4:26 PM PDT Nurse Progress Note by Noelle Johnson RN at 03/28/141625 Author: Noelle Johnson RN Service: Wound/Ostomy Care Author Type: Registered Nurse Filed: 03/28/141627 Date of Service: 03/28/141625 Status: Signed Photographs Curator: Noelle Johnson RN (Registered Nurse) Patient seen today by pawn shop keeper for evaluation due to a weekly follow up on a low Brade n score. Today's Oren scale score is 15 indicating the patient is low risk for pressure ul cer development or injury. Pt's skin, per VANCE Narayan, is free from injury d/t pressure amando freire pt has very dry flaky skin on his buttocks. To reduce the chance of cracking or injury d /t this dryness, Eucerin cream daily is recommended. Please consult wound care if further needs arise. Thank you, Noelle Johnson RN 4:27 PM 03/28/2014 Samantha Vásquez OTR/L - 03/28/2014 10:50 AM PDT Therapy Progress Note by JOSEPH Mallory at 03/28/14 1050 Author: JOSEPH Mallory Service: (none) Author Type: Occupational Therapist Filed: 03/28/14 1129 Date of Service: 03/28/14 1050 Status: Signed Photographs Curator: JOSEPH Mallory (Occupational Therapist) 03/28/14 1050 Precautions Other Precautions hx of agreesive behaviors secondary to dt, fall precautions Home Environment Additional Comments The patient reports that he lives from home to home with his friends an d plans to return. Without steps into / within the home. Reports using crutches about 20 y ears ago secondary to broken leg otherwise no AE use hxically. The patient reports that josé antonio or to coming to the hospital he was able to get dressed / undressed and prep meals on his ow n. 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 Vision-Basic Assessment Current Vision No visual deficits (no reported changes) Tracking Able to track stimulus in all quads without difficulty (slight nystagmus noted, ongoing assessment required ) Acuity (unable to assess in full) Cognition Overall Cognitive Status Impaired Orientation Level Oriented;Disoriented Oriented To person Disoriented To place;To time;To situation (stated it was October 2009, at clinic at home) RUE Assessment RUE Assessment X (the patient presents with general deconditioning) RUE Strength RUE Overall Strength Deficits (tremors ellicited with mmt and strength based assessment) LUE Assessment LUE Assessment X (the patient presents with general deconditioning) LUE Strength LUE Overall Strength Deficits Hand Function Gross Grasp Tremors;Slowed (functional for tasks) Impaired Gross Grasp (slowed with tremors bilaterally) Coordination Impaired;Tremors;Slowed (unable to oppose thumb to 4th / 5th digit) Assessment Assessment Decreased ADL status;Decreased UE strength;Decreased Safe judgement during ADL Prognosis Fair Goal Formulation Patient Further Evaluation Goals Patient Will Tolerate Further ADL Treatment Within 3-5 sessions Patient Will Tolerate Further Visual Treatment Within 3-5 sessions Pt Will Tolerate Further Sensory Treatment (baseline standardized cognitive assessment will be completed) ADL Goals Pt Will Perform Grooming In chair;Standing at sink;With min assist;With mod assist Functional Transfer Goals Pt Will Perform All Functional Transfers (standing tolerance without LOB x7 minutes fx task ) Arm Goals Pt Will Complete Theraband Exer B UE;3 sets;10 reps;Level 2 Theraband;Level 3 Theraband;Ashby douts;With activity tolerance;Without significant changes in vital signs;Without complain/si gn of pain;With visual cues;With verbal cues Pt Will Complete Theraputty Exer B UE;2 sets;Mod resistance putty (red);With good activity tolerance RUE Coordination RUE Coordination Impaired MORE;Impaired FTN;Impaired finger opposition eyes open;Impaired fi nger opposition eyes closed LUE Coordination LUE Coordination Impaired finger opposition eyes open;Impaired finger opposition eyes close d;Impaired FTN;Impaired MORE 03/28/14 1050 Further Evaluation Goals Patient Will Tolerate Further ADL Treatment Within 3-5 sessions Patient Will Tolerate Further Visual Treatment Within 3-5 sessions Pt Will Tolerate Further Sensory Treatment (baseline standardized cognitive assessment will be completed) ADL Goals Pt Will Perform Grooming In chair;Standing at sink;With min assist;With mod assist Functional Transfer Goals Pt Will Perform All Functional Transfers (standing tolerance without LOB x7 minutes fx task ) Arm Goals Pt Will Complete Theraband Exer B UE;3 sets;10 reps;Level 2 Theraband;Level 3 Theraband;Ashby douts;With activity tolerance;Without significant changes in vital signs;Without complain/si gn of pain;With visual cues;With verbal cues Pt Will Complete Theraputty Exer B UE;2 sets;Mod resistance putty (red);With good activity tolerance Plan Treatment Interventions ADL retraining;Functional transfer training;Functional dynamic acti vities;UE strengthening;Cognitive reorientation;Patient/Family training Progress (initiated OT POC) OT Frequency 5x/wk;QD;2-3 weeks therapy duration Requires OT Follow Up Awaiting tx order Recommendation Recommendation (acute OT) Education Completed: Education Topic: OT Role in care, POC, goals for intervention Completed with: Patient Completed by: Verbal Education Response to Education: Stated Understanding, Reinforcement Necessary for Education Under standing Occupational Therapy Plan: Continue OT treatment per POC The following recommendations are made for d/c planning at this time: SNF Barriers to d/c at this time include: Family support Cognitive deficits impacting functional independence Physical deficits impacting functional independence Self-care deficits impacting functional independence Ron Aponte MD - 03/28/2014 10:37 AM PDTFormatting of this note might be different from the o riginal. Progress Notes by Lang Flannery MD at 03/28/14 1037 Author: Lang Flannery MD Service: Hospitalist Author Type: Physician Filed: 03/28/14 1650 Date of Service: 03/28/14 1037 Status: Signed Photographs Curator: Lang Flannery MD (Physician) [facility] Service: Hospitalist Progress Note Hospital Day: LOS: 7 days Post-Op Day: * No surgery found * SUBJECTIVE Patient Summary: Events Overnight: Patient's and examined at bedside in ICU on follow-up after turnover by population health coach hospitalist service. Patient is not oriented to place and time only oriente d to person this point no slurred speech. He still appears shaky. Scheduled Medications docusate sodium 100 mg Oral BID Or docusate 100 mg Per OG Tube BID enoxaparin 40 mg Subcutaneous Q24H famotidine 20 mg Oral BID Or famotidine 20 mg Intravenous BID folic acid (FOLVITE) IVPB 1 mg Intravenous Daily Or multivitamin & minerals w iron/FA 1 tablet Oral Daily lidocaine buffered 1% 0.5 mL Intradermal Once piperacillin-tazobactam 3.375 g Intravenous Q8H polyethylene glycol 17 g Oral Daily QUEtiapine 50 mg Oral BID sodium chloride 0.9 % 10 mL Intravenous Q12H VARUN sodium chloride 0.9 % 10 mL Intravenous Q12H VARUN thiamine (VITAMIN B1) IVPB 100 mg Intravenous Q24H Or thiamine 100 mg Oral Q24H Continuous Infusions PRN Medications acetaminophen, acetaminophen, diazepam, diazepam, diazepam, haloperidol lactate, hydrALAZIN E, ipratropium-albuterol, lip moisturizer, magnesium sulfate, magnesium sulfate, magnesium s ulfate, magnesium sulfate, nystatin, nystatin, ondansetron, ondansetron, pancrelipase (Lip-P rot-Amyl) 10,000 units, petrolatum, phosphorus, potassium chloride, potassium chloride, pota ssium chloride, potassium chloride, potassium chloride, potassium chloride sodium bicarbonate, sodium chloride 0.9 %, sodium chloride 0.9 %, sodium phosphate IVPB 15 mmol, sodium phosphate IVPB 30 mmol OBJECTIVE Vital Signs: BP 169/91 | Pulse 111 | Temp(Src) 98.3 F (36.8 C) (Oral) | Resp 32 | Ht 1.702 m (5' 7.0 1") | Wt 63.3 kg (139 lb 8.8 oz) | BMI 21.85 kg/m2 | SpO2 85% General Appearance: Alert, cooperative, no distress, appears older than stated age, melissa ent still shaky Head: Normocephalic, without obvious abnormality, atraumatic Eyes: PERRL, conjunctiva/corneas clear, EOM's intact, fundi benign, both eyes Ears: Normal TM's and external ear canals, both ears Nose: Nares normal, status post cleft lip repair mucosa normal, no drainage or sinus t enderness Throat: Lips, mucosa, and tongue normal; teeth and gums normal Neck: Supple, symmetrical, trachea midline, no adenopathy; thyroid: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 Electrolytes WNL. BG has been well controlled. Continues on f olic acid and thiamine supplementation. Current intake: NPO. Receiving TF of Jevity 1.5 at 60 mL/hr via OG tube. Tolerating well wi th minimal gastric residuals. Abdomen soft. Rectal tube in place due to diarrhea. C. diff test negative per RN. Nutrition Diagnosis: Inadequate intake related to inability to eat with mechanical ventilation as evidenced by N PO order. Intervention: Continue TF of Jevity 1.5 at 60 mL/hr (assuming 20-hour continuous delivery). Add Beneprote in 1 scoop TID for an additional 75 kcal and 18 g protein. Overall, TF plus Beneprotein will provide 1875 kcal and 95 g protein which supplies 29.3 kcal/kg and 1.5 g protein/kg. Will c ontinue to monitor clinical course and adjust nutrition goals PRN. Goals: Pt will tolerate TF at goal rate. EN will be adequate to meet estimated nutritional require ments. Recommendations: 1) Continue TF of Jevity 1.5 at 60 mL/hr. 2) Add Beneprotein 1 scoop TID in water flushes. Monitoring: Will follow up in [address], CD 03/27/2014 edwic k, ANDREW Harvey - 03/27/2014 9:42 AM PDTFormatting of this note might be different f rom the original. Progress Notes by ANDREW Hui at 03/27/14941 Author: ANDREW Hui Service: Assessment Clinician Author Type: Assessment Clinician Filed: 03/28/14 1027 Date of Service: 03/27/14941 Status: Signed Photographs Curator: ANDREW Hui (Nurse Practitioner) [facility]: Assessment Clinician Progress Note Ladarius Abbasi 58 y.o. Hospital Day: LOS: 6 days Post-Op Day: * No surgery found * Consulting Physicians Treatment Team: Admitting Provider: Ravin Avila MD SUBJECTIVE Patient Summary: Mr. Ladarius Abbasi is a 58-year-old male patient who apparently t katarina was found down by his family in [place]. He was transferred to a hospital in this region where he was admitted due to delirium tremens and alcohol withdrawal. The patient became mo re agitated overnight, requiring up to 20 mg of Ativan. He continued to be very agitated and required intubation for patient safety. The patient was consulted to us and transferred to our institution due to respiratory failure secondary to alcohol withdrawal. ICU Timeline: 03/21: Admit to ICU. Transferred from [facility]. Last drink thought to be early in the am of 03/21. 03/22: No acute events. DT's managed with Precedex. Now on SBT and beginning to wake. During SBT spiked a fever. Will hold off on extubation. Started on Zosyn. 03/23: No acute events. Sedation holiday this am. More appropriate. Calm. No acute evidence of w/d. Required 1L NS overnight for hypotension. Increased secretions this am. 03/24: Episode of acute delirium overnight despite Precedex. Increased to 1.5mcg/kg/mi n. 03/25: Remained extubated overnight. Requires intermittent NT suctioning for upper air way issues (coarse/sonorous). Agitated intermittently. Remains on Dex. Transitioned from Valium to Haldol with some improvement Events Overnight: Intubated, unable to protect airway--thick tenacious secretions. P t with difficult airway. ?seizure. Ordered single dose Ativan. Day one of re-intubation. PAST MEDICAL HISTORY No past medical history on file. PAST SURGICAL HISTORY No past surgical history on file. ALLERGIES No Known Allergies MEDICATIONS PRIOR TO ADMISSION No prescriptions prior to admission SCHEDULED MEDICATIONS carBAMazepine 400 mg Oral BID docusate sodium 100 mg Oral BID Or docusate 100 mg Per OG Tube BID enoxaparin 40 mg Subcutaneous Q24H famotidine 20 mg Oral BID Or famotidine 20 mg Intravenous BID folic acid (FOLVITE) IVPB 1 mg Intravenous Daily Or multivitamin & minerals w iron/FA 1 tablet Oral Daily piperacillin-tazobactam 3.375 g Intravenous Q8H polyethylene glycol 17 g Oral Daily QUEtiapine 50 mg Oral BID sodium chloride 0.9 % 10 mL Intravenous Q12H VARUN thiamine (VITAMIN B1) IVPB 100 mg Intravenous Q24H Or thiamine 100 mg Oral Q24H vancomycin 1,000 mg Intravenous Q8H CONTINUOUS INFUSIONS dexmedetomidine in NS 0.4 mcg/kg/hr (03/27/14 0750) fentaNYL in NS 5 mcg/mL 200 mcg/hr (03/27/14 0940) norepinephrine in D5W 64 mcg/mL Stopped (03/26/14 0310) propofol 60 mcg/kg/min (03/27/14 0725) PRN MEDICATIONS acetaminophen, acetaminophen, diazepam, diazepam, diazepam, haloperidol lactate, hydrALAZIN E, ipratropium-albuterol, lip moisturizer, magnesium sulfate, magnesium sulfate, magnesium s ulfate, magnesium sulfate, nystatin, nystatin, ondansetron, ondansetron, pancrelipase (Lip-P rot-Amyl) 10,000 units, petrolatum, phosphorus, potassium chloride, potassium chloride, pota ssium chloride, potassium chloride, potassium chloride, potassium chloride sodium bicarbonate, sodium chloride 0.9 %, sodium phosphate IVPB 15 mmol, sodium phosphate IVPB 30 mmol OBJECTIVE VITAL SIGNS BP 103/60 | Pulse 110 | Temp(Src) 98 F (36.7 C) (Axillary) | Resp 16 | Ht 1.702 m (5' 7 .01") | Wt 67 kg (147 lb 11.3 oz) | BMI 23.13 kg/m2 | SpO2 97% Temp: [97.6 F (36.4 C)-99.1 F (37.3 C)] 98 F (36.7 C) (03/27 800) BP: (93-130)/(51-77) 103/60 mmHg (03/27 545) Heart Rate: [90-131] 110 (03/27 720) Resp: [16-18] 16 (03/27 800) SpO2: [94 %-100 %] 97 % (03/27 545) Weight: [67 kg (147 lb 11.3 oz)] 67 kg (147 lb 11.3 oz) (03/27 404) FiO2 : [30 %-40 %] 30 % (03/27 824) Intake/Output Summary (Last 24 hours) at 03/27/14 09 Last data filed at 03/27/14 08 Gross per 24 hour Intake 2542 ml Output 1280 ml Net 1262 ml EXAM GEN: intubated, sedated. NEURO: PERRLA, EOMI, no facial asymmetry, moves all extremities well HEENT: sclerae clear, nonicteric, oral dry, pink NECK: supple, trachea midline, intubated, OG HEART: RRR, no murmur, rub or gallop LUNGS: LS clear t/o, no wheezing, crackles or rhonchi. Intermittent thick/tenacous secreti ons. ABD: soft, slightly distended, nontender to palpation, no masses EXTR: no edema, clubbing or cyanosis SKIN: warm, dry, no rash or mottling; no e/o skin breakdown over the occiput, scapulae, elb ows, sacrum or heels. Abrasions to bilat shins DATA CBC Recent Labs Lab 03/27/14 0600 03/26/14214503/26/14 0330 WBC 12.1* 10.9 7.8 HGB 8.8* 8.5* 8.4* HCT 27.2* 25.2* 25.2* PLT 364 347 308 CMP Recent Labs Lab 03/27/14 0600 03/26/14 2146 03/26/14 1720 03/26/14 0330 03/25/14 0024 03/22/14 0859 03/22/14 0406 NA 140 -- -- 134* -- 136 < > -- 138 K 4.2 3.4* 4.0 3.3* < > 3.6 < > -- 3.5 CL 106 -- -- 100 -- 99 < > -- 107 CO2 29 -- -- 25 -- 29 < > -- 27 BUN 8 -- -- 9 -- 4* < > -- 8 CREATININE 0.85 -- -- 0.62* -- 0.74 < > -- 0.71 PROT -- -- -- -- -- -- -- 6.6 -- BILITOT -- -- -- -- -- -- -- 0.6 -- ALT -- -- -- -- -- -- -- 77* -- AST -- -- -- -- -- -- -- 153* -- < > = values in this interval not displayed. IMAGING X-ray Chest 1 View 03/22/2014 1. Developing mild infiltrate in the right lung base. Otherwise stable chest. X-ray Chest 1 View 03/21/2014 1. Tubes and lines, as above. 2. Mild left lower lobe atelectasis. Ngoci reva signed by Jad Coker MD on 03/21/2014 7:39 AM X-ray Pelvis 1 View 03/21/2014 1. No acute findings. Ct Head Cervical Spine Without Contrast 03/21/[address]: No acute or focal intracranial abnormality. Ancillary findings as out lined above. Medial blowout fracture right orbit , possibly old . Cervical Spine CT: No evid ence of fracture or malalignment in the cervical spine . Patchy bilateral apical lung diseas e . RADIA Electronically signed by Kermit Olivo MD on Mar 21 2014 6:45AM Referring Provi alex Line: [phone] ID: [id number] PROBLEM LIST Principal Problem: Alcohol withdrawal syndrome Active Problems: Acute respiratory failure Altered mental status DTs (delirium tremens) Alcohol abuse, continuous ASSESSMENT & PLAN NEURO: Acute alcohol withdrawal. On CIWA protocol. Controlled with Dex. With Dex reduced pt becomes very agitated/tachycardic/worsening DTs. Seems well controlled with Dex at 1.5 mcg/ kg/min. Added Tegretol (level 7. Dose reduced to BID)/Haldol. Limit Benzo's. Required re intubation 03/26 d/t worsening neuro/pulm status. Cont sedation holiday Qshift. Will hold off on SBT until 03/27 CAM ICU daily Metabolic encephalopathy/Toxic encephalopathy. Will add tegretol for mood stabilization /ETOH w/d. Daily level (see above). CARDIOVASCULAR: Tachycardia--better today, 101. Likely seeing this in the context of acute w/d HTN -- no meds. Likely d/t ETOH w/d. Stable currently on Dex Elevated CPK at time of admit. Trending down. F/u Trop negligible PULMONARY: Acute respiratory failure (Vent Settin, 30%, P=8)--tolerating SBT. Extubated and re intubated 03/26 d/t worsening stridor/inability to control secretions/obtunded. H old off on SBT until 03/27. Aspiration PNA: Fever, thick secretions, radiologic evidence--CXR much improved. Afebr ile. Reduced secretion. Zosyn/Vanc. Increasing interstitial edema (slowly progressing sin ce admission) Tenacious secretions--re intubated and deep suction. ?Bronch today. Pt at risk for aty pical infections to include SHAHRIAR. Will send TB culture (more concerned for SHAHRIAR). Will resen d sputum. GI: Chronic ETOH abuse. Covered with thiamine/B1/MVI. Dietary consult. TFs at goal LFTs elevated. hepatitis panel negative. INR 1.0. Ammonia level 34. RENAL: No acute issues (Cr 0.62-03/26) Lytes replacement per protocol INFECTIOUS DISEASE: Radiologic evidence of aspiration PNA. Leukocytosis. Thick secretions + fever. Started on Zosyn. WBC trending down (now 9.4-03/24). No fever overnight. ProCal 0.33. Re intubat ed 03/26 HEME: Mild anemia. On MVI. Scant dried blood suctioned from ETT. Otherwise no evidence of b leeding. ENDOCRINE: No hx of DM. BGs prn MUSCULOSKELETAL: PT/OT when able. PROPHYLAXIS: Stress ulcer prophylaxis: pepcid DVT prophylaxis: Lovenox VAP bundle: chlorhexadine oral care, HOB >30 degrees. Disposition: ICU. Re intubated (extubated 03/24 and re intubated 03/26) d/t AMS/worsening pulmonary status Code Status: Full Code *Please bill 40 minutes of critical care time spent evaluating the patient, reviewing the d samuel and formulating a plan exclusive of all other procedures. ANDREW HUI 03/27/2014 9:42 AM onversion Transaction, Provider Unknown - 03/27/2014 3:12 AM PDTFormatting of this note might be diff erent from the original. Nurse Progress Note by Mike Lyon RN at 03/27/14311 Author: Mike Lyon RN Service: (none) Author Type: Registered Nurse Filed: 03/27/14316 Date of Service: 03/27/14311 Status: Signed Photographs Curator: Mike Lyon RN (Registered Nurse) Pt shoulder and knee joints are extremely stiff. Extensive range of motion exercises perfo rmed; however pt. Appears to be pushing against me/resisting me and becomes very anxious the reby making it difficult to perform. Mike Lyon RN onver mynor Transaction, Provider Unknown - 03/26/2014 10:38 PM PDT Progress Notes by Lakeisha Gaspar RPH at 03/26/142237 Author: Lakeisha Gaspar RPH Service: (none) Author Type: Pharmacist Filed: 03/26/142237 Date of Service: 03/26/142237 Status: Signed Photographs Curator: Lakeisha Gaspar RPH (Pharmacist) Vancomycin Monitoring Day 5 CREATININE: 0.62 mg/dL ABNORMAL (03/26/14 0330) Estimated creatinine clearance - 121.9 mL/min WBC = 7.8 K/uL Recent Trough level: 20.2 mcg/mL (Goal 15-20 mcg/mL) Drawn: 1914 on 03/26/2014 Wt Readings from Last 3 Encounters: 03/26/14 64.8 kg (142 lb 13.7 oz) Plan per protocol: Change regimen to: Vancomycin 1000 mg Q8H. (15.4 mg/kg) (The former Vancomycin 1250 mg dose due at 2000 ran for only about 5 minutes before it was stopped by nursing. First dose of Vancomycin 1000 mg was administered at 2130.) Next Trough Level due: 03/27/2014 @ 1930 10/17/2013 12:55 PM Pharmacist: Lakeisha Gaspar Aye Middleton ARNP - 03/26/2014 6:45 AM PDT Progress Notes by ANDREW Escamilla at 03/26/1445 Author: ANDREW Escamilla Service: Assessment Clinician Author Type: Nurse Practitioner Filed: 03/26/14 1017 Date of Service: 03/26/1445 Status: Signed Photographs Curator: ANDREW Escamilla (Nurse Practitioner) [facility]: Assessment Clinician Progress Note Ladarius Abbasi 58 y.o. Hospital Day: LOS: 5 days Post-Op Day: * No surgery found * Consulting Physicians Treatment Team: Admitting Provider: Ravin Avila MD SUBJECTIVE Patient Summary: Mr. Ladarius Abbasi is a 58-year-old male patient who apparently t katarina was found down by his family in [place]. He was transferred to a hospital in this region where he was admitted due to delirium tremens and alcohol withdrawal. The patient became mo re agitated overnight, requiring up to 20 mg of Ativan. He continued to be very agitated and required intubation for patient safety. The patient was consulted to us and transferred to our institution due to respiratory failure secondary to alcohol withdrawal. ICU Timeline: 03/21: Admit to ICU. Transferred from [facility]. Last drink thought to be early in the am of 03/21. 03/22: No acute events. DT's managed with Precedex. Now on SBT and beginning to wake. During SBT spiked a fever. Will hold off on extubation. Started on Zosyn. 03/23: No acute events. Sedation holiday this am. More appropriate. Calm. No acute evidence of w/d. Required 1L NS overnight for hypotension. Increased secretions this am. 03/24: Episode of acute delirium overnight despite Precedex. Increased to 1.5mcg/kg/mi n. 03/25: Remained extubated overnight. Requires intermittent NT suctioning for upper air way issues (coarse/sonorous). Agitated intermittently. Remains on Dex. Transitioned from Valium to Haldol with some improvement Events Overnight: Intubated, unable to protect airway--thick tenacious secretions. P t with difficult airway. ?seizure. Ordered single dose Ativan. Day one of re-intubation. PAST MEDICAL HISTORY No past medical history on file. PAST SURGICAL HISTORY No past surgical history on file. ALLERGIES No Known Allergies MEDICATIONS PRIOR TO ADMISSION No prescriptions prior to admission SCHEDULED MEDICATIONS carBAMazepine 400 mg Oral Q8H VARUN docusate sodium 100 mg Oral BID Or docusate 100 mg Per OG Tube BID enoxaparin 40 mg Subcutaneous Q24H famotidine 20 mg Oral BID Or famotidine 20 mg Intravenous BID folic acid (FOLVITE) IVPB 1 mg Intravenous Daily Or multivitamin & minerals w iron/FA 1 tablet Oral Daily piperacillin-tazobactam 3.375 g Intravenous Q8H polyethylene glycol 17 g Oral Daily QUEtiapine 25 mg Oral BID sodium chloride 0.9 % 10 mL Intravenous Q12H VARUN thiamine (VITAMIN B1) IVPB 100 mg Intravenous Q24H Or thiamine 100 mg Oral Q24H vancomycin 17 mg/kg Intravenous Q8H CONTINUOUS INFUSIONS dexmedetomidine in NS Stopped (03/25/14 2200) fentaNYL in NS 5 mcg/mL 200 mcg/hr (03/26/14 0620) norepinephrine in D5W 64 mcg/mL Stopped (03/26/14 0310) propofol 30 mcg/kg/min (03/26/145) PRN MEDICATIONS acetaminophen, acetaminophen, diazepam, diazepam, diazepam, haloperidol lactate, hydrALAZIN E, ipratropium-albuterol, lip moisturizer, magnesium sulfate, magnesium sulfate, magnesium s ulfate, magnesium sulfate, nystatin, nystatin, ondansetron, ondansetron, pancrelipase (Lip-P rot-Amyl) 10,000 units, petrolatum, phosphorus, potassium chloride, potassium chloride, pota ssium chloride, sodium bicarbonate, sodium chloride 0.9 % sodium phosphate IVPB 15 mmol, sodium phosphate IVPB 30 mmol OBJECTIVE VITAL SIGNS BP 86/54 | Pulse 74 | Temp(Src) 98.5 F (36.9 C) (Oral) | Resp 16 | Ht 1.702 m (5' 7") | Wt 64.8 kg (142 lb 13.7 oz) | BMI 22.37 kg/m2 | SpO2 100% Temp: [97.9 F (36.6 C)-100.1 F (37.8 C)] 98.5 F (36.9 C) (03/26 345) BP: (81-171)/(51-93) 86/54 mmHg (03/26 345) Heart Rate: [70-115] 74 (03/26 400) Resp: [16-40] 16 (03/26 345) SpO2: [94 %-100 %] 100 % (03/26 400) Weight: [64.8 kg (142 lb 13.7 oz)] 64.8 kg (142 lb 13.7 oz) (03/26 346) FiO2 : [40 %-51 %] 50 % (03/26 400) Intake/Output Summary (Last 24 hours) at 03/26/14644 Last data filed at 03/26/14399 Gross per 24 hour Intake 1975 ml Output 3500 ml Net -1525 ml EXAM GEN: intubated, sedated. NEURO: PERRLA, EOMI, no facial asymmetry, moves all extremities well HEENT: sclerae clear, nonicteric, oral dry, pink NECK: supple, trachea midline, intubated, OG HEART: RRR, no murmur, rub or gallop LUNGS: LS clear t/o, no wheezing, crackles or rhonchi. Intermittent thick/tenacous secreti ons. ABD: soft, slightly distended, nontender to palpation, no masses EXTR: no edema, clubbing or cyanosis SKIN: warm, dry, no rash or mottling; no e/o skin breakdown over the occiput, scapulae, elb ows, sacrum or heels. Abrasions to bilat shins DATA CBC Recent Labs Lab 03/26/1432903/25/144 03/24/14351 WBC 7.8 12.4* 9.4 HGB 8.4* 9.7* 8.6* HCT 25.2* 29.1* 26.4* PLT 308 307 235 CMP Recent Labs Lab 03/26/14330 03/12/14 0024 03/25/14 0603 03/25/14 0024 03/24/14 1430 03/22/14 0859 03/22/14 0406 NA 134* -- -- 136 138 < > -- 138 K 3.3* 3.4* 3.7 3.6 3.6 < > -- 3.5 CL 100 -- -- 99 103 < > -- 107 CO2 25 -- -- 29 28 < > -- 27 BUN 9 -- -- 4* 5* < > -- 8 CREATININE 0.62* -- -- 0.74 0.82 < > -- 0.71 PROT -- -- -- -- -- -- 6.6 -- BILITOT -- -- -- -- -- -- 0.6 -- ALT -- -- -- -- -- -- 77* -- AST -- -- -- -- -- -- 153* -- < > = values in this interval not displayed. IMAGING X-ray Chest 1 View 03/22/2014 1. Developing mild infiltrate in the right lung base. Otherwise stable chest. X-ray Chest 1 View 03/21/2014 1. Tubes and lines, as above. 2. Mild left lower lobe atelectasis. Electroni reva signed by Jad Coker MD on 03/21/2014 7:39 AM X-ray Pelvis 1 View 03/21/2014 1. No acute findings. Ct Head Cervical Spine Without Contrast 03/21/[address]: No acute or focal intracranial abnormality. Ancillary findings as out lined above. Medial blowout fracture right orbit , possibly old . Cervical Spine CT: No evid ence of fracture or malalignment in the cervical spine . Patchy bilateral apical lung diseas e . RADIA Electronically signed by Kermit Olivo MD on Mar 21 2014 6:45AM Referring Provi alex Line: [phone] ID: [id number] PROBLEM LIST Principal Problem: Alcohol withdrawal syndrome Active Problems: Acute respiratory failure Altered mental status DTs (delirium tremens) Alcohol abuse, continuous ASSESSMENT & PLAN NEURO: Acute alcohol withdrawal. On CIWA protocol. Controlled with Dex. With Dex reduced pt becomes very agitated/tachycardic/worsening DTs. Seems well controlled with Dex at 1.5 mcg/ kg/min. Added Tegretol (level 7. Dose reduced to BID)/Haldol. Limit Benzo's. Required re intubation 03/26 d/t worsening neuro/pulm status. Cont sedation holiday Qshift. Will hold off on SBT until 03/27 CAM ICU daily Metabolic encephalopathy/Toxic encephalopathy. Will add tegretol for mood stabilization /ETOH w/d. Daily level (see above). CARDIOVASCULAR: Tachycardia--better today, 101. Likely seeing this in the context of acute w/d HTN -- no meds. Likely d/t ETOH w/d. Stable currently on Dex Elevated CPK at time of admit. Trending down. F/u Trop negligible PULMONARY: Acute respiratory failure (Vent Settin, 30%, P=8)--tolerating SBT. Extubated and re intubated 03/26 d/t worsening stridor/inability to control secretions/obtunded. H old off on SBT until 03/27. Aspiration PNA: Fever, thick secretions, radiologic evidence--CXR much improved. Afebr ile. Reduced secretion. Zosyn/Vanc. Increasing interstitial edema (slowly progressing sin ce admission) Tenacious secretions--re intubated and deep suction. ?Bronch today. Pt at risk for aty pical infections to include SHAHRIAR. Will send TB culture (more concerned for SHAHRIAR). Will resen d sputum. GI: Chronic ETOH abuse. Covered with thiamine/B1/MVI. Dietary consult. TFs at goal LFTs elevated. hepatitis panel negative. INR 1.0. Ammonia level 34. RENAL: No acute issues (Cr 0.62-03/26) Lytes replacement per protocol INFECTIOUS DISEASE: Radiologic evidence of aspiration PNA. Leukocytosis. Thick secretions + fever. Started on Zosyn. WBC trending down (now 9.4-03/24). No fever overnight. ProCal 0.33. Re intubat ed 03/26 HEME: Mild anemia. On MVI. Scant dried blood suctioned from ETT. Otherwise no evidence of b leeding. ENDOCRINE: No hx of DM. BGs prn MUSCULOSKELETAL: PT/OT when able. PROPHYLAXIS: Stress ulcer prophylaxis: pepcid DVT prophylaxis: Lovenox VAP bundle: chlorhexadine oral care, HOB >30 degrees. Disposition: ICU. Re intubated (extubated 03/24 and re intubated 03/26) d/t AMS/worsening pulmonary status Code Status: Full Code *Please bill 40 minutes of critical care time spent evaluating the patient, reviewing the d samuel and formulating a plan exclusive of all other procedures. ANDREW Escamilla 03/26/2014 6:45 AM onversion Tra nsaction, Provider Unknown - 03/26/2014 4:00 AM PDTFormatting of this note might be differe nt from the original. Nurse Progress Note by Mike Lyon RN at 03/26/14399 Author: Mike Lyon RN Service: (none) Author Type: Registered Nurse Filed: 03/26/14514 Date of Service: 03/26/14399 Status: Signed Photographs Curator: Mike Lyon RN (Registered Nurse) Pt. Had large liquid brown stool. Per protocol, pt. placed on contact enteric isolation. Mike Lyon RN onver mynor Transaction, Provider Unknown - 03/25/2014 8:35 PM PDT Progress Notes by Lakeisha Gaspar RPH at 03/25/142034 Author: Lakeisha Gaspar RPH Service: (none) Author Type: Pharmacist Filed: 03/25/142034 Date of Service: 03/25/142034 Status: Signed Photographs Curator: Lakeisha Gaspar RPH (Pharmacist) Vancomycin Monitoring Day 4 CREATININE: 0.74 (03/25/14 0024) Estimated creatinine clearance - 104.2 mL/min WBC = 12.4 K/uL Recent Trough level: 13.9 mcg/mL (Goal 15-20 mcg/mL) Drawn: 1900 on 03/25/2014 Plan per protocol: Change regimen to: Vancomycin 1250 mg Q8H. (18 mg/kg). First dose to be given 03/26/2014 @ 0400 Next Trough Level due: 03/26/2014 @ 1900 10/17/2013 12:55 PM Pharmacist: Lakeisha Gaspar Aye Middleton ARNP - 03/25/2014 8:57 AM PDT Progress Notes by ANDREW Escamilla at 03/25/14 0857 Author: ANDREW Escamilla Service: Assessment Clinician Author Type: Nurse Practitioner Filed: 03/26/14 0917 Date of Service: 03/25/14856 Status: Addendum Photographs Curator: ANDREW Escamilla (Nurse Practitioner) Related Notes: Original Note by ANDREW Escamilla (Nurse Practitioner) filed at 03/15 06/28 1225 [facility] Service: Assessment Clinician Progress Note Ladarius Abbasi 58 y.o. Hospital Day: LOS: 4 days Post-Op Day: * No surgery found * Consulting Physicians Treatment Team: Admitting Provider: Ravin Avila MD SUBJECTIVE Patient Summary: Mr. Ladarius Abbasi is a 58-year-old male patient who apparently t katarina was found down by his family in [place]. He was transferred to a hospital in this region where he was admitted due to delirium tremens and alcohol withdrawal. The patient became mo re agitated overnight, requiring up to 20 mg of Ativan. He continued to be very agitated and required intubation for patient safety. The patient was consulted to us and transferred to our institution due to respiratory failure secondary to alcohol withdrawal. ICU Timeline: 03/21: Admit to ICU. Transferred from [facility]. Last drink thought to be early in the am of 03/21. 03/22: No acute events. DT's managed with Precedex. Now on SBT and beginning to wake. During SBT spiked a fever. Will hold off on extubation. Started on Zosyn. 03/23: No acute events. Sedation holiday this am. More appropriate. Calm. No acute evidence of w/d. Required 1L NS overnight for hypotension. Increased secretions this am. 03/24: Episode of acute delirium overnight despite Precedex. Increased to 1.5mcg/kg/mi n. Events Overnight: Remained extubated overnight. Requires intermittent NT suctioning for upper airway issues (coarse/sonorous). Agitated intermittently. Remains on Dex. Trans itioned from Valium to Haldol with some improvement PAST MEDICAL HISTORY No past medical history on file. PAST SURGICAL HISTORY No past surgical history on file. ALLERGIES No Known Allergies MEDICATIONS PRIOR TO ADMISSION No prescriptions prior to admission SCHEDULED MEDICATIONS docusate sodium 100 mg Oral BID Or docusate 100 mg Per OG Tube BID enoxaparin 40 mg Subcutaneous Q24H famotidine 20 mg Oral BID Or famotidine 20 mg Intravenous BID folic acid (FOLVITE) IVPB 1 mg Intravenous Daily Or multivitamin & minerals w iron/FA 1 tablet Oral Daily piperacillin-tazobactam 3.375 g Intravenous Q8H polyethylene glycol 17 g Oral Daily QUEtiapine 25 mg Oral BID sodium chloride 0.9 % 10 mL Intravenous Q12H VARUN thiamine (VITAMIN B1) IVPB 100 mg Intravenous Q24H Or thiamine 100 mg Oral Q24H vancomycin 15 mg/kg Intravenous Q8H CONTINUOUS INFUSIONS dexmedetomidine in NS 1.5 mcg/kg/hr (03/25/14 0757) fentaNYL in NS 5 mcg/mL 50 mcg/hr (03/24/14 0535) sodium chloride (IV) 110 mL/hr at 03/23/14 1846 PRN MEDICATIONS acetaminophen, acetaminophen, diazepam, diazepam, diazepam, haloperidol lactate, hydrALAZIN E, ipratropium-albuterol, lip moisturizer, magnesium sulfate, magnesium sulfate, magnesium s ulfate, magnesium sulfate, nystatin, nystatin, ondansetron, ondansetron, pancrelipase (Lip-P rot-Amyl) 10,000 units, petrolatum, phosphorus, potassium chloride, potassium chloride, pota ssium chloride, sodium bicarbonate, sodium chloride 0.9 % sodium phosphate IVPB 15 mmol, sodium phosphate IVPB 30 mmol OBJECTIVE VITAL SIGNS BP 136/73 | Pulse 85 | Temp(Src) 98 F (36.7 C) (Axillary) | Resp 27 | Ht 1.702 m (5' 7" ) | Wt 69.3 kg (152 lb 12.5 oz) | BMI 23.92 kg/m2 | SpO2 100% Temp: [98 F (36.7 C)-99.1 F (37.3 C)] 98 F (36.7 C) (03/25 800) BP: (129-175)/(70-113) 136/73 mmHg (03/25 800) Heart Rate: [79-142] 85 (03/25 800) Resp: [24-42] 27 (03/25 800) SpO2: [90 %-100 %] 100 % (03/25 800) Weight: [69.3 kg (152 lb 12.5 oz)] 69.3 kg (152 lb 12.5 oz) (03/25 430) FiO2 : [30 %-50 %] 50 % (03/25 800) Intake/Output Summary (Last 24 hours) at 03/25/14 0857 Last data filed at 03/25/14 0757 Gross per 24 hour Intake 3622 ml Output 35056 ml Net -6803 ml EXAM GEN: awakens to voice. Opens eyes. NAD. Increased agitation with decreased dex. Now zita m on 1.5mcg/kg/min. NEURO: PERRLA, EOMI, no facial asymmetry, moves all extremities well GCS: 13 HEENT: sclerae clear, nonicteric, oral dry, pink, nasal trumpet in place. Intermittent NT sxn NECK: supple, trachea midline, intubated, NG in place HEART: RRR, no murmur, rub or gallop LUNGS: LS clear t/o, no wheezing, crackles or rhonchi. Intermittent thick/tenacous secreti ons. ABD: soft, slightly distended, nontender to palpation, no masses EXTR: no edema, clubbing or cyanosis SKIN: warm, dry, no rash or mottling; no e/o skin breakdown over the occiput, scapulae, elb ows, sacrum or heels. Abrasions to bilat shins DATA CBC Recent Labs Lab 03/25/14 0024 03/24/14 0352 03/23/14 0335 WBC 12.4* 9.4 10.4 HGB 9.7* 8.6* 9.3* HCT 29.1* 26.4* 29.2* PLT 307 235 221 CMP Recent Labs Lab 03/25/14 0603 03/25/14 0024 03/24/14 1430 03/24/14 0352 03/22/14 0859 03/22/14 0406 NA -- 136 138 -- 134* < > -- 138 K 3.7 3.6 3.6 < > 3.6 < > -- 3.5 CL -- 99 103 -- 105 < > -- 107 CO2 -- 29 28 -- 24 < > -- 27 BUN -- 4* 5* -- 8 < > -- 8 CREATININE -- 0.74 0.82 -- 0.63* < > -- 0.71 PROT -- -- -- -- -- -- 6.6 -- BILITOT -- -- -- -- -- -- 0.6 -- ALT -- -- -- -- -- -- 77* -- AST -- -- -- -- -- -- 153* -- < > = values in this interval not displayed. IMAGING X-ray Chest 1 View 03/22/2014 1. Developing mild infiltrate in the right lung base. Otherwise stable chest. X-ray Chest 1 View 03/21/2014 1. Tubes and lines, as above. 2. Mild left lower lobe atelectasis. Ngoci reva signed by Jad Coker MD on 03/21/2014 7:39 AM X-ray Pelvis 1 View 03/21/2014 1. No acute findings. Ct Head Cervical Spine Without Contrast 03/21/[address]: No acute or focal intracranial abnormality. Ancillary findings as out lined above. Medial blowout fracture right orbit , possibly old . Cervical Spine CT: No evid ence of fracture or malalignment in the cervical spine . Patchy bilateral apical lung diseas e . RADIA Electronically signed by Kermit Olivo MD on Mar 21 2014 6:45AM Referring Provi alex Line: [phone] ID: [id number] PROBLEM LIST Principal Problem: Alcohol withdrawal syndrome Active Problems: Acute respiratory failure Altered mental status DTs (delirium tremens) Alcohol abuse, continuous ASSESSMENT & PLAN NEURO: Acute alcohol withdrawal. On CIWA protocol. Controlled with Dex. With Dex reduced pt becomes very agitated/tachycardic/worsening DTs. Seems well controlled with Dex at 1.5 mcg/ kg/min. Added Tegretol/Haldol. Limit Benzo's. CAM ICU daily Metabolic encephalopathy/Toxic encephalopathy. Will add tegretol for mood stabilization /ETOH w/d. Daily level. CARDIOVASCULAR: Tachycardia--better today, 101. Likely seeing this in the context of acute w/d HTN -- no meds. Likely d/t ETOH w/d. Stable currently on Dex Elevated CPK at time of admit. Trending down. F/u Trop negligible PULMONARY: Acute respiratory failure (Vent Settin, 30%, P=8)--tolerating SBT. Extubated . Requiring CPAP today with marked improvement in RR. ABGs WNL. Aspiration PNA: Fever, thick secretions, radiologic evidence--CXR much improved. Afebr ile. Reduced secretion. Zosyn/Vanc. Tenacious secretions--much less so today (03/24). Cont to aggressively suction to clear upper airway. Heated coil in place. Monitor for evidence of sinusitis. GI: Chronic ETOH abuse. Covered with thiamine/B1/MVI. Dietary consult. TFs on hold. Will restart @ 10ml/hr. Will add LFTs to am labs. Elevated. hepatitis panel negative. INR 1.0. Ammonia level 34. RENAL: No acute issues (Cr 0.63-03/24) Lytes replacement per protocol INFECTIOUS DISEASE: Radiologic evidence of aspiration PNA. No leukocytosis. Thick secretions + fever. Sta rted on Zosyn. WBC trending down (now 9.4-03/24). No fever overnight. ProCal 0.33 HEME: Mild anemia. On MVI. Scant dried blood suctioned from ETT. Otherwise no evidence of b leeding. ENDOCRINE: No hx of DM. BGs prn MUSCULOSKELETAL: PT/OT when able. PROPHYLAXIS: Stress ulcer prophylaxis: pepcid DVT prophylaxis: Lovenox VAP bundle: chlorhexadine oral care, HOB >30 degrees. Disposition: Extubated x24hrs. Maintained on Dex. Requiring CPAP intermittently. Pulmon zan status tenuous. Code Status: Full Code *Please bill 45 minutes of critical care time spent evaluating the patient, reviewing the d samuel and formulating a plan exclusive of all other procedures. ANDREW Escamilla 03/25/2014 8:57 AM onversion Tra nsaction, Provider Unknown - 03/24/2014 5:30 PM PDTFormatting of this note might be differe nt from the original. Progress Notes by Cadence Reddy at 03/24/14 173 Author: Cadence Reddy Service: (none) Author Type: Filed: 03/24/14 173 Date of Service: 03/24/141729 Status: Signed Photographs Curator: Cadence Reddy () Attempted visit. Pt sleeping no family in room. Chaplain Cadence Reddy onver mynor Transaction, Provider Unknown - 03/24/2014 4:25 PM PDT Progress Notes by Noemi Lam RD, NICO at 03/24/14 1625 Author: Noemi Lam RD, NICO Service: (none) Author Type: Registered Dietitian Filed: 03/24/14 1631 Date of Service: 03/24/141624 Status: Signed Photographs Curator: Noemi Lam RD, CD (Registered Dietitian) Nutrition Assessment and Recommendations Assessment: Extubated to oxymask. Continue to have acute ETOH withdrawal. Confused and restless this af ternoon. Nutritionally pertinent labs: BG has been controlled in the 100s-150s. Electrolytes WNL. Current intake: NPO. NG tube has been at suction at times, currently clamped. Had been rece iving TF of Jevity 1.5 at 60 mL/hr. Was tolerating feeds well but feeds are currently on hol d in case pt requires reintubation. Nutrition Diagnosis: Inadequate intake related to inability to eat with AMS as evidenced by NPO order. Intervention: TF of Jevity 1.5 at 60 mL/hr when indicated. Provides 1800 kcal, 77 g protein, 1494 NPC, 12 00 mL total volume, and 912 mL free water which supplies 28 kcal/kg and 1.2 g protein/kg. Wi ll continue to monitor clinical course and provide further recs for nutrition intervention a s needed. Goals: Pt will tolerate enteral nutrition at goal rate. Recommendations: 1) Resume TF of Jevity 1.5 with goal rate of 60 mL/hr when indicated. 2) Continue folic acid and thiamin supplementation. Monitoring: Will follow up in [address], CD 03/24/2014 onver mynor Transaction, Provider Unknown - 03/24/2014 3:23 PM PDT Progress Notes by Mitchell Gould RPH at 03/24/141522 Author: Mitchell Gould RPH Service: (none) Author Type: Pharmacist Filed: 03/24/141522 Date of Service: 03/24/141522 Status: Signed Photographs Curator: Mitchell Gould RPH (Pharmacist) Vancomycin day 3, est crcl 122.4ml/min, trough today at 0824 was 9.7 (goal 15-20). Will ch maureen dosing from Vancomycin 1250mg IV q12h to 1000mg IV q8h. Will check trough level at 190 0 on 03/25 onver mynor Transaction, Provider Unknown - 03/24/2014 12:04 PM PDT Case Management by AARON Jc at 03/24/14 1202 Author: AARON Jc Service: (none) Author Type: Director Of Programming Filed: 03/24/14 2198 Date of Service: 03/24/14 120 Status: Signed Photographs Curator: AARON Jc (Director Of Programming) Attended morning rounds. Pt was extubated today. RN has no contact for family. Emergency n umber for sister (Jennifer Mckeon [phone]) is no longer in service. Placed t/c to [facility] ([phone]) in [place] and left message requesting return call with any famil y contact info. As a back up plan, i placed pt on list at [facility] in [place] in c ase he needs rehab upon d/c. Aye Middleton ARNP - 03/24/2014 8:34 AM PDT Progress Notes by ANDREW Escamilla at 03/24/14833 Author: ANDREW Escamilla Service: Assessment Clinician Author Type: Nurse Practitioner Filed: 03/24/1406 Date of Service: 03/24/14833 Status: Signed Photographs Curator: ANDREW Escamilla (Nurse Practitioner) [facility] Service: Assessment Clinician Progress Note Ladarius Abbasi 58 y.o. Hospital Day: LOS: 3 days Post-Op Day: * No surgery found * Consulting Physicians Treatment Team: Admitting Provider: Ravin Avila MD SUBJECTIVE Patient Summary: Mr. Ladarius Abbasi is a 58-year-old male patient who apparently t katarina was found down by his family in [place]. He was transferred to a hospital in this region where he was admitted due to delirium tremens and alcohol withdrawal. The patient became mo re agitated overnight, requiring up to 20 mg of Ativan. He continued to be very agitated and required intubation for patient safety. The patient was consulted to us and transferred to our institution due to respiratory failure secondary to alcohol withdrawal. ICU Timeline: 03/21: Admit to ICU. Transferred from [facility]. Last drink thought to be early in the am of 03/21. 03/22: No acute events. DT's managed with Precedex. Now on SBT and beginning to wake. During SBT spiked a fever. Will hold off on extubation. Started on Zosyn. 03/23: No acute events. Sedation holiday this am. More appropriate. Calm. No acute evidence of w/d. Required 1L NS overnight for hypotension. Increased secretions this am. Events Overnight: Episode of acute delirium overnight despite Precedex. Increased to 1.5mcg/kg/min. PAST MEDICAL HISTORY No past medical history on file. PAST SURGICAL HISTORY No past surgical history on file. ALLERGIES No Known Allergies MEDICATIONS PRIOR TO ADMISSION No prescriptions prior to admission SCHEDULED MEDICATIONS chlorhexidine gluconate 15 mL Mouth/Throat Q12H docusate sodium 100 mg Oral BID Or docusate 100 mg Per OG Tube BID enoxaparin 40 mg Subcutaneous Q24H famotidine 20 mg Oral BID Or famotidine 20 mg Intravenous BID folic acid (FOLVITE) IVPB 1 mg Intravenous Daily Or multivitamin & minerals w iron/FA 1 tablet Oral Daily piperacillin-tazobactam 3.375 g Intravenous Q8H polyethylene glycol 17 g Oral Daily sodium chloride 0.9 % 10 mL Intravenous Q12H VARUN thiamine (VITAMIN B1) IVPB 100 mg Intravenous Q24H Or thiamine 100 mg Oral Q24H vancomycin 18 mg/kg Intravenous Q12H CONTINUOUS INFUSIONS dexmedetomidine in NS 1.5 mcg/kg/hr (03/24/14 0821) fentaNYL in NS 5 mcg/mL 50 mcg/hr (03/24/14 0535) sodium chloride (IV) 110 mL/hr at 03/23/14 1846 PRN MEDICATIONS acetaminophen, acetaminophen, diazepam, diazepam, diazepam, hydrALAZINE, lip moisturizer, m agnesium sulfate, magnesium sulfate, magnesium sulfate, magnesium sulfate, nystatin, nystati n, ondansetron, ondansetron, pancrelipase (Zry-Agig-Vhgb) 10,000 units, petrolatum, phosphor us, potassium chloride, potassium chloride, potassium chloride, sodium bicarbonate, sodium c hloride 0.9 %, sodium phosphate IVPB 15 mmol, sodium phosphate IVPB 30 mmol OBJECTIVE VITAL SIGNS BP 123/78 | Pulse 87 | Temp(Src) 98.8 F (37.1 C) (Oral) | Resp 14 | Ht 1.702 m (5' 7") | Wt 71.4 kg (157 lb 6.5 oz) | BMI 24.65 kg/m2 | SpO2 97% Temp: [98.8 F (37.1 C)-101.6 F (38.7 C)] 98.8 F (37.1 C) (03/24 400) BP: (84-200)/(53-126) 123/78 mmHg (03/24 645) Heart Rate: [66-158] 87 (03/24 645) Resp: [14-15] 14 (03/24 400) SpO2: [94 %-100 %] 97 % (03/24 645) Weight: [71.4 kg (157 lb 6.5 oz)] 71.4 kg (157 lb 6.5 oz) (10/10 0430) FiO2 : [28 %-30 %] 30 % (03/24 0645) Intake/Output Summary (Last 24 hours) at 03/24/14 0834 Last data filed at 03/24/14 0640 Gross per 24 hour Intake 5320 ml Output 2290 ml Net 3030 ml EXAM GEN: awakens to voice. Opens eyes. NAD. Increased agitation with decreased dex. Now zita m on 1.5mcg/kg/min. NEURO: PERRLA, EOMI, no facial asymmetry, moves all extremities well GCS: 4T6 HEENT: sclerae clear, nonicteric, oral dry, pink, thick oral/ETT secretions. NECK: supple, trachea midline, intubated, OG in place HEART: RRR, no murmur, rub or gallop LUNGS: LS clear t/o, no wheezing, crackles or rhonchi. Intermittent thick/tenacous secreti ons. ABD: soft, slightly distended, nontender to palpation, no masses EXTR: no edema, clubbing or cyanosis SKIN: warm, dry, no rash or mottling; no e/o skin breakdown over the occiput, scapulae, elb ows, sacrum or heels. Abrasions to bilat shins DATA CBC Recent Labs Lab 03/24/14 0352 03/23/145 03/22/14 0406 WBC 9.4 10.4 11.0 HGB 8.6* 9.3* 10.6* HCT 26.4* 29.2* 33.2* PLT 235 221 202 CMP Recent Labs Lab 03/24/14 0352 03/23/14 1752 03/23/14 0335 03/22/14 0859 03/22/14 0406 NA 134* -- 137 -- -- 138 K 3.6 3.6 3.9 < > -- 3.5 CL 105 -- 109 -- -- 107 CO2 24 -- 24 -- -- 27 BUN 8 -- 8 -- -- 8 CREATININE 0.63* -- 0.66* -- -- 0.71 PROT -- -- -- -- 6.6 -- BILITOT -- -- -- -- 0.6 -- ALT -- -- -- -- 77* -- AST -- -- -- -- 153* -- < > = values in this interval not displayed. IMAGING X-ray Chest 1 View 03/22/2014 1. Developing mild infiltrate in the right lung base. Otherwise stable chest. X-ray Chest 1 View 03/21/2014 1. Tubes and lines, as above. 2. Mild left lower lobe atelectasis. Ngoci reva signed by Jad Coker MD on 03/21/2014 7:39 AM X-ray Pelvis 1 View 03/21/2014 1. No acute findings. Ct Head Cervical Spine Without Contrast 03/21/[address]: No acute or focal intracranial abnormality. Ancillary findings as out lined above. Medial blowout fracture right orbit , possibly old . Cervical Spine CT: No evid ence of fracture or malalignment in the cervical spine . Patchy bilateral apical lung diseas e . RADIA Electronically signed by Kermit Olivo MD on Mar 21 2014 6:45AM Referring Provi alex Line: [phone] ID: [id number] PROBLEM LIST Principal Problem: Alcohol withdrawal syndrome Active Problems: Acute respiratory failure Altered mental status DTs (delirium tremens) Alcohol abuse, continuous ASSESSMENT & PLAN NEURO: Acute alcohol withdrawal. On CIWA protocol. Controlled with Dex. With Dex reduced pt becomes very agitated/tachycardic/worsening DTs. Seems well controlled with Dex at 1.5 mcg/ kg/min CAM ICU daily Metabolic encephalopathy/Toxic encephalopathy CARDIOVASCULAR: Tachycardia--better today, 101. Likely seeing this in the context of acute w/d HTN -- no meds. Likely d/t ETOH w/d. Stable currently on Dex PULMONARY: Acute respiratory failure (Vent Settin, 30%, P=8)--tolerating SBT. Working towar d extubation Aspiration PNA: Fever, thick secretions, radiologic evidence--CXR much improved. Afebr ile. Reduced secretion. Zosyn. Tenacious secretions--much less so today (03/24). Cont to aggressively suction to clear upper airway. Heated coil in place. Monitor for evidence of sinusitis. GI: Chronic ETOH abuse. Covered with thiamine/B1/MVI. Dietary consult. TFs running Will add LFTs to am labs. Elevated. hepatitis panel negative. INR 1.0. Ammonia level 34. RENAL: No acute issues (Cr 0.63-10/10) Lytes replacement per protocol INFECTIOUS DISEASE: Radiologic evidence of aspiration PNA. No leukocytosis. Thick secretions + fever. Sta rted on Zosyn. WBC trending down (now 9.4-10/10). No fever overnight HEME: Mild anemia. On MVI. Scant dried blood suctioned from ETT. Otherwise no evidence of b leeding. ENDOCRINE: No hx of DM. BGs prn MUSCULOSKELETAL: PT/OT when able. PROPHYLAXIS: Stress ulcer prophylaxis: pepcid DVT prophylaxis: Lovenox VAP bundle: chlorhexadine oral care, HOB >30 degrees. Disposition: ICU. Remains intubated, requires frequent monitoring for acute DTs. Will re -attempt SBT this am with the plan to extubate on Dex if able. Code Status: Full Code *Please bill 45 minutes of critical care time spent evaluating the patient, reviewing the d samuel and formulating a plan exclusive of all other procedures. ANDREW Escamilla 03/24/2014 8:34 AM onversion Tra nsaction, Provider Unknown - 03/23/2014 2:34 PM PDTFormatting of this note might be differe nt from the original. Progress Notes by Mitchell Gould RPH at 03/23/14 1434 Author: Mitchell Gould RPH Service: (none) Author Type: Pharmacist Filed: 03/23/14 1434 Date of Service: 03/23/141433 Status: Signed Photographs Curator: Mitchell Gould RPH (Pharmacist) Vancomycin day 2, est crcl 116.8ml/min, awaiting trough level at 0800 03/24 Aye Middleton ARNP - 03/23/2014 7:48 AM PDT Progress Notes by ANDREW Escamilla at 03/23/14 0751 Author: ANDREW Escamilla Service: Assessment Clinician Author Type: Nurse Practitioner Filed: 03/23/14 0941 Date of Service: 03/23/14747 Status: Signed Photographs Curator: ANDREW Escamilla (Nurse Practitioner) [facility] Service: Assessment Clinician Progress Note Ladarius Abbasi 58 y.o. Hospital Day: LOS: 2 days Post-Op Day: * No surgery found * Consulting Physicians Treatment Team: Admitting Provider: Ravin Avila MD SUBJECTIVE Patient Summary: Mr. Ladarius Abbasi is a 58-year-old male patient who apparently t katarina was found down by his family in [place]. He was transferred to a hospital in this region where he was admitted due to delirium tremens and alcohol withdrawal. The patient became mo re agitated overnight, requiring up to 20 mg of Ativan. He continued to be very agitated and required intubation for patient safety. The patient was consulted to us and transferred to our institution due to respiratory failure secondary to alcohol withdrawal. ICU Timeline: 03/21: Admit to ICU. Transferred from [facility]. Last drink though t to be early in the am of 03/21. 03/22: No acute events. DT's managed with Precedex. Now on SBT and beginning to wake. During SBT spiked a fever. Will hold off on extubation. Started on Zosyn. Events Overnight: No acute events. Sedation holiday this am. More appropriate. Ca lm. No acute evidence of w/d. Required 1L NS overnight for hypotension. Increased secreti ons this am. PAST MEDICAL HISTORY No past medical history on file. PAST SURGICAL HISTORY No past surgical history on file. ALLERGIES No Known Allergies MEDICATIONS PRIOR TO ADMISSION No prescriptions prior to admission SCHEDULED MEDICATIONS chlorhexidine gluconate 15 mL Mouth/Throat Q12H docusate sodium 100 mg Oral BID Or docusate 100 mg Per OG Tube BID enoxaparin 40 mg Subcutaneous Q24H famotidine 20 mg Oral BID Or famotidine 20 mg Intravenous BID folic acid (FOLVITE) IVPB 1 mg Intravenous Daily Or multivitamin & minerals w iron/FA 1 tablet Oral Daily piperacillin-tazobactam 3.375 g Intravenous Q8H polyethylene glycol 17 g Oral Daily sodium chloride 0.9 % 10 mL Intravenous Q12H VARUN thiamine (VITAMIN B1) IVPB 100 mg Intravenous Q24H Or thiamine 100 mg Oral Q24H vancomycin 18 mg/kg Intravenous Q12H CONTINUOUS INFUSIONS dexmedetomidine in NS 0.5 mcg/kg/hr (03/22/14 0134) fentaNYL in NS 5 mcg/mL Stopped (03/23/14 0645) sodium chloride (IV) 110 mL/hr at 03/23/14 0342 PRN MEDICATIONS acetaminophen, acetaminophen, diazepam, diazepam, diazepam, hydrALAZINE, lip moisturizer, m agnesium sulfate, magnesium sulfate, magnesium sulfate, magnesium sulfate, nystatin, nystati n, ondansetron, ondansetron, pancrelipase (Wmc-Lcvi-Ipof) 10,000 units, petrolatum, phosphor us, potassium chloride, potassium chloride, potassium chloride, sodium bicarbonate, sodium c hloride 0.9 %, sodium phosphate IVPB 15 mmol, sodium phosphate IVPB 30 mmol OBJECTIVE VITAL SIGNS BP 139/84 | Pulse 102 | Temp(Src) 98.8 F (37.1 C) (Oral) | Resp 24 | Ht 1.702 m (5' 7") | Wt 70.4 kg (155 lb 3.3 oz) | BMI 24.3 kg/m2 | SpO2 99% Temp: [98.4 F (36.9 C)-103.1 F (39.5 C)] 98.8 F (37.1 C) (03/23 400) BP: (75-147)/(50-90) 139/84 mmHg (03/23 700) Heart Rate: [72-117] 102 (03/23 700) Resp: [15-24] 24 (03/23 400) SpO2: [96 %-100 %] 99 % (03/23 700) Weight: [70.4 kg (155 lb 3.3 oz)] 70.4 kg (155 lb 3.3 oz) (03/23 500) FiO2 : [30 %] 30 % (03/23 700) Intake/Output Summary (Last 24 hours) at 03/23/14 0748 Last data filed at 03/23/14 0500 Gross per 24 hour Intake 6826 ml Output 1900 ml Net 4926 ml EXAM GEN: awakens to voice. Opens eyes. NAD. Increased agitation with decreased dex NEURO: PERRLA, EOMI, no facial asymmetry, moves all extremities well GCS: 4T6 HEENT: sclerae clear, nonicteric, oral dry, pink, thick oral/ETT secretions. NECK: supple, trachea midline, intubated, OG in place HEART: RRR, no murmur, rub or gallop LUNGS: LS clear t/o, no wheezing, crackles or rhonchi. Copious thick/tenacous secretions. ABD: soft, slightly distended, nontender to palpation, no masses EXTR: no edema, clubbing or cyanosis SKIN: warm, dry, no rash or mottling; no e/o skin breakdown over the occiput, scapulae, elb ows, sacrum or heels. Abrasions to bilat shins DATA CBC Recent Labs Lab 03/23/1433403/22/14 0406 WBC 10.4 11.0 HGB 9.3* 10.6* HCT 29.2* 33.2* PLT 221 202 CMP Recent Labs Lab 03/23/1433403/22/14 2120 03/22/14 1547 03/22/14 0859 03/22/14 0406 03/21/14 0732 NA 137 -- -- -- 138 140 K 3.9 3.6 3.8 -- 3.5 3.5 CL 109 -- -- -- 107 109 CO2 24 -- -- -- 27 26 BUN 8 -- -- -- 8 6* CREATININE 0.66* -- -- -- 0.71 0.68* PROT -- -- -- 6.6 -- -- BILITOT -- -- -- 0.6 -- -- ALT -- -- -- 77* -- -- AST -- -- -- 153* -- -- IMAGING X-ray Chest 1 View 03/22/2014 1. Developing mild infiltrate in the right lung base. Otherwise stable chest. X-ray Chest 1 View 03/21/2014 1. Tubes and lines, as above. 2. Mild left lower lobe atelectasis. Steve ardon signed by Jad Coker MD on 03/21/2014 7:39 AM X-ray Pelvis 1 View 03/21/2014 1. No acute findings. Ct Head Cervical Spine Without Contrast 03/21/[address]: No acute or focal intracranial abnormality. Ancillary findings as out lined above. Medial blowout fracture right orbit , possibly old . Cervical Spine CT: No evid ence of fracture or malalignment in the cervical spine . Patchy bilateral apical lung diseas e . RADIA Electronically signed by Kermit Olivo MD on Mar 21 2014 6:45AM Referring Provi alex Line: [phone] ID: [id number] PROBLEM LIST Principal Problem: Alcohol withdrawal syndrome Active Problems: Acute respiratory failure Altered mental status DTs (delirium tremens) Alcohol abuse, continuous ASSESSMENT & PLAN NEURO: Acute alcohol withdrawal. On CIWA protocol. Controlled with Dex. With Dex reduced pt becomes very agitated/tachycardic/worsening DTs. Seems well controlled with Dex at 0.4mcg/k g/min CAM ICU daily Metabolic encephalopathy/Toxic encephalopathy CARDIOVASCULAR: Tachycardia--better today, 101. Likely seeing this in the context of acute w/d HTN -- no meds. Has actually had issues with hypotension and rc'd 1L NS overnight PULMONARY: Acute respiratory failure (Vent Settin, 30%, P=8) Aspiration PNA: Fever, thick secretions, radiologic evidence. Started on Zosyn. Tenacious secretions. Thick/pink tinged. Has the appearance of pulmonary edema but LS clear. Cont to aggressively suction to clear upper airway. Heated coil in place. Monitor for evidence of sinusitis. GI: Chronic ETOH abuse. Covered with thiamine/B1/MVI. Dietary consult. TFs running Will add LFTs to am labs. Elevated. Will check hepatitis panel negative. INR 1.0. Ammonia level 34. RENAL: No acute issues (Cr 0.71-03/22) Lytes replacement per protocol INFECTIOUS DISEASE: Radiologic evidence of aspiration PNA. No leukocytosis. Thick secretions + fever. Sta rted on Zosyn. WBC trending down. T max 101.8. HEME: Mild anemia. On MVI. Scant dried blood suctioned from ETT. Otherwise no evidence of b leeding. ENDOCRINE: No hx of DM. BGs prn MUSCULOSKELETAL: PT/OT when able. PROPHYLAXIS: Stress ulcer prophylaxis: pepcid DVT prophylaxis: Lovenox VAP bundle: chlorhexadine oral care, HOB >30 degrees. Disposition: ICU. Remains intubated, requires frequent monitoring for acute DTs. Will re -attempt SBT this afternoon with the plan to extubate on Dex (min of 0.4mcg/kg/min) if able. Code Status: Full Code *Please bill 35 minutes of critical care time spent evaluating the patient, reviewing the d samuel and formulating a plan exclusive of all other procedures. ANDREW Escamilla 03/23/2014 7:48 AM onversion Tra nsaction, Provider Unknown - 03/22/2014 8:46 PM PDTFormatting of this note might be differe nt from the original. Progress Notes by Jade Valderrama RPH at 03/22/142045 Author: Jade Valderrama RPH Service: (none) Author Type: Pharmacist Filed: 03/22/142045 Date of Service: 03/22/142045 Status: Signed Photographs Curator: Jade Valderrama RPH (Pharmacist) Clinical Pharmacy Note: Pharmacy Dosing Vancomycin; Day 1 Ladarius Freitaspentower 58 y.o. male Ht Readings from Last 1 Encounters: 03/21/14 1.702 m (5' 7") Wt Readings from Last 1 Encounters: 03/22/14 65.9 kg (145 lb 4.5 oz) CREATININE: 0.71 (03/22/14 0406) Estimated creatinine clearance - 108.3 mL/min WBC Date Value Range Status 03/22/2014 11.0 3.8 - 11.0 K/uL Final Testing performed at [facility], [address] [place] [address] INDICATION: HAP Will begin Vancomycin 1250 mg (18 mg/kg) IV Q12H Level due 03/24 at 0800; goal 15 to 20 mcg/ml. Pharmacy will continue to monitor for changes in renal function and adjust accordingly. Jade Valderrama RPh 03/22/2014 8:45 PM onver mynor Transaction, Provider Unknown - 03/22/2014 10:21 AM PDT Case Management by AARON Jc at 03/22/14 1021 Author: AARON Jc Service: (none) Author Type: Director Of Programming Filed: 03/22/14 1022 Date of Service: 03/22/14 1021 Status: Signed Photographs Curator: AARON Jc (Director Of Programming) Received t/c from [facility] ([phone]). She is available t o assist with d/c planning needs as they arise Valentina Ashraf ARNP - 03/22/2014 9:15 AM PDTFormatting of this note might be different from the o riginal. Progress Notes by Valentina Robin RN at 03/22/14914 Author: Valentina Robin RN Service: (none) Author Type: Registered Nurse Filed: 03/22/14915 Date of Service: 03/22/14914 Status: Signed Photographs Curator: Valentina Robin RN (Registered Nurse) Pt. Febrile at 103 per VANCE Fu. Blood culture being drawn at this time. Peripheral IV s tarted with ultrasound. PICC order cancelled at this time. Please re-order if needed. Aye Alex ARNP - 03/22/2014 8:36 AM PDTFormatting of this note might be different from th e original. Progress Notes by ANDREW Escamilla at 03/22/1436 Author: ANDREW Escamilla Service: Assessment Clinician Author Type: Nurse Practitioner Filed: 03/22/14 1006 Date of Service: 03/22/14835 Status: Signed Photographs Curator: ANDREW Escamilla (Nurse Practitioner) [facility] Service: Assessment Clinician Progress Note Ladarius Abbasi 58 y.o. Hospital Day: LOS: 1 day Post-Op Day: * No surgery found * Consulting Physicians Treatment Team: Admitting Provider: Ravin Avila MD SUBJECTIVE Patient Summary: Mr. Ladarius Abbasi is a 58-year-old male patient who apparently t katarina was found down by his family in [place]. He was transferred to a hospital in this region where he was admitted due to delirium tremens and alcohol withdrawal. The patient became mo re agitated overnight, requiring up to 20 mg of Ativan. He continued to be very agitated and required intubation for patient safety. The patient was consulted to us and transferred to our institution due to respiratory failure secondary to alcohol withdrawal. ICU Timeline: 03/21: Admit to ICU. Transferred from [facility]. Last drink though t to be early in the am of 03/21. Events Overnight: No acute events. DT's managed with Precedex. Now on SBT and begin mckenna to wake. During SBT spiked a fever. Will hold off on extubation. Started on Zosyn. PAST MEDICAL HISTORY No past medical history on file. PAST SURGICAL HISTORY No past surgical history on file. ALLERGIES No Known Allergies MEDICATIONS PRIOR TO ADMISSION No prescriptions prior to admission SCHEDULED MEDICATIONS chlorhexidine gluconate 15 mL Mouth/Throat Q12H docusate sodium 100 mg Oral BID Or docusate 100 mg Per OG Tube BID enoxaparin 40 mg Subcutaneous Q24H famotidine 20 mg Oral BID Or famotidine 20 mg Intravenous BID folic acid (FOLVITE) IVPB 1 mg Intravenous Daily Or multivitamin & minerals w iron/FA 1 tablet Oral Daily influenza vaccine quadrivalent-split 0.5 mL Intramuscular Once Immunization lidocaine buffered 1% 0.5 mL Intradermal Once pneumococcal 23-valent vaccine 0.5 mL Intramuscular Once Immunization sodium chloride 0.9 % 10 mL Intravenous Q12H VARUN thiamine (VITAMIN B1) IVPB 100 mg Intravenous Q24H Or thiamine 100 mg Oral Q24H CONTINUOUS INFUSIONS dexmedetomidine in NS 0.5 mcg/kg/hr (03/21/14 1807) fentaNYL in NS 5 mcg/mL Stopped (03/22/14 0615) propofol Stopped (03/21/14 1400) sodium chloride (IV) 110 mL/hr at 03/21/14 1613 PRN MEDICATIONS acetaminophen, acetaminophen, diazepam, diazepam, diazepam, hydrALAZINE, lip moisturizer, m agnesium sulfate, magnesium sulfate, magnesium sulfate, magnesium sulfate, nystatin, nystati n, ondansetron, ondansetron, pancrelipase (Svd-Cpll-Tryk) 10,000 units, petrolatum, phosphor us, potassium chloride, potassium chloride, potassium chloride, sodium bicarbonate, sodium c hloride 0.9 %, sodium phosphate IVPB 15 mmol, sodium phosphate IVPB 30 mmol OBJECTIVE VITAL SIGNS BP 140/79 | Pulse 109 | Temp(Src) 97.8 F (36.6 C) (Axillary) | Resp 14 | Ht 1.702 m (5' 7") | Wt 65.9 kg (145 lb 4.5 oz) | BMI 22.75 kg/m2 | SpO2 98% Temp: [97.6 F (36.4 C)-98.3 F (36.8 C)] 97.8 F (36.6 C) (03/22 400) BP: (92-174)/(51-100) 140/79 mmHg (03/22 600) Heart Rate: [72-109] 109 (03/22 600) Resp: [14] 14 (03/22 400) SpO2: [98 %-100 %] 98 % (03/22 600) Weight: [65.9 kg (145 lb 4.5 oz)] 65.9 kg (145 lb 4.5 oz) (03/22 430) FiO2 : [30 %-50 %] 30 % (03/22 600) Intake/Output Summary (Last 24 hours) at 03/22/14 0836 Last data filed at 03/22/14 0656 Gross per 24 hour Intake 4598.4 ml Output 2350 ml Net 2248.4 ml EXAM GEN: awakens to voice. Opens eyes. Follows basic commands but then drifts back asleep, NA D NEURO: PERRLA, EOMI, no facial asymmetry, moves all extremities well GCS: 4T6 HEENT: sclerae clear, nonicteric, oral dry, pink, no exudates NECK: supple, trachea midline, intubated, OG in place HEART: RRR, no murmur, rub or gallop LUNGS: coarse expiratory breath sounds, no wheezing, crackles or rhonchi ABD: soft, slightly distended, nontender to palpation, no masses EXTR: no edema, clubbing or cyanosis SKIN: warm, dry, no rash or mottling; no e/o skin breakdown over the occiput, scapulae, elb ows, sacrum or heels. Abrasions to bilat shins DATA CBC Recent Labs Lab 03/22/14 0406 WBC 11.0 HGB 10.6* HCT 33.2* PLT 202 CMP Recent Labs Lab 03/22/14 0406 03/21/14 0732 NA 138 140 K 3.5 3.5 CL 107 109 CO2 27 26 BUN 8 6* CREATININE 0.71 0.68* IMAGING X-ray Chest 1 View 03/22/2014 1. Developing mild infiltrate in the right lung base. Otherwise stable chest. X-ray Chest 1 View 03/21/2014 1. Tubes and lines, as above. 2. Mild left lower lobe atelectasis. Ngoci reva signed by Jad Coker MD on 03/21/2014 7:39 AM X-ray Pelvis 1 View 03/21/2014 1. No acute findings. Ct Head Cervical Spine Without Contrast 03/21/[address]: No acute or focal intracranial abnormality. Ancillary findings as out lined above. Medial blowout fracture right orbit , possibly old . Cervical Spine CT: No evid ence of fracture or malalignment in the cervical spine . Patchy bilateral apical lung diseas e . RADIA Electronically signed by Kermit Olivo MD on Mar 21 2014 6:45AM Referring Provi alex Line: [phone] ID: [id number] PROBLEM LIST Principal Problem: Alcohol withdrawal syndrome Active Problems: Acute respiratory failure Altered mental status DTs (delirium tremens) Alcohol abuse, continuous ASSESSMENT & PLAN NEURO: Acute alcohol withdrawal. On CIWA protocol CAM ICU daily Metabolic encephalopathy/Toxic encephalopathy CARDIOVASCULAR: Tachycardia HTN PULMONARY: Acute respiratory failure (Vent Settin, 30%, P=8) Aspiration PNA: Fever, thick secretions, radiologic evidence. Started on Zosyn. GI: Chronic ETOH abuse. Covered with thiamine/B1/MVI. Dietary consult. TFs running Will add LFTs to am labs. Elevated. Will check hepatitis panel today (03/22). INR added to am labs. Ammonia level 34. RENAL: No acute issues (Cr 0.71-03/22) Lytes replacement per protocol INFECTIOUS DISEASE: Radiologic evidence of aspiration PNA. No leukocytosis. Thick secretions + fever. Sta rted on Zosyn HEME: Mild anemia. On MVI. Scant dried blood suctioned from ETT. Otherwise no evidence of b leeding. ENDOCRINE: No hx of DM. BGs prn MUSCULOSKELETAL: PT/OT when able. PROPHYLAXIS: Stress ulcer prophylaxis: pepcid DVT prophylaxis: Lovenox VAP bundle: chlorhexadine oral care, HOB >30 degrees. Disposition: ICU. Remains intubated, requires frequent monitoring for acute DTs Code Status: Full Code *Please bill 45 minutes of critical care time spent evaluating the patient, reviewing the d samuel and formulating a plan exclusive of all other procedures. ANDREW Escamilla 03/22/2014 8:36 AM onversion Tra nsaction, Provider Unknown - 03/21/2014 1:55 PM PDTFormatting of this note might be differe nt from the original. Nurse Progress Note by Noelle Johnson RN at 03/21/14 3579 Author: Noelle Johnson RN Service: Wound/Ostomy Care Author Type: Registered Nurse Filed: 03/21/14 5284 Date of Service: 03/21/14 8226 Status: Signed Photographs Curator: Noelle Johnson RN (Registered Nurse) Patient seen today by pawn shop keeper for evaluation due to a low Oren score. Today's Brade n scale score is 11 indicating the patient is at high risk for pressure ulcer development or injury. Pt has abrasions to his face and knees, a rash to his groin and very calloused feet but no injury d/t pressure at this time. Recommend cleansing and covering abrasions with hydrocolloid dressings. To be changed every 3 days. Please consult wound care if further needs arise. Thank you, Noelle Johnson RN 1:55 PM 03/21/2014 onver mynor Transaction, Provider Unknown - 03/21/2014 1:40 PM PDT Progress Notes by Jan Howard RRT at 03/21/14 8472 Author: Jan Howard RRT Service: (none) Author Type: Registered Respiratory Therapis t Filed: 03/21/14 1358 Date of Service: 03/21/14 1340 Status: Signed Photographs Curator: Jan Howard RRT (Registered Respiratory Therapist) Replaced pt et tube miranda. onver mynor Transaction, Provider Unknown - 03/21/2014 7:08 AM PDT Progress Notes by Hussein Alejandra RPH at 03/21/14707 Author: Hussein Alejandra RPH Service: (none) Author Type: Pharmacist Filed: 03/21/14707 Date of Service: 03/21/14707 Status: Signed Photographs Curator: Hussein Alejandra RPH (Pharmacist) Renal Dosing Monitoring: Ladarius Abbasi 58 y.o. female Pharmacy dosing for renal function per Dr. Avila Medication(s): no height charted Plan per protocol: Medication / Dose: Need additional lab information Will come back and assess Pharmacy will continue monitoring patient for appropriate dosing per renal function. 03/21/2014 7:07 AM Pharmacist: HUSSEIN ALEJANDRA docume nted in this encounter H&P Notes Conversion Transaction, Provider Unknown - 03/21/2014 6:57 AM PDTFormatting of this note m ight be different from the original. H&P by Ravin Avila DMD at 03/21/1457 Author: Ravin Avila DMD Service: Assessment Clinician Author Type: Physician Filed: 03/22/14 0354 Date of Service: 03/21/1457 Status: Signed Photographs Curator: Ravin Avila DMD (Dentist) Related Notes: Original Note by Ravin Avila DMD (Dentist) filed at 03/21/14706 CHIEF COMPLAINT DTs. Transferred from another institution due to respiratory failure. HISTORY OF PRESENT ILLNESS Mr. Ladarius Abbasi is a 58-year-old male patient who apparently today was found down by his family in [place]. He was transferred to a hospital in this region where he was admitted due to delirium tremens and alcohol withdrawal. The patient became more agitated overnight, requiring up to 20 mg of Ativan. He continued to be very agitated and required intubation fo r patient safety. The patient was consulted to us and transferred to our institution due to respiratory failure secondary to alcohol withdrawal. PAST MEDICAL HISTORY Unable to obtain at this time. According to chart review, no prior medical history other th an alcoholism. PAST SURGICAL HISTORY Unable to obtain. REVIEW OF SYSTEMS Unable to obtain. ALLERGIES No known allergies at this time. MEDICATIONS The patient was transferred with an Ativan drip at 2 mg/hr and a propofol drip at 30. SOCIAL HISTORY The patient, according to history, is a known alcoholic. Once it goes below 200, the patien t starts showing tremors and withdrawal. PHYSICAL EXAMINATION GENERAL: Sedated and paralyzed prior to arrival by EMS. VITAL SIGNS: Within normal limits. HEENT: Moist oral mucosa. Pupils equally round and reactive to light and accommodation. Ext raocular movements intact. No cephalohematomas are noted. No evidence of traumatic injury to the head. Endotracheal tube in place. NECK: Cervical spine with no tenderness and no stepoff. Trachea midline. No crepitus. Cervi zita collar placed in the intensive care unit upon arrival. CHEST: Symmetrical expansion. No tenderness, no crepitus. Gynecomastia is noted. LUNGS: Clear to auscultation bilaterally. HEART: Regular rate and rhythm. No murmurs. ABDOMEN: Soft and depressible. No distention, no tenderness. PELVIS: Stable. EXTREMITIES: No long bone deformities. All joints with full range of motion. No hematomas. BACK: No stepoff, no tenderness. NEUROLOGIC: The patient is sedated and paralyzed at this time. According to EMS transfer, chantal zarate moved his arms prior to being paralyzed for transport in the helicopter. CT scan of the head performed here shows no intracranial injuries. CT scan of the cervical spine shows no abnormalities or deformities. Labs were done at the outlying institution and not provided here, but by signout of the braden se, the potassium was 5, and myoglobin was greater than 7000. ASSESSMENT AND PLAN 1. Respiratory failure secondary to deep sedation due to active delirium tremens. Will tommie p him on low tidal volumes and lung protective strategies. Wean as tolerated as soon as he i s off delirium. 2. Delirium tremens. The patient will be given propofol in addition to Ativan and possibly Precedex to assist in his sedation and help him through his alcohol withdrawal. Will continu e to monitor his vital signs and his recovery. 3. DVT prophylaxis. SCDs and Lovenox. 4. Peptic ulcer disease prophylaxis. H2 blockers at this time. 5. Will consult co founder for starting a tube feed diet. 6. Will monitor electrolytes. 7. Thiamine, multivitamin and folic acid have been ordered. 8. Social, as soon as there is family. We will ascertain further history for situation that culminated in the patient being admitted to our institution. Total critical care time exclusive of procedures: Greater than 35 minutes. docume nted in this encounter Procedure Notes Jad Orellana MD - 03/26/2014 12:24 AM PDTFormatting of this note might be different f rom the original. Procedures by Jad Orellana MD at 03/26/1423 Author: Jad Orellana MD Service: Assessment Clinician Author Type: Physician Filed: 03/26/1428 Date of Service: 03/26/1423 Status: Signed Photographs Curator: Jad Orellana MD (Physician) Pre-procedure Diagnoses: 1. Acute respiratory failure (HCC) [518.81] Post-procedure Diagnoses: 1. Acute respiratory failure (HCC) [518.81] Procedures: 1. INTUBATION [PRO89 (Custom)] - Called to bedside for worsening WOB and possible stridor. - Pt with RR in mid 30s, usin accessory muscles for respiration on bipap. Not responsive. - Very course / dimished BS throughout the lung schwartz with mild stridorous sounds. Pt preoxygenated with 100% - Etomidate / Propofol Given for intubation - Mac 4 used for visualization, grade 4 view, bougie used. Tracheal rings felt. - 8.0 ETT passed over bougie. + colour change and bilateral breath sounds. - CXR shows good position. - Frothy red sputum out of ett. - Sats never fell below 90 Aye Alex ARNP - 03/22/2014 1:20 PM PDTFormatting of this note might be different from th e original. Procedures by ANDREW Escamilla at 03/22/14 1320 Author: ANDREW Escamilla Service: Assessment Clinician Author Type: Nurse Practitioner Filed: 03/22/141321 Date of Service: 03/22/141319 Status: Signed Photographs Curator: ANDREW Escamilla (Nurse Practitioner) Procedure Orders: 1. Central line [[id number]] ordered by ANDREW Escamilla at 03/22/141319 Post-procedure Diagnoses: 1. Hypotension, unspecified [458.9] 2. Acute respiratory failure (HCC) [518.81] 3. Altered mental status [780.97] 4. Alcohol withdrawal syndrome (HCC) [291.81] [facility]: Assessment Clinician BEDSIDE PROCEDURE NOTE Central Line Date/Time: 03/22/2014 1:20 PM Performed by: AYE MACDONALD Authorized by: AYE MACDONALD Consent: Verbal consent not obtained. written consent not obtained. The procedure was perfo rmed in an emergent situation. Procedure consent: procedure consent matches procedure scheduled Relevant documents: relevant documents present and verified Test results: test results available and properly labeled Site marked: the operative site was marked Imaging studies: imaging studies available Required items: required blood products, implants, devices, and special equipment available Patient identity confirmed: arm band and hospital-assigned identification number Time out: Immediately prior to procedure a "time out" was called to verify the correct melissa ent, procedure, equipment, physician support coordinator and site/side marked as required. Indications: vascular access Patient sedated: no Preparation: skin prepped with ChloraPrep Skin prep agent dried: skin prep agent completely dried prior to procedure Sterile barriers: all five maximum sterile barriers used - cap, mask, sterile gown, sterile gloves, and large sterile sheet Hand hygiene: hand hygiene performed prior to central venous catheter insertion Location details: left femoral Site selection rationale: c collar in place, limited vascular access in neck/chest. Patient position: flat Catheter type: triple lumen Catheter size: 6 Fr Pre-procedure: landmarks identified Ultrasound guidance: no Number of attempts: 1 Successful placement: yes Post-procedure: line sutured and dressing applied Assessment: blood return through all ports Patient tolerance: Patient tolerated the procedure well with no immediate complications Comments: BioPatch applied. Supervised by ANDREW Calvert 03/22/2014 documented in this encounter Consult Notes Conversion Transaction, Provider Unknown - 03/21/2014 1:39 PM PDTFormatting of this note m ight be different from the original. Consults by Brock Nieto RD at 03/21/14 7694 Author: Brock Nieto RD Service: (none) Author Type: Registered Dietitian Filed: 03/21/14 3122 Date of Service: 03/21/14 5420 Status: Signed Photographs Curator: Brock Nieto RD (Registered Dietitian) Consult Orders: 1. Dietitian Consult [[id number]] ordered by Ravin Avila DMD at 03/21/14 0657 Nutrition Assessment and Recommendations Assessment: Pt admitted for ETOH intoxication, AMS, respiratory failure, CT of head was negative. Intubated, NPO, plan is to initiate Enteral nutrition. No family available at time of visit, unable to obtain information on pt's wt and diet hx. Propofol running at 9.2 ml/hr provides approx 243, pt will be weaned off propofol and switc hed over to precedex per rounds. BUN, Cr are low, Ammonia elevated 34. K+, Mg, and phos are all wnl, pt has lyte protocol or dered. BMI: 22.1 NS running at 110 ml/hr. Estimated needs: Kcal: 1598 - 1917 Protein: 77 - 96 Nutrition Diagnosis: Inadequate intake related to sedation - induced inability to eat as evidence by NPO diet or alex. Intervention: Recommend Jevity 1.5 at goal rate of 60 ml/hr (20 hrs) to provide 1800 kcal (28 kcal/kg), 7 7 g protein (1.2 g/kg), 1200 ml TV, 1494 NPC, 912 ml free water. TF at goal would meet 100% of pt's estimated nutrition needs. Due to inability to obtain accurate wt and diet hx and pt's hx of ETOH abuse, monitor lytes closely and replace prn to prevent possible refeeding syndrome. Goals: Pt will tolerate EN at goal rate. Recommendations: 1.) Jevity 1.5 at goal rate of 60 ml/hr. 2.) Monitor lytes closely, replace prn. Monitoring: Will follow up in 1 - [address] 03/21/14. docume nted in this encounter Miscellaneous Notes Plan of Care - Conversion Transaction, Provider Unknown - 03/28/2014 10:36 AM PDT Plan of Care by Yesi Higginbotham RN at 03/28/14 1036 Author: Yesi Higginbotham RN Service: (none) Author Type: Registered Nurse Filed: 03/28/14 1036 Date of Service: 03/28/14 103 Status: Signed Photographs Curator: Yesi Higginbotham RN (Registered Nurse) Problem: Discharge Barriers Goal: Patient s discharge needs are met Collaborate with interdisciplinary team and initiate plans and interventions as needed. Outcome: Progressing RN pt sees on reservation in contact with special events planner for after hospital plan for pt. Pt sister notified today of pt current location in hospital as family has not yet been made aware of his whereabouts. Pt. Approved for sister to be notified lan o f Care - Conversion Transaction, Provider Unknown - 03/28/2014 10:34 AM PDTFormatting of daly s note might be different from the original. Plan of Care by Yesi Higginbotham RN at 03/28/14 1034 Author: Yesi Higginbotham RN Service: (none) Author Type: Registered Nurse Filed: 03/28/14 1034 Date of Service: 03/28/14 1034 Status: Signed Photographs Curator: Yesi Higginbotham RN (Registered Nurse) Problem: Daily Care Goal: Daily care needs are met Assess and monitor ability to perform self care and identify potential discharge needs. Outcome: Progressing Intervention: Encourage independent activity per ability Encouraging pt to move more on his own lan o f Care - Conversion Transaction, Provider Unknown - 03/28/2014 10:32 AM PDTFormatting of thi s note might be different from the original. Plan of Care by Yesi Higginbotham RN at 03/28/14 1032 Author: Yesi Higginbotham RN Service: (none) Author Type: Registered Nurse Filed: 03/28/141031 Date of Service: 03/28/141031 Status: Signed Photographs Curator: Yesi Higginbotham RN (Registered Nurse) Problem: Safety Goal: Patient will be injury free during hospitalization Assess and monitor vitals signs, neurological status including level of consciousness and o rientation. Assess patient s risk for falls and implement fall prevention plan of care and interventions per hospital policy. Ensure arm band on, uncluttered walking paths in room, adequate room lighting, call light a nd overbed table within reach, bed in low position, wheels locked, side rails up per policy, and non-skid footwear provided. Outcome: Progressing Pt more responsive and aware of safety issues. lan o f Care - Conversion Transaction, Provider Unknown - 03/27/2014 10:40 PM PDTFormatting of thi s note might be different from the original. Plan of Care by Dennis Chanel RN at 03/27/142239 Author: Dennis Chanel RN Service: (none) Author Type: Registered Nurse Filed: 03/27/142239 Date of Service: 03/27/142239 Status: Signed Photographs Curator: Dennis Chanel RN (Registered Nurse) Problem: Psychosocial Needs Goal: Demonstrates ability to cope with hospitalization/illness Assess and monitor patients ability to cope with his/her illness. Intervention: Encourage verbalization of feelings/concerns/expectations Pt reoriented to place, time, person and situation. lan o f [place] - Luis Carter ARNP - 03/23/2014 9:00 AM PDTFormatting of this note might be diffe rent from the original. Plan of Care by Luis Carter RN at 03/23/14899 Author: Luis Carter RN Service: (none) Author Type: Registered Nurse Filed: 03/23/14899 Date of Service: 03/23/14899 Status: Signed Photographs Curator: Luis Carter RN (Registered Nurse) Problem: Pain Goal: Patient s pain/discomfort is manageable Assess and monitor patient s pain using appropriate pain scale. Collaborate with interdis ciplinary team and initiate plan and interventions as ordered. Re-assess patient s pain le jed approximately 1-2 hours after pain management intervention. Premedicate as needed. . documented in this e ncounter Plan of Treatment Not on filedocumented as of this encounter Procedures + +--------+ + + + | Procedure Name | Priori | Date/Time | Associated Diagnosis | Comments | | | ty | | | | + +--------+ + + + | PHOSPHORUS | Routin | 04/03/2014 | | Results for this | | | e | 4:30 AM | | procedure are in the | | | | PDT | | results section. | + +--------+ + + + | MAGNESIUM | Routin | 04/03/2014 | | Results for this | | | e | 4:30 AM | | procedure are in the | | | | PDT | | results section. | + +--------+ + + + | BASIC METABOLIC | Routin | 04/03/2014 | | Results for this | | PANEL | e | 4:30 AM | | procedure are in the | | | | PDT | | results section. | + +--------+ + + + | PHOSPHORUS | Routin | 04/02/2014 | | Results for this | | | e | 4:03 AM | | procedure are in the | | | | PDT | | results section. | + +--------+ + + + | MAGNESIUM | Routin | 04/02/2014 | | Results for this | | | e | 4:03 AM | | procedure are in the | | | | PDT | | results section. | + +--------+ + + + | BASIC METABOLIC | Routin | 04/02/2014 | | Results for this | | PANEL | e | 4:03 AM | | procedure are in the | | | | PDT | | results section. | + +--------+ + + + | URINALYSIS WITH | Routin | 04/01/2014 | | Results for this | | MICROSCOPIC WITH | e | 6:31 AM | | procedure are in the | | CULTURE IF INDICATED | | PDT | | results section. | + +--------+ + + + | XR CHEST 1 VIEW | Routin | 04/01/2014 | | Results for this | | | e | 6:14 AM | | procedure are in the | | | | PDT | | results section. | + +--------+ + + + | EXTERNAL LAB: CBC | Routin | 04/01/2014 | | Results for this | | | e | 2:56 AM | | procedure are in the | | | | PDT | | results section. | + +--------+ + + + | PHOSPHORUS | Routin | 04/01/2014 | | Results for this | | | e | 2:56 AM | | procedure are in the | | | | PDT | | results section. | + +--------+ + + + | MAGNESIUM | Routin | 04/01/2014 | | Results for this | | | e | 2:56 AM | | procedure are in the | | | | PDT | | results section. | + +--------+ + + + | BASIC METABOLIC | Routin | 04/01/2014 | | Results for this | | PANEL | e | 2:56 AM | | procedure are in the | | | | PDT | | results section. | + +--------+ + + + | XR CHEST 1 VIEW | Routin | 03/31/2014 | | Results for this | | | e | 9:01 AM | | procedure are in the | | | | PDT | | results section. | + +--------+ + + + | EXTERNAL LAB: CBC | Routin | 03/31/2014 | | Results for this | | | e | 5:48 AM | | procedure are in the | | | | PDT | | results section. | + +--------+ + + + | PHOSPHORUS | Routin | 03/31/2014 | | Results for this | | | e | 5:48 AM | | procedure are in the | | | | PDT | | results section. | + +--------+ + + + | MAGNESIUM | Routin | 03/31/2014 | | Results for this | | | e | 5:48 AM | | procedure are in the | | | | PDT | | results section. | + +--------+ + + + | BASIC METABOLIC | Routin | 03/31/2014 | | Results for this | | PANEL | e | 5:48 AM | | procedure are in the | | | | PDT | | results section. | + +--------+ + + + | HISTORICAL | Timed | 03/30/2014 | | Results for this | | MICROBIOLOGY RESULT | | 12:38 PM | | procedure are in the | | | | PDT | | results section. | + +--------+ + + + | POC GLUCOSE | Routin | 03/30/2014 | | Results for this | | | e | 5:47 AM | | procedure are in the | | | | PDT | | results section. | + +--------+ + + + | EXTERNAL LAB: CBC | Routin | 03/30/2014 | | Results for this | | | e | 5:04 AM | | procedure are in the | | | | PDT | | results section. | + +--------+ + + + | TRIGLYCERIDES | Routin | 03/30/2014 | | Results for this | | | e | 5:04 AM | | procedure are in the | | | | PDT | | results section. | + +--------+ + + + | PREALBUMIN | Routin | 03/30/2014 | | Results for this | | | e | 5:04 AM | | procedure are in the | | | | PDT | | results section. | + +--------+ + + + | PHOSPHORUS | Routin | 03/30/2014 | | Results for this | | | e | 5:04 AM | | procedure are in the | | | | PDT | | results section. | + +--------+ + + + | MAGNESIUM | Routin | 03/30/2014 | | Results for this | | | e | 5:04 AM | | procedure are in the | | | | PDT | | results section. | + +--------+ + + + | COMPREHENSIVE | Routin | 03/30/2014 | | Results for this | | METABOLIC PANEL | e | 5:04 AM | | procedure are in the | | | | PDT | | results section. | + +--------+ + + + | CALCIUM, IONIZED | Routin | 03/30/2014 | | Results for this | | | e | 5:03 AM | | procedure are in the | | | | PDT | | results section. | + +--------+ + + + | EXTERNAL LAB: CBC | Routin | 03/29/2014 | | Results for this | | | e | 4:02 AM | | procedure are in the | | | | PDT | | results section. | + +--------+ + + + | PHOSPHORUS | Routin | 03/29/2014 | | Results for this | | | e | 4:02 AM | | procedure are in the | | | | PDT | | results section. | + +--------+ + + + | MAGNESIUM | Routin | 03/29/2014 | | Results for this | | | e | 4:02 AM | | procedure are in the | | | | PDT | | results section. | + +--------+ + + + | BASIC METABOLIC | Routin | 03/29/2014 | | Results for this | | PANEL | e | 4:02 AM | | procedure are in the | | | | PDT | | results section. | + +--------+ + + + | CARBAMAZEPINE LEVEL | Routin | 03/28/2014 | | Results for this | | | e | 10:05 AM | | procedure are in the | | | | PDT | | results section. | + +--------+ + + + | XR CHEST 1 VIEW | Routin | 03/28/2014 | | Results for this | | | e | 5:55 AM | | procedure are in the | | | | PDT | | results section. | + +--------+ + + + | EXTERNAL LAB: CBC | Routin | 03/28/2014 | | Results for this | | | e | 5:26 AM | | procedure are in the | | | | PDT | | results section. | + +--------+ + + + | PHOSPHORUS | Routin | 03/28/2014 | | Results for this | | | e | 5:26 AM | | procedure are in the | | | | PDT | | results section. | + +--------+ + + + | MAGNESIUM | Routin | 03/28/2014 | | Results for this | | | e | 5:26 AM | | procedure are in the | | | | PDT | | results section. | + +--------+ + + + | CARBAMAZEPINE LEVEL | Routin | 03/28/2014 | | Results for this | | | e | 5:26 AM | | procedure are in the | | | | PDT | | results section. | + +--------+ + + + | BASIC METABOLIC | Routin | 03/28/2014 | | Results for this | | PANEL | e | 5:26 AM | | procedure are in the | | | | PDT | | results section. | + +--------+ + + + | XR CHEST 1 VIEW | Routin | 03/27/2014 | | Results for this | | | e | 6:41 PM | | procedure are in the | | | | PDT | | results section. | + +--------+ + + + | POTASSIUM | Routin | 03/27/2014 | | Results for this | | | e | 6:22 PM | | procedure are in the | | | | PDT | | results section. | + +--------+ + + + | XR ABDOMEN AP | Routin | 03/27/2014 | | Results for this | | | e | 11:35 AM | | procedure are in the | | | | PDT | | results section. | + +--------+ + + + | EXTERNAL LAB: [place] | Routin | 03/27/2014 | | Results for this | | | e | 6:00 AM | | procedure are in the | | | | PDT | | results section. | + +--------+ + + + | PHOSPHORUS | Routin | 03/27/2014 | | Results for this | | | e | 6:00 AM | | procedure are in the | | | | PDT | | results section. | + +--------+ + + + | MAGNESIUM | Routin | 03/27/2014 | | Results for this | | | e | 6:00 AM | | procedure are in the | | | | PDT | | results section. | + +--------+ + + + | CARBAMAZEPINE LEVEL | Routin | 03/27/2014 | | Results for this | | | e | 6:00 AM | | procedure are in the | | | | PDT | | results section. | + +--------+ + + + | BASIC METABOLIC | Routin | 03/27/2014 | | Results for this | | PANEL | e | 6:00 AM | | procedure are in the | | | | PDT | | results section. | + +--------+ + + + | XR CHEST 1 VIEW | Routin | 03/27/2014 | | Results for this | | | e | 5:51 AM | | procedure are in the | | | | PDT | | results section. | + +--------+ + + + | EXTERNAL LAB: CBC | Routin | 03/26/2014 | | Results for this | | | e | 9:46 PM | | procedure are in the | | | | PDT | | results section. | + +--------+ + + + | POTASSIUM | Routin | 03/26/2014 | | Results for this | | | e | 9:46 PM | | procedure are in the | | | | PDT | | results section. | + +--------+ + + + | PHOSPHORUS | Routin | 03/26/2014 | | Results for this | | | e | 9:46 PM | | procedure are in the | | | | PDT | | results section. | + +--------+ + + + | MAGNESIUM | Routin | 03/26/2014 | | Results for this | | | e | 9:46 PM | | procedure are in the | | | | PDT | | results section. | + +--------+ + + + | POC GLUCOSE | Routin | 03/26/2014 | | Results for this | | | e | 9:44 PM | | procedure are in the | | | | PDT | | results section. | + +--------+ + + + | VANCOMYCIN, TROUGH | Routin | 03/26/2014 | | Results for this | | | e | 7:15 PM | | procedure are in the | | | | PDT | | results section. | + +--------+ + + + | POTASSIUM | Routin | 03/26/2014 | | Results for this | | | e | 5:20 PM | | procedure are in the | | | | PDT | | results section. | + +--------+ + + + | CULTURE, AFB, AND | Timed | 03/26/2014 | | Results for this | | SMEAR | | 12:53 PM | | procedure are in the | | | | PDT | | results section. | + +--------+ + + + | GRAM STAIN, REFLEX | Timed | 03/26/2014 | | Results for this | | SPUTUM CULTURE | | 12:53 PM | | procedure are in the | | | | PDT | | results section. | + +--------+ + + + | HISTORICAL | Timed | 03/26/2014 | | Results for this | | MICROBIOLOGY RESULT | | 9:04 AM | | procedure are in the | | | | PDT | | results section. | + +--------+ + + + | XR CHEST 1 VIEW | Routin | 03/26/2014 | | Results for this | | | e | 5:52 AM | | procedure are in the | | | | PDT | | results section. | + +--------+ + + + | EXTERNAL LAB: CBC | Routin | 03/26/2014 | | Results for this | | | e | 3:30 AM | | procedure are in the | | | | PDT | | results section. | + +--------+ + + + | PHOSPHORUS | Routin | 03/26/2014 | | Results for this | | | e | 3:30 AM | | procedure are in the | | | | PDT | | results section. | + +--------+ + + + | MAGNESIUM | Routin | 03/26/2014 | | Results for this | | | e | 3:30 AM | | procedure are in the | | | | PDT | | results section. | + +--------+ + + + | CARBAMAZEPINE LEVEL | Routin | 03/26/2014 | | Results for this | | | e | 3:30 AM | | procedure are in the | | | | PDT | | results section. | + +--------+ + + + | BASIC METABOLIC | Routin | 03/26/2014 | | Results for this | | PANEL | e | 3:30 AM | | procedure are in the | | | | PDT | | results section. | + +--------+ + + + | POTASSIUM | Routin | 03/26/2014 | | Results for this | | | e | 12:24 AM | | procedure are in the | | | | PDT | | results section. | + +--------+ + + + | MAGNESIUM | Routin | 03/26/2014 | | Results for this | | | e | 12:24 AM | | procedure are in the | | | | PDT | | results section. | + +--------+ + + + | XR CHEST 1 VIEW | Routin | 03/25/2014 | | Results for this | | | e | 9:46 PM | | procedure are in the | | | | PDT | | results section. | + +--------+ + + + | VANCOMYCIN, TROUGH | Routin | 03/25/2014 | | Results for this | | | e | 6:54 PM | | procedure are in the | | | | PDT | | results section. | + +--------+ + + + | XR CHEST 1 VIEW | Routin | 03/25/2014 | | Results for this | | | e | 7:26 AM | | procedure are in the | | | | PDT | | results section. | + +--------+ + + + | PROCALCITONIN, SERUM | Routin | 03/25/2014 | | Results for this | | | e | 6:03 AM | | procedure are in the | | | | PDT | | results section. | + +--------+ + + + | TROPONIN I | Routin | 03/25/2014 | | Results for this | | | e | 6:03 AM | | procedure are in the | | | | PDT | | results section. | + +--------+ + + + | POTASSIUM | Routin | 03/25/2014 | | Results for this | | | e | 6:03 AM | | procedure are in the | | | | PDT | | results section. | + +--------+ + + + | MAGNESIUM | Routin | 03/25/2014 | | Results for this | | | e | 6:03 AM | | procedure are in the | | | | PDT | | results section. | + +--------+ + + + | URINALYSIS WITH | Routin | 03/25/2014 | | Results for this | | MICROSCOPIC IF | e | 2:08 AM | | procedure are in the | | INDICATED | | PDT | | results section. | + +--------+ + + + | URINALYSIS, | Routin | 03/25/2014 | | Results for this | | MICROSCOPIC ONLY | e | 2:08 AM | | procedure are in the | | | | PDT | | results section. | + +--------+ + + + | POC GLUCOSE | Routin | 03/25/2014 | | Results for this | | | e | 1:15 AM | | procedure are in the | | | | PDT | | results section. | + +--------+ + + + | EXTERNAL LAB: CBC | Routin | 03/25/2014 | | Results for this | | | e | 12:24 AM | | procedure are in the | | | | PDT | | results section. | + +--------+ + + + | PHOSPHORUS | Routin | 03/25/2014 | | Results for this | | | e | 12:24 AM | | procedure are in the | | | | PDT | | results section. | + +--------+ + + + | MAGNESIUM | Routin | 03/25/2014 | | Results for this | | | e | 12:24 AM | | procedure are in the | | | | PDT | | results section. | + +--------+ + + + | BASIC METABOLIC | Routin | 03/25/2014 | | Results for this | | PANEL | e | 12:24 AM | | procedure are in the | | | | PDT | | results section. | + +--------+ + + + | BASIC METABOLIC | Routin | 03/24/2014 | | Results for this | | PANEL | e | 2:30 PM | | procedure are in the | | | | PDT | | results section. | + +--------+ + + + | POTASSIUM | Routin | 03/24/2014 | | Results for this | | | e | 8:24 AM | | procedure are in the | | | | PDT | | results section. | + +--------+ + + + | MAGNESIUM | Routin | 03/24/2014 | | Results for this | | | e | 8:24 AM | | procedure are in the | | | | PDT | | results section. | + +--------+ + + + | VANCOMYCIN, TROUGH | Routin | 03/24/2014 | | Results for this | | | e | 8:24 AM | | procedure are in the | | | | PDT | | results section. | + +--------+ + + + | XR CHEST 1 VIEW | Routin | 03/24/2014 | | Results for this | | | e | 6:25 AM | | procedure are in the | | | | PDT | | results section. | + +--------+ + + + | EXTERNAL LAB: CBC | Routin | 03/24/2014 | | Results for this | | | e | 3:52 AM | | procedure are in the | | | | PDT | | results section. | + +--------+ + + + | PHOSPHORUS | Routin | 03/24/2014 | | Results for this | | | e | 3:52 AM | | procedure are in the | | | | PDT | | results section. | + +--------+ + + + | MAGNESIUM | Routin | 03/24/2014 | | Results for this | | | e | 3:52 AM | | procedure are in the | | | | PDT | | results section. | + +--------+ + + + | BASIC METABOLIC | Routin | 03/24/2014 | | Results for this | | PANEL | e | 3:52 AM | | procedure are in the | | | | PDT | | results section. | + +--------+ + + + | POC GLUCOSE | Routin | 03/24/2014 | | Results for this | | | e | 3:37 AM | | procedure are in the | | | | PDT | | results section. | + +--------+ + + + | POTASSIUM | Routin | 03/23/2014 | | Results for this | | | e | 5:52 PM | | procedure are in the | | | | PDT | | results section. | + +--------+ + + + | MAGNESIUM | Routin | 03/23/2014 | | Results for this | | | e | 5:52 PM | | procedure are in the | | | | PDT | | results section. | + +--------+ + + + | XR CHEST 1 VIEW | Routin | 03/23/2014 | | Results for this | | | e | 5:43 AM | | procedure are in the | | | | PDT | | results section. | + +--------+ + + + | EXTERNAL LAB: CBC | Routin | 03/23/2014 | | Results for this | | | e | 3:35 AM | | procedure are in the | | | | PDT | | results section. | + +--------+ + + + | PHOSPHORUS | Routin | 03/23/2014 | | Results for this | | | e | 3:35 AM | | procedure are in the | | | | PDT | | results section. | + +--------+ + + + | MAGNESIUM | Routin | 03/23/2014 | | Results for this | | | e | 3:35 AM | | procedure are in the | | | | PDT | | results section. | + +--------+ + + + | BASIC METABOLIC | Routin | 03/23/2014 | | Results for this | | PANEL | e | 3:35 AM | | procedure are in the | | | | PDT | | results section. | + +--------+ + + + | POC GLUCOSE | Routin | 03/23/2014 | | Results for this | | | e | 12:22 AM | | procedure are in the | | | | PDT | | results section. | + +--------+ + + + | POTASSIUM | Routin | 03/22/2014 | | Results for this | | | e | 9:20 PM | | procedure are in the | | | | PDT | | results section. | + +--------+ + + + | PHOSPHORUS | Routin | 03/22/2014 | | Results for this | | | e | 9:20 PM | | procedure are in the | | | | PDT | | results section. | + +--------+ + + + | MAGNESIUM | Routin | 03/22/2014 | | Results for this | | | e | 9:20 PM | | procedure are in the | | | | PDT | | results section. | + +--------+ + + + | POTASSIUM | Routin | 03/22/2014 | | Results for this | | | e | 3:47 PM | | procedure are in the | | | | PDT | | results section. | + +--------+ + + + | MAGNESIUM | Routin | 03/22/2014 | | Results for this | | | e | 3:47 PM | | procedure are in the | | | | PDT | | results section. | + +--------+ + + + | HEPATITIS PANEL, | Routin | 03/22/2014 | | Results for this | | ACUTE | e | 10:17 AM | | procedure are in the | | | | PDT | | results section. | + +--------+ + + + | PROTIME INR | Routin | 03/22/2014 | | Results for this | | | e | 10:17 AM | | procedure are in the | | | | PDT | | results section. | + +--------+ + + + | CULTURE, BLOOD | STAT | 03/22/2014 | | Results for this | | | | 9:15 AM | | procedure are in the | | | | PDT | | results section. | + +--------+ + + + | CULTURE, BLOOD | STAT | 03/22/2014 | | Results for this | | | | 9:10 AM | | procedure are in the | | | | PDT | | results section. | + +--------+ + + + | HEPATIC FUNCTION | Routin | 03/22/2014 | | Results for this | | PANEL | e | 8:59 AM | | procedure are in the | | | | PDT | | results section. | + +--------+ + + + | XR CHEST 1 VIEW | Routin | 03/22/2014 | | Results for this | | | e | 5:47 AM | | procedure are in the | | | | PDT | | results section. | + +--------+ + + + | EXTERNAL LAB: CBC | Routin | 03/22/2014 | | Results for this | | | e | 4:06 AM | | procedure are in the | | | | PDT | | results section. | + +--------+ + + + | PHOSPHORUS | Routin | 03/22/2014 | | Results for this | | | e | 4:06 AM | | procedure are in the | | | | PDT | | results section. | + +--------+ + + + | MAGNESIUM | Routin | 03/22/2014 | | Results for this | | | e | 4:06 AM | | procedure are in the | | | | PDT | | results section. | + +--------+ + + + | BASIC METABOLIC | Routin | 03/22/2014 | | Results for this | | PANEL | e | 4:06 AM | | procedure are in the | | | | PDT | | results section. | + +--------+ + + + | CK TOTAL | Routin | 03/21/2014 | | Results for this | | | e | 7:55 PM | | procedure are in the | | | | PDT | | results section. | + +--------+ + + + | GRAM STAIN, REFLEX | Timed | 03/21/2014 | | Results for this | | SPUTUM CULTURE | | 1:17 PM | | procedure are in the | | | | PDT | | results section. | + +--------+ + + + | URINALYSIS, REFLEX | Routin | 03/21/2014 | | Results for this | | MICROSCOPIC AND/OR | e | 1:17 PM | | procedure are in the | | CULTURE | | PDT | | results section. | + +--------+ + + + | URINALYSIS, | Routin | 03/21/2014 | | Results for this | | MICROSCOPIC ONLY | e | 1:17 PM | | procedure are in the | | | | PDT | | results section. | + +--------+ + + + | CULTURE, URINE | Routin | 03/21/2014 | | Results for this | | | e | 1:17 PM | | procedure are in the | | | | PDT | | results section. | + +--------+ + + + | MRSA NAAT | Routin | 03/21/2014 | | Results for this | | | e | 12:26 PM | | procedure are in the | | | | PDT | | results section. | + +--------+ + + + | AMMONIA | Routin | 03/21/2014 | | Results for this | | | e | 7:54 AM | | procedure are in the | | | | PDT | | results section. | + +--------+ + + + | PHOSPHORUS | Routin | 03/21/2014 | | Results for this | | | e | 7:32 AM | | procedure are in the | | | | PDT | | results section. | + +--------+ + + + | MYOGLOBIN | Routin | 03/21/2014 | | Results for this | | | e | 7:32 AM | | procedure are in the | | | | PDT | | results section. | + +--------+ + + + | MAGNESIUM | Routin | 03/21/2014 | | Results for this | | | e | 7:32 AM | | procedure are in the | | | | PDT | | results section. | + +--------+ + + + | LACTIC ACID | Routin | 03/21/2014 | | Results for this | | | e | 7:32 AM | | procedure are in the | | | | PDT | | results section. | + +--------+ + + + | CK TOTAL | Routin | 03/21/2014 | | Results for this | | | e | 7:32 AM | | procedure are in the | | | | PDT | | results section. | + +--------+ + + + | BASIC METABOLIC | Routin | 03/21/2014 | | Results for this | | PANEL | e | 7:32 AM | | procedure are in the | | | | PDT | | results section. | + +--------+ + + + | XR PELVIS 1 OR 2 VW | Routin | 03/21/2014 | | Results for this | | | e | 7:17 AM | | procedure are in the | | | | PDT | | results section. | + +--------+ + + + | XR CHEST 1 VIEW | Routin | 03/21/2014 | | Results for this | | | e | 7:17 AM | | procedure are in the | | | | PDT | | results section. | + +--------+ + + + | CT HEAD CERVICAL | Routin | 03/21/2014 | | Results for this | | SPINE WO CONTRAST | e | 6:23 AM | | procedure are in the | | | | PDT | | results section. | + +--------+ + + + | XR CHEST 1 VIEW | Routin | 03/21/2014 | | Results for this | | | e | 6:06 AM | | procedure are in the | | | | PDT | | results section. | + +--------+ + + + documented in this encounter Results Phosphorus (04/03/2014 4:30 AM PDT) + + + + + + | Component | Value | Ref Range | Performed | Pathologist | | | | | At | Signature | + + + + + + | PHOSPHORUS | 3.8Comment: Testing | 2.3 - 4.8 mg/dL | EXTERNAL | | | | performed at [facility], [address] | | LAB | | | | [address], | | | | | | [place] [address] | | | | + + + + + + + + | Specimen | + + | Blood specimen | | (specimen) | + + + +---------+ + + | Performing | Address | City/State/Zipcode | Phone Number | | Organization | | | | + +---------+ + + | EXTERNAL LAB | | | | + +---------+ + + Magnesium (04/03/2014 4:30 AM PDT) + + + + + + | Component | Value | Ref Range | Performed | Pathologist | | | | | At | Signature | + + + + + + | Magnesium | 1.7Comment: Testing | 1.7 - 2.4 mg/dL | EXTERNAL | | | | performed at [facility], [address] | | LAB | | | | [address], | | | | | | [place] [address] | | | | + + + + + + + + | Specimen | + + | Blood specimen | | (specimen) | + + + +---------+ + + | Performing | Address | City/State/Zipcode | Phone Number | | Organization | | | | + +---------+ + + | EXTERNAL LAB | | | | + +---------+ + + Basic Metabolic Panel (04/03/2014 4:30 AM PDT) + + + + + + | Component | Value | Ref Range | Performed | Pathologist | | | | | At | Signature | + + + + + + | Na | 139Comment: Testing | 135 - 143 | EXTERNAL | | | | performed at [facility], [address] | mmol/L | LAB | | | | [address], | | | | | | [place] [address] | | | | + + + + + + | K | 3.4 (L)Comment: Testing | 3.5 - 4.9 | EXTERNAL | | | | performed at [facility], [address] | mmol/L | LAB | | | | [address], | | | | | | [place] [address] | | | | + + + + + + | Cl | 107Comment: Testing | 99 - 109 mmol/L | EXTERNAL | | | | performed at [facility], [address] | | LAB | | | | [address], | | | | | | [place], [place] [address] | | | | + + + + + + | CO2 | 26Comment: Testing | 23 - 32 mmol/L | EXTERNAL | | | | performed at [facility], [address] | | LAB | | | | [address], | | | | | | [place], [place] [address] | | | | + + + + + + | Anion Gap | 9Comment: Testing | 5 - 20 mmol/L | EXTERNAL | | | | performed at [facility], [address] | | LAB | | | | [address], | | | | | | [place] [address] | | | | + + + + + + | Glucose, | 94Comment: Testing | 65 - 99 mg/dL | EXTERNAL | | | Fasting | performed at [facility], [address] | | LAB | | | | [address], | | | | | | [place] [address] | | | | + + + + + + | BUN | 15Comment: Testing | 8 - 25 mg/dL | EXTERNAL | | | | performed at [facility], [address] | | LAB | | | | [address], | | | | | | [place] [address] | | | | + + + + + + | Creatinine | 0.63 (L)Comment: Testing | 0.70 - 1.30 | EXTERNAL | | | | performed at [facility], [address] | mg/dL | LAB | | | | [address], | | | | | | [place] [address] | | | | + + + + + + | BUN/Creatin | 24Comment: Testing | | EXTERNAL | | | ine Ratio | performed at [facility], [address] | | LAB | | | | [address], | | | | | | [place] [address] | | | | + + + + + + | Calcium | 8.7Comment: Testing | 8.5 - 10.2 | EXTERNAL | | | | performed at [facility], [address] | mg/dL | LAB | | | | [facility], | | | | | | [place] [address] | | | | + + + + + + | Estimated | >60Comment: GFR <60: | mL/min/1.73m2 | EXTERNAL | | | GFR | CHRONIC KIDNEY DISEASE, | | LAB | | | | IF FOUND OVER A 3 MONTH | | | | | | PERIOD.GFR <15: KIDNEY | | | | | | FAILURE.FOR | | | | | | AMERICANS, MULTIPLY THE | | | | | | CALCULATED GFR BY | | | | | | 1.210.Testing performed | | | | | | at [facility], [address] | | | | | | [facility] [address], | | | | | | [place] [address] | | | | + + + + + + + + | Specimen | + + | Blood specimen | | (specimen) | + + + +---------+ + + | Performing | Address | City/State/Zipcode | Phone Number | | Organization | | | | + +---------+ + + | EXTERNAL LAB | | | | + +---------+ + + Phosphorus (04/02/2014 4:03 AM PDT) + + + + + + | Component | Value | Ref Range | Performed | Pathologist | | | | | At | Signature | + + + + + + | PHOSPHORUS | 3.9Comment: Testing | 2.3 - 4.8 mg/dL | EXTERNAL | | | | performed at [facility], [address] | | LAB | | | | [address], | | | | | | [place] [address] | | | | + + + + + + + + | Specimen | + + | Blood specimen | | (specimen) | + + + +---------+ + + | Performing | Address | City/State/Zipcode | Phone Number | | Organization | | | | + +---------+ + + | EXTERNAL LAB | | | | + +---------+ + + Magnesium (04/02/2014 4:03 AM PDT) + + + + + + | Component | Value | Ref Range | Performed | Pathologist | | | | | At | Signature | + + + + + + | Magnesium | 1.7Comment: Testing | 1.7 - 2.4 mg/dL | EXTERNAL | | | | performed at [facility], [address] | | LAB | | | | [address], | | | | | | [place] [address] | | | | + + + + + + + + | Specimen | + + | Blood specimen | | (specimen) | + + + +---------+ + + | Performing | Address | City/State/Zipcode | Phone Number | | Organization | | | | + +---------+ + + | EXTERNAL LAB | | | | + +---------+ + + Basic Metabolic Panel (04/02/2014 4:03 AM PDT) + + + + + + | Component | Value | Ref Range | Performed | Pathologist | | | | | At | Signature | + + + + + + | Na | 139Comment: Testing | 135 - 143 | EXTERNAL | | | | performed at [facility], [address] | mmol/L | LAB | | | | [address], | | | | | | [place] [address] | | | | + + + + + + | K | 3.4 (L)Comment: Testing | 3.5 - 4.9 | EXTERNAL | | | | performed at [facility], [address] | mmol/L | LAB | | | | [address], | | | | | | [place] [address] | | | | + + + + + + | Cl | 106Comment: Testing | 99 - 109 mmol/L | EXTERNAL | | | | performed at [facility], [address] | | LAB | | | | [address], | | | | | | [place] [address] | | | | + + + + + + | CO2 | 25Comment: Testing | 23 - 32 mmol/L | EXTERNAL | | | | performed at [facility], [address] | | LAB | | | | [address], | | | | | | [place] [address] | | | | + + + + + + | Anion Gap | 11Comment: Testing | 5 - 20 mmol/L | EXTERNAL | | | | performed at [facility], [address] | | LAB | | | | [address], | | | | | | [place] [address] | | | | + + + + + + | Glucose, | 103 (H)Comment: Testing | 65 - 99 mg/dL | EXTERNAL | | | Fasting | performed at [facility], [address] | | LAB | | | [address], | | | | | | [place] [address] | | | | + + + + + + | BUN | 16Comment: Testing | 8 - 25 mg/dL | EXTERNAL | | | | performed at [facility], [address] | | LAB | | | | [address], | | | | | | [place] [address] | | | | + + + + + + | Creatinine | 0.62 (L)Comment: Testing | 0.70 - 1.30 | EXTERNAL | | | | performed at [facility], [address] | mg/dL | LAB | | | | [address], | | | | | | [place] [address] | | | | + + + + + + | BUN/Creatin | 26Comment: Testing | | EXTERNAL | | | ine Ratio | performed at [facility], [address] | | LAB | | | | [address], | | | | | | [place] [address] | | | | + + + + + + | Calcium | 8.8Comment: Testing | 8.5 - 10.2 | EXTERNAL | | | | performed at [facility], [address] | mg/dL | LAB | | | | [facility], | | | | | | [place] [address] | | | | + + + + + + | Estimated | >60Comment: GFR <60: | mL/min/1.73m2 | EXTERNAL | | | GFR | CHRONIC KIDNEY DISEASE, | | LAB | | | | IF FOUND OVER A 3 MONTH | | | | | | PERIOD.GFR <15: KIDNEY | | | | | | FAILURE.FOR | | | | | | AMERICANS, MULTIPLY THE | | | | | | CALCULATED GFR BY | | | | | | 1.210.Testing performed | | | | | | at [facility], [address] | | | | | | [employer], | | | | | | [place] [address] | | | | + + + + + + + + | Specimen | + + | Blood specimen | | (specimen) | + + + +---------+ + + | Performing | Address | City/State/Zipcode | Phone Number | | Organization | | | | + +---------+ + + | EXTERNAL LAB | | | | + +---------+ + + Urinalysis with Microscopic with Culture if Indicated (04/01/2014 6:31 AM PDT) + + + + + + | Component | Value | Ref Range | Performed | Pathologist | | | | | At | Signature | + + + + + + | Color | YELLOWComment: Testing | | EXTERNAL | | | | performed at [facility], [address] | | LAB | | | | [address], | | | | | | [place], [place] [address] | | | | + + + + + + | Clarity, | CLEARComment: Testing | | EXTERNAL | | | Urine | performed at [facility], [address] | | LAB | | | | [address], | | | | | | [place] [address] | | | | + + + + + + | Specific | 1.024Comment: Testing | 1.002 - 1.030 | EXTERNAL | | | [place], | performed at [facility], [address] | | LAB | | | Urine | [address], | | | | | | [place] [address] | | | | + + + + + + | Leukocyte | NEGATIVEComment: Testing | | EXTERNAL | | | Esterase, | performed at [facility], [address] | | LAB | | | Urine | [address], | | | | | | [place] [address] | | | | + + + + + + | Nitrite, | NEGATIVEComment: Testing | | EXTERNAL | | | Urine | performed at [facility], [address] | | LAB | | | | [address], | | | | | | [place] [address] | | | | + + + + + + | Urobilinoge | 0.2Comment: Testing | mg/dL | EXTERNAL | | | n, Urine | performed at [facility], [address] | | LAB | | | | [address], | | | | | | [place] [address] | | | | + + + + + + | Protein, | NEGATIVEComment: Testing | mg/dL | EXTERNAL | | | Urine | performed at [facility], [address] | | LAB | | | | [address], | | | | | | [place] [address] | | | | + + + + + + | pH, Urine | 6.0Comment: Testing | 5.0 - 8.0 | EXTERNAL | | | | performed at [facility], [address] | | LAB | | | | [address], | | | | | | [place] [address] | | | | + + + + + + | Blood, | NEGATIVEComment: Testing | | EXTERNAL | | | Urine | performed at [facility], [address] | | LAB | | | | [address], | | | | | | [place] [address] | | | | + + + + + + | Ketones | NEGATIVEComment: Testing | mg/dL | EXTERNAL | | | | performed at [facility], [address] | | LAB | | | | [address], | | | | | | [place] [address] | | | | + + + + + + | Bilirubin, | NEGATIVEComment: Testing | | EXTERNAL | | | Urine | performed at [facility], [address] | | LAB | | | | [address], | | | | | | [place] [address] | | | | + + + + + + | Glucose, | NEGATIVEComment: Testing | mg/dL | EXTERNAL | | | Urine | performed at [facility], [address] | | LAB | | | | [address], | | | | | | [place] [address] | | | | + + + + + + | WBC, UA | 1-5Comment: Testing | 0 - 5 /hpf | EXTERNAL | | | | performed at [facility], [address] | | LAB | | | | [address], | | | | | | [place] [address] | | | | + + + + + + | RBC, UA | 1-5Comment: Testing | 0 - 2 /hpf | EXTERNAL | | | | performed at [facility], [address] | | LAB | | | | [address], | | | | | | [place] [address] | | | | + + + + + + | Bacteria, | NONE SEENComment: | | EXTERNAL | | | UA | Testing performed at | | LAB | | | | [facility], [address] | | | | | | [place] | | | | | | [address] | | | | + + + + + + | Epithelial | 16-25Comment: Testing | /lpf | EXTERNAL | | | Cells | performed at [facility], [address] | | LAB | | | | [address], | | | | | | [place] [address] | | | | + + + + + + | HYALINE | 0-2Comment: Testing | | EXTERNAL | | | CASTS UA | performed at [facility], [address] | | LAB | | | | [address], | | | | | | [place] [address] | | | | + + + + + + + + | Specimen | + + | | + + + +---------+ + + | Performing | Address | City/State/Zipcode | Phone Number | | Organization | | | | + +---------+ + + | EXTERNAL LAB | | | | + +---------+ + + XR Chest 1 Vw (04/01/2014 6:14 AM PDT) + + | Specimen | + + | | + + + + + | Impressions | Performed At | + + + | 1. Minimal bibasilar subsegmental atelectasis. Electronically | | | signed by José Miguel Smith DO on 04/01/2014 7:50 AM | | + + + + + + | Narrative | Performed At | + + + | [facility] XR CHEST 1 VIEW HISTORY: 58 years. Male. | | | Followup pneumonia TECHNIQUE: Single portable anterior view of | | | the chest was obtained. COMPARISON: 03/31/2014 FINDINGS: | | | Heart is normal in size. No pulmonary vascular congestion. Left-sided | | | PICC line catheter tip located in region superior vena cava. Minimal | | | bibasilar opacities no pneumothorax. No pleural effusion. To likely | | | represent subsegmental atelectasis. | | + + + + + | Procedure Note | + + | Malachi, Rad Conversion - 01/28/2019 5:12 PM PDT [facility] CHEST 1 VIEW | | HISTORY:58 years. Male. Followup pneumonia TECHNIQUE:Single portable anterior view of | | the chest was obtained. COMPARISON:03/31/2014 FINDINGS:Heart is normal in size. No | | pulmonary vascular congestion. Left-sided PICC line catheter tip located in region | | superior vena cava. Minimal bibasilar opacities no pneumothorax. No pleural effusion. To | | likely represent subsegmental atelectasis. IMPRESSION: 1. Minimal bibasilar | | subsegmental atelectasis. | | AM | | | |COMPARISON: | |03/31/2014 | | | |FINDINGS: | |Heart is normal in size. No pulmonary vascular congestion. Left-sided PICC line catheter ti p located in region superior vena cava. Minimal bibasilar opacities no pneumothorax. No pleu ral effusion. To likely represent subsegmental atelectasis. | | | |IMPRESSION: | |1. Minimal bibasilar subsegmental atelectasis. | | | | | + + External Lab: [place] (04/01/2014 2:56 AM PDT) + + + + + + | Component | Value | Ref Range | Performed | Pathologist | | | | | At | Signature | + + + + + + | WBC | 12.2 (H)Comment: Testing | 3.8 - 11.0 K/uL | EXTERNAL | | | | performed at [facility], [address] | | LAB | | | | [address], | | | | | | [place] [address] | | | | + + + + + + | Non- | 3.05 (L)Comment: Testing | 4.20 - 5.70 | EXTERNAL | | | Red Blood | performed at [facility], [address] | M/uL | LAB | | | Cells | [address], | | | | | Counted | [place] [address] | | | | + + + + + + | Hemoglobin | 8.8 (L)Comment: Testing | 13.2 - 17.0 | EXTERNAL | | | | performed at [facility], [address] | g/dL | LAB | | | | [address], | | | | | | [place] [address] | | | | + + + + + + | Hematocrit, | 27.6 (L)Comment: Testing | 39.0 - 50.0 % | EXTERNAL | | | POC | performed at [facility], [address] | | LAB | | | | [address], | | | | | | [place] [address] | | | | + + + + + + | MCV | 90.5Comment: Testing | 80.0 - 100.0 fl | EXTERNAL | | | | performed at [facility], [address] | | LAB | | | | [address], | | | | | | [place] [address] | | | | + + + + + + | MCH | 28.9Comment: Testing | 27.0 - 34.0 pg | EXTERNAL | | | | performed at [facility], [address] | | LAB | | | | [address], | | | | | | [place] [address] | | | | + + + + + + | MCHC | 31.9 (L)Comment: Testing | 32.0 - 35.5 | EXTERNAL | | | | performed at [facility], [address] | g/dL | LAB | | | | [address], | | | | | | [place] [address] | | | | + + + + + + | RDW-CV | 53.8 (H)Comment: Testing | 37 - 53 fl | EXTERNAL | | | | performed at [facility], [address] | | LAB | | | | [address], | | | | | | [place] [address] | | | | + + + + + + | Platelet | 650 (H)Comment: Testing | 150 - 400 K/uL | EXTERNAL | | | Count | performed at [facility], [address] | | LAB | | | Plasma | [address], | | | | | | [place], [place] [address] | | | | + + + + + + | MPV | 6.9Comment: Testing | fl | EXTERNAL | | | | performed at [facility], [address] | | LAB | | | | [address], | | | | | | [place], [place] [address] | | | | + + + + + + | Differentia | MANUALComment: Testing | | EXTERNAL | | | l Type | performed at [facility], [address] | | LAB | | | | [address], | | | | | | [place], [place] [address] | | | | + + + + + + | Segmented | 58Comment: Testing | % | EXTERNAL | | | Neutrophils | performed at [facility], [address] | | LAB | | | Manual | [address], | | | | | | [place] [address] | | | | + + + + + + | Lymphocytes | 24Comment: Testing | % | EXTERNAL | | | Manual | performed at [facility], [address] | | LAB | | | | [address], | | | | | | [place] [address] | | | | + + + + + + | Monocytes | 7Comment: Testing | % | EXTERNAL | | | Manual | performed at [facility], [address] | | LAB | | | | [address], | | | | | | [place] [address] | | | | + + + + + + | Eosinophils | 11Comment: Testing | % | EXTERNAL | | | Manual | performed at [facility], [address] | | LAB | | | | [address], | | | | | | [place] [address] | | | | + + + + + + | Absolute | 7.1Comment: Testing | 1.9 - 7.4 K/uL | EXTERNAL | | | Neutrophils | performed at [facility], [address] | | LAB | | | | [address], | | | | | | [place] [address] | | | | + + + + + + | Absolute | 2.9Comment: Testing | 1.0 - 3.9 K/uL | EXTERNAL | | | Lymphocytes | performed at [facility], [address] | | LAB | | | | [address], | | | | | | [place] [address] | | | | + + + + + + | Absolute | 0.9 (H)Comment: Testing | 0 - 0.8 K/uL | EXTERNAL | | | Monocytes | performed at [facility], [address] | | LAB | | | | [address], | | | | | | [place] [address] | | | | + + + + + + | Absolute | 1.3 (H)Comment: Testing | 0 - 0.5 K/uL | EXTERNAL | | | Eosinophils | performed at [facility], [address] | | LAB | | | | [address], | | | | | | [place] [address] | | | | + + + + + + | RBC | RBC AND PLT MORPHOLOGY | | EXTERNAL | | | Morphology | APPEAR NORMALComment: | | LAB | | | | Testing performed at | | | | | | [facility], [address] | | | | | | [place] | | | | | | [address] | | | | + + + + + + + + | Specimen | + + | Blood specimen | | (specimen) | + + + +---------+ + + | Performing | Address | City/State/Zipcode | Phone Number | | Organization | | | | + +---------+ + + | EXTERNAL LAB | | | | + +---------+ + + Phosphorus (04/01/2014 2:56 AM PDT) + + + + + + | Component | Value | Ref Range | Performed | Pathologist | | | | | At | Signature | + + + + + + | PHOSPHORUS | 4.4Comment: Testing | 2.3 - 4.8 mg/dL | EXTERNAL | | | | performed at [facility], [address] | | LAB | | | | [address], | | | | | | [place] [address] | | | | + + + + + + + + | Specimen | + + | Blood specimen | | (specimen) | + + + +---------+ + + | Performing | Address | City/State/Zipcode | Phone Number | | Organization | | | | + +---------+ + + | EXTERNAL LAB | | | | + +---------+ + + Magnesium (04/01/2014 2:56 AM PDT) + + + + + + | Component | Value | Ref Range | Performed | Pathologist | | | | | At | Signature | + + + + + + | Magnesium | 2.1Comment: Testing | 1.7 - 2.4 mg/dL | EXTERNAL | | | | performed at [facility], [address] | | LAB | | | | [address], | | | | | | [place] [address] | | | | + + + + + + + + | Specimen | + + | Blood specimen | | (specimen) | + + + +---------+ + + | Performing | Address | City/State/Zipcode | Phone Number | | Organization | | | | + +---------+ + + | EXTERNAL LAB | | | | + +---------+ + + Basic Metabolic Panel (04/01/2014 2:56 AM PDT) + + + + + + | Component | Value | Ref Range | Performed | Pathologist | | | | | At | Signature | + + + + + + | Na | 143Comment: Testing | 135 - 143 | EXTERNAL | | | | performed at [facility], [address] | mmol/L | LAB | | | | [address], | | | | | | [place] [address] | | | | + + + + + + | K | 3.6Comment: Testing | 3.5 - 4.9 | EXTERNAL | | | | performed at [facility], [address] | mmol/L | LAB | | | | [address], | | | | | | [place] [address] | | | | + + + + + + | Cl | 110 (H)Comment: Testing | 99 - 109 mmol/L | EXTERNAL | | | | performed at [facility], [address] | | LAB | | | | [address], | | | | | | [place] [address] | | | | + + + + + + | CO2 | 28Comment: Testing | 23 - 32 mmol/L | EXTERNAL | | | | performed at [facility], [address] | | LAB | | | | [address], | | | | | | [place] [address] | | | | + + + + + + | Anion Gap | 9Comment: Testing | 5 - 20 mmol/L | EXTERNAL | | | | performed at [facility], [address] | | LAB | | | | [address], | | | | | | [place] [address] | | | | + + + + + + | Glucose, | 108 (H)Comment: Testing | 65 - 99 mg/dL | EXTERNAL | | | Fasting | performed at [facility], [address] | | LAB | | | | [address], | | | | | | [place] [address] | | | | + + + + + + | BUN | 22Comment: Testing | 8 - 25 mg/dL | EXTERNAL | | | | performed at [facility], [address] | | LAB | | | | [address], | | | | | | [place] [address] | | | | + + + + + + | Creatinine | 0.73Comment: Testing | 0.70 - 1.30 | EXTERNAL | | | | performed at [facility], [address] | mg/dL | LAB | | | | [address], | | | | | | [place] [address] | | | | + + + + + + | BUN/Creatin | 30Comment: Testing | | EXTERNAL | | | ine Ratio | performed at [facility], [address] | | LAB | | | | [address], | | | | | | [place] [address] | | | | + + + + + + | Calcium | 8.9Comment: Testing | 8.5 - 10.2 | EXTERNAL | | | | performed at [facility], [address] | mg/dL | LAB | | | | [address], | | | | | | [place] [address] | | | | + + + + + + | Estimated | >60Comment: GFR <60: | mL/min/1.73m2 | EXTERNAL | | | GFR | CHRONIC KIDNEY DISEASE, | | LAB | | | | IF FOUND OVER A 3 MONTH | | | | | | PERIOD.GFR <15: KIDNEY | | | | | | FAILURE.FOR | | | | | | AMERICANS, MULTIPLY THE | | | | | | CALCULATED GFR BY | | | | | | 1.210.Testing performed | | | | | | at [facility], [address] | | | | | | [address], | | | | | | [place] [address] | | | | + + + + + + + + | Specimen | + + | Blood specimen | | (specimen) | + + + +---------+ + + | Performing | Address | City/State/Zipcode | Phone Number | | Organization | | | | + +---------+ + + | EXTERNAL LAB | | | | + +---------+ + + XR Chest 1 Vw (03/31/2014 9:01 AM PDT) + + | Specimen | + + | | + + + + + | Impressions | Performed At | + + + | 1. Resolution of previous alveolar infiltrates with probable | | | residual mild interstitial pulmonary edema and or acute/chronic | | | bronchitis. 2. Satisfactory left PICC line. Electronically | | | signed by Cirilo Recinos MD on 03/31/2014 2:26 PM | | + + + + + + | Narrative | Performed At | + + + | [facility] XR CHEST 1 VIEW 03/31/2014 9:01 AM | | | History: 58 years. Male. Followup for respiratory failure and | | | alcohol withdrawal syndrome. Technique: AP portable upright | | | technique was performed at 0901 hours. Comparison: 03/28/14 | | | Findings: Previous moderate alveolar infiltrates have cleared. | | | Bronchial thickening and/or interstitial infiltrate is mild throughout | | | the lower lung schwartz, suggesting mild residual interstitial edema or | | | acute/chronic bronchitis. No pleural effusion noted. The | | | inspiratory effort is moderate. The cardiac volume and contour are | | | normal. The pulmonary vasculature is normal, without dilatation. | | | The pulmonary rhona and mediastinal contours are normal. There is mild | | | calcification of the thoracic aorta, but no aortic dilatation or | | | tortuosity. A LEFT brachial central venous PICC line is present | | | with the tip at the junction of The superior vena cava and right | | | atrium, in good position. | | + + + + + | Procedure Note | + + | Malachi, Rad Conversion - 01/28/2019 5:12 PM [facility] CHEST 1 | | VIEW03/31/2014 9:01 AM History: 58 years. Male. Followup for respiratory failure and | | alcohol withdrawal syndrome. Technique: AP portable upright technique was performed at | | 0901 hours.Comparison: 03/28/14 Findings: Previous moderate alveolar infiltrates have | | cleared. Bronchial thickening and/or interstitial infiltrate is mild throughout the | | lower lung schwartz, suggesting mild residual interstitial edema or acute/chronic | | bronchitis. No pleural effusion noted. The inspiratory effort is moderate. The cardiac | | volume and contour are normal. The pulmonary vasculature is normal, without dilatation. | | The pulmonary rhona and mediastinal contours are normal. There is mild calcification of | | the thoracic aorta, but no aortic dilatation or tortuosity. A LEFT brachial central | | venous PICC line is present with the tip at the junction of The superior vena cava and | | right atrium, in good position. IMPRESSION: 1. Resolution of previous alveolar | | infiltrates with probable residual mild interstitial pulmonary edema and or | | acute/chronic bronchitis.2. Satisfactory left PICC line. | | | |IMPRESSION: | |1. Resolution of previous alveolar infiltrates with probable residual mild interstitial p ulmonary edema and or acute/chronic bronchitis. | |2. Satisfactory left PICC line. | | | | | | | + + External Lab: CBC (03/31/2014 5:48 AM PDT) + + + + + + | Component | Value | Ref Range | Performed | Pathologist | | | | | At | Signature | + + + + + + | WBC | 12.1 (H)Comment: Testing | 3.8 - 11.0 K/uL | EXTERNAL | | | | performed at [facility], [address] | | LAB | | | | [address], | | | | | | [place] [address] | | | | + + + + + + | Non- | 3.09 (L)Comment: Testing | 4.20 - 5.70 | EXTERNAL | | | Red Blood | performed at [facility], [address] | M/uL | LAB | | | Cells | [address], | | | | | Counted | [place] [address] | | | | + + + + + + | Hemoglobin | 9.1 (L)Comment: Testing | 13.2 - 17.0 | EXTERNAL | | | | performed at [facility], [address] | g/dL | LAB | | | | [address], | | | | | | [place] [address] | | | | + + + + + + | Hematocrit, | 27.9 (L)Comment: Testing | 39.0 - 50.0 % | EXTERNAL | | | POC | performed at [facility], [address] | | LAB | | | | [address], | | | | | | [place] [address] | | | | + + + + + + | MCV | 90.2Comment: Testing | 80.0 - 100.0 fl | EXTERNAL | | | | performed at [facility], [address] | | LAB | | | | [address], | | | | | | [place] [address] | | | | + + + + + + | MCH | 29.3Comment: Testing | 27.0 - 34.0 pg | EXTERNAL | | | | performed at [facility], [address] | | LAB | | | | [address], | | | | | | [place] [address] | | | | + + + + + + | MCHC | 32.5Comment: Testing | 32.0 - 35.5 | EXTERNAL | | | | performed at [facility], [address] | g/dL | LAB | | | | [address], | | | | | | [place] [address] | | | | + + + + + + | RDW-CV | 52.5Comment: Testing | 37 - 53 fl | EXTERNAL | | | | performed at [facility], [address] | | LAB | | | | [address], | | | | | | [place] [address] | | | | + + + + + + | Platelet | 629 (H)Comment: Testing | 150 - 400 K/uL | EXTERNAL | | | Count | performed at [facility], [address] | | LAB | | | Plasma | [address], | | | | | | [place] [address] | | | | + + + + + + | MPV | 6.8Comment: Testing | fl | EXTERNAL | | | | performed at [facility], [address] | | LAB | | | | [address], | | | | | | [place] [address] | | | | + + + + + + | Differentia | MANUALComment: Testing | | EXTERNAL | | | l Type | performed at [facility], [address] | | LAB | | | | [address], | | | | | | [place] [address] | | | | + + + + + + | Segmented | 61Comment: Testing | % | EXTERNAL | | | Neutrophils | performed at [facility], [address] | | LAB | | | Manual | [address], | | | | | | [place] [address] | | | | + + + + + + | % Bands | 3Comment: Testing | % | EXTERNAL | | | | performed at [facility], [address] | | LAB | | | | [address], | | | | | | [place] [address] | | | | + + + + + + | Lymphocytes | 22Comment: Testing | % | EXTERNAL | | | Manual | performed at [facility], [address] | | LAB | | | | [address], | | | | | | [place] [address] | | | | + + + + + + | Monocytes | 6Comment: Testing | % | EXTERNAL | | | Manual | performed at [facility], [address] | | LAB | | | | [address], | | | | | | [place] [address] | | | | + + + + + + | Eosinophils | 8Comment: Testing | % | EXTERNAL | | | Manual | performed at [facility], [address] | | LAB | | | [address], | | | | | | [place] [address] | | | | + + + + + + | Absolute | 7.3Comment: Testing | 1.9 - 7.4 K/uL | EXTERNAL | | | Neutrophils | performed at [facility], [address] | | LAB | | | | [address], | | | | | | [place] [address] | | | | + + + + + + | Bands | 0.4 (H)Comment: Testing | 0 - 0.2 K/uL | EXTERNAL | | | Manual | performed at [facility], [address] | | LAB | | | | [address], | | | | | | [place] [address] | | | | + + + + + + | Absolute | 2.7Comment: Testing | 1.0 - 3.9 K/uL | EXTERNAL | | | Lymphocytes | performed at [facility], [address] | | LAB | | | | [address] [place], | | | | | | [place] [address] | | | | + + + + + + | Absolute | 0.7Comment: Testing | 0 - 0.8 K/uL | EXTERNAL | | | Monocytes | performed at [facility], [address] | | LAB | | | | [place] [place], | | | | | | [place] [address] | | | | + + + + + + | Absolute | 1.0 (H)Comment: Testing | 0 - 0.5 K/uL | EXTERNAL | | | Eosinophils | performed at [facility], [address] | | LAB | | | | [facility] [place], | | | | | | [place] [address] | | | | + + + + + + | RBC | RBC AND PLT MORPHOLOGY | | EXTERNAL | | | Morphology | APPEAR NORMALComment: | | LAB | | | | Testing performed at | | | | | | [facility], [address] | | | | | | [place] | | | | | | [address] | | | | + + + + + + + + | Specimen | + + | Blood specimen | | (specimen) | + + + +---------+ + + | Performing | Address | City/State/Zipcode | Phone Number | | Organization | | | | + +---------+ + + | EXTERNAL LAB | | | | + +---------+ + + Phosphorus (03/31/2014 5:48 AM PDT) + + + + + + | Component | Value | Ref Range | Performed | Pathologist | | | | | At | Signature | + + + + + + | PHOSPHORUS | 4.3Comment: Testing | 2.3 - 4.8 mg/dL | EXTERNAL | | | | performed at [facility], [address] | | LAB | | | | [address] [place], | | | | | | [place] [address] | | | | + + + + + + + + | Specimen | + + | Blood specimen | | (specimen) | + + + +---------+ + + | Performing | Address | City/State/Zipcode | Phone Number | | Organization | | | | + +---------+ + + | EXTERNAL LAB | | | | + +---------+ + + Magnesium (03/31/2014 5:48 AM PDT) + + + + + + | Component | Value | Ref Range | Performed | Pathologist | | | | | At | Signature | + + + + + + | Magnesium | 2.0Comment: Testing | 1.7 - 2.4 mg/dL | EXTERNAL | | | | performed at [facility], [address] | | LAB | | | | [place] [place], | | | | | | [place] [address] | | | | + + + + + + + + | Specimen | + + | Blood specimen | | (specimen) | + + + +---------+ + + | Performing | Address | City/State/Zipcode | Phone Number | | Organization | | | | + +---------+ + + | EXTERNAL LAB | | | | + +---------+ + + Basic Metabolic Panel (03/31/2014 5:48 AM PDT) + + + + + + | Component | Value | Ref Range | Performed | Pathologist | | | | | At | Signature | + + + + + + | Na | 142Comment: Testing | 135 - 143 | EXTERNAL | | | | performed at [facility], [address] | mmol/L | LAB | | | | [address], | | | | | | [place] [address] | | | | + + + + + + | K | 3.4 (L)Comment: Testing | 3.5 - 4.9 | EXTERNAL | | | | performed at [facility], [address] | mmol/L | LAB | | | | [place] [place], | | | | | | [place] [address] | | | | + + + + + + | Cl | 107Comment: Testing | 99 - 109 mmol/L | EXTERNAL | | | | performed at [facility], [address] | | LAB | | | | [address], | | | | | | [place] [address] | | | | + + + + + + | CO2 | 30Comment: Testing | 23 - 32 mmol/L | EXTERNAL | | | | performed at [facility], [address] | | LAB | | | | [address], | | | | | | [place] [address] | | | | + + + + + + | Anion Gap | 8Comment: Testing | 5 - 20 mmol/L | EXTERNAL | | | | performed at [facility], [address] | | LAB | | | | [address], | | | | | | [place] [address] | | | | + + + + + + | Glucose, | 145 (H)Comment: Testing | 65 - 99 mg/dL | EXTERNAL | | | Fasting | performed at [facility], [address] | | LAB | | | | [address], | | | | | | [place] [address] | | | | + + + + + + | BUN | 23Comment: Testing | 8 - 25 mg/dL | EXTERNAL | | | | performed at [facility], [address] | | LAB | | | | [address], | | | | | | [place] [address] | | | | + + + + + + | Creatinine | 0.81Comment: Testing | 0.70 - 1.30 | EXTERNAL | | | | performed at [facility], [address] | mg/dL | LAB | | | | [address], | | | | | | [place] [address] | | | | + + + + + + | BUN/Creatin | 28Comment: Testing | | EXTERNAL | | | ine Ratio | performed at [facility], [address] | | LAB | | | | [address], | | | | | | [place] [address] | | | | + + + + + + | Calcium | 9.1Comment: Testing | 8.5 - 10.2 | EXTERNAL | | | | performed at [facility], [address] | mg/dL | LAB | | | | [address], | | | | | | [place] [address] | | | | + + + + + + | Estimated | >60Comment: GFR <60: | mL/min/1.73m2 | EXTERNAL | | | GFR | CHRONIC KIDNEY DISEASE, | | LAB | | | | IF FOUND OVER A 3 MONTH | | | | | | PERIOD.GFR <15: KIDNEY | | | | | | FAILURE.FOR | | | | | | AMERICANS, MULTIPLY THE | | | | | | CALCULATED GFR BY | | | | | | 1.210.Testing performed | | | | | | at [facility], [address] | | | | | | [address], | | | | | | [place] [address] | | | | + + + + + + + + | Specimen | + + | Blood specimen | | (specimen) | + + + +---------+ + + | Performing | Address | City/State/Zipcode | Phone Number | | Organization | | | | + +---------+ + + | EXTERNAL LAB | | | | + +---------+ + + HISTORICAL MICROBIOLOGY RESULT (03/30/2014 12:38 PM PDT) + + | Specimen | + + | Stool specimen | | (specimen) | + + + + + | Narrative | Performed At | + + + | Toxigenic C Difficile NEGATIVE Testing | EXTERNAL LAB | | performed at [facility], [address] [place] [address] 027 | | | NAP1 BI 027 NAP1 BI PRESUMPTIVE | | | NEGATIVE Detection of 027 NAP1 BI strains of C. difficile is | | | presumptive and for epidemiological purposes and not intended to guide | | | or monitor treatment for C. difficile infections. Detection of 027 | | | NAP1 BI strains of C. difficile is presumptive and for epidemiological | | | purposes and not intended to guide or monitor treatment for C. | | | difficile infections. Testing performed at [facility], [address] [facility] | | | [facility] [place] [address] | | + + + + +---------+ + + | Performing | Address | City/State/Zipcode | Phone Number | | Organization | | | | + +---------+ + + | EXTERNAL LAB | | | | + +---------+ + + POC Glucose (03/30/2014 5:47 AM PDT) + + + + + + | Component | Value | Ref Range | Performed | Pathologist | | | | | At | Signature | + + + + + + | Glucose, | 118 (H)Comment: Testing | 65 - 99 mg/dL | EXTERNAL | | | Fingerstick | performed at [facility];[address] | | LAB | | | | [place] | | | | | | [address] | | | | + + + + + + + + | Specimen | + + | | + + + +---------+ + + | Performing | Address | City/State/Zipcode | Phone Number | | Organization | | | | + +---------+ + + | EXTERNAL LAB | | | | + +---------+ + + External Lab: CBC (03/30/2014 5:04 AM PDT) + + + + + + | Component | Value | Ref Range | Performed | Pathologist | | | | | At | Signature | + + + + + + | WBC | 11.9 (H)Comment: Testing | 3.8 - 11.0 K/uL | EXTERNAL | | | | performed at [facility], [address] | | LAB | | | | [address] [place] [place], | | | | | | [place] [address] | | | | + + + + + + | Non- | 3.34 (L)Comment: Testing | 4.20 - 5.70 | EXTERNAL | | | Red Blood | performed at [facility], [address] | M/uL | LAB | | | Cells | [address] [place], | | | | | Counted | [place] [address] | | | | + + + + + + | Hemoglobin | 9.6 (L)Comment: Testing | 13.2 - 17.0 | EXTERNAL | | | | performed at [facility], [address] | g/dL | LAB | | | | [address] [place], | | | | | | [place] [address] | | | | + + + + + + | Hematocrit, | 29.5 (L)Comment: Testing | 39.0 - 50.0 % | EXTERNAL | | | POC | performed at [facility], [address] | | LAB | | | | [address], | | | | | | [place] [address] | | | | + + + + + + | MCV | 88.5Comment: Testing | 80.0 - 100.0 fl | EXTERNAL | | | | performed at [facility], [address] | | LAB | | | | [place], | | | | | | [place] [address] | | | | + + + + + + | MCH | 28.8Comment: Testing | 27.0 - 34.0 pg | EXTERNAL | | | | performed at [facility], [address] | | LAB | | | | [address], | | | | | | [place] [address] | | | | + + + + + + | MCHC | 32.5Comment: Testing | 32.0 - 35.5 | EXTERNAL | | | | performed at [facility], [address] | g/dL | LAB | | | | [address], | | | | | | [place] [address] | | | | + + + + + + | RDW-CV | 52.1Comment: Testing | 37 - 53 fl | EXTERNAL | | | | performed at [facility], [address] | | LAB | | | | [address], | | | | | | [place] [address] | | | | + + + + + + | Platelet | 597 (H)Comment: Testing | 150 - 400 K/uL | EXTERNAL | | | Count | performed at [facility], [address] | | LAB | | | Plasma | [address], | | | | | | [place] [address] | | | | + + + + + + | MPV | 6.9Comment: Testing | fl | EXTERNAL | | | | performed at [facility], [address] | | LAB | | | | [address], | | | | | | [place] [address] | | | | + + + + + + | Differentia | AUTOMATEDComment: | | EXTERNAL | | | l Type | Testing performed at | | LAB | | | | [facility], [address] | | | | | | [place] | | | | | | [address] | | | | + + + + + + | % Segmented | 62.4Comment: Testing | % | EXTERNAL | | | | performed at [facility], [address] | | LAB | | | Neutrophils | [address], | | | | | | [place] [address] | | | | + + + + + + | % | 18.0Comment: Testing | % | EXTERNAL | | | Lymphocytes | performed at [facility], [address] | | LAB | | | | [address], | | | | | | [place] [address] | | | | + + + + + + | % Monocytes | 11.4Comment: Testing | % | EXTERNAL | | | | performed at [facility], [address] | | LAB | | | | [address], | | | | | | [place] [address] | | | | + + + + + + | % | 6.8Comment: Testing | % | EXTERNAL | | | Eosinophils | performed at [facility], [address] | | LAB | | | | [address], | | | | | | [place] [address] | | | | + + + + + + | % Basophils | 1.4Comment: Testing | % | EXTERNAL | | | | performed at [facility], [address] | | LAB | | | | [address], | | | | | | [place] [address] | | | | + + + + + + | Absolute | 7.4Comment: Testing | 1.9 - 7.4 K/uL | EXTERNAL | | | Segmented | performed at [facility], [address] | | LAB | | | Neutrophils | [address], | | | | | | [place] [address] | | | | + + + + + + | Absolute | 2.1Comment: Testing | 1.0 - 3.9 K/uL | EXTERNAL | | | Lymphocytes | performed at [facility], [address] | | LAB | | | [address], | | | | | | [place] [address] | | | | + + + + + + | Absolute | 1.4 (H)Comment: Testing | 0 - 0.8 K/uL | EXTERNAL | | | Monocytes | performed at [facility], [address] | | LAB | | | | [address], | | | | | | [place] [address] | | | | + + + + + + | Absolute | 0.8 (H)Comment: Testing | 0 - 0.5 K/uL | EXTERNAL | | | Eosinophils | performed at [facility], [address] | | LAB | | | [address], | | | | | | [place] [address] | | | | + + + + + + | Absolute | 0.2 (H)Comment: Testing | 0 - 0.1 K/uL | EXTERNAL | | | Basophils | performed at [facility], [address] | | LAB | | | | [address], | | | | | | [place] [address] | | | | + + + + + + + + | Specimen | + + | Blood specimen | | (specimen) | + + + +---------+ + + | Performing | Address | City/State/Zipcode | Phone Number | | Organization | | | | + +---------+ + + | EXTERNAL LAB | | | | + +---------+ + + Triglycerides (03/30/2014 5:04 AM PDT) + + + + + + | Component | Value | Ref Range | Performed | Pathologist | | | | | At | Signature | + + + + + + | Triglycerid | 212 (H)Comment: Testing | mg/dL | EXTERNAL | | | es | performed at [facility], [address] | | LAB | | | | [place], | | | | | | [place] [address] | | | | + + + + + + + + | Specimen | + + | Blood specimen | | (specimen) | + + + +---------+ + + | Performing | Address | City/State/Zipcode | Phone Number | | Organization | | | | + +---------+ + + | EXTERNAL LAB | | | | + +---------+ + + Prealbumin (03/30/2014 5:04 AM PDT) + + + + + + | Component | Value | Ref Range | Performed | Pathologist | | | | | At | Signature | + + + + + + | Prealbumin | 9.3 (L)Comment: Testing | 20.0 - 40.0 | EXTERNAL | | | | performed at [facility], [address] | mg/dL | LAB | | | | [facility], | | | | | | [place] [address] | | | | + + + + + + + + | Specimen | + + | Blood specimen | | (specimen) | + + + +---------+ + + | Performing | Address | City/State/Zipcode | Phone Number | | Organization | | | | + +---------+ + + | EXTERNAL LAB | | | | + +---------+ + + Phosphorus (03/30/2014 5:04 AM PDT) + + + + + + | Component | Value | Ref Range | Performed | Pathologist | | | | | At | Signature | + + + + + + | PHOSPHORUS | 4.5Comment: Testing | 2.3 - 4.8 mg/dL | EXTERNAL | | | | performed at [facility], [address] | | LAB | | | | [address], | | | | | | [place] [address] | | | | + + + + + + + + | Specimen | + + | Blood specimen | | (specimen) | + + + +---------+ + + | Performing | Address | City/State/Zipcode | Phone Number | | Organization | | | | + +---------+ + + | EXTERNAL LAB | | | | + +---------+ + + Magnesium (03/30/2014 5:04 AM PDT) + + + + + + | Component | Value | Ref Range | Performed | Pathologist | | | | | At | Signature | + + + + + + | Magnesium | 2.2Comment: Testing | 1.7 - 2.4 mg/dL | EXTERNAL | | | | performed at [facility], [address] | | LAB | | | | [place] [place], | | | | | | [place] [address] | | | | + + + + + + + + | Specimen | + + | Blood specimen | | (specimen) | + + + +---------+ + + | Performing | Address | City/State/Zipcode | Phone Number | | Organization | | | | + +---------+ + + | EXTERNAL LAB | | | | + +---------+ + + Comprehensive Metabolic Panel (03/30/2014 5:04 AM PDT) + + + + + + | Component | Value | Ref Range | Performed | Pathologist | | | | | At | Signature | + + + + + + | Na | 142Comment: Testing | 135 - 143 | EXTERNAL | | | | performed at [facility], [address] | mmol/L | LAB | | | | [address], | | | | | | [place] [address] | | | | + + + + + + | K | 3.2 (L)Comment: Testing | 3.5 - 4.9 | EXTERNAL | | | | performed at [facility], [address] | mmol/L | LAB | | | | [address], | | | | | | [place] [address] | | | | + + + + + + | Cl | 102Comment: Testing | 99 - 109 mmol/L | EXTERNAL | | | | performed at [facility], [address] | | LAB | | | | [address], | | | | | | [place] [address] | | | | + + + + + + | CO2 | 33 (H)Comment: Testing | 23 - 32 mmol/L | EXTERNAL | | | | performed at [facility], [address] | | LAB | | | | [address], | | | | | | [place] [address] | | | | + + + + + + | Anion Gap | 10Comment: Testing | 5 - 20 mmol/L | EXTERNAL | | | | performed at [facility], [address] | | LAB | | | | [address], | | | | | | [place] [address] | | | | + + + + + + | Glucose, | 109 (H)Comment: Testing | 65 - 99 mg/dL | EXTERNAL | | | Fasting | performed at [facility], [address] | | LAB | | | | [address], | | | | | | [place] [address] | | | | + + + + + + | BUN | 19Comment: Testing | 8 - 25 mg/dL | EXTERNAL | | | | performed at [facility], [address] | | LAB | | | | [address], | | | | | | [place] [address] | | | | + + + + + + | Creatinine | 0.74Comment: Testing | 0.70 - 1.30 | EXTERNAL | | | | performed at [facility], [address] | mg/dL | LAB | | | | [address], | | | | | | [place] [address] | | | | + + + + + + | BUN/Creatin | 26Comment: Testing | | EXTERNAL | | | ine Ratio | performed at [facility], [address] | | LAB | | | | [address], | | | | | | [place] [address] | | | | + + + + + + | Calcium | 9.2Comment: Testing | 8.5 - 10.2 | EXTERNAL | | | | performed at [facility], [address] | mg/dL | LAB | | | | [address], | | | | | | [place] [address] | | | | + + + + + + | Protein, | 7.7Comment: Testing | 6.3 - 8.2 g/dL | EXTERNAL | | | Total | performed at [facility], [address] | | LAB | | | | [address], | | | | | | [place] [address] | | | | + + + + + + | Albumin | 3.4 (L)Comment: Testing | 3.6 - 5.0 g/dL | EXTERNAL | | | | performed at [facility], [address] | | LAB | | | | [address], | | | | | | [place] [address] | | | | + + + + + + | Globulin | 4.3Comment: Testing | 1.3 - 4.9 g/dL | EXTERNAL | | | | performed at [facility], [address] | | LAB | | | | [address], | | | | | | [place] [address] | | | | + + + + + + | A/G Ratio | 0.8 (L)Comment: Testing | 1.0 - 2.4 | EXTERNAL | | | | performed at [facility], [address] | | LAB | | | | [address], | | | | | | [place] [address] | | | | + + + + + + | Bilirubin | 0.4Comment: Testing | 0.1 - 1.5 mg/dL | EXTERNAL | | | Total | performed at [facility], [address] | | LAB | | | | [address], | | | | | | [place] [address] | | | | + + + + + + | ALP, | 111Comment: Testing | 35 - 115 U/L | EXTERNAL | | | External | performed at [facility], [address] | | LAB | | | | [address], | | | | | | [place] [address] | | | | + + + + + + | AST | 21Comment: Testing | 10 - 45 U/L | EXTERNAL | | | | performed at [facility], [address] | | LAB | | | | [address], | | | | | | [place] [address] | | | | + + + + + + | ALT | 17Comment: Testing | 10 - 65 U/L | EXTERNAL | | | | performed at [facility], [address] | | LAB | | | | [address], | | | | | | [place] [address] | | | | + + + + + + | Estimated | >60Comment: GFR <60: | mL/min/1.73m2 | EXTERNAL | | | GFR | CHRONIC KIDNEY DISEASE, | | LAB | | | | IF FOUND OVER A 3 MONTH | | | | | | PERIOD.GFR <15: KIDNEY | | | | | | FAILURE.FOR | | | | | | AMERICANS, MULTIPLY THE | | | | | | CALCULATED GFR BY | | | | | | 1.210.Testing performed | | | | | | at [facility], [address] | | | | | | [address], | | | | | | [place] [address] | | | | + + + + + + + + | Specimen | + + | Blood specimen | | (specimen) | + + + +---------+ + + | Performing | Address | City/State/Zipcode | Phone Number | | Organization | | | | + +---------+ + + | EXTERNAL LAB | | | | + +---------+ + + Calcium, Ionized (03/30/2014 5:03 AM PDT) + + + + + + | Component | Value | Ref Range | Performed | Pathologist | | | | | At | Signature | + + + + + + | Calcium | 1.15Comment: Testing | 1.08 - 1.25 | EXTERNAL | | | (Calc) | performed at [facility];[address] | mmol/L | LAB | | | | [address];[place] | | | | | | [address] | | | | + + + + + + | pH, Bld | 7.434Comment: Testing | 7.300 - 7.450 | EXTERNAL | | | | performed at [facility];[address] | | LAB | | | | [address];[place] | | | | | | [address] | | | | + + + + + + + + | Specimen | + + | Blood specimen | | (specimen) | + + + +---------+ + + | Performing | Address | City/State/Zipcode | Phone Number | | Organization | | | | + +---------+ + + | EXTERNAL LAB | | | | + +---------+ + + External Lab: CBC (03/29/2014 4:02 AM PDT) + + + + + + | Component | Value | Ref Range | Performed | Pathologist | | | | | At | Signature | + + + + + + | WBC | 13.2 (H)Comment: Testing | 3.8 - 11.0 K/uL | EXTERNAL | | | | performed at [facility], [address] | | LAB | | | | [address], | | | | | | [place] [address] | | | | + + + + + + | Non- | 3.22 (L)Comment: Testing | 4.20 - 5.70 | EXTERNAL | | | Red Blood | performed at [facility], [address] | M/uL | LAB | | | Cells | [address], | | | | | Counted | [place] [address] | | | | + + + + + + | Hemoglobin | 9.3 (L)Comment: Testing | 13.2 - 17.0 | EXTERNAL | | | | performed at [facility], [address] | g/dL | LAB | | | [address], | | | | | | [place] [address] | | | | + + + + + + | Hematocrit, | 28.8 (L)Comment: Testing | 39.0 - 50.0 % | EXTERNAL | | | POC | performed at [facility], [address] | | LAB | | | | [address], | | | | | | [place] [address] | | | | + + + + + + | MCV | 89.2Comment: Testing | 80.0 - 100.0 fl | EXTERNAL | | | | performed at [facility], [address] | | LAB | | | | [address], | | | | | | [place] [address] | | | | + + + + + + | MCH | 28.7Comment: Testing | 27.0 - 34.0 pg | EXTERNAL | | | | performed at [facility], [address] | | LAB | | | | [address], | | | | | | [place] [address] | | | | + + + + + + | MCHC | 32.2Comment: Testing | 32.0 - 35.5 | EXTERNAL | | | | performed at [facility], [address] | g/dL | LAB | | | | [address], | | | | | | [place] [address] | | | | + + + + + + | RDW-CV | 52.5Comment: Testing | 37 - 53 fl | EXTERNAL | | | | performed at [facility], [address] | | LAB | | | | [address], | | | | | | [place] [address] | | | | + + + + + + | Platelet | 523 (H)Comment: Testing | 150 - 400 K/uL | EXTERNAL | | | Count | performed at [facility], [address] | | LAB | | | Plasma | [address], | | | | | | [place] [address] | | | | + + + + + + | MPV | 7.2Comment: Testing | fl | EXTERNAL | | | | performed at [facility], [address] | | LAB | | | | [address], | | | | | | [place] [address] | | | | + + + + + + | Differentia | AUTOMATEDComment: | | EXTERNAL | | | l Type | Testing performed at | | LAB | | | | [facility], [address] | | | | | | [place] | | | | | | [address] | | | | + + + + + + | % Segmented | 71.3Comment: Testing | % | EXTERNAL | | | | performed at [facility], [address] | | LAB | | | Neutrophils | [address], | | | | | | [place], [place] [address] | | | | + + + + + + | % | 15.4Comment: Testing | % | EXTERNAL | | | Lymphocytes | performed at [facility], [address] | | LAB | | | | [address], | | | | | | [place], [place] [address] | | | | + + + + + + | % Monocytes | 9.7Comment: Testing | % | EXTERNAL | | | | performed at [facility], [address] | | LAB | | | | [address], | | | | | | [place] [address] | | | | + + + + + + | % | 2.5Comment: Testing | % | EXTERNAL | | | Eosinophils | performed at [facility], [address] | | LAB | | | | [address], | | | | | | [place] [address] | | | | + + + + + + | % Basophils | 1.1Comment: Testing | % | EXTERNAL | | | | performed at [facility], [address] | | LAB | | | | [address], | | | | | | [place] [address] | | | | + + + + + + | Absolute | 9.4 (H)Comment: Testing | 1.9 - 7.4 K/uL | EXTERNAL | | | Segmented | performed at [facility], [address] | | LAB | | | Neutrophils | [address], | | | | | | [place] [address] | | | | + + + + + + | Absolute | 2.0Comment: Testing | 1.0 - 3.9 K/uL | EXTERNAL | | | Lymphocytes | performed at [facility], [address] | | LAB | | | | [address], | | | | | | [place] [address] | | | | + + + + + + | Absolute | 1.3 (H)Comment: Testing | 0 - 0.8 K/uL | EXTERNAL | | | Monocytes | performed at [facility], [address] | | LAB | | | | [address], | | | | | | [place] [address] | | | | + + + + + + | Absolute | 0.3Comment: Testing | 0 - 0.5 K/uL | EXTERNAL | | | Eosinophils | performed at [facility], [address] | | LAB | | | | [address], | | | | | | [place] [address] | | | | + + + + + + | Absolute | 0.1Comment: Testing | 0 - 0.1 K/uL | EXTERNAL | | | Basophils | performed at [facility], [address] | | LAB | | | | [address], | | | | | | [place] [address] | | | | + + + + + + + + | Specimen | + + | Blood specimen | | (specimen) | + + + +---------+ + + | Performing | Address | City/State/Zipcode | Phone Number | | Organization | | | | + +---------+ + + | EXTERNAL LAB | | | | + +---------+ + + Phosphorus (03/29/2014 4:02 AM PDT) + + + + + + | Component | Value | Ref Range | Performed | Pathologist | | | | | At | Signature | + + + + + + | PHOSPHORUS | 4.4Comment: Testing | 2.3 - 4.8 mg/dL | EXTERNAL | | | | performed at [facility], [address] | | LAB | | | | [address], | | | | | | [place] [address] | | | | + + + + + + + + | Specimen | + + | Blood specimen | | (specimen) | + + + +---------+ + + | Performing | Address | City/State/Zipcode | Phone Number | | Organization | | | | + +---------+ + + | EXTERNAL LAB | | | | + +---------+ + + Magnesium (03/29/2014 4:02 AM PDT) + + + + + + | Component | Value | Ref Range | Performed | Pathologist | | | | | At | Signature | + + + + + + | Magnesium | 2.0Comment: Testing | 1.7 - 2.4 mg/dL | EXTERNAL | | | | performed at [facility], [address] | | LAB | | | | [address], | | | | | | [place] [address] | | | | + + + + + + + + | Specimen | + + | Blood specimen | | (specimen) | + + + +---------+ + + | Performing | Address | City/State/Zipcode | Phone Number | | Organization | | | | + +---------+ + + | EXTERNAL LAB | | | | + +---------+ + + Basic Metabolic Panel (03/29/2014 4:02 AM PDT) + + + + + + | Component | Value | Ref Range | Performed | Pathologist | | | | | At | Signature | + + + + + + | Na | 138Comment: Testing | 135 - 143 | EXTERNAL | | | | performed at [facility], [address] | mmol/L | LAB | | | | [address], | | | | | | [place] [address] | | | | + + + + + + | K | 3.1 (L)Comment: Testing | 3.5 - 4.9 | EXTERNAL | | | | performed at [facility], [address] | mmol/L | LAB | | | | [address], | | | | | | [place] [address] | | | | + + + + + + | Cl | 96 (L)Comment: Testing | 99 - 109 mmol/L | EXTERNAL | | | | performed at [facility], [address] | | LAB | | | | [address], | | | | | | [place], [place] [address] | | | | + + + + + + | CO2 | 31Comment: Testing | 23 - 32 mmol/L | EXTERNAL | | | | performed at [facility], [address] | | LAB | | | | [address], | | | | | | [place] [address] | | | | + + + + + + | Anion Gap | 14Comment: Testing | 5 - 20 mmol/L | EXTERNAL | | | | performed at [facility], [address] | | LAB | | | | [address], | | | | | | [place] [address] | | | | + + + + + + | Glucose, | 115 (H)Comment: Testing | 65 - 99 mg/dL | EXTERNAL | | | Fasting | performed at [facility], [address] | | LAB | | | | [address], | | | | | | [place] [address] | | | | + + + + + + | BUN | 12Comment: Testing | 8 - 25 mg/dL | EXTERNAL | | | | performed at [facility], [address] | | LAB | | | | [address], | | | | | | [place] [address] | | | | + + + + + + | Creatinine | 0.70Comment: Testing | 0.70 - 1.30 | EXTERNAL | | | | performed at [facility], [address] | mg/dL | LAB | | | | [address], | | | | | | [place] [address] | | | | + + + + + + | BUN/Creatin | 17Comment: Testing | | EXTERNAL | | | ine Ratio | performed at [facility], [address] | | LAB | | | | [address], | | | | | | [place] [address] | | | | + + + + + + | Calcium | 9.4Comment: Testing | 8.5 - 10.2 | EXTERNAL | | | | performed at [facility], [address] | mg/dL | LAB | | | | [address], | | | | | | [place] [address] | | | | + + + + + + | Estimated | >60Comment: GFR <60: | mL/min/1.73m2 | EXTERNAL | | | GFR | CHRONIC KIDNEY DISEASE, | | LAB | | | | IF FOUND OVER A 3 MONTH | | | | | | PERIOD.GFR <15: KIDNEY | | | | | | FAILURE.FOR | | | | | | AMERICANS, MULTIPLY THE | | | | | | CALCULATED GFR BY | | | | | | 1.210.Testing performed | | | | | | at [facility], [address] | | | | | | [address], | | | | | | [place] [address] | | | | + + + + + + + + | Specimen | + + | Blood specimen | | (specimen) | + + + +---------+ + + | Performing | Address | City/State/Zipcode | Phone Number | | Organization | | | | + +---------+ + + | EXTERNAL LAB | | | | + +---------+ + + Carbamazepine Level (03/28/2014 10:05 AM PDT) + + + + + + | Component | Value | Ref Range | Performed | Pathologist | | | | | At | Signature | + + + + + + | Date of | UNKNOWNComment: Testing | | EXTERNAL | | | Last Dose | performed at [facility];[address] | | LAB | | | | [address];[place] | | | | | | [address] | | | | + + + + + + | Time of | UNKNOWNComment: Testing | | EXTERNAL | | | Last Dose | performed at [facility];[address] | | LAB | | | | [address];[place] | | | | | | [address] | | | | + + + + + + | Carbamazepi | 7.1Comment: Testing | 4.0 - 12.0 | EXTERNAL | | | ne Level | performed at [facility], [address] | ug/mL | LAB | | | | [address], | | | | | | [place] [address] | | | | + + + + + + + + | Specimen | + + | Blood specimen | | (specimen) | + + + +---------+ + + | Performing | Address | City/State/Zipcode | Phone Number | | Organization | | | | + +---------+ + + | EXTERNAL LAB | | | | + +---------+ + + XR Chest 1 Vw (03/28/2014 5:55 AM PDT) + + | Specimen | + + | | + + + + + | Impressions | Performed At | + + + | 1. Decreasing atelectasis/pneumonia at the left lung base. 2. | | | Persistent diffuse mild interstitial infiltrate suggesting | | | interstitial pulmonary edema, unchanged. 3. Interval removal of the | | | nasogastric feeding tube. | | + + + + + + | Narrative | Performed At | + + + | LADARIUS Purcell [employer] XR CHEST 1 VIEW 03/28/2014 5:55 AM | | | History: 58 years. Male. Followup for acute respiratory failure | | | and alcohol withdrawal syndrome. Technique: AP portable upright | | | technique was performed at 0520 hours. Comparison: 03/27/14 | | | Findings: The inspiratory effort is moderate. Diffuse interstitial | | | infiltrate is again noted throughout both lung schwartz centrally and | | | peripherally, unchanged. Decreasing consolidation/atelectasis is noted | | | the left lung base with better visualization of the left | | | hemidiaphragm. No visible pleural effusion. The cardiac volume is | | | normal. The pulmonary rhona and mediastinal contours are normal. The | | | thoracic aorta is normal, without dilatation or calcification. A | | | LEFT brachial central venous PICC line is present with the tip at the | | | junction of The superior vena cava and right atrium, in good position. | | | The recent nasogastric feeding catheter is been removed. | | + + + + + | Procedure Note | + + | Malachi, Rad Conversion - 01/28/2019 5:12 PM PDT [facility] | | VIEW03/28/2014 5:55 AM History: 58 years. Male. Followup for acute respiratory | | failure and alcohol withdrawal syndrome. Technique: AP portable upright technique was | | performed at 0520 hours.Comparison: 03/27/14 Findings: The inspiratory effort is | | moderate. Diffuse interstitial infiltrate is again noted throughout both lung schwartz | | centrally and peripherally, unchanged. Decreasing consolidation/atelectasis is noted the | | left lung base with better visualization of the left hemidiaphragm. No visible pleural | | effusion. The cardiac volume is normal. The pulmonary rhona and mediastinal contours are | | normal. The thoracic aorta is normal, without dilatation or calcification. A LEFT | | brachial central venous PICC line is present with the tip at the junction of The | | superior vena cava and right atrium, in good position. The recent nasogastric feeding | | catheter is been removed. IMPRESSION: 1. Decreasing atelectasis/pneumonia at the left | | lung base.2. Persistent diffuse mild interstitial infiltrate suggesting interstitial | | pulmonary edema, unchanged.3. Interval removal of the nasogastric feeding tube. | | | |A LEFT brachial central venous PICC line is present with the tip at the junction of The sup erior vena cava and right atrium, in good position. The recent nasogastric feeding catheter is been removed. | | | |IMPRESSION: | |1. Decreasing atelectasis/pneumonia at the left lung base. | |2. Persistent diffuse mild interstitial infiltrate suggesting interstitial pulmonary edema , unchanged. | |3. Interval removal of the nasogastric feeding tube. | | | | | | | + + External Lab: CBC (03/28/2014 5:26 AM PDT) + + + + + + | Component | Value | Ref Range | Performed | Pathologist | | | | | At | Signature | + + + + + + | WBC | 11.8 (H)Comment: Testing | 3.8 - 11.0 K/uL | EXTERNAL | | | | performed at [facility], [address] | | LAB | | | | [address], | | | | | | [place] [address] | | | | + + + + + + | Non- | 3.05 (L)Comment: Testing | 4.20 - 5.70 | EXTERNAL | | | Red Blood | performed at [facility], [address] | M/uL | LAB | | | Cells | [address], | | | | | Counted | [place] [address] | | | | + + + + + + | Hemoglobin | 8.9 (L)Comment: Testing | 13.2 - 17.0 | EXTERNAL | | | | performed at [facility], [address] | g/dL | LAB | | | | [address], | | | | | | [place] [address] | | | | + + + + + + | Hematocrit, | 27.3 (L)Comment: Testing | 39.0 - 50.0 % | EXTERNAL | | | POC | performed at [facility], [address] | | LAB | | | | [address], | | | | | | [place] [address] | | | | + + + + + + | MCV | 89.6Comment: Testing | 80.0 - 100.0 fl | EXTERNAL | | | | performed at [facility], [address] | | LAB | | | | [address], | | | | | | [place] [address] | | | | + + + + + + | MCH | 29.1Comment: Testing | 27.0 - 34.0 pg | EXTERNAL | | | | performed at [facility], [address] | | LAB | | | | [address], | | | | | | [place] [address] | | | | + + + + + + | MCHC | 32.4Comment: Testing | 32.0 - 35.5 | EXTERNAL | | | | performed at [facility], [address] | g/dL | LAB | | | | [address], | | | | | | [place] [address] | | | | + + + + + + | RDW-CV | 52.1Comment: Testing | 37 - 53 fl | EXTERNAL | | | | performed at [facility], [address] | | LAB | | | | [address], | | | | | | [place] [address] | | | | + + + + + + | Platelet | 406 (H)Comment: Testing | 150 - 400 K/uL | EXTERNAL | | | Count | performed at [facility], [address] | | LAB | | | Plasma | [address], | | | | | | [place] [address] | | | | + + + + + + | MPV | 7.2Comment: Testing | fl | EXTERNAL | | | | performed at [facility], [address] | | LAB | | | | [address], | | | | | | [place] [address] | | | | + + + + + + | Differentia | AUTOMATEDComment: | | EXTERNAL | | | l Type | Testing performed at | | LAB | | | | [facility], [address] | | | | | | [place] | | | | | | [address] | | | | + + + + + + | % Segmented | 68.6Comment: Testing | % | EXTERNAL | | | | performed at [facility], [address] | | LAB | | | Neutrophils | [address], | | | | | | [place] [address] | | | | + + + + + + | % | 13.7Comment: Testing | % | EXTERNAL | | | Lymphocytes | performed at [facility], [address] | | LAB | | | [address], | | | | | | [place] [address] | | | | + + + + + + | % Monocytes | 10.9Comment: Testing | % | EXTERNAL | | | | performed at [facility], [address] | | LAB | | | | [address], | | | | | | [place] [address] | | | | + + + + + + | % | 6.2Comment: Testing | % | EXTERNAL | | | Eosinophils | performed at [facility], [address] | | LAB | | | | [address], | | | | | | [place] [address] | | | | + + + + + + | % Basophils | 0.6Comment: Testing | % | EXTERNAL | | | | performed at [facility], [address] | | LAB | | | | [address], | | | | | | [place] [address] | | | | + + + + + + | Absolute | 8.1 (H)Comment: Testing | 1.9 - 7.4 K/uL | EXTERNAL | | | Segmented | performed at [facility], [address] | | LAB | | | Neutrophils | [address], | | | | | | [place] [address] | | | | + + + + + + | Absolute | 1.6Comment: Testing | 1.0 - 3.9 K/uL | EXTERNAL | | | Lymphocytes | performed at [facility], [address] | | LAB | | | | [address], | | | | | | [place] [address] | | | | + + + + + + | Absolute | 1.3 (H)Comment: Testing | 0 - 0.8 K/uL | EXTERNAL | | | Monocytes | performed at [facility], [address] | | LAB | | | | [address], | | | | | | [place] [address] | | | | + + + + + + | Absolute | 0.7 (H)Comment: Testing | 0 - 0.5 K/uL | EXTERNAL | | | Eosinophils | performed at [facility], [address] | | LAB | | | | [address], | | | | | | [place] [address] | | | | + + + + + + | Absolute | 0.1Comment: Testing | 0 - 0.1 K/uL | EXTERNAL | | | Basophils | performed at [facility], [address] | | LAB | | | | [address], | | | | | | [place] [address] | | | | + + + + + + + + | Specimen | + + | Blood specimen | | (specimen) | + + + +---------+ + + | Performing | Address | City/State/Zipcode | Phone Number | | Organization | | | | + +---------+ + + | EXTERNAL LAB | | | | + +---------+ + + Phosphorus (03/28/2014 5:26 AM PDT) + + + + + + | Component | Value | Ref Range | Performed | Pathologist | | | | | At | Signature | + + + + + + | PHOSPHORUS | 4.6Comment: Testing | 2.3 - 4.8 mg/dL | EXTERNAL | | | | performed at [facility], [address] | | LAB | | | | [address], | | | | | | [place] [address] | | | | + + + + + + + + | Specimen | + + | Blood specimen | | (specimen) | + + + +---------+ + + | Performing | Address | City/State/Zipcode | Phone Number | | Organization | | | | + +---------+ + + | EXTERNAL LAB | | | | + +---------+ + + Magnesium (03/28/2014 5:26 AM PDT) + + + + + + | Component | Value | Ref Range | Performed | Pathologist | | | | | At | Signature | + + + + + + | Magnesium | 1.8Comment: Testing | 1.7 - 2.4 mg/dL | EXTERNAL | | | | performed at [facility], [address] | | LAB | | | | [address], | | | | | | [place] [address] | | | | + + + + + + + + | Specimen | + + | Blood specimen | | (specimen) | + + + +---------+ + + | Performing | Address | City/State/Zipcode | Phone Number | | Organization | | | | + +---------+ + + | EXTERNAL LAB | | | | + +---------+ + + Carbamazepine Level (03/28/2014 5:26 AM PDT) + + + + + + | Component | Value | Ref Range | Performed | Pathologist | | | | | At | Signature | + + + + + + | Date of | UNKNOWNComment: Testing | | EXTERNAL | | | Last Dose | performed at [facility];[address] | | LAB | | | | [address];[place] | | | | | | [address] | | | | + + + + + + | Time of | UNKNOWNComment: Testing | | EXTERNAL | | | Last Dose | performed at [facility];[address] | | LAB | | | | [address];[place], [place] | | | | | | [address] | | | | + + + + + + | Carbamazepi | 12.2 (H)Comment: Testing | 4.0 - 12.0 | EXTERNAL | | | ne Level | performed at [facility], [address] | ug/mL | LAB | | | | [address], | | | | | | [place] [address] | | | | + + + + + + + + | Specimen | + + | Blood specimen | | (specimen) | + + + +---------+ + + | Performing | Address | City/State/Zipcode | Phone Number | | Organization | | | | + +---------+ + + | EXTERNAL LAB | | | | + +---------+ + + Basic Metabolic Panel (03/28/2014 5:26 AM PDT) + + + + + + | Component | Value | Ref Range | Performed | Pathologist | | | | | At | Signature | + + + + + + | Na | 139Comment: Testing | 135 - 143 | EXTERNAL | | | | performed at [facility], [address] | mmol/L | LAB | | | | [address], | | | | | | [place] [address] | | | | + + + + + + | K | 3.6Comment: Testing | 3.5 - 4.9 | EXTERNAL | | | | performed at [facility], [address] | mmol/L | LAB | | | | [address], | | | | | | [place] [address] | | | | + + + + + + | Cl | 98 (L)Comment: Testing | 99 - 109 mmol/L | EXTERNAL | | | | performed at [facility], [address] | | LAB | | | | [address], | | | | | | [place] [address] | | | | + + + + + + | CO2 | 32Comment: Testing | 23 - 32 mmol/L | EXTERNAL | | | | performed at [facility], [address] | | LAB | | | | [address], | | | | | | [place] [address] | | | | + + + + + + | Anion Gap | 13Comment: Testing | 5 - 20 mmol/L | EXTERNAL | | | | performed at [facility], [address] | | LAB | | | | [address], | | | | | | [place] [address] | | | | + + + + + + | Glucose, | 112 (H)Comment: Testing | 65 - 99 mg/dL | EXTERNAL | | | Fasting | performed at [facility], [address] | | LAB | | | | [address], | | | | | | [place] [address] | | | | + + + + + + | BUN | 8Comment: Testing | 8 - 25 mg/dL | EXTERNAL | | | | performed at [facility], [address] | | LAB | | | | [address], | | | | | | [place] [address] | | | | + + + + + + | Creatinine | 0.64 (L)Comment: Testing | 0.70 - 1.30 | EXTERNAL | | | | performed at [facility], [address] | mg/dL | LAB | | | | [address], | | | | | | [place] [address] | | | | + + + + + + | BUN/Creatin | 13Comment: Testing | | EXTERNAL | | | ine Ratio | performed at [facility], [address] | | LAB | | | | [address], | | | | | | [place] [address] | | | | + + + + + + | Calcium | 8.5Comment: Testing | 8.5 - 10.2 | EXTERNAL | | | | performed at [facility], [address] | mg/dL | LAB | | | | [address], | | | | | | [place] [address] | | | | + + + + + + | Estimated | >60Comment: GFR <60: | mL/min/1.73m2 | EXTERNAL | | | GFR | CHRONIC KIDNEY DISEASE, | | LAB | | | | IF FOUND OVER A 3 MONTH | | | | | | PERIOD.GFR <15: KIDNEY | | | | | | FAILURE.FOR | | | | | | AMERICANS, MULTIPLY THE | | | | | | CALCULATED GFR BY | | | | | | 1.210.Testing performed | | | | | | at [facility], [address] | | | | | | [address], | | | | | | [place] [address] | | | | + + + + + + + + | Specimen | + + | Blood specimen | | (specimen) | + + + +---------+ + + | Performing | Address | City/State/Zipcode | Phone Number | | Organization | | | | + +---------+ + + | EXTERNAL LAB | | | | + +---------+ + + XR Chest 1 Vw (03/27/2014 6:41 PM PDT) + + | Specimen | + + | | + + + + + | Impressions | Performed At | + + + | 1. Extensive interstitial pulmonary changes without cardiac | | | enlargement. Indication is ARDS or noncardiogenic pulmonary edema. | | | Pneumonia less likely. Small left pleural effusion. 2. Proper | | | position of ET tube, central line and recently added feeding tube | | | | | + + + + + + | Narrative | Performed At | + + + | [facility] XR CHEST 1 VIEW 03/27/2014 6:41 PM | | | HISTORY: 58 years. Male. Check feeding tube placement | | | TECHNIQUE: One view portable 03/31/55 COMPARISON: Earlier today | | | FINDINGS: Dobbhoff catheter advanced well into the stomach. Tip | | | lies in the cardia. Central line via left C., tip at the confluence of | | | right and left brachiocephalic veins. No cardiac enlargement. As | | | before, diffuse interstitial lung infiltrates, improving slightly when | | | compared with the earlier study. ET tube remains with tip just below | | | thoracic inlet but above the molly. Obscuration of the left | | | hemidiaphragm suggests a small pleural effusion | | + + + + ----+ | Procedure Note | + ----+ | Malachi, Rad Conversion - 01/28/2019 5:12 PM PDT LADARIUS Purcell [facility] CHEST 1 | | VIEW03/27/2014 6:41 PM HISTORY:58 years. Male. Check feeding tube placement | | TECHNIQUE:One view portable 03/31/55 COMPARISON:Earlier today FINDINGS:Dobbhoff catheter | | advanced well into the stomach. Tip lies in the cardia. Central line via left C., tip | | at the confluence of right and left brachiocephalic veins. No cardiac enlargement. As | | before, diffuse interstitial lung infiltrates, improving slightly when compared with the | | earlier study. ET tube remains with tip just below thoracic inlet but above the | | molly.Obscuration of the left hemidiaphragm suggests a small pleural | | effusionIMPRESSION: 1. Extensive interstitial pulmonary changes without cardiac | | enlargement. Indication is ARDS or noncardiogenic pulmonary edema. Pneumonia less | | likely. Small left pleural effusion. 2. Proper position of ET tube, central line and | | recently added feeding tube | | 6:52 PM | |FINDINGS: | |Dobbhoff catheter advanced well into the stomach. Tip lies in the cardia. Central line via left C., tip at the confluence of right and left brachiocephalic veins. No cardiac enlargeme nt. | | | |As before, diffuse interstitial lung infiltrates, improving slightly when compared with the earlier study. ET tube remains with tip just below thoracic inlet but above the molly. | |Obscuration of the left hemidiaphragm suggests a small pleural effusion | |IMPRESSION: | |1. Extensive interstitial pulmonary changes without cardiac enlargement. Indication is RONDA S or noncardiogenic pulmonary edema. Pneumonia less likely. Small left pleural effusion. | | | |2. Proper position of ET tube, central line and recently added feeding tube | | | | | + ----+ Potassium (03/27/2014 6:22 PM PDT) + + + + + + | Component | Value | Ref Range | Performed | Pathologist | | | | | At | Signature | + + + + + + | K | 3.6Comment: Testing | 3.5 - 4.9 | EXTERNAL | | | | performed at [facility];[address] | mmol/L | LAB | | | | [address];[place], [place] | | | | | | [address] | | | | + + + + + + + + | Specimen | + + | Blood specimen | | (specimen) | + + + +---------+ + + | Performing | Address | City/State/Zipcode | Phone Number | | Organization | | | | + +---------+ + + | EXTERNAL LAB | | | | + +---------+ + + XR Abdomen AP (03/27/2014 11:35 AM PDT) + + | Specimen | + + | | + + + + + | Impressions | Performed At | + + + | 1. New enteric tubes as above. The Dobbhoff tube is | | | superimposed over the gastric fundus and is new. The nasogastric tube | | | is pre-existing and the tip is superimposed over the gastric antrum | | | 2. Stable interstitial edema, perhaps evidence of pneumonitis or | | | diffuse infection. Retrocardiac atelectasis or infiltrate is unchanged | | | also | | | 12:08 PM | | + + + + + + | Narrative | Performed At | + + + | HISTORY: 58-year-old male, enteric tube placement TECHNIQUE: | | | 1. 1 view radiographic examination of the abdomen, high KUB Prior | | | study for review : None similar FINDINGS: 2 enteric tubes | | | tract the esophagus, one with a radiopaque tip superimposed over the | | | gastric fundus, the other tracts to the gastric antrum Bowel gas | | | pattern is nonobstructed Interstitial edema, retrocardiac opacity | | | and endotracheal tube all noted about the chest, these are stable | | | findings from the examination this morning | | + + + + + | Procedure Note | + + | Jeremy Ly Conversion - 01/28/2019 5:12 PM PDT HISTORY: 58-year-old male, enteric tube | | placement TECHNIQUE: 1. 1 view radiographic examination of the abdomen, high KUBPrior | | study for review : None similar FINDINGS: 2 enteric tubes tract the esophagus, one with | | a radiopaque tip superimposed over the gastric fundus, the other tracts to the gastric | | antrum Bowel gas pattern is nonobstructed Interstitial edema, retrocardiac opacity and | | endotracheal tube all noted about the chest, these are stable findings from the | | examination this morning IMPRESSION: 1. New enteric tubes as above. The Dobbhoff tube | | is superimposed over the gastric fundus and is new. The nasogastric tube is pre-existing | | and the tip is superimposed over the gastric antrum 2. Stable interstitial edema, | | perhaps evidence of pneumonitis or diffuse infection. Retrocardiac atelectasis or | | infiltrate is unchanged also Electronically signed by Ash Diaz MD on | | 03/27/2014 12:08 PM | | | |Interstitial edema, retrocardiac opacity and endotracheal tube all noted about the chest, t hese are stable findings from the examination this morning | | | |IMPRESSION: | | | |1. New enteric tubes as above. | | | |The Dobbhoff tube is superimposed over the gastric fundus and is new. The nasogastric tube is pre-existing and the tip is superimposed over the gastric antrum | | | |2. Stable interstitial edema, perhaps evidence of pneumonitis or diffuse infection. Retroca rdiac atelectasis or infiltrate is unchanged also | | | | | + + External Lab: CBC (03/27/2014 6:00 AM PDT) + + + + + + | Component | Value | Ref Range | Performed | Pathologist | | | | | At | Signature | + + + + + + | WBC | 12.1 (H)Comment: Testing | 3.8 - 11.0 K/uL | EXTERNAL | | | | performed at [facility];[address] | | LAB | | | | [address];[place] | | | | | | [address] | | | | + + + + + + | Non- | 3.02 (L)Comment: Testing | 4.20 - 5.70 | EXTERNAL | | | Red Blood | performed at [facility];[address] | M/uL | LAB | | | Cells | [address];[place] | | | | | Counted | [id number] | | | | + + + + + + | Hemoglobin | 8.8 (L)Comment: Testing | 13.2 - 17.0 | EXTERNAL | | | | performed at [facility];[address] | g/dL | LAB | | | | [address];[place] | | | | | | [address] | | | | + + + + + + | Hematocrit, | 27.2 (L)Comment: Testing | 39.0 - 50.0 % | EXTERNAL | | | POC | performed at [facility];[address] | | LAB | | | | [address];[place] | | | | | | [address] | | | | + + + + + + | MCV | 90.0Comment: Testing | 80.0 - 100.0 fl | EXTERNAL | | | | performed at [facility];[address] | | LAB | | | | [address];[place] | | | | | | [address] | | | | + + + + + + | MCH | 29.1Comment: Testing | 27.0 - 34.0 pg | EXTERNAL | | | | performed at [facility];[address] | | LAB | | | | [address];[place] | | | | | | [address] | | | | + + + + + + | MCHC | 32.4Comment: Testing | 32.0 - 35.5 | EXTERNAL | | | | performed at [facility];888 | g/dL | LAB | | | | [address];[place] | | | | | | [address] | | | | + + + + + + | RDW-CV | 54.3 (H)Comment: Testing | 37 - 53 fl | EXTERNAL | | | | performed at [facility];[address] | | LAB | | | | [address];[place] | | | | | | [address] | | | | + + + + + + | Platelet | 364Comment: Testing | 150 - 400 K/uL | EXTERNAL | | | Count | performed at [facility];888 | | LAB | | | Plasma | [address];[place] | | | | | | [address] | | | | + + + + + + | MPV | 6.8Comment: Testing | fl | EXTERNAL | | | | performed at [facility];[address] | | LAB | | | | [address];[place] | | | | | | [address] | | | | + + + + + + | Differentia | AUTOMATEDComment: | | EXTERNAL | | | l Type | Testing performed at | | LAB | | | | [facility];[address];[place] [address] | | | | + + + + + + | % Segmented | 60.5Comment: Testing | % | EXTERNAL | | | | performed at [facility];[address] | | LAB | | | Neutrophils | [address];[place] | | | | | | [address] | | | | + + + + + + | % | 14.1Comment: Testing | % | EXTERNAL | | | Lymphocytes | performed at [facility];[address] | | LAB | | | | [address];[place] | | | | | | [address] | | | | + + + + + + | % Monocytes | 15.7Comment: Testing | % | EXTERNAL | | | | performed at [facility];[address] | | LAB | | | | [address];[place] | | | | | | [address] | | | | + + + + + + | % | 9.2Comment: Testing | % | EXTERNAL | | | Eosinophils | performed at [facility];[address] | | LAB | | | | [address];[place] | | | | | | [address] | | | | + + + + + + | % Basophils | 0.5Comment: Testing | % | EXTERNAL | | | | performed at [facility];[address] | | LAB | | | | [address];[place] | | | | | | [address] | | | | + + + + + + | Absolute | 7.3Comment: Testing | 1.9 - 7.4 K/uL | EXTERNAL | | | Segmented | performed at [facility];[address] | | LAB | | | Neutrophils | [address];[place] | | | | | | [address] | | | | + + + + + + | Absolute | 1.7Comment: Testing | 1.0 - 3.9 K/uL | EXTERNAL | | | Lymphocytes | performed at [facility];[address] | | LAB | | | | [address];[place] | | | | | | [address] | | | | + + + + + + | Absolute | 1.9 (H)Comment: Testing | 0 - 0.8 K/uL | EXTERNAL | | | Monocytes | performed at [facility];[address] | | LAB | | | | [address];[place] | | | | | | [address] | | | | + + + + + + | Absolute | 1.1 (H)Comment: Testing | 0 - 0.5 K/uL | EXTERNAL | | | Eosinophils | performed at [facility];[address] | | LAB | | | | [address];[place] | | | | | | [address] | | | | + + + + + + | Absolute | 0.1Comment: Testing | 0 - 0.1 K/uL | EXTERNAL | | | Basophils | performed at [facility];[address] | | LAB | | | | [address];[place] | | | | | | [address] | | | | + + + + + + + + | Specimen | + + | Blood specimen | | (specimen) | + + + +---------+ + + | Performing | Address | City/State/Zipcode | Phone Number | | Organization | | | | + +---------+ + + | EXTERNAL LAB | | | | + +---------+ + + Phosphorus (03/27/2014 6:00 AM PDT) + + + + + + | Component | Value | Ref Range | Performed | Pathologist | | | | | At | Signature | + + + + + + | PHOSPHORUS | 3.1Comment: Testing | 2.3 - 4.8 mg/dL | EXTERNAL | | | | performed at [facility];[address] | | LAB | | | | [address];[place], [place] | | | | | | [address] | | | | + + + + + + + + | Specimen | + + | Blood specimen | | (specimen) | + + + +---------+ + + | Performing | Address | City/State/Zipcode | Phone Number | | Organization | | | | + +---------+ + + | EXTERNAL LAB | | | | + +---------+ + + Magnesium (03/27/2014 6:00 AM PDT) + + + + + + | Component | Value | Ref Range | Performed | Pathologist | | | | | At | Signature | + + + + + + | Magnesium | 2.0Comment: Testing | 1.7 - 2.4 mg/dL | EXTERNAL | | | | performed at [facility];[address] | | LAB | | | | [address];[place], [place] | | | | | | [address] | | | | + + + + + + + + | Specimen | + + | Blood specimen | | (specimen) | + + + +---------+ + + | Performing | Address | City/State/Zipcode | Phone Number | | Organization | | | | + +---------+ + + | EXTERNAL LAB | | | | + +---------+ + + Carbamazepine Level (03/27/2014 6:00 AM PDT) + + + + + + | Component | Value | Ref Range | Performed | Pathologist | | | | | At | Signature | + + + + + + | Date of | UNKNOWNComment: Testing | | EXTERNAL | | | Last Dose | performed at [facility];[address] | | LAB | | | | [address];[place] | | | | | | [address] | | | | + + + + + + | Time of | UNKNOWNComment: Testing | | EXTERNAL | | | Last Dose | performed at [facility];[address] | | LAB | | | | [address];[place] | | | | | | [address] | | | | + + + + + + | Carbamazepi | 13.0 (H)Comment: Testing | 4.0 - 12.0 | EXTERNAL | | | ne Level | performed at [facility];888 | ug/mL | LAB | | | | [address];[place], [place] | | | | | | [address] | | | | + + + + + + + + | Specimen | + + | Blood specimen | | (specimen) | + + + +---------+ + + | Performing | Address | City/State/Zipcode | Phone Number | | Organization | | | | + +---------+ + + | EXTERNAL LAB | | | | + +---------+ + + Basic Metabolic Panel (03/27/2014 6:00 AM PDT) + + + + + + | Component | Value | Ref Range | Performed | Pathologist | | | | | At | Signature | + + + + + + | Na | 140Comment: Testing | 135 - 143 | EXTERNAL | | | | performed at [facility];888 | mmol/L | LAB | | | | [address];[place] | | | | | | [address] | | | | + + + + + + | K | 4.2Comment: Testing | 3.5 - 4.9 | EXTERNAL | | | | performed at [facility];888 | mmol/L | LAB | | | | [address];[place] | | | | | | [address] | | | | + + + + + + | Cl | 106Comment: Testing | 99 - 109 mmol/L | EXTERNAL | | | | performed at [facility];[address] | | LAB | | | | [address];[place] | | | | | | [address] | | | | + + + + + + | CO2 | 29Comment: Testing | 23 - 32 mmol/L | EXTERNAL | | | | performed at [facility];[address] | | LAB | | | | [address];[place] | | | | | | [address] | | | | + + + + + + | Anion Gap | 10Comment: Testing | 5 - 20 mmol/L | EXTERNAL | | | | performed at [facility];[address] | | LAB | | | | [address];[place] | | | | | | [address] | | | | + + + + + + | Glucose, | 94Comment: Testing | 65 - 99 mg/dL | EXTERNAL | | | Fasting | performed at [facility];[address] | | LAB | | | | [address];[place] | | | | | | [address] | | | | + + + + + + | BUN | 8Comment: Testing | 8 - 25 mg/dL | EXTERNAL | | | | performed at [facility];[address] | | LAB | | | | [address];[place] | | | | | | [address] | | | | + + + + + + | Creatinine | 0.85Comment: Testing | 0.70 - 1.30 | EXTERNAL | | | | performed at [facility];888 | mg/dL | LAB | | | | [address];[place] | | | | | | [address] | | | | + + + + + + | BUN/Creatin | 9Comment: Testing | | EXTERNAL | | | ine Ratio | performed at [facility];[address] | | LAB | | | | [address];[place] | | | | | | [address] | | | | + + + + + + | Calcium | 8.0 (L)Comment: Testing | 8.5 - 10.2 | EXTERNAL | | | | performed at [facility];888 | mg/dL | LAB | | | | [address];[place] | | | | | | [address] | | | | + + + + + + | Estimated | >60Comment: GFR <60: | mL/min/1.73m2 | EXTERNAL | | | GFR | CHRONIC KIDNEY DISEASE, | | LAB | | | | IF FOUND OVER A 3 MONTH | | | | | | PERIOD.GFR <15: KIDNEY | | | | | | FAILURE.FOR | | | | | | AMERICANS, MULTIPLY THE | | | | | | CALCULATED GFR BY | | | | | | 1.210.Testing performed | | | | | | at [facility];[address] [place] [address] | | | | | | [facility];[place] [address] | | | | + + + + + + + + | Specimen | + + | Blood specimen | | (specimen) | + + + +---------+ + + | Performing | Address | City/State/Zipcode | Phone Number | | Organization | | | | + +---------+ + + | EXTERNAL LAB | | | | + +---------+ + + XR Chest 1 Vw (03/27/2014 5:51 AM PDT) + + | Specimen | + + | | + + + + + | Impressions | Performed At | + + + | 1. Persistent left lower lobe segmental atelectasis/pneumonia. | | | 2. Mild improvement of diffuse interstitial lung infiltrates, | | | nonspecific, possibly representing interstitial pulmonary edema. 3. | | | Satisfactory position of life-support catheters. | | | | | + + + + + + | Narrative | Performed At | + + + | [facility] [employer] XR CHEST 1 VIEW 03/27/2014 5:51 AM | | | History: 58 years. Male. Followup for acute respiratory failure | | | and alcohol withdrawal syndrome. Technique: AP portable upright | | | technique was performed at 0430 hours. Comparison: 03/26/14 | | | Findings: The inspiratory effort is moderate. Segmental atelectasis | | | and/or pneumonia is visualized behind the left heart, obscuring the | | | left hemidiaphragm, relatively unchanged. The right lung base is | | | clear. Persistent interstitial and peribronchial infiltrates are | | | moderate throughout the mid lung schwartz, mildly improved in the upper | | | lung schwartz. No visible pneumothorax. The cardiac volume is normal. | | | The tip of the endotracheal tube is at T5. A nasogastric tube is | | | positioned in the stomach. No central venous catheter visualized. | | + + + + + | Procedure Note | + + | Malachi, Rad Conversion - 01/28/2019 5:12 PM PDT [facility] CHEST 1 | | VIEW03/27/2014 5:51 AM History: 58 years. Male. Followup for acute respiratory | | failure and alcohol withdrawal syndrome. Technique: AP portable upright technique was | | performed at 0430 hours.Comparison: 03/26/14 Findings: The inspiratory effort is | | moderate. Segmental atelectasis and/or pneumonia is visualized behind the left heart, | | obscuring the left hemidiaphragm, relatively unchanged. The right lung base is clear. | | Persistent interstitial and peribronchial infiltrates are moderate throughout the mid | | lung schwartz, mildly improved in the upper lung schwartz. No visible pneumothorax. The | | cardiac volume is normal. The tip of the endotracheal tube is at T5. A nasogastric tube | | is positioned in the stomach. No central venous catheter visualized. IMPRESSION: 1. | | Persistent left lower lobe segmental atelectasis/pneumonia.2. Mild improvement of | | diffuse interstitial lung infiltrates, nonspecific, possibly representing interstitial | | pulmonary edema.3. Satisfactory position of life-support catheters. Electronically | | signed by Cirilo Recinos MD on 03/27/2014 7:31 AM | |IMPRESSION: | |1. Persistent left lower lobe segmental atelectasis/pneumonia. | |2. Mild improvement of diffuse interstitial lung infiltrates, nonspecific, possibly repres enting interstitial pulmonary edema. | |3. Satisfactory position of life-support catheters. | | | | | | | + + External Lab: CBC (03/26/2014 9:46 PM PDT) + + + + + + | Component | Value | Ref Range | Performed | Pathologist | | | | | At | Signature | + + + + + + | WBC | 10.9Comment: Testing | 3.8 - 11.0 K/uL | EXTERNAL | | | | performed at [facility];[address] | | LAB | | | | [address] [facility];[place], [place] | | | | | | [address] | | | | + + + + + + | Non- | 2.84 (L)Comment: Testing | 4.20 - 5.70 | EXTERNAL | | | Red Blood | performed at [facility];888 | M/uL | LAB | | | Cells | [address];[place] | | | | | Counted | [id number] | | | | + + + + + + | Hemoglobin | 8.5 (L)Comment: Testing | 13.2 - 17.0 | EXTERNAL | | | | performed at [facility];888 | g/dL | LAB | | | | [address];[place] | | | | | | [address] | | | | + + + + + + | Hematocrit, | 25.2 (L)Comment: Testing | 39.0 - 50.0 % | EXTERNAL | | | POC | performed at [facility];[address] | | LAB | | | | [address];[place] | | | | | | [address] | | | | + + + + + + | MCV | 88.6Comment: Testing | 80.0 - 100.0 fl | EXTERNAL | | | | performed at [facility];[address] | | LAB | | | | [address];[place] | | | | | | [address] | | | | + + + + + + | MCH | 29.8Comment: Testing | 27.0 - 34.0 pg | EXTERNAL | | | | performed at [facility];[address] | | LAB | | | | [address];[place] | | | | | | [address] | | | | + + + + + + | MCHC | 33.6Comment: Testing | 32.0 - 35.5 | EXTERNAL | | | | performed at [facility];888 | g/dL | LAB | | | | [address];[place] | | | | | | [address] | | | | + + + + + + | RDW-CV | 52.9Comment: Testing | 37 - 53 fl | EXTERNAL | | | | performed at [facility];[address] | | LAB | | | | [address];[place] | | | | | | [address] | | | | + + + + + + | Platelet | 347Comment: Testing | 150 - 400 K/uL | EXTERNAL | | | Count | performed at [facility];[address] | | LAB | | | Plasma | [address];[place] | | | | | | [address] | | | | + + + + + + | MPV | 6.9Comment: Testing | fl | EXTERNAL | | | | performed at [facility];[address] | | LAB | | | | [address];[place] | | | | | | [address] | | | | + + + + + + | Differentia | AUTOMATEDComment: | | EXTERNAL | | | l Type | Testing performed at | | LAB | | | | [facility];[address];[place] [address] | | | | + + + + + + | % Segmented | 66.5Comment: Testing | % | EXTERNAL | | | | performed at [facility];[address] | | LAB | | | Neutrophils | [address];[place] | | | | | | [address] | | | | + + + + + + | % | 9.3Comment: Testing | % | EXTERNAL | | | Lymphocytes | performed at [facility];[address] | | LAB | | | | [address];[place] | | | | | | [address] | | | | + + + + + + | % Monocytes | 14.3Comment: Testing | % | EXTERNAL | | | | performed at [facility];[address] | | LAB | | | | [address];[place] | | | | | | [address] | | | | + + + + + + | % | 9.0Comment: Testing | % | EXTERNAL | | | Eosinophils | performed at [facility];[address] | | LAB | | | | [address];[place] | | | | | | [address] | | | | + + + + + + | % Basophils | 0.9Comment: Testing | % | EXTERNAL | | | | performed at [facility];[address] | | LAB | | | | [address];[place] | | | | | | [address] | | | | + + + + + + | Absolute | 7.2Comment: Testing | 1.9 - 7.4 K/uL | EXTERNAL | | | Segmented | performed at [facility];[address] | | LAB | | | Neutrophils | [address];[place] | | | | | | [address] | | | | + + + + + + | Absolute | 1.0Comment: Testing | 1.0 - 3.9 K/uL | EXTERNAL | | | Lymphocytes | performed at [facility];[address] | | LAB | | | | [address];[place] | | | | | | [address] | | | | + + + + + + | Absolute | 1.6 (H)Comment: Testing | 0 - 0.8 K/uL | EXTERNAL | | | Monocytes | performed at [facility];[address] | | LAB | | | | [address];[place] | | | | | | [address] | | | | + + + + + + | Absolute | 1.0 (H)Comment: Testing | 0 - 0.5 K/uL | EXTERNAL | | | Eosinophils | performed at [facility];[address] | | LAB | | | | [address];[place] | | | | | | [address] | | | | + + + + + + | Absolute | 0.1Comment: Testing | 0 - 0.1 K/uL | EXTERNAL | | | Basophils | performed at [facility];[address] | | LAB | | | | [address];[place] | | | | | | [address] | | | | + + + + + + + + | Specimen | + + | Blood specimen | | (specimen) | + + + +---------+ + + | Performing | Address | City/State/Zipcode | Phone Number | | Organization | | | | + +---------+ + + | EXTERNAL LAB | | | | + +---------+ + + Potassium (03/26/2014 9:46 PM PDT) + + + + + + | Component | Value | Ref Range | Performed | Pathologist | | | | | At | Signature | + + + + + + | K | 3.4 (L)Comment: Testing | 3.5 - 4.9 | EXTERNAL | | | | performed at [facility];888 | mmol/L | LAB | | | | [address];[place], [place] | | | | | | [address] | | | | + + + + + + + + | Specimen | + + | Blood specimen | | (specimen) | + + + +---------+ + + | Performing | Address | City/State/Zipcode | Phone Number | | Organization | | | | + +---------+ + + | EXTERNAL LAB | | | | + +---------+ + + Phosphorus (03/26/2014 9:46 PM PDT) + + + + + + | Component | Value | Ref Range | Performed | Pathologist | | | | | At | Signature | + + + + + + | PHOSPHORUS | 3.2Comment: Testing | 2.3 - 4.8 mg/dL | EXTERNAL | | | | performed at [facility];[address] | | LAB | | | | [address];[place] | | | | | | [address] | | | | + + + + + + + + | Specimen | + + | | + + + +---------+ + + | Performing | Address | City/State/Zipcode | Phone Number | | Organization | | | | + +---------+ + + | EXTERNAL LAB | | | | + +---------+ + + Magnesium (03/26/2014 9:46 PM PDT) + + + + + + | Component | Value | Ref Range | Performed | Pathologist | | | | | At | Signature | + + + + + + | Magnesium | 2.0Comment: Testing | 1.7 - 2.4 mg/dL | EXTERNAL | | | | performed at [facility];[address] | | LAB | | | | [address];[place], [place] | | | | | | [address] | | | | + + + + + + + + | Specimen | + + | Blood specimen | | (specimen) | + + + +---------+ + + | Performing | Address | City/State/Zipcode | Phone Number | | Organization | | | | + +---------+ + + | EXTERNAL LAB | | | | + +---------+ + + POC Glucose (03/26/2014 9:44 PM PDT) + + + + + + | Component | Value | Ref Range | Performed | Pathologist | | | | | At | Signature | + + + + + + | Glucose, | 117 (H)Comment: Testing | 65 - 99 mg/dL | EXTERNAL | | | Fingerstick | performed at [facility];[address] | | LAB | | | | [address];[place] | | | | | | [address] | | | | + + + + + + + + | Specimen | + + | | + + + +---------+ + + | Performing | Address | City/State/Zipcode | Phone Number | | Organization | | | | + +---------+ + + | EXTERNAL LAB | | | | + +---------+ + + Vancomycin, Trough (03/26/2014 7:15 PM PDT) + + + + + + | Component | Value | Ref Range | Performed | Pathologist | | | | | At | Signature | + + + + + + | Vancomycin | 20.2 (H)Comment: 15 to | 10 - 20 ug/mL | EXTERNAL | | | Trough | 20 ug/mL for meningitis, | | LAB | | | | osteomyelitis, | | | | | | endocarditis, sepsis, or | | | | | | healthcare associated | | | | | | pneumonia, or an PAULINA | | | | | | equal to or greater than | | | | | | 1.0 ug/mLTesting | | | | | | performed at [facility] | | | | | | [address];[place], [place] | | | | | | [address] | | | | + + + + + + + + | Specimen | + + | Blood specimen | | (specimen) | + + + +---------+ + + | Performing | Address | City/State/Zipcode | Phone Number | | Organization | | | | + +---------+ + + | EXTERNAL LAB | | | | + +---------+ + + Potassium (03/26/2014 5:20 PM PDT) + + + + + + | Component | Value | Ref Range | Performed | Pathologist | | | | | At | Signature | + + + + + + | K | 4.0Comment: SLT | 3.5 - 4.9 | EXTERNAL | | | | HEMOLYSISTesting | mmol/L | LAB | | | | performed at [facility] | | | | | | [address] [facility];[place], [place] | | | | | | [address] | | | | + + + + + + + + | Specimen | + + | Blood specimen | | (specimen) | + + + +---------+ + + | Performing | Address | City/State/Zipcode | Phone Number | | Organization | | | | + +---------+ + + | EXTERNAL LAB | | | | + +---------+ + + Culture, AFB, and Smear (03/26/2014 12:53 PM PDT) + + | Specimen | + + | Body fluid sample | | (specimen) | + + + + + | Narrative | Performed At | + + + | Specimen Description SPUTUM AFB STAIN | EXTERNAL LAB | | NO ACID FAST BACILLI SEEN CULTURE | | | NO ACID FAST BACILLI | | | ISOLATED Testing | | | performed at [facility], [address] [facility] [place] [address] | | + + + + +---------+ + + | Performing | Address | City/State/Zipcode | Phone Number | | Organization | | | | + +---------+ + + | EXTERNAL LAB | | | | + +---------+ + + Gram Stain, reflex Sputum Culture (03/26/2014 12:53 PM PDT) + + | Specimen | + + | Body fluid sample | | (specimen) | + + + + + | Narrative | Performed At | + + + | Specimen Description SPUTUM GRAM STAIN | EXTERNAL LAB | | GREATER THAN 10 WBCS/LPF | | | LESS THAN 10 SEC/LPF | | | NO ORGANISMS SEEN | | | CULTURE NO GROWTH | | | Testing performed at [facility], | | | [address] [place] [address] | | + + + + +---------+ + + | Performing | Address | City/State/Zipcode | Phone Number | | Organization | | | | + +---------+ + + | EXTERNAL LAB | | | | + +---------+ + + HISTORICAL MICROBIOLOGY RESULT (03/26/2014 9:04 AM PDT) + + | Specimen | + + | Stool specimen | | (specimen) | + + + + + | Narrative | Performed At | + + + | Toxigenic C Difficile NEGATIVE Testing | EXTERNAL LAB | | performed at [facility];[address] [place] [id number] NAP1 BI | | | 027 NAP1 BI PRESUMPTIVE NEGATIVE | | | Detection of 027 NAP1 BI strains of C. difficile is presumptive and | | | for epidemiological purposes and not intended to guide or monitor | | | treatment for C. difficile infections. Testing performed at [facility] | | | [facility];[place] [address] | | + + + + +---------+ + + | Performing | Address | City/State/Zipcode | Phone Number | | Organization | | | | + +---------+ + + | EXTERNAL LAB | | | | + +---------+ + + XR Chest 1 Vw (03/26/2014 5:52 AM PDT) + + | Specimen | + + | | + + + + + | Impressions | Performed At | + + + | 1. Endotracheal tube and nasogastric tube remain in satisfactory | | | position. 2. Lungs show a coarse reticular pattern suggesting | | | interstitial edema unchanged from yesterday but slowly increasing | | | since admission. Electronically signed by Nguyễn Garnica DO on | | | 03/26/2014 7:07 AM | | + + + + + + | Narrative | Performed At | + + + | [facility] [employer] XR CHEST 1 VIEW 03/26/2014 5:52 AM | | | HISTORY: 58 years. Male. ICU patient. Assess line and tube | | | position. History of hypertension, acute respiratory failure, | | | alcohol withdrawal syndrome. TECHNIQUE: 1 view of the chest | | | obtained at 0.01 hours. COMPARISON: Multiple prior chest x-rays | | | from 03/21/2014 through 03/25/2014 at 2143 hrs. FINDINGS: The tip | | | of the endotracheal tube is 3.1 cm below the molly. A nasogastric | | | tube is seen extending into the upper abdomen below the acquired field | | | of view but likely within the stomach. The heart is normal in size. | | | The lungs are normally expanded. The lungs demonstrate a coarse | | | reticular pattern suggesting interstitial infiltrates. This is | | | unchanged from yesterday's study but has been in general slowly | | | worsening since admission. No pneumothorax or large pleural | | | effusion noted. There is chronic apical scarring bilaterally. | | | Thoracic Spondylosis is noted. | | + + + + + | Procedure Note | + + | Jeremy Ly Conversion - 01/28/2019 5:12 PM PDT [facility] CHEST 1 | | VIEW03/26/2014 5:52 AM HISTORY:58 years. Male. ICU patient. Assess line and tube | | position. History of hypertension, acute respiratory failure, alcohol withdrawal | | syndrome. TECHNIQUE:1 view of the chest obtained at 0.01 hours. COMPARISON:Multiple | | prior chest x-rays from 03/21/2014 through 03/25/2014 at 2143 hrs. FINDINGS:The tip of | | the endotracheal tube is 3.1 cm below the molly. A nasogastric tube is seen extending | | into the upper abdomen below the acquired field of view but likely within the | | stomach.The heart is normal in size. The lungs are normally expanded. The lungs | | demonstrate a coarse reticular pattern suggesting interstitial infiltrates. This is | | unchanged from yesterday's study but has been in general slowly worsening since | | admission. No pneumothorax or large pleural effusion noted. There is chronic apical | | scarring bilaterally. Thoracic Spondylosis is noted. IMPRESSION: 1. Endotracheal tube | | and nasogastric tube remain in satisfactory position.2. Lungs show a coarse reticular | | pattern suggesting interstitial edema unchanged from yesterday but slowly increasing | | since admission. | |The heart is normal in size. The lungs are normally expanded. The lungs demonstrate a coa rse reticular pattern suggesting interstitial infiltrates. This is unchanged from yesterday 's study but has been in | |general slowly worsening since admission. No | |pneumothorax or large pleural effusion noted. There is chronic apical scarring bilaterally . Thoracic Spondylosis is noted. | | | |IMPRESSION: | |1. Endotracheal tube and nasogastric tube remain in satisfactory position. | |2. Lungs show a coarse reticular pattern suggesting interstitial edema unchanged from yest erday but slowly increasing since admission. | | | | | + + External Lab: CBC (03/26/2014 3:30 AM PDT) + + + + + + | Component | Value | Ref Range | Performed | Pathologist | | | | | At | Signature | + + + + + + | WBC | 7.8Comment: Testing | 3.8 - 11.0 K/uL | EXTERNAL | | | | performed at [facility], [address] | | LAB | | | | [address], | | | | | | [place] [address] | | | | + + + + + + | Non- | 2.79 (L)Comment: Testing | 4.20 - 5.70 | EXTERNAL | | | Red Blood | performed at [facility], [address] | M/uL | LAB | | | Cells | [address], | | | | | Counted | [place] [address] | | | | + + + + + + | Hemoglobin | 8.4 (L)Comment: Testing | 13.2 - 17.0 | EXTERNAL | | | | performed at [facility], [address] | g/dL | LAB | | | | [address], | | | | | | [place] [address] | | | | + + + + + + | Hematocrit, | 25.2 (L)Comment: Testing | 39.0 - 50.0 % | EXTERNAL | | | POC | performed at [facility], [address] | | LAB | | | | [address], | | | | | | [place] [address] | | | | + + + + + + | MCV | 90.5Comment: Testing | 80.0 - 100.0 fl | EXTERNAL | | | | performed at [facility], [address] | | LAB | | | | [address], | | | | | | [place] [address] | | | | + + + + + + | MCH | 30.1Comment: Testing | 27.0 - 34.0 pg | EXTERNAL | | | | performed at [facility], [address] | | LAB | | | | [address], | | | | | | [place] [address] | | | | + + + + + + | MCHC | 33.2Comment: Testing | 32.0 - 35.5 | EXTERNAL | | | | performed at [facility], [address] | g/dL | LAB | | | | [address], | | | | | | [place] [address] | | | | + + + + + + | RDW-CV | 53.4 (H)Comment: Testing | 37 - 53 fl | EXTERNAL | | | | performed at [facility], [address] | | LAB | | | | [address], | | | | | | [place] [address] | | | | + + + + + + | Platelet | 308Comment: Testing | 150 - 400 K/uL | EXTERNAL | | | Count | performed at [facility], [address] | | LAB | | | Plasma | [address], | | | | | | [place] [address] | | | | + + + + + + | MPV | 7.3Comment: Testing | fl | EXTERNAL | | | | performed at [facility], [address] | | LAB | | | | [address], | | | | | | [place] [address] | | | | + + + + + + | Differentia | AUTOMATEDComment: | | EXTERNAL | | | l Type | Testing performed at | | LAB | | | | [facility], [address] | | | | | | [place] | | | | | | [address] | | | | + + + + + + | % Segmented | 56.9Comment: Testing | % | EXTERNAL | | | | performed at [facility], [address] | | LAB | | | Neutrophils | [address], | | | | | | [place] [address] | | | | + + + + + + | % | 13.4Comment: Testing | % | EXTERNAL | | | Lymphocytes | performed at [facility], [address] | | LAB | | | | [address], | | | | | | [place] [address] | | | | + + + + + + | % Monocytes | 25.2Comment: Testing | % | EXTERNAL | | | | performed at [facility], [address] | | LAB | | | | [address], | | | | | | [place] [address] | | | | + + + + + + | % | 3.7Comment: Testing | % | EXTERNAL | | | Eosinophils | performed at [facility], [address] | | LAB | | | | [address], | | | | | | [place] [address] | | | | + + + + + + | % Basophils | 0.8Comment: Testing | % | EXTERNAL | | | | performed at [facility], [address] | | LAB | | | | [address], | | | | | | [place] [address] | | | | + + + + + + | Absolute | 4.4Comment: Testing | 1.9 - 7.4 K/uL | EXTERNAL | | | Segmented | performed at [facility], [address] | | LAB | | | Neutrophils | [address], | | | | | | [place] [address] | | | | + + + + + + | Absolute | 1.0Comment: Testing | 1.0 - 3.9 K/uL | EXTERNAL | | | Lymphocytes | performed at [facility], [address] | | LAB | | | | [address], | | | | | | [place] [address] | | | | + + + + + + | Absolute | 1.9 (H)Comment: Testing | 0 - 0.8 K/uL | EXTERNAL | | | Monocytes | performed at [facility], [address] | | LAB | | | | [address], | | | | | | [place] [address] | | | | + + + + + + | Absolute | 0.3Comment: Testing | 0 - 0.5 K/uL | EXTERNAL | | | Eosinophils | performed at [facility], [address] | | LAB | | | | [address], | | | | | | [place] [address] | | | | + + + + + + | Absolute | 0.1Comment: Testing | 0 - 0.1 K/uL | EXTERNAL | | | Basophils | performed at [facility], [address] | | LAB | | | | [address], | | | | | | [place] [address] | | | | + + + + + + + + | Specimen | + + | Blood specimen | | (specimen) | + + + +---------+ + + | Performing | Address | City/State/Zipcode | Phone Number | | Organization | | | | + +---------+ + + | EXTERNAL LAB | | | | + +---------+ + + Phosphorus (03/26/2014 3:30 AM PDT) + + + + + + | Component | Value | Ref Range | Performed | Pathologist | | | | | At | Signature | + + + + + + | PHOSPHORUS | 5.1 (H)Comment: Testing | 2.3 - 4.8 mg/dL | EXTERNAL | | | | performed at [facility], [address] | | LAB | | | | [address], | | | | | | [place] [address] | | | | + + + + + + + + | Specimen | + + | Blood specimen | | (specimen) | + + + +---------+ + + | Performing | Address | City/State/Zipcode | Phone Number | | Organization | | | | + +---------+ + + | EXTERNAL LAB | | | | + +---------+ + + Magnesium (03/26/2014 3:30 AM PDT) + + + + + + | Component | Value | Ref Range | Performed | Pathologist | | | | | At | Signature | + + + + + + | Magnesium | 2.4Comment: Testing | 1.7 - 2.4 mg/dL | EXTERNAL | | | | performed at [facility], [address] | | LAB | | | | [address], | | | | | | [place] [address] | | | | + + + + + + + + | Specimen | + + | Blood specimen | | (specimen) | + + + +---------+ + + | Performing | Address | City/State/Zipcode | Phone Number | | Organization | | | | + +---------+ + + | EXTERNAL LAB | | | | + +---------+ + + Carbamazepine Level (03/26/2014 3:30 AM PDT) + + + + + + | Component | Value | Ref Range | Performed | Pathologist | | | | | At | Signature | + + + + + + | Date of | UNKNOWNComment: Testing | | EXTERNAL | | | Last Dose | performed at [facility];[address] | | LAB | | | | [address];[place], [place] | | | | | | [address] | | | | + + + + + + | Time of | UNKNOWNComment: Testing | | EXTERNAL | | | Last Dose | performed at [facility];[address] | | LAB | | | | [address];[place], [place] | | | | | | [address] | | | | + + + + + + | Carbamazepi | 7.2Comment: Testing | 4.0 - 12.0 | EXTERNAL | | | ne Level | performed at [facility], [address] | ug/mL | LAB | | | | [address], | | | | | | [place] [address] | | | | + + + + + + + + | Specimen | + + | Blood specimen | | (specimen) | + + + +---------+ + + | Performing | Address | City/State/Zipcode | Phone Number | | Organization | | | | + +---------+ + + | EXTERNAL LAB | | | | + +---------+ + + Basic Metabolic Panel (03/26/2014 3:30 AM PDT) + + + + + + | Component | Value | Ref Range | Performed | Pathologist | | | | | At | Signature | + + + + + + | Na | 134 (L)Comment: Testing | 135 - 143 | EXTERNAL | | | | performed at [facility], [address] | mmol/L | LAB | | | | [address], | | | | | | [place] [address] | | | | + + + + + + | K | 3.3 (L)Comment: Testing | 3.5 - 4.9 | EXTERNAL | | | | performed at [facility], [address] | mmol/L | LAB | | | | [address], | | | | | | [place] [address] | | | | + + + + + + | Cl | 100Comment: Testing | 99 - 109 mmol/L | EXTERNAL | | | | performed at [facility], [address] | | LAB | | | | [address], | | | | | | [place] [address] | | | | + + + + + + | CO2 | 25Comment: Testing | 23 - 32 mmol/L | EXTERNAL | | | | performed at [facility], [address] | | LAB | | | | [address], | | | | | | [place] [address] | | | | + + + + + + | Anion Gap | 12Comment: Testing | 5 - 20 mmol/L | EXTERNAL | | | | performed at [facility], [address] | | LAB | | | | [address], | | | | | | [place] [address] | | | | + + + + + + | Glucose, | 108 (H)Comment: Testing | 65 - 99 mg/dL | EXTERNAL | | | Fasting | performed at [facility], [address] | | LAB | | | | [address], | | | | | | [place] [address] | | | | + + + + + + | BUN | 9Comment: Testing | 8 - 25 mg/dL | EXTERNAL | | | | performed at [facility], [address] | | LAB | | | | [address], | | | | | | [place] [address] | | | | + + + + + + | Creatinine | 0.62 (L)Comment: Testing | 0.70 - 1.30 | EXTERNAL | | | | performed at [facility], [address] | mg/dL | LAB | | | | [address], | | | | | | [place] [address] | | | | + + + + + + | BUN/Creatin | 15Comment: Testing | | EXTERNAL | | | ine Ratio | performed at [facility], [address] | | LAB | | | | [address], | | | | | | [place] [address] | | | | + + + + + + | Calcium | 8.1 (L)Comment: Testing | 8.5 - 10.2 | EXTERNAL | | | | performed at [facility], [address] | mg/dL | LAB | | | | [address], | | | | | | [place] [address] | | | | + + + + + + | Estimated | >60Comment: GFR <60: | mL/min/1.73m2 | EXTERNAL | | | GFR | CHRONIC KIDNEY DISEASE, | | LAB | | | | IF FOUND OVER A 3 MONTH | | | | | | PERIOD.GFR <15: KIDNEY | | | | | | FAILURE.FOR | | | | | | AMERICANS, MULTIPLY THE | | | | | | CALCULATED GFR BY | | | | | | 1.210.Testing performed | | | | | | at [facility], [address] | | | | | | [address], | | | | | | [place] [address] | | | | + + + + + + + + | Specimen | + + | Blood specimen | | (specimen) | + + + +---------+ + + | Performing | Address | City/State/Zipcode | Phone Number | | Organization | | | | + +---------+ + + | EXTERNAL LAB | | | | + +---------+ + + Potassium (03/26/2014 12:24 AM PDT) + + + + + + | Component | Value | Ref Range | Performed | Pathologist | | | | | At | Signature | + + + + + + | K | 3.4 (L)Comment: Testing | 3.5 - 4.9 | EXTERNAL | | | | performed at [facility];[address] | mmol/L | LAB | | | | [address];[place], [place] | | | | | | [address] | | | | + + + + + + + + | Specimen | + + | Blood specimen | | (specimen) | + + + +---------+ + + | Performing | Address | City/State/Zipcode | Phone Number | | Organization | | | | + +---------+ + + | EXTERNAL LAB | | | | + +---------+ + + Magnesium (03/26/2014 12:24 AM PDT) + + + + + + | Component | Value | Ref Range | Performed | Pathologist | | | | | At | Signature | + + + + + + | Magnesium | 1.7Comment: Testing | 1.7 - 2.4 mg/dL | EXTERNAL | | | | performed at [facility];[address] | | LAB | | | | [address];[place], [place] | | | | | | [address] | | | | + + + + + + + + | Specimen | + + | Blood specimen | | (specimen) | + + + +---------+ + + | Performing | Address | City/State/Zipcode | Phone Number | | Organization | | | | + +---------+ + + | EXTERNAL LAB | | | | + +---------+ + + XR Chest 1 Vw (03/25/2014 9:46 PM PDT) + + | Specimen | + + | | + + + + + | Impressions | Performed At | + + + | 1. Tubes and lines, as above. No pneumothorax. 2. Severe | | | diffuse lung disease, similar to the prior study. Electronically | | | signed by Jad Coker MD on 03/25/2014 9:55 PM | | + + + + + + | Narrative | Performed At | + + + | [facility] [employer] XR CHEST 1 VIEW 03/25/2014 9:46 PM | | | HISTORY: Tube placement. TECHNIQUE: One view chest. | | | FINDINGS: Compared with 03/25/14 at 0534 hours. Endotracheal tube tip | | | is 3 cm above the molly. Nasogastric tube tip is in the stomach. | | | There are severe diffuse bilateral infiltrates, edema, or ARDS, | | | similar to the prior study. Heart size is normal. | | + + + + + | Procedure Note | + + | Malachi, Rad Conversion - 01/28/2019 5:12 PM [facility] | | VIEW03/25/2014 9:46 PM HISTORY:Tube placement. TECHNIQUE:One view chest. | | FINDINGS:Compared with 03/25/14 at 0534 hours. Endotracheal tube tip is 3 cm above the | | molly. Nasogastric tube tip is in the stomach. There are severe diffuse bilateral | | infiltrates, edema, or ARDS, similar to the prior study. Heart size is normal. | | IMPRESSION: 1. Tubes and lines, as above. No pneumothorax.2. Severe diffuse lung | | disease, similar to the prior study. Electronically signed by Jad Coker MD on | | 03/25/2014 9:55 PM | |One view chest. | | | |FINDINGS: | |Compared with 03/25/14 at 0534 hours. Endotracheal tube tip is 3 cm above the molly. Nasog astric tube tip is in the stomach. There are severe diffuse bilateral infiltrates, edema, or ARDS, similar to the prior study. Heart size is normal. | | | |IMPRESSION: | |1. Tubes and lines, as above. No pneumothorax. | |2. Severe diffuse lung disease, similar to the prior study. | | | | | + + Vancomycin, Trough (03/25/2014 6:54 PM PDT) + + + + + + | Component | Value | Ref Range | Performed | Pathologist | | | | | At | Signature | + + + + + + | Vancomycin | 13.9Comment: 15 to 20 | 10 - 20 ug/mL | EXTERNAL | | | Trough | ug/mL for meningitis, | | LAB | | | | osteomyelitis, | | | | | | endocarditis, sepsis, or | | | | | | healthcare associated | | | | | | pneumonia, or an PAULINA | | | | | | equal to or greater than | | | | | | 1.0 ug/mLTesting | | | | | | performed at [facility];[address] | | | | | | [facility];[place], [place] | | | | | | [address] | | | | + + + + + + + + | Specimen | + + | Blood specimen | | (specimen) | + + + +---------+ + + | Performing | Address | City/State/Zipcode | Phone Number | | Organization | | | | + +---------+ + + | EXTERNAL LAB | | | | + +---------+ + + XR Chest 1 Vw (03/25/2014 7:26 AM PDT) + + | Specimen | + + | | + + + + + | Impressions | Performed At | + + + | 1. Worsening of diffuse mixed interstitial and airspace | | | infiltrates, but with interval removal of the ET tube. 2. Unchanged | | | NG tube. 3. Subtle left effusion. | | + + + + + + | Narrative | Performed At | + + + | HISTORY: Difficulty breathing. COMPARISON: 03/24/14. | | | TECHNIQUE: AP portable film of the chest at 534 hours FINDINGS: | | | There is worsening of diffuse mixed interstitial and airspace | | | infiltrates. Subtle left effusion. Heart size remains normal. ET tube | | | has been removed. NG tube remains in place. Heart size remains normal. | | | | | + + + + + | Procedure Note | + + | Malachi, Rad Conversion - 01/28/2019 5:12 PM PDT HISTORY:Difficulty breathing. | | COMPARISON:03/24/14. TECHNIQUE:AP portable film of the chest at 534 hours FINDINGS:There | | is worsening of diffuse mixed interstitial and airspace infiltrates. Subtle left | | effusion. Heart size remains normal. ET tube has been removed. NG tube remains in place. | | Heart size remains normal. IMPRESSION: 1. Worsening of diffuse mixed interstitial and | | airspace infiltrates, but with interval removal of the ET tube.2. Unchanged NG tube.3. | | Subtle left effusion. | |AP portable film of the chest at 534 hours | | | |FINDINGS: | |There is worsening of diffuse mixed interstitial and airspace infiltrates. Subtle left effu mynor. Heart size remains normal. ET tube has been removed. NG tube remains in place. Heart s ize remains normal. | | | |IMPRESSION: | |1. Worsening of diffuse mixed interstitial and airspace infiltrates, but with interval rem oval of the ET tube. | |2. Unchanged NG tube. | |3. Subtle left effusion. | | | | | + + Procalcitonin (03/25/2014 6:03 AM PDT) + + + + + + | Component | Value | Ref Range | Performed | Pathologist | | | | | At | Signature | + + + + + + | Source | PLASMAComment: Testing | | EXTERNAL | | | | performed at [facility] | | LAB | | | | [address] [facility];[place], [place] | | | | | | [address] | | | | + + + + + + | PROCALCITON | 0.33Comment: | ng/mL | EXTERNAL | | | IN | INTERPRETIVE | | LAB | | | | INFORMATION: | | | | | | PROCALCITONIN PCT <= | | | | | | 0.5 ng/mL: Low risk | | | | | | for progression to | | | | | | severe systemic | | | | | | bacterial infection | | | | | | (severe sepsis/septic | | | | | | shock). Does not | | | | | | exclude an infection, | | | | | | because localized | | | | | | infections may be | | | | | | associated with such low | | | | | | levels. If PCT is | | | | | | measured very early | | | | | | after bacterial | | | | | | challenge (usually <6 | | | | | | hours), results may | | | | | | still be low and | | | | | | should re-assess PCT | | | | | | 6-24 hours later. PCT | | | | | | >0.5 and <= 2 ng/mL: | | | | | | Moderate risk for | | | | | | progression to severe | | | | | | systemic infection | | | | | | (severe sepsis/septic | | | | | | shock). Other | | | | | | conditions are known | | | | | | to elevate PCT, patient | | | | | | should be closely | | | | | | monitored both | | | | | | clinically and by | | | | | | re-assessing PCT | | | | | | within 6-24 hours. PCT > | | | | | | 2 ng/mL: High | | | | | | likelihood for | | | | | | progression to severe | | | | | | systemic bacterial | | | | | | infection (severe | | | | | | sepsis/septic shock). | | | | | | PCT >= 10 ng/mL: | | | | | | High likelihood of | | | | | | severe sepsis or septic | | | | | | shock.Testing performed | | | | | | at [facility];[address] [place] [address] | | | | | | [facility];[place] [address] | | | | + + + + + + + + | Specimen | + + | | + + + +---------+ + + | Performing | Address | City/State/Zipcode | Phone Number | | Organization | | | | + +---------+ + + | EXTERNAL LAB | | | | + +---------+ + + Troponin I (03/25/2014 6:03 AM PDT) + + + + + + | Component | Value | Ref Range | Performed | Pathologist | | | | | At | Signature | + + + + + + | Troponin I, | <0.020Comment: 0.00 to | 0.00 - 0.10 | EXTERNAL | | | Qual | 0.10 CONSISTENT WITH | ng/mL | LAB | | | | NORMAL POPULATION0.11 | | | | | | to 0.60 CONSISTENT | | | | | | WITH INCREASED RISK FOR | | | | | | ADVERSE OUTCOMES> 0.60 | | | | | | CONSISTENT | | | | | | WITH WHO CRITERIA FOR | | | | | | ACUTE [place] Testing | | | | | | performed at [facility];[address] | | | | | | [facility];[place], [place] | | | | | | [address] | | | | + + + + + + + + | Specimen | + + | Blood specimen | | (specimen) | + + + +---------+ + + | Performing | Address | City/State/Zipcode | Phone Number | | Organization | | | | + +---------+ + + | EXTERNAL LAB | | | | + +---------+ + + Potassium (03/25/2014 6:03 AM PDT) + + + + + + | Component | Value | Ref Range | Performed | Pathologist | | | | | At | Signature | + + + + + + | K | 3.7Comment: Testing | 3.5 - 4.9 | EXTERNAL | | | | performed at [facility];[address] | mmol/L | LAB | | | | [address];[place], [place] | | | | | | [address] | | | | + + + + + + + + | Specimen | + + | Blood specimen | | (specimen) | + + + +---------+ + + | Performing | Address | City/State/Zipcode | Phone Number | | Organization | | | | + +---------+ + + | EXTERNAL LAB | | | | + +---------+ + + Magnesium (03/25/2014 6:03 AM PDT) + + + + + + | Component | Value | Ref Range | Performed | Pathologist | | | | | At | Signature | + + + + + + | Magnesium | 2.1Comment: Testing | 1.7 - 2.4 mg/dL | EXTERNAL | | | | performed at [facility];[address] | | LAB | | | | [address];[place], [place] | | | | | | [address] | | | | + + + + + + + + | Specimen | + + | Blood specimen | | (specimen) | + + + +---------+ + + | Performing | Address | City/State/Zipcode | Phone Number | | Organization | | | | + +---------+ + + | EXTERNAL LAB | | | | + +---------+ + + Urinalysis, Microscopic Only (03/25/2014 2:08 AM PDT) + + + + + + | Component | Value | Ref Range | Performed | Pathologist | | | | | At | Signature | + + + + + + | WBC, UA | NONE SEENComment: | 0 - 5 /hpf | EXTERNAL | | | | Testing performed at | | LAB | | | | [facility];[address];[place] [address] | | | | + + + + + + | RBC, UA | 1-5Comment: Testing | 0 - 2 /hpf | EXTERNAL | | | | performed at [facility];[address] | | LAB | | | | [address];[place], [place] | | | | | | [address] | | | | + + + + + + | Epithelial | 0-2Comment: Testing | /lpf | EXTERNAL | | | Cells | performed at [facility];[address] | | LAB | | | | [address];[place] | | | | | | [address] | | | | + + + + + + | Bacteria, | TRACE (A)Comment: | | EXTERNAL | | | UA | Testing performed at | | LAB | | | | [facility];[address];[place] [address] | | | | + + + + + + + + | Specimen | + + | | + + + +---------+ + + | Performing | Address | City/State/Zipcode | Phone Number | | Organization | | | | + +---------+ + + | EXTERNAL LAB | | | | + +---------+ + + Urinalysis with Microscopic if Indicated (03/25/2014 2:08 AM PDT) + + + + + + | Component | Value | Ref Range | Performed | Pathologist | | | | | At | Signature | + + + + + + | Color | YELLOWComment: Testing | | EXTERNAL | | | | performed at [facility];[address] | | LAB | | | | [address];[place] | | | | | | [address] | | | | + + + + + + | Clarity, | CLEARComment: Testing | | EXTERNAL | | | Urine | performed at [facility];[address] | | LAB | | | | [address];[place] | | | | | | [address] | | | | + + + + + + | Specific | 1.015Comment: Testing | 1.001 - 1.035 | EXTERNAL | | | [place], | performed at [facility];[address] | | LAB | | | Urine | [address];[place] | | | | | | [address] | | | | + + + + + + | Leukocyte | NEGATIVEComment: Testing | | EXTERNAL | | | Esterase, | performed at [facility];[address] | | LAB | | | Urine | [address];[place] | | | | | | [address] | | | | + + + + + + | Nitrite, | NEGATIVEComment: Testing | | EXTERNAL | | | Urine | performed at [facility];[address] | | LAB | | | | [address];[place] | | | | | | [address] | | | | + + + + + + | Urobilinoge | 4.0 (H)Comment: Testing | mg/dL | EXTERNAL | | | n, Urine | performed at [facility];[address] | | LAB | | | | [address];[place] | | | | | | [address] | | | | + + + + + + | Protein, | NEGATIVEComment: Testing | mg/dL | EXTERNAL | | | Urine | performed at [facility];[address] | | LAB | | | | [address];[place] | | | | | | [address] | | | | + + + + + + | pH, Urine | 8.5 (H)Comment: Testing | 4.6 - 8.0 | EXTERNAL | | | | performed at [facility];[address] | | LAB | | | | [address];[place] | | | | | | [address] | | | | + + + + + + | Blood, | TRACE (A)Comment: | | EXTERNAL | | | Urine | Testing performed at | | LAB | | | | [facility];[address] | | | | | | [place] [id number] | | | | + + + + + + | Ketones | TRACE (A)Comment: | mg/dL | EXTERNAL | | | | Testing performed at | | LAB | | | | [facility];[address];[place] [address] | | | | + + + + + + | Bilirubin, | NEGATIVEComment: Testing | | EXTERNAL | | | Urine | performed at [facility];[address] | | [address] | | | | [address];[place] | | | | | | [id number] | | | | + + + + + + | Glucose, | NEGATIVEComment: Testing | mg/dL | EXTERNAL | | | Urine | performed at [facility];[address] | [address] | | | | [address];[place] | | | | | | [id number] | | | | + + + + + + + + | Specimen | + + | Urine specimen | | (specimen) | + + + +---------+ + + | Performing | Address | City/State/Zipcode | Phone Number | | Organization | | | | + +---------+ + + | EXTERNAL LAB | | | | + +---------+ + + POC Glucose (03/25/2014 1:15 AM PDT) + + + + + + | Component | Value | Ref Range | Performed | Pathologist | | | | | At | Signature | + + + + + + | Glucose, | 108 (H)Comment: Testing | 65 - 99 mg/dL | EXTERNAL | | | Fingerstick | performed at [facility];[address] | | LAB | | | | [address];[place], [place] | | | | | | [address] | | | | + + + + + + + + | Specimen | + + | | + + + +---------+ + + | Performing | Address | City/State/Zipcode | Phone Number | | Organization | | | | + +---------+ + + | EXTERNAL LAB | | | | + +---------+ + + External Lab: [place] (03/25/2014 12:24 AM PDT) + + + + + + | Component | Value | Ref Range | Performed | Pathologist | | | | | At | Signature | + + + + + + | WBC | 12.4 (H)Comment: Testing | 3.8 - 11.0 K/uL | EXTERNAL | | | | performed at [facility];[address] | | LAB | | | | [address];[place] | | | | | | [address] | | | | + + + + + + | Non- | 3.32 (L)Comment: Testing | 4.20 - 5.70 | EXTERNAL | | | Red Blood | performed at [facility];888 | M/uL | LAB | | | Cells | [address];[place] | | | | | Counted | [address] | | | | + + + + + + | Hemoglobin | 9.7 (L)Comment: Testing | 13.2 - 17.0 | EXTERNAL | | | | performed at [facility];888 | g/dL | LAB | | | | [address];[place] | | | | | | [address] | | | | + + + + + + | Hematocrit, | 29.1 (L)Comment: Testing | 39.0 - 50.0 % | EXTERNAL | | | POC | performed at [facility];[address] | | LAB | | | | [address];[place] | | | | | | [address] | | | | + + + + + + | MCV | 87.7Comment: Testing | 80.0 - 100.0 fl | EXTERNAL | | | | performed at [facility];[address] | | LAB | | | | [address];[place] | | | | | | [address] | | | | + + + + + + | MCH | 29.3Comment: Testing | 27.0 - 34.0 pg | EXTERNAL | | | | performed at [facility];[address] | | LAB | | | | [address];[place] | | | | | | [address] | | | | + + + + + + | MCHC | 33.4Comment: Testing | 32.0 - 35.5 | EXTERNAL | | | | performed at [facility];[address] | g/dL | LAB | | | | [address];[place] | | | | | | [address] | | | | + + + + + + | RDW-CV | 51.6Comment: Testing | 37 - 53 fl | EXTERNAL | | | | performed at [facility];[address] | | LAB | | | | [address];[place] | | | | | | [address] | | | | + + + + + + | Platelet | 307Comment: Testing | 150 - 400 K/uL | EXTERNAL | | | Count | performed at [facility];[address] | | LAB | | | Plasma | [address];[place] | | | | | | [address] | | | | + + + + + + | MPV | 6.4Comment: Testing | fl | EXTERNAL | | | | performed at [facility];[address] | | LAB | | | | [address];[place] | | | | | | [address] | | | | + + + + + + | Differentia | AUTOMATEDComment: | | EXTERNAL | | | l Type | Testing performed at | | LAB | | | | [facility];[address];[place] [address] | | | | + + + + + + | % Segmented | 66.5Comment: Testing | % | EXTERNAL | | | | performed at [facility];[address] | | LAB | | | Neutrophils | [address];[place] | | | | | | [address] | | | | + + + + + + | % | 11.6Comment: Testing | % | EXTERNAL | | | Lymphocytes | performed at [facility];[address] | | LAB | | | | [address];[place] | | | | | | [address] | | | | + + + + + + | % Monocytes | 14.4Comment: Testing | % | EXTERNAL | | | | performed at [facility];[address] | | LAB | | | | [address];[place] | | | | | | [address] | | | | + + + + + + | % | 6.7Comment: Testing | % | EXTERNAL | | | Eosinophils | performed at [facility];[address] | | LAB | | | | [address];[place] | | | | | | [address] | | | | + + + + + + | % Basophils | 0.8Comment: Testing | % | EXTERNAL | | | | performed at [facility];[address] | | LAB | | | | [address];[place] | | | | | | [address] | | | | + + + + + + | Absolute | 8.3 (H)Comment: Testing | 1.9 - 7.4 K/uL | EXTERNAL | | | Segmented | performed at [facility];[address] | | LAB | | | Neutrophils | [address];[place] | | | | | | [address] | | | | + + + + + + | Absolute | 1.4Comment: Testing | 1.0 - 3.9 K/uL | EXTERNAL | | | Lymphocytes | performed at [facility];[address] | | LAB | | | | [address];[place] | | | | | | [address] | | | | + + + + + + | Absolute | 1.8 (H)Comment: Testing | 0 - 0.8 K/uL | EXTERNAL | | | Monocytes | performed at [facility];[address] | | LAB | | | | [address];[place] | | | | | | [address] | | | | + + + + + + | Absolute | 0.8 (H)Comment: Testing | 0 - 0.5 K/uL | EXTERNAL | | | Eosinophils | performed at [facility];[address] | | LAB | | | | [address];[place] | | | | | | [address] | | | | + + + + + + | Absolute | 0.1Comment: Testing | 0 - 0.1 K/uL | EXTERNAL | | | Basophils | performed at [facility];[address] | | LAB | | | | [address];[place], [place] | | | | | | [address] | | | | + + + + + + + + | Specimen | + + | Blood specimen | | (specimen) | + + + +---------+ + + | Performing | Address | City/State/Zipcode | Phone Number | | Organization | | | | + +---------+ + + | EXTERNAL LAB | | | | + +---------+ + + Phosphorus (03/25/2014 12:24 AM PDT) + + + + + + | Component | Value | Ref Range | Performed | Pathologist | | | | | At | Signature | + + + + + + | PHOSPHORUS | 4.2Comment: Testing | 2.3 - 4.8 mg/dL | EXTERNAL | | | | performed at [facility] | | LAB | | | | [address];[place], [place] | | | | | | [address] | | | | + + + + + + + + | Specimen | + + | Blood specimen | | (specimen) | + + + +---------+ + + | Performing | Address | City/State/Zipcode | Phone Number | | Organization | | | | + +---------+ + + | EXTERNAL LAB | | | | + +---------+ + + Magnesium (03/25/2014 12:24 AM PDT) + + + + + + | Component | Value | Ref Range | Performed | Pathologist | | | | | At | Signature | + + + + + + | Magnesium | 1.5 (L)Comment: Testing | 1.7 - 2.4 mg/dL | EXTERNAL | | | | performed at [facility];[address] | | LAB | | | | [address] [facility];[place], [place] | | | | | | [address] | | | | + + + + + + + + | Specimen | + + | Blood specimen | | (specimen) | + + + +---------+ + + | Performing | Address | City/State/Zipcode | Phone Number | | Organization | | | | + +---------+ + + | EXTERNAL LAB | | | | + +---------+ + + Basic Metabolic Panel (03/25/2014 12:24 AM PDT) + + + + + + | Component | Value | Ref Range | Performed | Pathologist | | | | | At | Signature | + + + + + + | Na | 136Comment: Testing | 135 - 143 | EXTERNAL | | | | performed at [facility];[address] | mmol/L | LAB | | | | [address];[place] | | | | | | [address] | | | | + + + + + + | K | 3.6Comment: Testing | 3.5 - 4.9 | EXTERNAL | | | | performed at [facility];[address] | mmol/L | LAB | | | | [address];[place] | | | | | | [address] | | | | + + + + + + | Cl | 99Comment: Testing | 99 - 109 mmol/L | EXTERNAL | | | | performed at [facility];[address] | | LAB | | | | [address];[place] | | | | | | [address] | | | | + + + + + + | CO2 | 29Comment: Testing | 23 - 32 mmol/L | EXTERNAL | | | | performed at [facility];[address] | | LAB | | | | [address];[place] | | | | | | [address] | | | | + + + + + + | Anion Gap | 11Comment: Testing | 5 - 20 mmol/L | EXTERNAL | | | | performed at [facility];[address] | | LAB | | | | [address];[place] | | | | | | [address] | | | | + + + + + + | Glucose, | 104 (H)Comment: Testing | 65 - 99 mg/dL | EXTERNAL | | | Fasting | performed at [facility];[address] | | LAB | | | | [address];[place] | | | | | | [address] | | | | + + + + + + | BUN | 4 (L)Comment: Testing | 8 - 25 mg/dL | EXTERNAL | | | | performed at [facility];[address] | | LAB | | | | [address];[place] | | | | | | [address] | | | | + + + + + + | Creatinine | 0.74Comment: Testing | 0.70 - 1.30 | EXTERNAL | | | | performed at [facility];[address] | mg/dL | LAB | | | | [address];[place] | | | | | | [address] | | | | + + + + + + | BUN/Creatin | 6Comment: Testing | | EXTERNAL | | | ine Ratio | performed at [facility];[address] | | LAB | | | | [address];[place] | | | | | | [address] | | | | + + + + + + | Calcium | 8.6Comment: Testing | 8.5 - 10.2 | EXTERNAL | | | | performed at [facility];[address] | mg/dL | LAB | | | | [address];[place] | | | | | | [address] | | | | + + + + + + | Estimated | >60Comment: GFR <60: | mL/min/1.73m2 | EXTERNAL | | | GFR | CHRONIC KIDNEY DISEASE, | | LAB | | | | IF FOUND OVER A 3 MONTH | | | | | | PERIOD.GFR <15: KIDNEY | | | | | | FAILURE.FOR | | | | | | AMERICANS, MULTIPLY THE | | | | | | CALCULATED GFR BY | | | | | | 1.210.Testing performed | | | | | | at [facility];[address];[place] [address] | | | | + + + + + + + + | Specimen | + + | Blood specimen | | (specimen) | + + + +---------+ + + | Performing | Address | City/State/Zipcode | Phone Number | | Organization | | | | + +---------+ + + | EXTERNAL LAB | | | | + +---------+ + + Basic Metabolic Panel (03/24/2014 2:30 PM PDT) + + + + + + | Component | Value | Ref Range | Performed | Pathologist | | | | | At | Signature | + + + + + + | Na | 138Comment: Testing | 135 - 143 | EXTERNAL | | | | performed at [facility];[address] | mmol/L | LAB | | | | [address];[place] | | | | | | [address] | | | | + + + + + + | K | 3.6Comment: Testing | 3.5 - 4.9 | EXTERNAL | | | | performed at [facility];[address] | mmol/L | LAB | | | | [address];[place] | | | | | | [address] | | | | + + + + + + | Cl | 103Comment: Testing | 99 - 109 mmol/L | EXTERNAL | | | | performed at [facility];[address] | | LAB | | | | [address];[place] | | | | | | [address] | | | | + + + + + + | CO2 | 28Comment: Testing | 23 - 32 mmol/L | EXTERNAL | | | | performed at [facility];[address] | | LAB | | | | [address];[place] | | | | | | [address] | | | | + + + + + + | Anion Gap | 11Comment: Testing | 5 - 20 mmol/L | EXTERNAL | | | | performed at [facility];[address] | | LAB | | | | [address];[place] | | | | | | [address] | | | | + + + + + + | Glucose, | 127 (H)Comment: Testing | 65 - 99 mg/dL | EXTERNAL | | | Fasting | performed at [facility];[address] | | LAB | | | | [address];[place] | | | | | | [address] | | | | + + + + + + | BUN | 5 (L)Comment: Testing | 8 - 25 mg/dL | EXTERNAL | | | | performed at [facility];[address] | | LAB | | | | [address];[place] | | | | | | [address] | | | | + + + + + + | Creatinine | 0.82Comment: Testing | 0.70 - 1.30 | EXTERNAL | | | | performed at [facility];[address] | mg/dL | LAB | | | | [address];[place] | | | | | | [address] | | | | + + + + + + | BUN/Creatin | 6Comment: Testing | | EXTERNAL | | | ine Ratio | performed at [facility];[address] | | LAB | | | | [address];[place] | | | | | | [address] | | | | + + + + + + | Calcium | 8.4 (L)Comment: Testing | 8.5 - 10.2 | EXTERNAL | | | | performed at [facility];[address] | mg/dL | LAB | | | | [address];[place], [place] | | | | | | [address] | | | | + + + + + + | Estimated | >60Comment: GFR <60: | mL/min/1.73m2 | EXTERNAL | | | GFR | CHRONIC KIDNEY DISEASE, | | LAB | | | | IF FOUND OVER A 3 MONTH | | | | | | PERIOD.GFR <15: KIDNEY | | | | | | FAILURE.FOR | | | | | | AMERICANS, MULTIPLY THE | | | | | | CALCULATED GFR BY | | | | | | 1.210.Testing performed | | | | | | at [facility];[address];[place] [address] | | | | + + + + + + + + | Specimen | + + | Blood specimen | | (specimen) | + + + +---------+ + + | Performing | Address | City/State/Zipcode | Phone Number | | Organization | | | | + +---------+ + + | EXTERNAL LAB | | | | + +---------+ + + Potassium (03/24/2014 8:24 AM PDT) + + + + + + | Component | Value | Ref Range | Performed | Pathologist | | | | | At | Signature | + + + + + + | K | 4.1Comment: Testing | 3.5 - 4.9 | EXTERNAL | | | | performed at [facility];[address] | mmol/L | LAB | | | | [address];[place], [place] | | | | | | [address] | | | | + + + + + + + + | Specimen | + + | Blood specimen | | (specimen) | + + + +---------+ + + | Performing | Address | City/State/Zipcode | Phone Number | | Organization | | | | + +---------+ + + | EXTERNAL LAB | | | | + +---------+ + + Magnesium (03/24/2014 8:24 AM PDT) + + + + + + | Component | Value | Ref Range | Performed | Pathologist | | | | | At | Signature | + + + + + + | Magnesium | 2.1Comment: Testing | 1.7 - 2.4 mg/dL | EXTERNAL | | | | performed at [facility];[address] | | LAB | | | | [address];[place], [place] | | | | | | [address] | | | | + + + + + + + + | Specimen | + + | Blood specimen | | (specimen) | + + + +---------+ + + | Performing | Address | City/State/Zipcode | Phone Number | | Organization | | | | + +---------+ + + | EXTERNAL LAB | | | | + +---------+ + + Vancomycin, Trough (03/24/2014 8:24 AM PDT) + + + + + + | Component | Value | Ref Range | Performed | Pathologist | | | | | At | Signature | + + + + + + | Vancomycin | 9.7 (L)Comment: 15 to 20 | 10 - 20 ug/mL | EXTERNAL | | | Trough | ug/mL for meningitis, | | LAB | | | | osteomyelitis, | | | | | | endocarditis, sepsis, or | | | | | | healthcare associated | | | | | | pneumonia, or an PAULINA | | | | | | equal to or greater than | | | | | | 1.0 ug/mLTesting | | | | | | performed at [facility] | | | | | | [facility];[place], [place] | | | | | | [address] | | | | + + + + + + + + | Specimen | + + | Blood specimen | | (specimen) | + + + +---------+ + + | Performing | Address | City/State/Zipcode | Phone Number | | Organization | | | | + +---------+ + + | EXTERNAL LAB | | | | + +---------+ + + XR Chest 1 Vw (03/24/2014 6:25 AM PDT) + + | Specimen | + + | | + + + + + | Impressions | Performed At | + + + | 1. Endotracheal tube tip is slightly low at the molly and could | | | be repositioned. Otherwise stable chest. | | + + + + + + | Narrative | Performed At | + + + | [facility] [employer] XR CHEST 1 VIEW 03/24/2014 6:25 AM | | | HISTORY: Tube placement. TECHNIQUE: One view chest. | | | FINDINGS: Compared with 03/23/14. The endotracheal tube tip is just | | | above the molly and could be withdrawn by 2 cm. Nasogastric tube tip | | | projects below the diaphragm. Heart size is normal. There are | | | persistent mild diffuse bilateral infiltrates or edema, without | | | significant change. No pneumothorax. | | + + + + + | Procedure Note | + + | Malachi, Rad Conversion - 01/28/2019 5:12 PM [facility] CHEST 1 | | VIEW03/24/2014 6:25 AM HISTORY:Tube placement. TECHNIQUE:One view chest. | | FINDINGS:Compared with 03/23/14. The endotracheal tube tip is just above the molly and | | could be withdrawn by 2 cm. Nasogastric tube tip projects below the diaphragm. Heart | | size is normal. There are persistent mild diffuse bilateral infiltrates or edema, | | without significant change. No pneumothorax. IMPRESSION: 1. Endotracheal tube tip is | | slightly low at the molly and could be repositioned. Otherwise stable chest. | | | |One view chest. | | | |FINDINGS: | |Compared with 03/23/14. The endotracheal tube tip is just above the molly and could be with drawn by 2 cm. Nasogastric tube tip projects below the diaphragm. Heart size is normal. Ther e are persistent mild diffuse | |bilateral infiltrates or edema, without | |significant change. No pneumothorax. | | | |IMPRESSION: | |1. Endotracheal tube tip is slightly low at the molly and could be repositioned. Otherwis e stable chest. | | | | | + + External Lab: CBC (03/24/2014 3:52 AM PDT) + + + + + + | Component | Value | Ref Range | Performed | Pathologist | | | | | At | Signature | + + + + + + | WBC | 9.4Comment: Testing | 3.8 - 11.0 K/uL | EXTERNAL | | | | performed at [facility], [address] | | LAB | | | | [address], | | | | | | [place] [address] | | | | + + + + + + | Non- | 2.86 (L)Comment: Testing | 4.20 - 5.70 | EXTERNAL | | | Red Blood | performed at [facility], [address] | M/uL | LAB | | | Cells | [address], | | | | | Counted | [place] [address] | | | | + + + + + + | Hemoglobin | 8.6 (L)Comment: Testing | 13.2 - 17.0 | EXTERNAL | | | | performed at [facility], [address] | g/dL | LAB | | | | [address], | | | | | | [place] [address] | | | | + + + + + + | Hematocrit, | 26.4 (L)Comment: Testing | 39.0 - 50.0 % | EXTERNAL | | | POC | performed at [facility], [address] | | LAB | | | | [address], | | | | | | [place] [address] | | | | + + + + + + | MCV | 92.3Comment: Testing | 80.0 - 100.0 fl | EXTERNAL | | | | performed at [facility], [address] | | LAB | | | | [address], | | | | | | [place] [address] | | | | + + + + + + | MCH | 30.0Comment: Testing | 27.0 - 34.0 pg | EXTERNAL | | | | performed at [facility], [address] | | LAB | | | | [address], | | | | | | [place] [address] | | | | + + + + + + | MCHC | 32.5Comment: Testing | 32.0 - 35.5 | EXTERNAL | | | | performed at [facility], [address] | g/dL | LAB | | | | [address], | | | | | | [place] [address] | | | | + + + + + + | RDW-CV | 53.4 (H)Comment: Testing | 37 - 53 fl | EXTERNAL | | | | performed at [facility], [address] | | LAB | | | | [address], | | | | | | [place] [address] | | | | + + + + + + | Platelet | 235Comment: Testing | 150 - 400 K/uL | EXTERNAL | | | Count | performed at [facility], [address] | | LAB | | | Plasma | [address], | | | | | | [place] [address] | | | | + + + + + + | MPV | 7.5Comment: Testing | fl | EXTERNAL | | | | performed at [facility], [address] | | LAB | | | | [address], | | | | | | [place] [address] | | | | + + + + + + | Differentia | AUTOMATEDComment: | | EXTERNAL | | | l Type | Testing performed at | | LAB | | | | [facility], [address] | | | | | | [place] | | | | | | [address] | | | | + + + + + + | % Segmented | 60.8Comment: Testing | % | EXTERNAL | | | | performed at [facility], [address] | | LAB | | | Neutrophils | [address], | | | | | | [place] [address] | | | | + + + + + + | % | 16.5Comment: Testing | % | EXTERNAL | | | Lymphocytes | performed at [facility], [address] | | LAB | | | | [address], | | | | | | [place] [address] | | | | + + + + + + | % Monocytes | 13.2Comment: Testing | % | EXTERNAL | | | | performed at [facility], [address] | | LAB | | | | [address], | | | | | | [place] [address] | | | | + + + + + + | % | 9.0Comment: Testing | % | EXTERNAL | | | Eosinophils | performed at [facility], [address] | | LAB | | | | [address], | | | | | | [place] [address] | | | | + + + + + + | % Basophils | 0.5Comment: Testing | % | EXTERNAL | | | | performed at [facility], [address] | | LAB | | | | [address], | | | | | | [place] [address] | | | | + + + + + + | Absolute | 5.7Comment: Testing | 1.9 - 7.4 K/uL | EXTERNAL | | | Segmented | performed at [facility], [address] | | LAB | | | Neutrophils | [address], | | | | | | [place] [address] | | | | + + + + + + | Absolute | 1.6Comment: Testing | 1.0 - 3.9 K/uL | EXTERNAL | | | Lymphocytes | performed at [facility], [address] | | LAB | | | | [address], | | | | | | [place] [address] | | | | + + + + + + | Absolute | 1.2 (H)Comment: Testing | 0 - 0.8 K/uL | EXTERNAL | | | Monocytes | performed at [facility], [address] | | LAB | | | | [address], | | | | | | [place] [address] | | | | + + + + + + | Absolute | 0.8 (H)Comment: Testing | 0 - 0.5 K/uL | EXTERNAL | | | Eosinophils | performed at [facility], [address] | | LAB | | | [address], | | | | | | [place] [address] | | | | + + + + + + | Absolute | 0.0Comment: Testing | 0 - 0.1 K/uL | EXTERNAL | | | Basophils | performed at [facility], [address] | | LAB | | | | [address], | | | | | | [place] [address] | | | | + + + + + + + + | Specimen | + + | Blood specimen | | (specimen) | + + + +---------+ + + | Performing | Address | City/State/Zipcode | Phone Number | | Organization | | | | + +---------+ + + | EXTERNAL LAB | | | | + +---------+ + + Phosphorus (03/24/2014 3:52 AM PDT) + + + + + + | Component | Value | Ref Range | Performed | Pathologist | | | | | At | Signature | + + + + + + | PHOSPHORUS | 3.6Comment: Testing | 2.3 - 4.8 mg/dL | EXTERNAL | | | | performed at [facility], [address] | | LAB | | | | [address], | | | | | | [place] [address] | | | | + + + + + + + + | Specimen | + + | Blood specimen | | (specimen) | + + + +---------+ + + | Performing | Address | City/State/Zipcode | Phone Number | | Organization | | | | + +---------+ + + | EXTERNAL LAB | | | | + +---------+ + + Magnesium (03/24/2014 3:52 AM PDT) + + + + + + | Component | Value | Ref Range | Performed | Pathologist | | | | | At | Signature | + + + + + + | Magnesium | 1.9Comment: Testing | 1.7 - 2.4 mg/dL | EXTERNAL | | | | performed at [facility], [address] | | LAB | | | | [address], | | | | | | [place] [address] | | | | + + + + + + + + | Specimen | + + | Blood specimen | | (specimen) | + + + +---------+ + + | Performing | Address | City/State/Zipcode | Phone Number | | Organization | | | | + +---------+ + + | EXTERNAL LAB | | | | + +---------+ + + Basic Metabolic Panel (03/24/2014 3:52 AM PDT) + + + + + + | Component | Value | Ref Range | Performed | Pathologist | | | | | At | Signature | + + + + + + | Na | 134 (L)Comment: Testing | 135 - 143 | EXTERNAL | | | | performed at [facility], [address] | mmol/L | LAB | | | | [address], | | | | | | [place] [address] | | | | + + + + + + | K | 3.6Comment: Testing | 3.5 - 4.9 | EXTERNAL | | | | performed at [facility], [address] | mmol/L | LAB | | | | [address], | | | | | | [place] [address] | | | | + + + + + + | Cl | 105Comment: Testing | 99 - 109 mmol/L | EXTERNAL | | | | performed at [facility], [address] | | LAB | | | | [address], | | | | | | [place] [address] | | | | + + + + + + | CO2 | 24Comment: Testing | 23 - 32 mmol/L | EXTERNAL | | | | performed at [facility], [address] | | LAB | | | | [address], | | | | | | [place] [address] | | | | + + + + + + | Anion Gap | 9Comment: Testing | 5 - 20 mmol/L | EXTERNAL | | | | performed at [facility], [address] | | LAB | | | | [address], | | | | | | [place] [address] | | | | + + + + + + | Glucose, | 127 (H)Comment: Testing | 65 - 99 mg/dL | EXTERNAL | | | Fasting | performed at [facility], [address] | | LAB | | | | [address], | | | | | | [place] [address] | | | | + + + + + + | BUN | 8Comment: Testing | 8 - 25 mg/dL | EXTERNAL | | | | performed at [facility], [address] | | LAB | | | | [address], | | | | | | [place] [address] | | | | + + + + + + | Creatinine | 0.63 (L)Comment: Testing | 0.70 - 1.30 | EXTERNAL | | | | performed at [facility], [address] | mg/dL | LAB | | | | [address], | | | | | | [place] [address] | | | | + + + + + + | BUN/Creatin | 13Comment: Testing | | EXTERNAL | | | ine Ratio | performed at [facility], [address] | | LAB | | | | [address], | | | | | | [place] [address] | | | | + + + + + + | Calcium | 8.1 (L)Comment: Testing | 8.5 - 10.2 | EXTERNAL | | | | performed at [facility], [address] | mg/dL | LAB | | | | [address], | | | | | | [place] [address] | | | | + + + + + + | Estimated | >60Comment: GFR <60: | mL/min/1.73m2 | EXTERNAL | | | GFR | CHRONIC KIDNEY DISEASE, | | LAB | | | | IF FOUND OVER A 3 MONTH | | | | | | PERIOD.GFR <15: KIDNEY | | | | | | FAILURE.FOR | | | | | | AMERICANS, MULTIPLY THE | | | | | | CALCULATED GFR BY | | | | | | 1.210.Testing performed | | | | | | at [facility], [address] | | | | | | [address], | | | | | | [place] [address] | | | | + + + + + + + + | Specimen | + + | Blood specimen | | (specimen) | + + + +---------+ + + | Performing | Address | City/State/Zipcode | Phone Number | | Organization | | | | + +---------+ + + | EXTERNAL LAB | | | | + +---------+ + + POC Glucose (03/24/2014 3:37 AM PDT) + + + + + + | Component | Value | Ref Range | Performed | Pathologist | | | | | At | Signature | + + + + + + | Glucose, | 151 (H)Comment: Testing | 65 - 99 mg/dL | EXTERNAL | | | Fingerstick | performed at [facility];[address] | | LAB | | | | [address];[place] | | | | | | [address] | | | | + + + + + + + + | Specimen | + + | | + + + +---------+ + + | Performing | Address | City/State/Zipcode | Phone Number | | Organization | | | | + +---------+ + + | EXTERNAL LAB | | | | + +---------+ + + Potassium (03/23/2014 5:52 PM PDT) + + + + + + | Component | Value | Ref Range | Performed | Pathologist | | | | | At | Signature | + + + + + + | K | 3.6Comment: Testing | 3.5 - 4.9 | EXTERNAL | | | | performed at [facility];[address] | mmol/L | LAB | | | | [address];[place], [place] | | | | | | [address] | | | | + + + + + + + + | Specimen | + + | Blood specimen | | (specimen) | + + + +---------+ + + | Performing | Address | City/State/Zipcode | Phone Number | | Organization | | | | + +---------+ + + | EXTERNAL LAB | | | | + +---------+ + + Magnesium (03/23/2014 5:52 PM PDT) + + + + + + | Component | Value | Ref Range | Performed | Pathologist | | | | | At | Signature | + + + + + + | Magnesium | 1.7Comment: Testing | 1.7 - 2.4 mg/dL | EXTERNAL | | | | performed at [facility] | | LAB | | | | [address] [facility];[place], [place] | | | | | | [address] | | | | + + + + + + + + | Specimen | + + | Blood specimen | | (specimen) | + + + +---------+ + + | Performing | Address | City/State/Zipcode | Phone Number | | Organization | | | | + +---------+ + + | EXTERNAL LAB | | | | + +---------+ + + XR Chest 1 Vw (03/23/2014 5:43 AM PDT) + + | Specimen | + + | | + + + + + | Impressions | Performed At | + + + | 1. Tubes and lines, as above. No pneumothorax. 2. Persistent | | | mild bilateral infiltrates or edema with little significant change. | | | | | | AM | | + + + + + + | Narrative | Performed At | + + + | [facility] [employer] XR CHEST 1 VIEW 03/23/2014 5:43 AM HISTORY: | | | Tube placement. TECHNIQUE: One view chest. FINDINGS: | | | Compared with 03/22/14. Endotracheal tube tip is 1 cm above the molly. | | | Nasogastric tube tip projects below the diaphragm. There are | | | persistent mild bibasilar infiltrates or edema, mildly progressive. No | | | pneumothorax. | | + + + + + | Procedure Note | + + | Malachi, Rad Conversion - 01/28/2019 5:12 PM PDT L[facility] ABBASIXR CHEST 1 | | VIEW03/23/2014 5:43 AM HISTORY:Tube placement. TECHNIQUE:One view chest. | | FINDINGS:Compared with 03/22/14. Endotracheal tube tip is 1 cm above the molly. | | Nasogastric tube tip projects below the diaphragm. There are persistent mild bibasilar | | infiltrates or edema, mildly progressive. No pneumothorax. IMPRESSION: 1. Tubes and | | lines, as above. No pneumothorax.2. Persistent mild bilateral infiltrates or edema with | | little significant change. Electronically signed by Jad Coker MD on | | 03/23/2014 7:30 AM | |One view chest. | | | |FINDINGS: | |Compared with 03/22/14. Endotracheal tube tip is 1 cm above the molly. Nasogastric tube tip projects below the diaphragm. There are persistent mild bibasilar infiltrates or edema, mil dly progressive. No pneumothorax. | | | |IMPRESSION: | |1. Tubes and lines, as above. No pneumothorax. | |2. Persistent mild bilateral infiltrates or edema with little significant change. | | | | | + + External Lab: CBC (03/23/2014 3:35 AM PDT) + + + + + + | Component | Value | Ref Range | Performed | Pathologist | | | | | At | Signature | + + + + + + | WBC | 10.4Comment: Testing | 3.8 - 11.0 K/uL | EXTERNAL | | | | performed at [facility], [address] | | LAB | | | | [address], | | | | | | [place] [address] | | | | + + + + + + | Non- | 3.16 (L)Comment: Testing | 4.20 - 5.70 | EXTERNAL | | | Red Blood | performed at [facility], [address] | M/uL | LAB | | | Cells | [address], | | | | | Counted | [place] [address] | | | | + + + + + + | Hemoglobin | 9.3 (L)Comment: Testing | 13.2 - 17.0 | EXTERNAL | | | | performed at [facility], [address] | g/dL | LAB | | | | [address], | | | | | | [place] [address] | | | | + + + + + + | Hematocrit, | 29.2 (L)Comment: Testing | 39.0 - 50.0 % | EXTERNAL | | | POC | performed at [facility], [address] | | LAB | | | | [address], | | | | | | [place] [address] | | | | + + + + + + | MCV | 92.4Comment: Testing | 80.0 - 100.0 fl | EXTERNAL | | | | performed at [facility], [address] | | LAB | | | | [address], | | | | | | [place] [address] | | | | + + + + + + | MCH | 29.6Comment: Testing | 27.0 - 34.0 pg | EXTERNAL | | | | performed at [facility], [address] | | LAB | | | | [address], | | | | | | [place] [address] | | | | + + + + + + | MCHC | 32.0Comment: Testing | 32.0 - 35.5 | EXTERNAL | | | | performed at [facility], [address] | g/dL | LAB | | | | [address], | | | | | | [place] [address] | | | | + + + + + + | RDW-CV | 55.1 (H)Comment: Testing | 37 - 53 fl | EXTERNAL | | | | performed at [facility], [address] | | LAB | | | | [address], | | | | | | [place] [address] | | | | + + + + + + | Platelet | 221Comment: Testing | 150 - 400 K/uL | EXTERNAL | | | Count | performed at [facility], [address] | | LAB | | | Plasma | [address], | | | | | | [place] [address] | | | | + + + + + + | MPV | 7.4Comment: Testing | fl | EXTERNAL | | | | performed at [facility], [address] | | LAB | | | | [address], | | | | | | [place] [address] | | | | + + + + + + | Differentia | AUTOMATEDComment: | | EXTERNAL | | | l Type | Testing performed at | | LAB | | | | [facility], [address] | | | | | | [place] | | | | | | [address] | | | | + + + + + + | % Segmented | 64.8Comment: Testing | % | EXTERNAL | | | | performed at [facility], [address] | | LAB | | | Neutrophils | [address], | | | | | | [place] [address] | | | | + + + + + + | % | 15.8Comment: Testing | % | EXTERNAL | | | Lymphocytes | performed at [facility], [address] | | LAB | | | | [address], | | | | | | [place] [address] | | | | + + + + + + | % Monocytes | 11.5Comment: Testing | % | EXTERNAL | | | | performed at [facility], [address] | | LAB | | | | [address], | | | | | | [place] [address] | | | | + + + + + + | % | 7.5Comment: Testing | % | EXTERNAL | | | Eosinophils | performed at [facility], [address] | | LAB | | | | [address], | | | | | | [place] [address] | | | | + + + + + + | % Basophils | 0.4Comment: Testing | % | EXTERNAL | | | | performed at [facility], [address] | | LAB | | | | [address], | | | | | | [place] [address] | | | | + + + + + + | Absolute | 6.7Comment: Testing | 1.9 - 7.4 K/uL | EXTERNAL | | | Segmented | performed at [facility], [address] | | LAB | | | Neutrophils | [address], | | | | | | [place] [address] | | | | + + + + + + | Absolute | 1.6Comment: Testing | 1.0 - 3.9 K/uL | EXTERNAL | | | Lymphocytes | performed at [facility], [address] | | LAB | | | | [address], | | | | | | [place] [address] | | | | + + + + + + | Absolute | 1.2 (H)Comment: Testing | 0 - 0.8 K/uL | EXTERNAL | | | Monocytes | performed at [facility], [address] | | LAB | | | | [address], | | | | | | [place] [address] | | | | + + + + + + | Absolute | 0.8 (H)Comment: Testing | 0 - 0.5 K/uL | EXTERNAL | | | Eosinophils | performed at [facility], [address] | | LAB | | | [address], | | | | | | [place] [address] | | | | + + + + + + | Absolute | 0.0Comment: Testing | 0 - 0.1 K/uL | EXTERNAL | | | Basophils | performed at [facility], [address] | | LAB | | | | [address], | | | | | | [place] [address] | | | | + + + + + + + + | Specimen | + + | Blood specimen | | (specimen) | + + + +---------+ + + | Performing | Address | City/State/Zipcode | Phone Number | | Organization | | | | + +---------+ + + | EXTERNAL LAB | | | | + +---------+ + + Phosphorus (03/23/2014 3:35 AM PDT) + + + + + + | Component | Value | Ref Range | Performed | Pathologist | | | | | At | Signature | + + + + + + | PHOSPHORUS | 3.3Comment: Testing | 2.3 - 4.8 mg/dL | EXTERNAL | | | | performed at [facility], [address] | | LAB | | | | [address], | | | | | | [place] [address] | | | | + + + + + + + + | Specimen | + + | Blood specimen | | (specimen) | + + + +---------+ + + | Performing | Address | City/State/Zipcode | Phone Number | | Organization | | | | + +---------+ + + | EXTERNAL LAB | | | | + +---------+ + + Magnesium (03/23/2014 3:35 AM PDT) + + + + + + | Component | Value | Ref Range | Performed | Pathologist | | | | | At | Signature | + + + + + + | Magnesium | 1.9Comment: Testing | 1.7 - 2.4 mg/dL | EXTERNAL | | | | performed at [facility], [address] | | LAB | | | | [address], | | | | | | [place] [address] | | | | + + + + + + + + | Specimen | + + | Blood specimen | | (specimen) | + + + +---------+ + + | Performing | Address | City/State/Zipcode | Phone Number | | Organization | | | | + +---------+ + + | EXTERNAL LAB | | | | + +---------+ + + Basic Metabolic Panel (03/23/2014 3:35 AM PDT) + + + + + + | Component | Value | Ref Range | Performed | Pathologist | | | | | At | Signature | + + + + + + | Na | 137Comment: Testing | 135 - 143 | EXTERNAL | | | | performed at [facility], [address] | mmol/L | LAB | | | | [address], | | | | | | [place] [address] | | | | + + + + + + | K | 3.9Comment: Testing | 3.5 - 4.9 | EXTERNAL | | | | performed at [facility], [address] | mmol/L | LAB | | | | [address], | | | | | | [place] [address] | | | | + + + + + + | Cl | 109Comment: Testing | 99 - 109 mmol/L | EXTERNAL | | | | performed at [facility], [address] | | LAB | | | [address], | | | | | | [place] [address] | | | | + + + + + + | CO2 | 24Comment: Testing | 23 - 32 mmol/L | EXTERNAL | | | | performed at [facility], [address] | | LAB | | | | [address], | | | | | | [place] [address] | | | | + + + + + + | Anion Gap | 8Comment: Testing | 5 - 20 mmol/L | EXTERNAL | | | | performed at [facility], [address] | | LAB | | | | [address], | | | | | | [place] [address] | | | | + + + + + + | Glucose, | 112 (H)Comment: Testing | 65 - 99 mg/dL | EXTERNAL | | | Fasting | performed at [facility], [address] | | LAB | | | | [address], | | | | | | [place] [address] | | | | + + + + + + | BUN | 8Comment: Testing | 8 - 25 mg/dL | EXTERNAL | | | | performed at [facility], [address] | | LAB | | | | [address], | | | | | | [place] [address] | | | | + + + + + + | Creatinine | 0.66 (L)Comment: Testing | 0.70 - 1.30 | EXTERNAL | | | | performed at [facility], [address] | mg/dL | LAB | | | | [address], | | | | | | [place] [address] | | | | + + + + + + | BUN/Creatin | 12Comment: Testing | | EXTERNAL | | | ine Ratio | performed at [facility], [address] | | LAB | | | | [address], | | | | | | [place] [address] | | | | + + + + + + | Calcium | 8.0 (L)Comment: Testing | 8.5 - 10.2 | EXTERNAL | | | | performed at [facility], [address] | mg/dL | LAB | | | | [address], | | | | | | [place] [address] | | | | + + + + + + | Estimated | >60Comment: GFR <60: | mL/min/1.73m2 | EXTERNAL | | | GFR | CHRONIC KIDNEY DISEASE, | | LAB | | | | IF FOUND OVER A 3 MONTH | | | | | | PERIOD.GFR <15: KIDNEY | | | | | | FAILURE.FOR | | | | | | AMERICANS, MULTIPLY THE | | | | | | CALCULATED GFR BY | | | | | | 1.210.Testing performed | | | | | | at [facility], [address] | | | | | | [address], | | | | | | [place] [address] | | | | + + + + + + + + | Specimen | + + | Blood specimen | | (specimen) | + + + +---------+ + + | Performing | Address | City/State/Zipcode | Phone Number | | Organization | | | | + +---------+ + + | EXTERNAL LAB | | | | + +---------+ + + POC Glucose (03/23/2014 12:22 AM PDT) + + + + + + | Component | Value | Ref Range | Performed | Pathologist | | | | | At | Signature | + + + + + + | Glucose, | 148 (H)Comment: Testing | 65 - 99 mg/dL | EXTERNAL | | | Fingerstick | performed at [facility];[address] | | LAB | | | | [address];[place] | | | | | | [address] | | | | + + + + + + + + | Specimen | + + | | + + + +---------+ + + | Performing | Address | City/State/Zipcode | Phone Number | | Organization | | | | + +---------+ + + | EXTERNAL LAB | | | | + +---------+ + + Potassium (03/22/2014 9:20 PM PDT) + + + + + + | Component | Value | Ref Range | Performed | Pathologist | | | | | At | Signature | + + + + + + | K | 3.6Comment: Testing | 3.5 - 4.9 | EXTERNAL | | | | performed at [facility];[address] | mmol/L | LAB | | | | [address];[place], [place] | | | | | | [address] | | | | + + + + + + + + | Specimen | + + | Blood specimen | | (specimen) | + + + +---------+ + + | Performing | Address | City/State/Zipcode | Phone Number | | Organization | | | | + +---------+ + + | EXTERNAL LAB | | | | + +---------+ + + Phosphorus (03/22/2014 9:20 PM PDT) + + + + + + | Component | Value | Ref Range | Performed | Pathologist | | | | | At | Signature | + + + + + + | PHOSPHORUS | 2.1 (L)Comment: Testing | 2.3 - 4.8 mg/dL | EXTERNAL | | | | performed at [facility] | | LAB | | | | [address];[place] | | | | | | [address] | | | | + + + + + + + + | Specimen | + + | Blood specimen | | (specimen) | + + + +---------+ + + | Performing | Address | City/State/Zipcode | Phone Number | | Organization | | | | + +---------+ + + | EXTERNAL LAB | | | | + +---------+ + + Magnesium (03/22/2014 9:20 PM PDT) + + + + + + | Component | Value | Ref Range | Performed | Pathologist | | | | | At | Signature | + + + + + + | Magnesium | 2.3Comment: Testing | 1.7 - 2.4 mg/dL | EXTERNAL | | | | performed at [facility] | | LAB | | | | [address] [facility];[place], [place] | | | | | | [address] | | | | + + + + + + + + | Specimen | + + | Blood specimen | | (specimen) | + + + +---------+ + + | Performing | Address | City/State/Zipcode | Phone Number | | Organization | | | | + +---------+ + + | EXTERNAL LAB | | | | + +---------+ + + Potassium (03/22/2014 3:47 PM PDT) + + + + + + | Component | Value | Ref Range | Performed | Pathologist | | | | | At | Signature | + + + + + + | K | 3.8Comment: Testing | 3.5 - 4.9 | EXTERNAL | | | | performed at [facility];[address] | mmol/L | LAB | | | | [address];[place], [place] | | | | | | [address] | | | | + + + + + + + + | Specimen | + + | Blood specimen | | (specimen) | + + + +---------+ + + | Performing | Address | City/State/Zipcode | Phone Number | | Organization | | | | + +---------+ + + | EXTERNAL LAB | | | | + +---------+ + + Magnesium (03/22/2014 3:47 PM PDT) + + + + + + | Component | Value | Ref Range | Performed | Pathologist | | | | | At | Signature | + + + + + + | Magnesium | 1.8Comment: Testing | 1.7 - 2.4 mg/dL | EXTERNAL | | | | performed at [facility];[address] | | LAB | | | | [address];[place] | | | | | | [address] | | | | + + + + + + + + | Specimen | + + | Blood specimen | | (specimen) | + + + +---------+ + + | Performing | Address | City/State/Zipcode | Phone Number | | Organization | | | | + +---------+ + + | EXTERNAL LAB | | | | + +---------+ + + Hepatitis Panel, Acute (03/22/2014 10:17 AM PDT) + + + + + + | Component | Value | Ref Range | Performed | Pathologist | | | | | At | Signature | + + + + + + | HEP A IGM | NON REACTIVEComment: | | EXTERNAL | | | | Testing performed at | | LAB | | | | [facility], [address] | | | | | | [place] | | | | | | [address] | | | | + + + + + + | Hepatitis B | NON REACTIVEComment: | | EXTERNAL | | | Surface Ag | Testing performed at | | LAB | | | | [facility], [address] | | | | | | [place] | | | | | | [address] | | | | + + + + + + | HEP B CORE | NON REACTIVEComment: | | EXTERNAL | | | IgM | Testing performed at | | LAB | | | | [facility], [address] | | | | | | [place] | | | | | | [address] | | | | + + + + + + | HCV Ab | NON REACTIVEComment: | | EXTERNAL | | | | Testing performed at | | LAB | | | | [facility], [address] | | | | | | [place] | | | | | | [address] | | | | + + + + + + | Hepatitis | No serologic evidence of | | EXTERNAL | | | Interp.: | HAV, HBV, or HCV | | LAB | | | | infection.Comment: | | | | | | Testing performed at | | | | | | [facility], [address] [facility] | | | | | | [place] | | | | | | [address] | | | | + + + + + + + + | Specimen | + + | Blood specimen | | (specimen) | + + + +---------+ + + | Performing | Address | City/State/Zipcode | Phone Number | | Organization | | | | + +---------+ + + | EXTERNAL LAB | | | | + +---------+ + + Protime INR (03/22/2014 10:17 AM PDT) + + + + + + | Component | Value | Ref Range | Performed | Pathologist | | | | | At | Signature | + + + + + + | INR | 1.0Comment: REFERENCE | | EXTERNAL | | | | RANGE:0.9 - 1.2 | | LAB | | | | NON-ANTICOAGULATED2.0 | | | | | | - 3.0 ALL OTHER | | | | | | THERAPEUTIC | | | | | | INDICATIONS2.5 - 3.5 | | | | | | MECHANICAL HEART VALVES, | | | | | | RECURRENT OR SYSTEMIC | | | | | | EMBOLISMTesting | | | | | | performed at [facility] | | | | | | [address] [facility];[place], [place] | | | | | | [address] | | | | + + + + + + + + | Specimen | + + | Blood specimen | | (specimen) | + + + +---------+ + + | Performing | Address | City/State/Zipcode | Phone Number | | Organization | | | | + +---------+ + + | EXTERNAL LAB | | | | + +---------+ + + Culture, Blood (03/22/2014 9:15 AM PDT) + + | Specimen | + + | Blood specimen | | (specimen) | + + + + + | Narrative | Performed At | + + + | Specimen Description BLOOD, PERIPHERAL DRAW | EXTERNAL LAB | | SPECIAL REQUESTS LHAND | | | Testing performed at [facility];[address] | | | [facility];[place] [address] CULTURE | | | NO GROWTH | | | Testing performed at [facility], [address] [facility], [place], [place] | | | [address] | | + + + + +---------+ + + | Performing | Address | City/State/Zipcode | Phone Number | | Organization | | | | + +---------+ + + | EXTERNAL LAB | | | | + +---------+ + + Culture, Blood (03/22/2014 9:10 AM PDT) + + | Specimen | + + | Blood specimen | | (specimen) | + + + + + | Narrative | Performed At | + + + | Specimen Description BLOOD, LINE DRAW SPECIAL | EXTERNAL LAB | | REQUESTS R FORE ARM | | | Testing performed at [facility];[address];[place] [address] CULTURE | | | NO GROWTH | | | Testing performed at [facility], [address] [place] [address] | | | [address] | | + + + + +---------+ + + | Performing | Address | City/State/Zipcode | Phone Number | | Organization | | | | + +---------+ + + | EXTERNAL LAB | | | | + +---------+ + + Hepatic Function Panel (03/22/2014 8:59 AM PDT) + + + + + + | Component | Value | Ref Range | Performed | Pathologist | | | | | At | Signature | + + + + + + | Protein, | 6.6Comment: Testing | 6.3 - 8.2 g/dL | EXTERNAL | | | Total | performed at [facility];[address] | | LAB | | | | [address];[place] | | | | | | [address] | | | | + + + + + + | Albumin | 2.4 (L)Comment: Testing | 3.6 - 5.0 g/dL | EXTERNAL | | | | performed at [facility];[address] | | LAB | | | | [address];[place] | | | | | | [address] | | | | + + + + + + | Bilirubin | 0.6Comment: Testing | 0.1 - 1.5 mg/dL | EXTERNAL | | | Total | performed at [facility];[address] | | LAB | | | | [address];[place] | | | | | | [address] | | | | + + + + + + | Bilirubin | 0.2Comment: Testing | 0.0 - 0.3 mg/dL | EXTERNAL | | | Direct | performed at [facility];[address] | | LAB | | | | [address];[place] | | | | | | [address] | | | | + + + + + + | ALP, | 191 (H)Comment: Testing | 35 - 115 U/L | EXTERNAL | | | External | performed at [facility];[address] | | LAB | | | | [address];[place] | | | | | | [address] | | | | + + + + + + | AST | 153 (H)Comment: MODERATE | 10 - 45 U/L | EXTERNAL | | | | HEMOLYSISTesting | | LAB | | | | performed at [facility];[address] | | | | | | [address];[place] | | | | | | [address] | | | | + + + + + + | ALT | 77 (H)Comment: Testing | 10 - 65 U/L | EXTERNAL | | | | performed at [facility];[address] | | LAB | | | | [address];[place] | | | | | | [address] | | | | + + + + + + + + | Specimen | + + | Blood specimen | | (specimen) | + + + +---------+ + + | Performing | Address | City/State/Zipcode | Phone Number | | Organization | | | | + +---------+ + + | EXTERNAL LAB | | | | + +---------+ + + XR Chest 1 Vw (03/22/2014 5:47 AM PDT) + + | Specimen | + + | | + + + + + | Impressions | Performed At | + + + | 1. Developing mild infiltrate in the right lung base. Otherwise | | | stable chest. Electronically signed by Jad Coker MD on | | | 03/22/2014 7:51 AM | | + + + + + + | Narrative | Performed At | + + + | [facility] [employer] XR CHEST 1 VIEW 03/22/2014 5:47 AM HISTORY: | | | Tube placement. TECHNIQUE: One view chest. FINDINGS: | | | Compared with 03/21/14. Endotracheal tube tip is 1 cm above the molly. | | | Nasogastric tube tip projects below the diaphragm. There is | | | increasing mild infiltrate in the right lung base. Mild atelectasis or | | | infiltrate in the left lower lobe behind the cardiac shadow is | | | unchanged. Heart size is normal. No evidence of pneumothorax or | | | pleural effusion. | | + + + + + | Procedure Note | + + | Malachi, Rad Conversion - 01/28/2019 5:12 PM [facility] [place] [facility] CHEST 1 | | VIEW03/22/2014 5:47 AM HISTORY:Tube placement. TECHNIQUE:One view chest. | | FINDINGS:Compared with 03/21/14. Endotracheal tube tip is 1 cm above the molly. | | Nasogastric tube tip projects below the diaphragm. There is increasing mild infiltrate | | in the right lung base. Mild atelectasis or infiltrate in the left lower lobe behind the | | cardiac shadow is unchanged. Heart size is normal. No evidence of pneumothorax or | | pleural effusion. IMPRESSION: 1. Developing mild infiltrate in the right lung base. | | Otherwise stable chest. | | 7:51 AM | | | |FINDINGS: | |Compared with 03/21/14. Endotracheal tube tip is 1 cm above the molly. Nasogastric tube tip projects below the diaphragm. There is increasing mild infiltrate in the right lung base. M ild atelectasis or infiltrate in | |the left lower lobe behind the cardiac | | shadow is unchanged. Heart size is normal. No evidence of pneumothorax or pleural effusion . | | | |IMPRESSION: | |1. Developing mild infiltrate in the right lung base. Otherwise stable chest. | | | | | + + External Lab: [facility] (03/22/2014 4:06 AM PDT) + + +---- + + + | Component | Value | Ref Range | Performed | Pathologist | | | | | At | Signature | + + +---- + + + | WBC | 11.0Comment: Testing | 3.8 - 11.0 K/uL | EXTERNAL | | | | performed at [facility], [address] | | LAB | | | | [address], | | | | | | [place] [id number] | | | | + + +---- + + + | Non- | 3.62 (L)Comment: Testing | 4.2 0 - 5.70 | EXTERNAL | | | Red Blood | performed at [facility], [address] | M/u L | LAB | | | Cells | [address], | | | | | Counted | [place] [id number] | | | | + + +---- + + + | Hemoglobin | 10.6 (L)Comment: Testing | 13. 2 - 17.0 | EXTERNAL | | | | performed at [facility], [address] | g/d L | LAB | | | | [address], | | | | | | [place] [id number] | | | | + + +---- + + + | Hematocrit, | 33.2 (L)Comment: Testing | 39. 0 - 50.0 % | EXTERNAL | | | POC | performed at [facility], [address] | | LAB | | | | [address], | | | | | | [place] [address] | | | | + + +---- + + + | MCV | 91.8Comment: Testing | 80. 0 - 100.0 fl | EXTERNAL | | | | performed at [facility] [facility] [address] | | LAB | | | | [address], | | | | | | [place] [address] | | | | + + +---- + + + | MCH | 29.4Comment: Testing | 27. 0 - 34.0 pg | EXTERNAL | | | | performed at [facility], [address] | | LAB | | | | [address], | | | | | | [place] [address] | | | | + + +---- + + + | MCHC | 32.0Comment: Testing | 32. 0 - 35.5 | EXTERNAL | | | | performed at [facility], [address] | g/d L | LAB | | | | [address], | | | | | | [place] [address] | | | | + + +---- + + + | RDW-CV | 54.3 (H)Comment: Testing | 37 - 53 fl | EXTERNAL | | | | performed at [facility], [address] | | LAB | | | | [address], | | | | | | [place] [address] | | | | + + +---- + + + | Platelet | 202Comment: Testing | 150 - 400 K/uL | EXTERNAL | | | Count | performed at [facility], [address] | | LAB | | | Plasma | [address], | | | | | | [place] [address] | | | | + + +---- + + + | MPV | 7.8Comment: Testing | fl | EXTERNAL | | | | performed at [facility], [address] | | LAB | | | | [address], | | | | | | [place] [address] | | | | + + +---- + + + | Differentia | MANUALComment: Testing | | EXTERNAL | | | l Type | performed at [facility], [address] | | LAB | | | | [address], | | | | | | [place] [address] | | | | + + +---- + + + | Segmented | 76Comment: Testing | % | EXTERNAL | | | Neutrophils | performed at [facility], [address] | | LAB | | | Manual | [address], | | | | | | [place] [address] | | | | + + +---- + + + | Lymphocytes | 6Comment: Testing | % | EXTERNAL | | | Manual | performed at [facility], [address] | | LAB | | | | [address], | | | | | | [place] [address] | | | | + + +---- + + + | Monocytes | 5Comment: Testing | % | EXTERNAL | | | Manual | performed at [facility], [address] | | LAB | | | | [address], | | | | | | [place] [address] | | | | + + +---- + + + | Eosinophils | 13Comment: Testing | % | EXTERNAL | | | Manual | performed at [facility], [address] | | LAB | | | | [address], | | | | | | [place] [address] | | | | + + +---- + + + | Absolute | 8.3 (H)Comment: Testing | 1.9 - 7.4 K/uL | EXTERNAL | | | Neutrophils | performed at [facility], [address] | | LAB | | | | [address], | | | | | | [place] [address] | | | | + + +---- + + + | Absolute | 0.7 (L)Comment: Testing | 1.0 - 3.9 K/uL | EXTERNAL | | | Lymphocytes | performed at [facility], [address] | | LAB | | | | [address], | | | | | | [place] [address] | | | | + + +---- + + + | Absolute | 0.6Comment: Testing | 0 - 0.8 K/uL | EXTERNAL | | | Monocytes | performed at [facility], [address] | | LAB | | | | [address], | | | | | | [place] [address] | | | | + + +---- + + + | Absolute | 1.4 (H)Comment: Testing | 0 - 0.5 K/uL | EXTERNAL | | | Eosinophils | performed at [facility], [address] | | LAB | | | | [address], | | | | | | [place] [address] | | | | + + +---- + + + | RBC | 1+Comment: | | EXTERNAL | | | Morphology | ANISO1+HYPONORMAL PLT | | LAB | | | | MORPHTesting performed | | | | | | at [facility], [address] | | | | | | [address], | | | | | | [place] [address] | | | | | |Testing performed at [facility], [address] [place] [address] | | | | | | | | | | + + +---- + + + + + | Specimen | + + | Blood specimen | | (specimen) | + + + +---------+ + + | Performing | Address | City/State/Zipcode | Phone Number | | Organization | | | | + +---------+ + + | EXTERNAL LAB | | | | + +---------+ + + Phosphorus (03/22/2014 4:06 AM PDT) + + + + + + | Component | Value | Ref Range | Performed | Pathologist | | | | | At | Signature | + + + + + + | PHOSPHORUS | 2.4Comment: Testing | 2.3 - 4.8 mg/dL | EXTERNAL | | | | performed at [facility], [address] | | LAB | | | | [address], | | | | | | [place] [address] | | | | + + + + + + + + | Specimen | + + | Blood specimen | | (specimen) | + + + +---------+ + + | Performing | Address | City/State/Zipcode | Phone Number | | Organization | | | | + +---------+ + + | EXTERNAL LAB | | | | + +---------+ + + Magnesium (03/22/2014 4:06 AM PDT) + + + + + + | Component | Value | Ref Range | Performed | Pathologist | | | | | At | Signature | + + + + + + | Magnesium | 1.9Comment: Testing | 1.7 - 2.4 mg/dL | EXTERNAL | | | | performed at [facility], [address] | | LAB | | | | [address], | | | | | | [place] [address] | | | | + + + + + + + + | Specimen | + + | Blood specimen | | (specimen) | + + + +---------+ + + | Performing | Address | City/State/Zipcode | Phone Number | | Organization | | | | + +---------+ + + | EXTERNAL LAB | | | | + +---------+ + + Basic Metabolic Panel (03/22/2014 4:06 AM PDT) + + + + + + | Component | Value | Ref Range | Performed | Pathologist | | | | | At | Signature | + + + + + + | Na | 138Comment: Testing | 135 - 143 | EXTERNAL | | | | performed at [facility], [address] | mmol/L | LAB | | | | [address], | | | | | | [place] [address] | | | | + + + + + + | K | 3.5Comment: Testing | 3.5 - 4.9 | EXTERNAL | | | | performed at [facility], [address] | mmol/L | LAB | | | | [address], | | | | | | [place] [address] | | | | + + + + + + | Cl | 107Comment: Testing | 99 - 109 mmol/L | EXTERNAL | | | | performed at [facility], [address] | | LAB | | | | [address], | | | | | | [place] [address] | | | | + + + + + + | CO2 | 27Comment: Testing | 23 - 32 mmol/L | EXTERNAL | | | | performed at [facility], [address] | | LAB | | | | [address], | | | | | | [place] [address] | | | | + + + + + + | Anion Gap | 8Comment: Testing | 5 - 20 mmol/L | EXTERNAL | | | | performed at [facility], [address] | | LAB | | | | [address], | | | | | | [place] [address] | | | | + + + + + + | Glucose, | 125 (H)Comment: Testing | 65 - 99 mg/dL | EXTERNAL | | | Fasting | performed at [facility], [address] | | LAB | | | | [address], | | | | | | [place] [address] | | | | + + + + + + | BUN | 8Comment: Testing | 8 - 25 mg/dL | EXTERNAL | | | | performed at [facility], [address] | | LAB | | | | [address], | | | | | | [place] [address] | | | | + + + + + + | Creatinine | 0.71Comment: Testing | 0.70 - 1.30 | EXTERNAL | | | | performed at [facility], [address] | mg/dL | LAB | | | | [address], | | | | | | [place] [address] | | | | + + + + + + | BUN/Creatin | 11Comment: Testing | | EXTERNAL | | | ine Ratio | performed at [facility], [address] | | LAB | | | | [address], | | | | | | [place] [address] | | | | + + + + + + | Calcium | 8.3 (L)Comment: Testing | 8.5 - 10.2 | EXTERNAL | | | | performed at [facility], [address] | mg/dL | LAB | | | | [address], | | | | | | [place] [address] | | | | + + + + + + | Estimated | >60Comment: GFR <60: | mL/min/1.73m2 | EXTERNAL | | | GFR | CHRONIC KIDNEY DISEASE, | | LAB | | | | IF FOUND OVER A 3 MONTH | | | | | | PERIOD.GFR <15: KIDNEY | | | | | | FAILURE.FOR | | | | | | AMERICANS, MULTIPLY THE | | | | | | CALCULATED GFR BY | | | | | | 1.210.Testing performed | | | | | | at [facility], [address] | | | | | | [address], | | | | | | [place] [address] | | | | + + + + + + + + | Specimen | + + | Blood specimen | | (specimen) | + + + +---------+ + + | Performing | Address | City/State/Zipcode | Phone Number | | Organization | | | | + +---------+ + + | EXTERNAL LAB | | | | + +---------+ + + CK Total (03/21/2014 7:55 PM PDT) + + + + + + | Component | Value | Ref Range | Performed | Pathologist | | | | | At | Signature | + + + + + + | CK, Total | 1835 (H)Comment: Testing | 55 - 400 U/L | EXTERNAL | | | | performed at [facility];[address] | | LAB | | | | [address];[place], [place] | | | | | | [address] | | | | + + + + + + + + | Specimen | + + | Blood specimen | | (specimen) | + + + +---------+ + + | Performing | Address | City/State/Zipcode | Phone Number | | Organization | | | | + +---------+ + + | EXTERNAL LAB | | | | + +---------+ + + Urinalysis, Reflex Microscopic and/or Culture (03/21/2014 1:17 PM PDT) + + + + + + | Component | Value | Ref Range | Performed | Pathologist | | | | | At | Signature | + + + + + + | Color | YELLOWComment: Testing | | EXTERNAL | | | | performed at [facility], [address] | | LAB | | | | [address], | | | | | | [place] [address] | | | | + + + + + + | Clarity, | CLEARComment: Testing | | EXTERNAL | | | Urine | performed at [facility], [address] | | LAB | | | | [address], | | | | | | [place] [address] | | | | + + + + + + | Specific | 1.015Comment: Testing | 1.002 - 1.030 | EXTERNAL | | | [place], | performed at [facility], [address] | | LAB | | | Urine | [address], | | | | | | [place] [address] | | | | + + + + + + | Leukocyte | MODERATE (A)Comment: | | EXTERNAL | | | Esterase, | Testing performed at | | LAB | | | Urine | [facility], [address] | | | | | | [place] | | | | | | [address] | | | | + + + + + + | Nitrite, | NEGATIVEComment: Testing | | EXTERNAL | | | Urine | performed at [facility], [address] | | LAB | | | | [address], | | | | | | [place] [address] | | | | + + + + + + | Urobilinoge | 0.2Comment: Testing | mg/dL | EXTERNAL | | | n, Urine | performed at [facility], [address] | | LAB | | | | [address], | | | | | | [place] [address] | | | | + + + + + + | Protein, | NEGATIVEComment: Testing | mg/dL | EXTERNAL | | | Urine | performed at [facility], [address] | | LAB | | | | [address], | | | | | | [place] [address] | | | | + + + + + + | pH, Urine | 6.5Comment: Testing | 5.0 - 8.0 | EXTERNAL | | | | performed at [facility], [address] | | LAB | | | | [address], | | | | | | [place] [address] | | | | + + + + + + | Blood, | LARGE (A)Comment: | | EXTERNAL | | | Urine | Testing performed at | | LAB | | | | [facility], [address] [facility] | | | | | | [place] | | | | | | [address] | | | | + + + + + + | Ketones | NEGATIVEComment: Testing | mg/dL | EXTERNAL | | | | performed at [facility], [address] | | LAB | | | | [address], | | | | | | [place] [address] | | | | + + + + + + | Bilirubin, | NEGATIVEComment: Testing | | EXTERNAL | | | Urine | performed at [facility], [address] | | LAB | | | | [address], | | | | | | [place] [address] | | | | + + + + + + | Glucose, | NEGATIVEComment: Testing | mg/dL | EXTERNAL | | | Urine | performed at [facility], [address] | | LAB | | | | [address], | | | | | | [place] [address] | | | | + + + + + + + + | Specimen | + + | | + + + +---------+ + + | Performing | Address | City/State/Zipcode | Phone Number | | Organization | | | | + +---------+ + + | EXTERNAL LAB | | | | + +---------+ + + Urinalysis, Microscopic Only (03/21/2014 1:17 PM PDT) + + + + + + | Component | Value | Ref Range | Performed | Pathologist | | | | | At | Signature | + + + + + + | WBC, UA | 1-5Comment: Testing | 0 - 5 /hpf | EXTERNAL | | | | performed at [facility], [address] | | LAB | | | | [address], | | | | | | [place] [address] | | | | + + + + + + | RBC, UA | 26-50Comment: Testing | 0 - 2 /hpf | EXTERNAL | | | | performed at [facility], [address] | | LAB | | | | [address], | | | | | | [place] [address] | | | | + + + + + + | Epithelial | 6-10Comment: Testing | /lpf | EXTERNAL | | | Cells | performed at [facility], [address] | | LAB | | | | [address], | | | | | | [place] [address] | | | | + + + + + + | Bacteria, | NONE SEENComment: | | EXTERNAL | | | UA | Testing performed at | | LAB | | | | [facility], [address] | | | | | | [place] | | | | | | [address] | | | | + + + + + + | Urinalysis | CULTURE TO | | EXTERNAL | | | Comments | FOLLOWComment: Testing | | LAB | | | | performed at [facility], [address] | | | | | | [address], | | | | | | [place] [address] | | | | + + + + + + + + | Specimen | + + | | + + + +---------+ + + | Performing | Address | City/State/Zipcode | Phone Number | | Organization | | | | + +---------+ + + | EXTERNAL LAB | | | | + +---------+ + + Gram Stain, reflex Sputum Culture (03/21/2014 1:17 PM PDT) + + | Specimen | + + | Body fluid sample | | (specimen) | + + + + + | Narrative | Performed At | + + + | Specimen Description TRACHEAL ASPIRATE GRAM | EXTERNAL LAB | | STAIN LESS THAN 10 SEC/LPF | | | GREATER THAN 10 WBCS/LPF | | | 4+ | | | GRAM POSITIVE | | | COCCI 2+ | | | GRAM NEGATIVE | | | RODS 1+ | | | GRAM POSITIVE | | | RODS CULTURE 3+ | | | NORMAL UPPER | | | RESPIRATORY THAD | | | NO FURTHER WORKUP | | | Testing performed at [facility], [address] [place], [place] | | | [address] | | + + + + +---------+ + + | Performing | Address | City/State/Zipcode | Phone Number | | Organization | | | | + +---------+ + + | EXTERNAL LAB | | | | + +---------+ + + Culture, Urine (03/21/2014 1:17 PM PDT) + + | Specimen | + + | | + + + + + | Narrative | Performed At | + + + | Specimen Description URINE, COLLECTION NOT | EXTERNAL LAB | | GIVEN CULTURE NO GROWTH | | | Testing performed | | | at [facility], [address] [place] [address] | | + + + + +---------+ + + | Performing | Address | City/State/Zipcode | Phone Number | | Organization | | | | + +---------+ + + | EXTERNAL LAB | | | | + +---------+ + + MRSA NAAT (03/21/2014 12:26 PM PDT) + + | Specimen | + + | | + + + + + | Narrative | Performed At | + + + | SOURCE NARES(NOSE) | EXTERNAL LAB | | Testing performed at [facility];[address] [place] [address];[place] [address] MRSA PCR | | | NEGATIVE Testing performed at | | | [address];[place] [address] | | + + + + +---------+ + + | Performing | Address | City/State/Zipcode | Phone Number | | Organization | | | | + +---------+ + + | EXTERNAL LAB | | | | + +---------+ + + Ammonia (03/21/2014 7:54 AM PDT) + + + + + + | Component | Value | Ref Range | Performed | Pathologist | | | | | At | Signature | + + + + + + | Ammonia | 34 (H)Comment: Testing | umol/L | EXTERNAL | | | | performed at [facility];[address] | | LAB | | | | [address];[place], [place] | | | | | | [address] | | | | + + + + + + + + | Specimen | + + | Blood specimen | | (specimen) | + + + +---------+ + + | Performing | Address | City/State/Zipcode | Phone Number | | Organization | | | | + +---------+ + + | EXTERNAL LAB | | | | + +---------+ + + Phosphorus (03/21/2014 7:32 AM PDT) + + + + + + | Component | Value | Ref Range | Performed | Pathologist | | | | | At | Signature | + + + + + + | PHOSPHORUS | 2.8Comment: Testing | 2.3 - 4.8 mg/dL | EXTERNAL | | | | performed at [facility];[address] | | LAB | | | | [address];[place] | | | | | | [address] | | | | + + + + + + + + | Specimen | + + | Blood specimen | | (specimen) | + + + +---------+ + + | Performing | Address | City/State/Zipcode | Phone Number | | Organization | | | | + +---------+ + + | EXTERNAL LAB | | | | + +---------+ + + Myoglobin (03/21/2014 7:32 AM PDT) + + + + + + | Component | Value | Ref Range | Performed | Pathologist | | | | | At | Signature | + + + + + + | MYOGLOBIN | 195.1 (H)Comment: QA | 16.3 - 96.5 | EXTERNAL | | | | FLAGS AND/OR RANGES | ng/mL | LAB | | | | MODIFIED BY DEMOGRAPHIC | | | | | | UPDATE ON 03/21 AT | | | | | | 0945Testing performed at | | | | | | [facility] [address] | | | | | | [facility];[place] [address] | | | | + + + + + + + + | Specimen | + + | Blood specimen | | (specimen) | + + + +---------+ + + | Performing | Address | City/State/Zipcode | Phone Number | | Organization | | | | + +---------+ + + | EXTERNAL LAB | | | | + +---------+ + + Magnesium (03/21/2014 7:32 AM PDT) + + + + + + | Component | Value | Ref Range | Performed | Pathologist | | | | | At | Signature | + + + + + + | Magnesium | 1.8Comment: Testing | 1.7 - 2.4 mg/dL | EXTERNAL | | | | performed at [facility] | | LAB | | | | [address];[place], [place] | | | | | | [address] | | | | + + + + + + + + | Specimen | + + | Blood specimen | | (specimen) | + + + +---------+ + + | Performing | Address | City/State/Zipcode | Phone Number | | Organization | | | | + +---------+ + + | EXTERNAL LAB | | | | + +---------+ + + Lactic Acid (03/21/2014 7:32 AM PDT) + + + + + + | Component | Value | Ref Range | Performed | Pathologist | | | | | At | Signature | + + + + + + | Lactate | 0.6Comment: Testing | 0.4 - 2.0 | EXTERNAL | | | | performed at [facility];[address] | mmol/L | LAB | | | | [address];[place], [place] | | | | | | [address] | | | | + + + + + + + + | Specimen | + + | Blood specimen | | (specimen) | + + + +---------+ + + | Performing | Address | City/State/Zipcode | Phone Number | | Organization | | | | + +---------+ + + | EXTERNAL LAB | | | | + +---------+ + + CK Total (03/21/2014 7:32 AM PDT) + + + + + + | Component | Value | Ref Range | Performed | Pathologist | | | | | At | Signature | + + + + + + | CK, Total | 3138 (H)Comment: QA | 55 - 400 U/L | EXTERNAL | | | | FLAGS AND/OR RANGES | | LAB | | | | MODIFIED BY DEMOGRAPHIC | | | | | | UPDATE ON 03/21 AT | | | | | | 0945Testing performed at | | | | | | [facility];[address] | | | | | | [address];[place] [address] | | | | + + + + + + + + | Specimen | + + | Blood specimen | | (specimen) | + + + +---------+ + + | Performing | Address | City/State/Zipcode | Phone Number | | Organization | | | | + +---------+ + + | EXTERNAL LAB | | | | + +---------+ + + Basic Metabolic Panel (03/21/2014 7:32 AM PDT) + + + + + + | Component | Value | Ref Range | Performed | Pathologist | | | | | At | Signature | + + + + + + | Na | 140Comment: Testing | 135 - 143 | EXTERNAL | | | | performed at [facility];[address] | mmol/L | LAB | | | | [address];[place] | | | | | | [address] | | | | + + + + + + | K | 3.5Comment: Testing | 3.5 - 4.9 | EXTERNAL | | | | performed at [facility];[address] | mmol/L | LAB | | | | [address];[place] | | | | | | [address] | | | | + + + + + + | Cl | 109Comment: Testing | 99 - 109 mmol/L | EXTERNAL | | | | performed at [facility];[address] | | LAB | | | | [address];[place] | | | | | | [address] | | | | + + + + + + | CO2 | 26Comment: Testing | 23 - 32 mmol/L | EXTERNAL | | | | performed at [facility];[address] | | LAB | | | | [address];[place] | | | | | | [address] | | | | + + + + + + | Anion Gap | 9Comment: Testing | 5 - 20 mmol/L | EXTERNAL | | | | performed at [facility];[address] | | LAB | | | | [address];[place] | | | | | | [address] | | | | + + + + + + | Glucose, | 94Comment: Testing | 65 - 99 mg/dL | EXTERNAL | | | Fasting | performed at [facility];[address] | | LAB | | | | [address];[place] | | | | | | [address] | | | | + + + + + + | BUN | 6 (L)Comment: Testing | 8 - 25 mg/dL | EXTERNAL | | | | performed at [facility];[address] | | LAB | | | | [address];[place] | | | | | | [address] | | | | + + + + + + | Creatinine | 0.68 (L)Comment: QA | 0.70 - 1.30 | EXTERNAL | | | | FLAGS AND/OR RANGES | mg/dL | LAB | | | | MODIFIED BY DEMOGRAPHIC | | | | | | UPDATE ON 03/21 AT | | | | | | 0945Testing performed at | | | | | | [facility];[address];[place] [address] | | | | + + + + + + | BUN/Creatin | 10Comment: Testing | | EXTERNAL | | | ine Ratio | performed at [facility];[address] | | LAB | | | | [address];[place] | | | | | | [address] | | | | + + + + + + | Calcium | 7.6 (L)Comment: Testing | 8.5 - 10.2 | EXTERNAL | | | | performed at [facility];[address] | mg/dL | LAB | | | | [address];[place], [place] | | | | | | [address] | | | | + + + + + + | Estimated | >60Comment: GFR <60: | mL/min/1.73m2 | EXTERNAL | | | GFR | CHRONIC KIDNEY DISEASE, | | LAB | | | | IF FOUND OVER A 3 MONTH | | | | | | PERIOD.GFR <15: KIDNEY | | | | | | FAILURE.FOR | | | | | | AMERICANS, MULTIPLY THE | | | | | | CALCULATED GFR BY | | | | | | 1.210.Testing performed | | | | | | at [facility];[address];[place] [address] | | | | + + + + + + + + | Specimen | + + | Blood specimen | | (specimen) | + + + +---------+ + + | Performing | Address | City/State[facility] | Phone Number | | Organization | | | | + +---------+ + + | EXTERNAL LAB | | | | + +---------+ + + XR Pelvis 1 or 2 Vw (03/21/2014 7:17 AM PDT) + + | Specimen | + + | | + + + + + | Impressions | Performed At | + + + | 1. No acute findings. | | + + + + + + | Narrative | Performed At | + + + | [facility] [employer] XR PELVIS 1-2 VIEW 03/21/2014 7:17 AM | | | HISTORY: Fall with trauma to the pelvis. TECHNIQUE: One view | | | pelvis. FINDINGS: No comparison. The femoral heads projecting | | | joint. No acute pelvic fracture or diastases could be identified. | | + + + + + | Procedure Note | + + | Jeremy Ly Conversion - 01/28/2019 5:12 PM PDT [facility] PELVIS 1-2 | | VIEW03/21/2014 7:17 AM HISTORY:Fall with trauma to the pelvis. TECHNIQUE:One view pelvis. | | FINDINGS:No comparison. The femoral heads projecting joint. No acute pelvic fracture or | | diastases could be identified. IMPRESSION: 1. No acute findings. | |Fall with trauma to the pelvis. | | | |TECHNIQUE: | |One view pelvis. | | | |FINDINGS: | |No comparison. The femoral heads projecting joint. No acute pelvic fracture or diastases co uld be identified. | | | |IMPRESSION: | |1. No acute findings. | | | | | + + XR Chest 1 Vw (03/21/2014 7:17 AM PDT) + + | Specimen | + + | | + + + + + | Impressions | Performed At | + + + | 1. Tubes and lines, as above. 2. Mild left lower lobe | | | atelectasis. Electronically signed by Jad Coker MD on | | | 03/21/2014 7:39 AM | | + + + + + + | Narrative | Performed At | + + + | LADARIUS ABBASI XR CHEST 1 VIEW 03/21/2014 7:17 AM HISTORY: | | | Respiratory failure. TECHNIQUE: One view of the chest. | | | FINDINGS: Compared with 03/21/14 at 0316 hours. The endotracheal tube | | | tip is 2 cm above the molly. Nasogastric tube tip projects below the | | | diaphragm. Heart size is normal. There is mild atelectasis in the left | | | lung base behind the cardiac shadow. No pneumothorax or pleural | | | effusion. | | + + + + + | Procedure Note | + + | Malachi, Rad Conversion - 01/28/2019 5:12 PM PDT LADARIUS FREITASPENTOINOCENCIOXR CHEST 1 | | VIEW03/21/2014 7:17 AM HISTORY:Respiratory failure. TECHNIQUE:One view of the chest. | | FINDINGS:Compared with 03/21/14 at 0316 hours. The endotracheal tube tip is 2 cm above | | the molly. Nasogastric tube tip projects below the diaphragm. Heart size is normal. | | There is mild atelectasis in the left lung base behind the cardiac shadow. No | | pneumothorax or pleural effusion. IMPRESSION: 1. Tubes and lines, as above.2. Mild | | left lower lobe atelectasis. Electronically signed by Jad Coker MD on | | 03/21/2014 7:39 AM | |One view of the chest. | | | |FINDINGS: | |Compared with 03/21/14 at 0316 hours. The endotracheal tube tip is 2 cm above the molly. Na sogastric tube tip projects below the diaphragm. Heart size is normal. There is mild atelect asis in the left lung base behind the | |cardiac shadow. No pneumothorax | |or pleural effusion. | | | |IMPRESSION: | |1. Tubes and lines, as above. | |2. Mild left lower lobe atelectasis. | | | | | + + CT Head Cervical Spine wo Contrast (03/21/2014 6:23 AM PDT) + + | Specimen | + + | | + + + + + | Impressions | Performed At | + + + | Head CT: No acute or focal intracranial abnormality. Ancillary | | | findings as outlined above. Medial blowout fracture right orbit , | | | possibly old . Cervical Spine CT: No evidence of fracture or | | | malalignment in the cervical spine . Patchy bilateral apical lung | | | disease . [facility] Electronically signed by Kermit Olivo MD on | | | Mar 21 2014 6:45AM Referring Provider Line: [phone] ID: | | | [id number] | | + + + + + + | Narrative | Performed At | + + + | EXAM: CT HEAD AND CERVICAL SPINE EXAM DATE: 03/21/2014 06:24 AM. | | | CLINICAL HISTORY: Trauma. Intubated COMPARISON: None. | | | TECHNIQUE: Noncontrast axial sections through the head and cervical | | | spine. Reformats: Coronal and sagittal of the cervical spine. | | | FINDINGS CT HEAD: Parenchyma: No intracranial hemorrhage. No evidence | | | of mass, midline shift or CT findings of infarction. Neri-white | | | differentiation is distinct. Extraaxial Spaces: Normal for age. No | | | subdural or epidural collections identified. Ventricles: Normal | | | in size and position. Bones: No evidence of fracture or | | | calvarial defect. Right-sided wall and mastoidectomy Other: | | | Mucosal thickening and opacification of multiple ethmoid air cells. | | | Medial blowout fracture right orbit , possibly old . Mucosal | | | thickening and retained secretions within the maxillary antra | | | bilaterally. Retained secretions within the right frontal sinus. | | | FINDINGS CT CERVICAL SPINE: Alignment: Normal. No scoliosis or | | | spondylolisthesis. Bones: No fracture or bone lesion. | | | Interspace Levels/Facets: C1-C2: Unremarkable. C2-C3: | | | Unremarkable. C3-C4: Unremarkable. C4-C5: Unremarkable. | | | C5-C6: Unremarkable. C6-C7: Unremarkable. C7-T1: Mild | | | right-sided facet osteoarthritis Spinal Canal: Normal. | | | Musculature: Normal. No fatty atrophy. Other: There is patchy | | | bilateral apical lung disease, right greater than left . Endotracheal | | | and nasogastric tube in position | | + + + + + | Procedure Note | + + | Malachi, Rad Conversion - 01/28/2019 5:12 PM PDT EXAM:CT HEAD AND CERVICAL SPINEEXAM | | DATE: 03/21/2014 06:24 AM. CLINICAL HISTORY: Trauma. Intubated COMPARISON: None. | | TECHNIQUE: Noncontrast axial sections through the head and cervical spine. Reformats: | | Coronal and sagittal of the cervical spine. FINDINGS CT HEAD:Parenchyma: No intracranial | | hemorrhage. No evidence of mass, midline shift or CT findings of infarction. Neri-white | | differentiation is distinct. Extraaxial Spaces: Normal for age. No subdural or epidural | | collections identified. Ventricles: Normal in size and position. Bones: No evidence of | | fracture or calvarial defect. Right-sided wall and mastoidectomy Other: Mucosal | | thickening and opacification of multiple ethmoid air cells. Medial blowout fracture | | right orbit , possibly old . Mucosal thickening and retained secretions within the | | maxillary antra bilaterally. Retained secretions within the right frontal sinus. | | FINDINGS CT CERVICAL SPINE:Alignment: Normal. No scoliosis or spondylolisthesis. Bones: | | No fracture or bone lesion. Interspace Levels/Facets:C1-C2: Unremarkable. C2-C3: | | Unremarkable. C3-C4: Unremarkable. C4-C5: Unremarkable. C5-C6: Unremarkable. C6-C7: | | Unremarkable. C7-T1: Mild right-sided facet osteoarthritis Spinal Canal: Normal. | | Musculature: Normal. No fatty atrophy. Other: There is patchy bilateral apical lung | | disease, right greater than left . Endotracheal and nasogastric tube in position | | IMPRESSION: Head CT: No acute or focal intracranial abnormality. Ancillary findings as | | outlined above. Medial blowout fracture right orbit , possibly old .Cervical Spine CT: | | No evidence of fracture or malalignment in the cervical spine . Patchy bilateral apical | | lung disease . [facility] Electronically signed by Kermit Olivo MD on Mar 21 2014 6:45AM | | Referring Provider Line: [phone] ID: [id number] | | | |FINDINGS CT CERVICAL SPINE: | |Alignment: Normal. No scoliosis or spondylolisthesis. | | | |Bones: No fracture or bone lesion. | | | |Interspace Levels/Facets: | |C1-C2: Unremarkable. | | | |C2-C3: Unremarkable. | | | |C3-C4: Unremarkable. | | | |C4-C5: Unremarkable. | | | |C5-C6: Unremarkable. | | | |C6-C7: Unremarkable. | | | |C7-T1: Mild right-sided facet osteoarthritis | | | |Spinal Canal: Normal. | | | |Musculature: Normal. No fatty atrophy. | | | |Other: There is patchy bilateral apical lung disease, right greater than left . Endotrachea l and nasogastric tube in position | | | |IMPRESSION: | | | |Head CT: No acute or focal intracranial abnormality. Ancillary findings as outlined above. Medial blowout fracture right orbit , possibly old . | |Cervical Spine CT: No evidence of fracture or malalignment in the cervical spine . Patchy b ilateral apical lung disease . | | | |[facility] | | | | Electronically signed by Kermit Olivo MD on Mar 21 2014 6:45AM Referring Provider Line: [phone] ID: [id number] | + + XR Chest 1 Vw (03/21/2014 6:06 AM PDT) + + | Specimen | + + | | + + + + + | Narrative | Performed At | + + + | This is a non-reportable procedure without a radiologist report and | | | is used for image storage only | | + + + + + | Procedure Note | + + | Jeremy Ly - 01/28/2019 5:12 PM PDT This is a non-reportable procedure | | without a radiologist report and isused for image storage only | + + documented in this encounter Visit Diagnoses + + | Diagnosis | + + | Hypotension, unspecified | + + | Acute respiratory failure (HCC) Acute respiratory failure | + + | Altered mental status | + + | Alcohol withdrawal syndrome (HCC) Alcohol withdrawal | + + | Unspecified essential hypertension | + + | DTs (delirium tremens) (HCC) Alcohol withdrawal delirium | + + documented in this encounter
--- OUTSIDE RECORDS SUMMARY | ~2020-01-14 | XMS | Clinical Summary ---
Demographics + + + | Address | [address] | | | [place] [address] | + + + | Home Phone | | + + + | Preferred Language | Unknown | + + + | Marital Status | | + + + | Amish Affiliation | Unknown | + + + [...] [place], [place] | | | | | [id number] | | + + + + + Care Team Providers + +------+ + | Care Bookkeeping Clerks Supervisor Name | Role | Phone | + +------+ + | Wei [place] | PCP | | + +------+ + Source Comments [facility] is fully live on both [facility] and [facility] Allergies No Known Allergies Medications + + [...] PLUS | | 14-Pre | 6 | [id number] | id | | | OPEN | | sent | | [place], [place] | | | | CARD | | | | [id number] | | + +--------+ +--------+ + +--------+ | [facility] | [facility] | [phone] | Effect | | | [...] Self | [birth year] | | [id number] | | | al/Fam | | 1956 | [phone] | [place], [place] | | | hillary | | | [address] (Home) | [phone] | + +--------+ +--------+ + + | Ladarius Sheriff | Agency | Self | [birth year] | | [id number] | | | | | 1956 | [phone] | [place], [place] | | | | | | [address] (Home) | [phone] | + +--------+ +--------+ + +"
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
--- OUTSIDE RECORDS SUMMARY | ~2020-01-14 | XMS | Encounter Summary ---
Demographics + + + | Address | [place] [address] | | | [place] [address] | + + + | Home Phone | | + + + | Preferred Language | Unknown | + + + | Marital Status | | + + + | Hinduism Affiliation | Unknown | + + + | Race | or | + + + | Ethnic Group | Not or | + + + Author + + + | Author | [facility] | + + + | Organization | [facility] [facility] | + + + | Address | Unknown | + + + | Phone | Unavailable | + + + Support + + + + + | Name | Relationship | Address | Phone | + + + + + | Elen Sheriff | ECON | [address] | | | | | #[place], [place] | | | | | [address] | | + + + + + Care Team Providers + +------+ + | Care Classroom Coordinator Name | Role | Phone | [...] Clinic | | | | | | [facility], [address] | | | | | [place], [place] | | | | | | [address] | | | | | | [phone] | | | +--------+ + + + [...] as of this encounter Progress Notes Interface, 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 Fidencio Claire M.D. Professor and Mathematical Statistician, Department of Otolaryngology Head and Neck Surgery MOR[place]IA:rani documented in this encounter Plan of Treatment Not on filedocumented as of this encounter Visit Diagnoses Not on filedocumented in this encounter"
--- OUTSIDE RECORDS SUMMARY | ~2020-01-14 | XMS | Encounter Summary ---
Demographics + + + | Address | [address] | | | [place] [address] | + + + | Home Phone | | + + + | Preferred Language | Unknown | + + + | Marital Status | Single | + + + | Jewish Affiliation | Unknown | + + + | Race | Unknown | + + + | Ethnic Group | Unknown | + + + Author + + + | Author | [facility] | | | and [place] | + + + | Organization | [facility] | | | [...] Team Providers + +------+ + | Care Supervisor Rose Grading Name | Role | Phone | + +------+ + PCP | Unavailable | + +------+ + Encounter Details +--------+ + + + + | Date | Type | Department | Care Team | Description | +--------+ + + + + | 04/03/ | [facility] | [facility] | Raymond Cuevas | | | 2007 | Encounter | MED CTR XRAY [address] | MD [address] [facility] | | | | | [place] | [place] | | | | | [place] [address] | [phone] | | | | | [phone] | | | +--------+ + + + [...]
[~2020-01-14 11:00] MED LIST changes: +ADVIL200 M1 PO; +BACTRIM DS TAB1 EACH PO; +HYDROCODON-ACE1 EA11 PO
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
== END 2020-01-14 12:32 | disposition home or self-care (01) ==
LOC: ED 11:00
DX: F10.129 Alcohol abuse with intoxication, unspecified (principal); F17.200 Nicotine dependence, unspecified, uncomplicated
CPT/HCPCS: 80053; 83735; 85025; 99284; J7030

== ENCOUNTER 2021-04-11 08:39 | Emergency (ER) | payer OTHER ==
[~2021-04-11] VITALS: Ht 165.1 cm; Wt 74.8 kg
[~2021-04-11 08:39] MED LIST changes: +AUGMENTIN 875-1 EACH PO; +HYDROCODON-ACE1 EA10 PO; +LIDOCAINE PAIN1 EACH TD; +METOPROLOL SUC100 MG PO; +NICOTINE1 EAC2 TD; +OXYCODONE HCL5 MG PO; +SENNA-S 8.6-501 EACH PO; +THERA TABLET400 MCG PO; +VITAMIN B-1100 MG PO
--- NOTE | 2021-04-11 20:23 | EKG ---
[facility] [address] [place], [place] [address] Signed Sinus tachycardia Otherwise normal ECG When compared with ECG of 10-SEP-2020 03:44, No significant change was found Confirmed by CHRISTI EASTMAN DO ([id number]) on 04/11/2021 8:23:26 PM Electronically Signed By: CHRISTI EASTMAN DO 04/11/212022 PATIENT NAME: GABRIELA ABBASI Electrocardiogram DATE OF : 59 PHYSICIAN: CHRISTI EASTMAN DO REPORT #: [id number] REPORT IS CONFIDENTIAL AND NOT TO BE RELEASED WITHOUT AUTHORIZATION
== END 2021-04-11 14:53 | disposition home or self-care (01) ==
LOC: ED 08:39
DX: K29.70 Gastritis, unspecified, without bleeding (principal); Z20.822 Contact with and (suspected) exposure to COVID-19; F17.200 Nicotine dependence, unspecified, uncomplicated
CPT/HCPCS: 74177; 80053; 83690; 84484; 85025; 93005; 93010; 99284-25; C9803; G0480; J1170; J2405; J7030; Q9967; U0003

== ENCOUNTER 2021-10-01 22:37 | Emergency (ER) | payer OTHER ==
[~2021-10-01] VITALS: Ht 165.1 cm; Wt 76.1 kg
--- NOTE | 2021-10-02 07:34 | EKG ---
[facility] [address] [place] [address] Signed Normal sinus rhythm Normal ECG When compared with ECG of 15-APR-2021 15:56, No significant change was found Confirmed by NATHAN RINCON MD ([id number]) on 10/02/2021 7:34:40 AM Electronically Signed By: NATHAN RINCON MD 10/02/21 0734 PATIENT NAME: GABRIELA ABBASI Electrocardiogram DATE OF : 59 PHYSICIAN: NATHAN RINCON MD REPORT #: [id number] REPORT IS CONFIDENTIAL AND NOT TO BE RELEASED WITHOUT AUTHORIZATION
== END 2021-10-02 01:54 | disposition home or self-care (01) ==
LOC: ED 22:37
DX: R10.31 Right lower quadrant pain (principal); R74.01 Elevation of levels of liver transaminase levels; R07.89 Other chest pain; F17.200 Nicotine dependence, unspecified, uncomplicated
CPT/HCPCS: 36415; 71045; 80053; 81001; 83690; 84484; 85025; 85060; 93005; 93010; 96374; 96375; 99284-25; G0480; J2405

== ENCOUNTER 2022-09-21 20:17 | Emergency (ER) | payer OTHER ==
[~2022-09-21] VITALS: Ht 165.1 cm; Wt 76.1 kg
== END 2022-09-21 22:30 | disposition home or self-care (01) ==
LOC: ED 20:17
DX: F10.229 Alcohol dependence with intoxication, unspecified (principal); S00.03XA Contusion of scalp, initial encounter; W18.30XA Fall on same level, unspecified, initial encounter; F17.200 Nicotine dependence, unspecified, uncomplicated; E87.1 Hypo-osmolality and hyponatremia
CPT/HCPCS: 36415; 70450; 72125; 80053; 85025; 96374; 99284-25; G0480; J3411; J7030

== ENCOUNTER 2022-10-30 19:17 | Emergency (ER) | payer OTHER ==
[~2022-10-30] VITALS: Ht 165.1 cm; Wt 75.8 kg
[2022-10-30 22:20] VITALS: BP 114/67
== END 2022-10-30 22:35 | disposition home or self-care (01) ==
LOC: ED 19:17
DX: F10.129 Alcohol abuse with intoxication, unspecified (principal); E83.42 Hypomagnesemia; F17.200 Nicotine dependence, unspecified, uncomplicated
CPT/HCPCS: 36415; 74177; 80053; 81003; 82553; 83605; 83690; 83735; 85025; 96375; 99284-25; J2405; J3475; J7030; Q9967

== ENCOUNTER 2023-01-25 11:48 | Emergency (ER) | payer OTHER ==
[~2023-01-25] VITALS: Ht 165.1 cm; Wt 75.8 kg
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
[2023-01-25 12:50] VITALS: BP 128/85
== END 2023-01-25 13:06 | disposition left against medical advice (07) ==
LOC: ED 11:48
DX: S01.81XA Laceration without foreign body of other part of head, initial encounter (principal); W19.XXXA Unspecified fall, initial encounter; F17.200 Nicotine dependence, unspecified, uncomplicated; Z53.21 Procedure and treatment not carried out due to patient leaving prior to being seen by health care provider
CPT/HCPCS: 70450; 90471; 90715; 99283-25; A9270

== ENCOUNTER 2023-10-22 18:03 | Emergency (ER) | payer OTHER ==
[~2023-10-22] VITALS: Ht 165.1 cm; Wt 69.7 kg
[2023-10-22] MEDS ORDERED: ONDANSETRON ODT4 MG (18:21)
[2023-10-22] MEDS ORDERED: HYDROCORTISO453.6 GM (18:21)
[2023-10-22] MEDS ORDERED: KETOROLAC TROMETHAMINE 30 MG/ML VIAL IM ONE (19:45)
[2023-10-22 21:58] VITALS: BP 126/83
== END 2023-10-22 21:55 | disposition home or self-care (01) ==
LOC: ED 18:03
DX: S01.81XA Laceration without foreign body of other part of head, initial encounter (principal); F10.229 Alcohol dependence with intoxication, unspecified; W18.30XA Fall on same level, unspecified, initial encounter; F17.200 Nicotine dependence, unspecified, uncomplicated
CPT/HCPCS: 12002; 70450; 70486; 72125; 99283-25; J1885

== ENCOUNTER 2023-11-09 22:42 | Emergency (ER) | payer OTHER ==
[~2023-11-09] VITALS: Ht 165.1 cm; Wt 74.1 kg
[~2023-11-09 22:42] MED LIST changes: +HYDROCORTISO453.6 GM; +ONDANSETRON ODT4 MG
[2023-11-09] MEDS ORDERED: LACTATED RINGER'S 1,000 ML IV ONE (22:45)
[2023-11-09] MEDS ORDERED: CEFAZOLIN SODIUM 2 GM/20 ML SYR IV ONE (22:45)
[2023-11-09] MEDS ORDERED: fentaNYL citrate 100 MCG/2 ML VIAL IV PRN (23:15)
[2023-11-09 23:27] LABS: BILIRUBIN, URINE NEGATIVE (negative); BLOOD/HGB, URINE NEGATIVE (Negative); KETONE, URINE NEGATIVE (Negative); LEUK ESTERASE, URINE NEGATIVE (negative); NITRITE, URINE NEGATIVE (negative)
[2023-11-09 23:37] LABS: HEMATOCRIT 20.5 % (35.0-50.0); MCH 23.2 (27-36); MCHC 28.2 g/dl (30-36); MCV 82.4 fl (81-99); PLATELET COUNT 280 K/uL (140-440); RBC 2.48 M/ul (4.3-5.7); RDW 20.2 (10.5-15.0)
[2023-11-09 23:40] LABS: ALBUMIN 2.4 g/dL (3.4-5.0); ALBUMIN/GLOBULIN RATIO 0.62 (1.1-2.4); ANION GAP 31.3 (7-21); BILIRUBIN, TOTAL 0.4 ng/dL (0.2-1.0); BUN/CREATININE RATIO 8.53 (6.0-28.6); CALCIUM 7.4 mg/dL (8.5-10.1); CREATININE, SERUM 1.64 mg/dL (0.70-1.30); POTASSIUM 3.3 mmol/L (3.5-5.1); PROTEIN, TOTAL 6.3 g/dL (6.4-8.2)
[2023-11-09 23:41] LABS: HEMOGLOBIN 5.8 g/dL (12.0-18.0)
[2023-11-09 23:43] LABS: AMPHETAMINES, URINE NEGATIVE (NEGATIVE); BARBITURATES, URINE NEGATIVE (NEGATIVE); BENZODIAZEPINE, URINE NEGATIVE (NEGATIVE); BUPRENORPHINE, URINE NEGATIVE (NEGATIVE); CANNABINOID, URINE NEGATIVE (NEGATIVE); COCAINE, URINE NEGATIVE (NEGATIVE); ECSTASY, URINE NEGATIVE (NEGATIVE); FENTANYL, URINE NEGATIVE (NEGATIVE); METHADONE, URINE NEGATIVE (NEGATIVE); OPIATES, URINE NEGATIVE (NEGATIVE); OXYCODONE, URINE NEGATIVE (NEGATIVE); PHENCYCLIDINE, URINE NEGATIVE (NEGATIVE)
[2023-11-09 23:55] LABS: BANDS, MANUAL DIFF 13; BASOPHILS, MANUAL DIFF 1; LYMPHOCYTES, MANUAL DIFF 10; MONOCYTES, MANUAL DIFF 3; NEUTROPHILS, MANUAL DIFF 73
[2023-11-10 00:28] LABS: ABO O; ANTIBODY SCREEN NEGATIVE; RH POSITIVE
[2023-11-10 05:01] VITALS: BP 116/50
[2023-11-11 09:07] LABS: IS CROSSMATCH COMPATIBLE
== END 2023-11-09 23:59 | disposition short-term general hospital (02) ==
LOC: ED 22:42
PROVIDERS: Internal Medicine
DX: S82.392B Other fracture of lower end of left tibia, initial encounter for open fracture type I or II (principal); S82.832B Other fracture of upper and lower end of left fibula, initial encounter for open fracture type I or II; S82.142B Displaced bicondylar fracture of left tibia, initial encounter for open fracture type I or II; F17.200 Nicotine dependence, unspecified, uncomplicated; X58.XXXA Exposure to other specified factors, initial encounter; Z79.899 Other long term (current) drug therapy; Z96.7 Presence of other bone and tendon implants
CPT/HCPCS: 27825; 36415; 36430; 71045; 72170; 73590; 80053; 80307; 81003; 82553; 85025; 86850; 86900; 86901; 86922; 99284-25; G0480; J0690; J3010; J7121; P9016

== ENCOUNTER 2024-03-22 16:03 | Emergency (ER) | payer OTHER ==
[~2024-03-22] VITALS: Ht 165.1 cm; Wt 69.0 kg
[2024-03-22] MEDS ORDERED: FEROSUL325 MG PO ×2 (16:29→17:30)
[2024-03-22] MEDS ORDERED: METHOCARBAMOL500 MG (16:30)
[2024-03-22] MEDS ORDERED: ZANAFLEX4 MG PO (16:30)
[2024-03-22] MEDS ORDERED: ASPIRIN81 MG PO (16:30)
[2024-03-22] MEDS ORDERED: PEG3350510 GM (16:30)
[2024-03-22] MEDS ORDERED: SODIUM CHLORI1000 M2 (16:30)
[2024-03-22] MEDS ORDERED: GABAPENTIN600 MG PO (16:30)
[2024-03-22] MEDS ORDERED: DOCUSATE SODIU100 MG PO (16:30)
[2024-03-22] MEDS ORDERED: MILK OF MA400 MG/5 M PO (16:30)
[2024-03-22] MEDS ORDERED: ACETAMINOPHEN325 M1 PO (16:30)
[2024-03-22] MEDS ORDERED: TIZANIDINE HCL2 MG PO (16:31)
[2024-03-22] MEDS ORDERED: OXYCODONE HCL5 MG PO (16:31)
[2024-03-22] MEDS ORDERED: OXYCODONE HCL 5 MG TAB PO ONE (16:45)
[2024-03-22 16:56] LABS: BASOPHILS 3.5 % (0-2); EOSINOPHILS 6.9 % (0-6); HEMATOCRIT 26.3 % (35.0-50.0); HEMOGLOBIN 8.1 g/dL (12.0-18.0); LYMPHOCYTES 30.8 % (24-44); MCH 19.6 (27-36); MCHC 30.8 g/dl (30-36); MCV 63.7 fl (81-99); MONOCYTES 7.5 % (0-12); NEUTROPHILS 51.3 % (39-80); PLATELET COUNT 382 K/uL (140-440); RBC 4.13 M/ul (4.3-5.7); RDW 17.1 (10.5-15.0)
[2024-03-22 17:31] LABS: ABO O; ANTIBODY SCREEN NEGATIVE; RH POSITIVE
[2024-03-22 17:34] VITALS: BP 150/80
== END 2024-03-22 17:40 | disposition home or self-care (01) ==
LOC: ED 16:03
PROVIDERS: Emergency Medicine
DX: D64.9 Anemia, unspecified (principal); F17.200 Nicotine dependence, unspecified, uncomplicated; Z79.899 Other long term (current) drug therapy; Z79.82 Long term (current) use of aspirin
CPT/HCPCS: 36415; 85025; 85060; 86850; 86900; 86901; 99285; A9270

== ENCOUNTER 2024-07-08 20:35 | Emergency (ER) | payer OTHER ==
[~2024-07-08] VITALS: Ht 165.1 cm; Wt 76.7 kg
[~2024-07-08 20:35] MED LIST changes: +ACETAMINOPHEN325 M1 PO; +ASPIRIN81 MG PO; +DOCUSATE SODIU100 MG PO; +FEROSUL325 MG PO; +GABAPENTIN600 MG PO; +METHOCARBAMOL500 MG; +MILK OF MA400 MG/5 M PO; +PEG3350510 GM; +SODIUM CHLORI1000 M2; +TIZANIDINE HCL2 MG PO; +ZANAFLEX4 MG PO
[2024-07-08 20:36] VITALS: BP 126/62
[2024-07-08] MEDS ORDERED: MULTIVITAMINS 10 ML,FOLIC ACID 1 MG,THIAMINE HCL 100 MG in SODIUM CHLORIDE 0.9% 1,000 ML IV ONE (20:45)
[2024-07-08] MEDS ORDERED: FOLIC ACID 1 MG/0.2 ML ML ONE (21:08)
[2024-07-08 21:55] LABS: HEMATOCRIT 33.7 % (35.0-50.0); HEMOGLOBIN 10.3 g/dL (12.0-18.0); LYMPHOCYTES 36.1 % (24-44); MCH 22.6 (27-36); MCHC 30.7 g/dl (30-36); MCV 73.8 fl (81-99); MONOCYTES 5.9 % (0-12); PLATELET COUNT 293 K/uL (140-440); RBC 4.56 M/ul (4.3-5.7); RDW 19.6 (10.5-15.0)
[2024-07-08 22:07] LABS: ALBUMIN 3.3 g/dL (3.4-5.0); ALBUMIN/GLOBULIN RATIO 0.66 (1.1-2.4); BILIRUBIN, TOTAL 0.4 ng/dL (0.2-1.0); BUN/CREATININE RATIO 15.18 (6.0-28.6); CALCIUM 8.3 mg/dL (8.5-10.1); CREATININE, SERUM 0.79 mg/dL (0.70-1.30); MAGNESIUM 1.8 mg/dL (1.8-2.4); PROTEIN, TOTAL 8.3 g/dL (6.4-8.2)
[2024-07-08 22:25] LABS: ABO O; ANTIBODY SCREEN NEGATIVE; RH POSITIVE
[2024-07-08 22:45] LABS: BILIRUBIN, URINE NEGATIVE (negative); BLOOD/HGB, URINE LARGE (Negative); KETONE, URINE NEGATIVE (Negative); LEUK ESTERASE, URINE NEGATIVE (negative); NITRITE, URINE NEGATIVE (negative)
[2024-07-08 22:59] LABS: AMPHETAMINES, URINE NEGATIVE (NEGATIVE); BARBITURATES, URINE NEGATIVE (NEGATIVE); BENZODIAZEPINE, URINE NEGATIVE (NEGATIVE); BUPRENORPHINE, URINE NEGATIVE (NEGATIVE); CANNABINOID, URINE POSITIVE (NEGATIVE); COCAINE, URINE NEGATIVE (NEGATIVE); ECSTASY, URINE NEGATIVE (NEGATIVE); FENTANYL, URINE NEGATIVE (NEGATIVE); METHADONE, URINE NEGATIVE (NEGATIVE); OPIATES, URINE NEGATIVE (NEGATIVE); OXYCODONE, URINE NEGATIVE (NEGATIVE); PHENCYCLIDINE, URINE NEGATIVE (NEGATIVE)
[2024-07-08 23:05] LABS: BACTERIA, URINE RARE /hpf (negative); CASTS, URINE NONE SEEN \\lpf; CRYSTALS, URINE NONE SEEN (0-1+); EPITHELIAL CELLS, URINE NONE SEEN /lpf (0-1+); RED BLOOD CELLS, URINE 41-50 /hpf (0-5)
[2024-07-08 23:06] LABS: COLLECTION TYPE, URINE CLEAN CATCH; REFLEX CULTURE, URINE No (No)
--- NOTE | 2024-07-09 21:34 | EKG ---
[facility] [address] [place] [address] Signed Normal sinus rhythm Prolonged QT Abnormal ECG When compared with ECG of 01-OCT-2021 23:47, No significant change was found Confirmed by Uziel Virgen MD () on 07/09/2024 9:34:13 PM Electronically Signed By: UZIEL VIRGEN MD 07/09/24 213 PATIENT NAME: GABRIELA ABBASI Electrocardiogram DATE OF : 59 PHYSICIAN: UZIEL VIRGEN MD REPORT #: [id number] REPORT IS CONFIDENTIAL AND NOT TO BE RELEASED WITHOUT AUTHORIZATION
== END 2024-07-09 06:36 | disposition home or self-care (01) ==
LOC: ED 20:35
PROVIDERS: Internal Medicine
DX: S01.21XA Laceration without foreign body of nose, initial encounter (principal); S01.81XA Laceration without foreign body of other part of head, initial encounter; F10.929 Alcohol use, unspecified with intoxication, unspecified; Y90.8 Blood alcohol level of 240 mg/100 ml or more; F17.200 Nicotine dependence, unspecified, uncomplicated; Z79.82 Long term (current) use of aspirin; Z79.899 Other long term (current) drug therapy; W18.30XA Fall on same level, unspecified, initial encounter
CPT/HCPCS: 12013; 36415; 51798; 70450; 70486; 71045; 72125; 72170; 80053; 80307; 81001; 82553; 83690; 83735; 84484; 85025; 86850; 86900; 86901; 93005; 93010; 94799; 99284-25; G0480; J3411; J7030

== ENCOUNTER 2024-11-21 15:49 | Emergency (ER) | payer OTHER ==
[~2024-11-21] VITALS: Ht 165.1 cm; Wt 70.0 kg
[2024-11-21 16:19] LABS: BASOPHILS 1.5 % (0.2-1.2); EOSINOPHILS 4.8 % (0.8-7.0); HEMATOCRIT 26.1 % (40.1-51.0); HEMOGLOBIN 8.1 g/dL (13.7-17.5); LYMPHOCYTES 33.7 % (21.8-53.1); MCH 23.7 PG (25.7-32.2); MCV 76.3 fL (79.0-92.2); MONOCYTES 12.9 % (5.3-12.2); NEUTROPHILS 46.7 % (34.0-67.9); PLATELET COUNT 139 K/uL (163-337); RBC 3.42 M/uL (4.63-6.08)
[2024-11-21] MEDS ORDERED: SODIUM CHLORIDE 0.9% 1,000 ML IV PRN (16:30)
[2024-11-21] MEDS ORDERED: ACETAMINOPHEN 500 MG TAB PO ONE (16:30)
[2024-11-21 16:31] LABS: ALBUMIN/GLOBULIN RATIO 0.7 (1.1-2.4); ANION GAP 17.7 (7-21); BILIRUBIN, TOTAL 0.9 mg/dL (0.2-1.0); BUN/CREATININE RATIO 10.4 (6.0-28.6); CALCIUM 7.7 mg/dL (8.5-10.1); CREATININE, SERUM 1.25 mg/dL (0.70-1.30); POTASSIUM 3.7 mmol/L (3.5-5.1); PROTEIN, TOTAL 7.3 g/dL (6.4-8.2)
[2024-11-21 16:38] LABS: LACTIC ACID, BLOOD 2.4 mmol/L (0.4-2.0)
[2024-11-21 18:50] LABS: BILIRUBIN, URINE NEGATIVE (negative); BLOOD/HGB, URINE NEGATIVE (Negative); KETONE, URINE NEGATIVE (Negative); LEUK ESTERASE, URINE NEGATIVE (negative); NITRITE, URINE NEGATIVE (negative)
[2024-11-22 05:51] VITALS: BP 101/67
== END 2024-11-22 05:58 | disposition home or self-care (01) ==
LOC: ED 15:49
PROVIDERS: Emergency Medicine
DX: R91.1 Solitary pulmonary nodule (principal); F10.129 Alcohol abuse with intoxication, unspecified; R59.0 Localized enlarged lymph nodes; F17.200 Nicotine dependence, unspecified, uncomplicated; Z79.899 Other long term (current) drug therapy
CPT/HCPCS: 36415; 51701; 70450; 71045; 71260; 72125; 74177; 80053; 81003; 83605; 85025; 87040; 99284-25; G0480; J7030; Q9967

== ENCOUNTER 2025-02-23 00:35 | Emergency (ER) | payer MEDICARE, OTHER ==
[~2025-02-23] VITALS: Ht 165.1 cm; Wt 71.4 kg
[2025-02-23 01:15] LABS: AMPHETAMINES, URINE NEGATIVE (NEGATIVE); BARBITURATES, URINE NEGATIVE (NEGATIVE); BENZODIAZEPINE, URINE NEGATIVE (NEGATIVE); CANNABINOID, URINE NEGATIVE (NEGATIVE); COCAINE, URINE NEGATIVE (NEGATIVE); ECSTASY, URINE NEGATIVE (NEGATIVE); FENTANYL, URINE NEGATIVE (NEGATIVE); METHADONE, URINE NEGATIVE (NEGATIVE); OPIATES, URINE NEGATIVE (NEGATIVE); OXYCODONE, URINE NEGATIVE (NEGATIVE); PHENCYCLIDINE, URINE NEGATIVE (NEGATIVE)
[2025-02-23 09:43] VITALS: BP 101/66
== END 2025-02-23 09:43 | disposition home or self-care (01) ==
LOC: ED 00:35
PROVIDERS: Internal Medicine
DX: F10.929 Alcohol use, unspecified with intoxication, unspecified (principal); F17.200 Nicotine dependence, unspecified, uncomplicated; Z79.82 Long term (current) use of aspirin; Z79.899 Other long term (current) drug therapy
CPT/HCPCS: 80307; 99284

== ENCOUNTER 2025-03-07 18:16 | Emergency (ER) | payer OTHER, MEDICARE ==
[~2025-03-07] VITALS: Ht 165.1 cm; Wt 74.5 kg
[2025-03-07 20:46] LABS: BASOPHILS 2.7 % (0.2-1.2); EOSINOPHILS 15.4 % (0.8-7.0); LYMPHOCYTES 39.8 % (21.8-53.1); MCH 23.5 PG (25.7-32.2); MCHC 31.3 g/dL (32.3-36.5); MCV 75.2 fL (79.0-92.2); MONOCYTES 8.3 % (5.3-12.2); NEUTROPHILS 33.6 % (34.0-67.9); RBC 3.23 M/uL (4.63-6.08)
[2025-03-07 21:02] LABS: ALT (SGPT) 19.0 U/L (14-59); AST (SGOT) 96.0 U/L (15-37); GLOMERULAR FILTRATION RATE,EST 110.0 mL/min (>60); PROTEIN, TOTAL 7.1 g/dL (6.4-8.2); UREA NITROGEN 5.0 mg/dL (7-18)
[2025-03-07 22:31] VITALS: BP 95/64
== END 2025-03-07 23:22 | disposition home or self-care (01) ==
LOC: ED 18:16
PROVIDERS: Emergency Medicine
DX: S00.531A Contusion of lip, initial encounter (principal); R93.0 Abnormal findings on diagnostic imaging of skull and head, not elsewhere classified; F10.929 Alcohol use, unspecified with intoxication, unspecified; F17.200 Nicotine dependence, unspecified, uncomplicated; W01.0XXA Fall on same level from slipping, tripping and stumbling without subsequent striking against object, initial encounter
CPT/HCPCS: 36415; 70450; 72125; 80053; 85025; 99284-25

== ENCOUNTER 2025-03-20 19:06 | Inpatient (IN) | payer MEDICARE, OTHER ==
[~2025-03-20] VITALS: Ht 165.1 cm; Wt 70.2 kg
--- OUTSIDE RECORDS SUMMARY | ~2025-03-20 | XMS | Continuity of Care Document ---
Demographics + + + | Address | [address] | | | [place] [address] | + + + | Preferred Language | Unknown | + + + | Marital Status | | + + + | Sabianism Affiliation | Unknown | + + + | Race | or | + + + | Ethnic Group | Not or | + + + Author + + + | Author | [facility] | + + + | Organization | [facility] | + + + | Address | [address] | | | [place] [address] | + + + | Phone | | + + + Care Team Providers + + + + | Care Cnc Mill And Lathe Operator Name | Role | Phone | + + + + Unavailable | Unavailable | + + + + Unavailable | Unavailable | + + + + Allergies No information. Encounters No information. Functional Status No information. Immunizations No information. Medications + + + + | date | description | facility | + + + + | (no date) | ONDANSETRON | [facility] | | | | [facility] | + + + + | (no date) | OXYCODONE HCL | [facility] | | | | [facility] | + + + + | (no date) | HYDROCORTISONE | [facility] | | | | [facility] | + + + + | (no date) | DOCUSATE SODIUM | [facility] | | | | [facility] | + + + + | (no date) | TIZANIDINE HCL | [facility] | | | | [facility] | + + + + | (no date) | METHOCARBAMOL | [facility] | | | | [facility] | + + + + | (no date) | MAGNESIUM HYDROXIDE | [facility] | | | | [facility] | + + + + | (no date) | FERROUS SULFATE | [facility] | | | | [facility] | + + + + | (no date) | GABAPENTIN | [facility] | | | | [facility] | + + + + | (no date) | Sodium Chloride | [facility] | | | | [facility] | + + + + | (no date) | TIZANIDINE HCL | [facility] | | | | [facility] | + + + + | (no date) | ACETAMINOPHEN | [facility] | | | | [facility] | + + + + | (no date) | ASPIRIN | [facility] | | | | [facility] | + + + + | (no date) | CYCLOBENZAPRINE HCL | [facility] | | | | [facility] | + + + + | (no date) | TRAMADOL HCL | [facility] | | | | [facility] | + + + + | (no date) | TRAMADOL HCL | [facility] | | | | [facility] | + + + + | (no date) | POLYETHYLENE GLYCOL 3350 | [facility] | | | | [facility] | + + + + Problems No information. Procedures No information. Results/Labs +--------+--------+ +---------+--------+---------+ | test | date | facility | value | unit | notes | +--------+--------+ +---------+--------+---------+ + + | Result panel 1 | + + + + + + + + + | | 2025-02-23 | | NEGATIVE | (missing) | (missing) | | Amphetamines | 00:53:07 | [facility] | | | | | Ur Ql [facility] | | Scn>500 | [facility] | | | ng/mL | [facility] | | | | + + + + + + + + + | Result panel 2 | + + + + + + + + + | PCP Ur Ql | 2025-02-23 | | NEGATIVE | (missing) | (missing) | | Scn>25 ng/mL | 00:53:07 | [facility] | | [facility] | | | | + + + + + + + + + | Result panel 3 | + + + + + + + + + | THC Ur Ql | 2025-02-23 | | NEGATIVE | (missing) | (missing) | | Scn>50 ng/mL | 00:53:07 | [facility] | | | | + + + + + + + + + | Result panel 4 | + + + + + + + + + | fentaNYL Ur | 2025-02-23 | | NEGATIVE | (missing) | (missing) | | Ql Scn | 00:53:07 | [facility] | | | | + + + + + + + + + | Result panel 5 | + + + + + + + + + | | 2025-02-23 | | NEGATIVE | (missing) | (missing) | | Barbiturates | 00:53:07 | [facility] | | | | | Ur Ql | [facility] | [facility] | | Scn>300 | | [facility] | | | | ng/mL | | [facility] | | | | + + + + + + + + + | Result panel 6 | + + + + + + + + + | Benzodicarter | 2025-02-23 | | NEGATIVE | (missing) | (missing) | | Ur Ql | 00:53:07 | [facility] | | | | | Scn>300 | [facility] | ng/mL | [facility] | | | | + + + + + + + + + | Result panel 7 | + + + + + + + + + | Cocaine Ur | 2025-02-23 | | NEGATIVE | (missing) | (missing) | | Ql Scn | 00:53:07 | [facility] | | | | + + + + + + + + + | Result panel 8 | + + + + + + + + + | | 2025-02-23 | | NEGATIVE | (missing) | (missing) | | Buprenorphin | 00:53:07 | [facility] | | | | | e Ur Ql Scn [facility] | | | | + + + + + + + + + | Result panel 9 | + + + + + + + + + | oxyCODONE | 2025-02-23 | | NEGATIVE | (missing) | (missing) | | Ur Ql Scn | 00:53:07 | [facility] | | | | + + + + + + + + + | Result panel 10 | + + + + + + + + + | MDMA Ur Ql | 2025-02-23 | | NEGATIVE | (missing) | (missing) | | Scn | 00:53:07 | [facility] | [facility] | | | | + + + + + + + + + | Result panel 11 | + + + + + + + + + | Methadone | 2025-02-23 | | NEGATIVE | (missing) | (missing) | | Ur Ql | 00:53:07 | [facility] | | | | | Scn>300 | [facility] | ng/mL | [facility] | | | | + + + + + + + + + | Result panel 12 | + + + + + + + + + | Opiates Ur | 2025-02-23 | | NEGATIVE | (missing) | (missing) | | Ql Scn | 00:53:07 | [facility] | | | | + + + + + + + Social History +--------+ + + | date | description | facility | +--------+ + + Vital Signs + + + +---------+ | date | measurement | value | units | + + + +---------+ | 2025-02-23 00:00 | BMI | 26.2 | kg/m2 | + + + +---------+ | 2025-02-23 00:00 | BP_diastolic | 66 | mmHg | + + + +---------+ | 2025-02-23 00:00 | BP_systolic | 101 | mmHg | + + + +---------+ | 2025-02-23 00:00 | heart_rate | 88 | /min | + + + +---------+ | 2025-02-23 00:00 | height_metric | 165.1 | cm | + + + +---------+ | 2025-02-23 00:00 | height_standard | 65 | in | + + + +---------+ | 2025-02-23 00:00 | o2_saturation | 92 | % | + + + +---------+ | 2025-02-23 00:00 | respiration_rate | 16 | /min | + + + +---------+ | 2025-02-23 00:00 | | 97.1 | F | | | temperature_standar | | | | | d | | | + + + +---------+ | 2025-02-23 00:00 | weight_metric | 71.401 | kg | + + + +---------+ | 2025-02-23 00:00 | weight_standard | 157.412 | lb | + + + +---------+"
--- OUTSIDE RECORDS SUMMARY | ~2025-03-20 | XMS | Continuity of Care Document ---
Demographics + + + | Address | [address] | | | [place] [address] | + + + | Preferred Language | Unknown | + + + | Marital Status | | + + + | Congregation Affiliation | Unknown | + + + | Race | or | + + + | Ethnic Group | Not or | + + + Author + + + | Author | [facility] | + + + | Organization | [facility] | + + + | Address | [address] | | | [place] [address] | + + + | Phone | | + + + Care Team Providers + + + + | Care Train Reservation Clerk Name | Role | Phone | + + + + Unavailable | Unavailable | + + + + Unavailable | Unavailable | + + + + Allergies No information. Encounters No information. Functional Status No information. Immunizations No information. Medications + + + + | date | description | facility | + + + + | (no date) | ONDANSETRON | [facility] | | | | [facility] | + + + + | (no date) | OXYCODONE HCL | [facility] | | | | [facility] | + + + + | (no date) | HYDROCORTISONE | [facility] | | | | [facility] | + + + + | (no date) | DOCUSATE SODIUM | [facility] | | | | [facility] | + + + + | (no date) | TIZANIDINE HCL | [facility] | | | | [facility] | + + + + | (no date) | METHOCARBAMOL | [facility] | | | | [facility] | + + + + | (no date) | MAGNESIUM HYDROXIDE | [facility] | | | | [facility] | + + + + | (no date) | FERROUS SULFATE | [facility] | | | | [facility] | + + + + | (no date) | GABAPENTIN | [facility] | | | | [facility] | + + + + | (no date) | Sodium Chloride | [facility] | | | | [facility] | + + + + | (no date) | TIZANIDINE HCL | [facility] | | | | [facility] | + + + + | (no date) | ACETAMINOPHEN | [facility] | | | | [facility] | + + + + | (no date) | ASPIRIN | [facility] | | | | [facility] | + + + + | (no date) | CYCLOBENZAPRINE HCL | [facility] | | | | [facility] | + + + + | (no date) | TRAMADOL HCL | [facility] | | | | [facility] | + + + + | (no date) | TRAMADOL HCL | [facility] | | | | [facility] | + + + + | (no date) | POLYETHYLENE GLYCOL 3350 | [facility] | | | | [facility] | + + + + Problems [...]
[2025-03-20 19:34] LABS: BASOPHILS 2.2 % (0.2-1.2); EOSINOPHILS 5.2 % (0.8-7.0); LYMPHOCYTES 16.5 % (21.8-53.1); MCH 23.3 PG (25.7-32.2); MCHC 30.4 g/dL (32.3-36.5); MCV 76.4 fL (79.0-92.2); MONOCYTES 12.0 % (5.3-12.2); NEUTROPHILS 63.8 % (34.0-67.9); RBC 3.01 M/uL (4.63-6.08)
[2025-03-20 19:45] LABS: ALT (SGPT) 17.0 U/L (14-59); AST (SGOT) 69.0 U/L (15-37); GLOMERULAR FILTRATION RATE,EST 96.0 mL/min (>60); PROTEIN, TOTAL 6.7 g/dL (6.4-8.2); UREA NITROGEN 8.0 mg/dL (7-18)
[2025-03-20] MEDS ORDERED: LACTATED RINGER'S 1,000 ML IV ONE (19:45)
[2025-03-20] MEDS ORDERED: NOREPINEPHRINE BITARTRATE 250 ML IV SCH (19:45)
[2025-03-20] MEDS ORDERED: NALOXONE HCL 0.4 MG SYR IV ONE (20:00)
[2025-03-20] MEDS ORDERED: MAGNESIUM SULFATE 4 GM/100 ML BAG IV ONE (20:15)
[2025-03-20 20:22] LABS: ABO O; ANTIBODY SCREEN NEGATIVE; RH POSITIVE
[2025-03-20 20:35] LABS: BLOOD/HGB, URINE NEGATIVE (Negative); KETONE, URINE NEGATIVE (Negative); LEUK ESTERASE, URINE NEGATIVE (negative); NITRITE, URINE NEGATIVE (negative)
[2025-03-20 20:40] LABS: EPITHELIAL CELLS, URINE SQUAMOUS 1+ /lpf (0-1+)
[2025-03-20 20:41] LABS: BACTERIA, URINE RARE /hpf (negative); CRYSTALS, URINE NONE SEEN (0-1+); REFLEX CULTURE, URINE No (No)
[2025-03-20 20:49] LABS: AMPHETAMINES, URINE NEGATIVE (NEGATIVE); BARBITURATES, URINE NEGATIVE (NEGATIVE); BENZODIAZEPINE, URINE NEGATIVE (NEGATIVE); CANNABINOID, URINE NEGATIVE (NEGATIVE); COCAINE, URINE NEGATIVE (NEGATIVE); ECSTASY, URINE NEGATIVE (NEGATIVE); FENTANYL, URINE NEGATIVE (NEGATIVE); METHADONE, URINE NEGATIVE (NEGATIVE); OPIATES, URINE NEGATIVE (NEGATIVE); OXYCODONE, URINE NEGATIVE (NEGATIVE); PHENCYCLIDINE, URINE NEGATIVE (NEGATIVE)
[2025-03-20] MEDS ORDERED: SODIUM CHLORIDE 0.9% 1,000 ML IV ONE (21:30)
[2025-03-20] MEDS ORDERED: AZITHROMYCIN 500 MG in DEXTROSE 5% 250 ML IV ONE (21:30)
[2025-03-20 22:01] LABS: IS CROSSMATCH COMPATIBLE
[2025-03-20] MEDS ORDERED: SODIUM CHLORIDE 0.9% 1,000 ML IV SCH (23:00)
[2025-03-20] MEDS ORDERED: ACETAMINOPHEN 325 MG TAB PO PRN (23:30)
[2025-03-20] MEDS ORDERED: LACTATED RINGER'S 1,000 ML IV SCH (23:30)
[2025-03-20] MEDS ORDERED: LORazepam 2 MG/ML VIAL IV/IM PRN (23:45)
[2025-03-21] VITALS (19 sets, daily range): BP systolic 92–137; BP diastolic 51–96
--- NOTE | 2025-03-21 00:30 | NUR ---
PATIENT ARRIVED TO CCU ROOM 129 VIA STRETCHER. PATIENT TRANSFERRED FROM STRETCHER TO BED VIA SLIDE SHEET. HANDOFF REPORT RECEIVED FROM MICHAEL WOODARD. ALL QUESTIONS ANSWERED. PATIENT VOIDS 350CC OF CLEAR COLORED URINE IN URINAL. BRIEF PLACED ON PATIENT. PATIENT REPOSITIONED IN BED. PATIENT ALERT TO SELF AND PLACE BUT UNABLE TO TELL THIS RN HOW HE GOT HERE OR THE DATE. PATIENT REORIENTED. PATIENT R. TRIPLE LUMEN IJ INTACT AND WNL. LEVOPHED INFUSING AT 4MCG/MIN. ONE UNIT OF PRBC INFUSING. ABX AND IVF INFUSING PER EMAR. PATIENT DENIES NAUSEA, PAIN, OR SOB AT THIS TIME. PATIENT R. FOREARM AND R. HAND IV SITES INTACT AND WNL. PATIENT IN NSR, HEART RATE 60'S. PATIENT ON ROOM AIR, SPO2 98%. PATIENT PROVIDED WITH ICE WATER PER REQUEST. PATIENT UPDATED ON PLAN OF CARE. THIS RN REMAINS IN ROOM. CALL LIGHT IN REACH, BED ALARM ON.
--- NOTE | 2025-03-21 01:35 | NUR ---
LEVOPHED GTT TURNED OFF. PATIENT BLOOD PRESSURE 121/63 MAP 80, HEART RATE 65, SPO2 99% ON ROOM AIR, RR 18. LIGHTS DIMMED PER REQUEST. 1 UNIT PRBC REMAIN INFUSING, NO SIGNS OF TRANSFUSION REACTION NOTED. PATIENT HAS NO NEEDS AT THIS TIME. CALL LIGHT IN REACH. BED ALARM ON.
--- NOTE | 2025-03-21 02:12 | NUR ---
PATIENT BLOOD TRANSFUSION COMPLETED. NO SIGNS OF TRANSFUSION REACTION NOTED. PATIENT VITAL SIGNS STABLE. PATIENT REMAINS OFF LEVOPHED GTT. PATIENT RESTING IN BED WITH EYES CLOSED, RR 24. NO ACUTE DISTRESS NOTED. PATIENT HAS CALL LIGHT IN REACH.
--- NOTE | 2025-03-21 03:30 | NUR ---
PATIENT RESTING IN BED WITH EYES CLOSED, RR 23. PATIENT REMAINS ON ROOM AIR, SPO2 91%. NO SIGNS OF ACUTE DISTRESS NOTED. PATIENT VITAL SIGNS STABLE. PATIENT CENTRAL LINE INTACT AND WNL. IVF INFUSING PER EMAR. NO NEEDS AT THIS TIME. CALL LIGHT IN REACH, BED ALARM ON.
--- NOTE | 2025-03-21 04:12 | NUR ---
PATIENT ASSISTED WITH URINAL IN BED AND VOIDS 500CC. PATIENT HAS NO FURTHER NEEDS AT THIS TIME. CALL LIGHT IN REACH, BED ALARM ON.
--- NOTE | 2025-03-21 05:50 | NUR ---
LABS DRAWN OFF PATIENT CENTRAL LINE AND SENT TO LAB PER HOSPITAL POLICY. CENTRAL LINE WNL. IVF INFUSING PER EMAR. PATIENT REMAINS OFF LEVOPHED GTT. PATIENT VITAL SIGNS STABLE. PATIENT HAS NO NEEDS AT THIS TIME. CALL LIGHT IN REACH, BED ALARM ON.
[2025-03-21 05:55] LABS: BASOPHILS 2.5 % (0.2-1.2); EOSINOPHILS 4.5 % (0.8-7.0); LYMPHOCYTES 18.4 % (21.8-53.1); MCH 24.1 PG (25.7-32.2); MCHC 31.3 g/dL (32.3-36.5); MCV 77.1 fL (79.0-92.2); MONOCYTES 11.7 % (5.3-12.2); NEUTROPHILS 62.6 % (34.0-67.9); RBC 3.32 M/uL (4.63-6.08)
[2025-03-21 06:12] LABS: ALT (SGPT) 17.0 U/L (14-59); AST (SGOT) 49.0 U/L (15-37); GLOMERULAR FILTRATION RATE,EST 109.0 mL/min (>60); PROTEIN, TOTAL 6.4 g/dL (6.4-8.2); UREA NITROGEN 5.0 mg/dL (7-18)
[2025-03-21] MEDS ORDERED: FOLIC ACID 1 MG/0.2 ML ML IV SCH ×2 (08:00→09:49)
[2025-03-21] MEDS ORDERED: AMP/SULBACTAM SOD 3 GM in SODIUM CHLORIDE 0.9% 100 ML IV SCH ×2 (08:00→14:00)
[2025-03-21] MEDS ORDERED: THIAMINE HCL 200 MG/2 ML VIAL IV SCH ×2 (08:00→09:50)
[2025-03-21] MEDS ORDERED: MULTIVITAMINS THERAPEUTIC 1 EA TAB PO SCH (08:00)
--- NOTE | 2025-03-21 08:15 | NUR ---
PT IN BED HAD TO VOID, HELP WITH THE USE OF THE URINAL, VOIDED AND THEN SET UP TO EAT LUNCH.
[2025-03-21] MEDS ORDERED: DEXTROSE 5% 1,000 ML IV SCH (08:30)
--- NOTE | 2025-03-21 08:45 | NUR ---
PT UP TO THE CHAIR AFTER WALKING TO THE BATHROOM TO HAVE BM. SMALL BM NOTED AND THEN PT UP TO THE CHAIR. PT WALKED WITH MINUAL ASSISTANCE, PT C/O BEING WEEK AND THEN STATES I USE A WALKER AT HOME AT TIMES.
[2025-03-21] MEDS ORDERED: AZITHROMYCIN 500 MG in DEXTROSE 5% 250 ML IV SCH (09:00)
--- NOTE | 2025-03-21 09:30 | NUR ---
DR LAIRD SEE PT THIS MORNING, NEW ORDERS.
[2025-03-21] MEDS ORDERED: ENOXAPARIN SODIUM 40 MG/0.4 ML SYR SUB-Q SCH (09:48)
[2025-03-21] MEDS ORDERED: LORazepam 2 MG/ML VIAL IV/IM PRN (10:00)
[2025-03-21] MEDS ORDERED: LORazepam 1 MG TAB PO PRN (10:00)
--- NOTE | 2025-03-21 10:00 | NUR ---
PT BACK TO BED AT THIS TIME, BED ALARM ON, CALL LIGHT WITHIN REACH. SIDERAILS X3. PT ALSO STATES "DR SAID I MIGHT HAVE LUNG CANCER" "NOW WHAT AM I GOING TO DO". RECEIVED PHONE CALL FROM FAMILY ALLOWED TO ANSWER ALL QUESTION.
[2025-03-21] MEDS ORDERED: IBUPROFEN 600 MG TAB PO PRN (10:30)
--- NOTE | 2025-03-21 10:39 | NUR ---
PT AMBULATED TO BATHROOM HAD BM AND VOIDED AND THEM AMBULATED BACK TO BED. CHANDAN-ACTIVY WELL, SOME SOB NOTED. BUT PT DOES RECOVERY AFTER SITTING FOR A FEW. PT SITTING AT THE EDGE OF BED DRINKING HIS HOT TEA AND WATCHING TV. PT LAC COURTE OREILLES AND THE TV IS VERY LOUD.
--- NOTE | 2025-03-21 11:02 | NUR ---
ASSIST PATIENT TO RECLINER PER HIS REQUEST. DEMOGRAPHICS VERIFIED WITH PATIENT. STATES HE LIVES IN HOUSE WITH STAIRS TO GET INSIDE BUT HE ALSO HAS A RAMP. HE HAS A SHOWER CHAIR HE USES "SOMETIMES." PATIENT STATES HE NO LONGER DRIVES. HIS FRIEND, RADHA, PROVIDES TRANSPORTATION WHEN NEEDED. HIS NIECE DOES HIS GROCERY SHOPPING AND PAYS HIS BILLS SO HE DOESN'T HAVE TO WORRY ABOUT THOSE THINGS. DENIES FINANCIAL ISSUES. PATIENT IS CURRENTLY ON CIWA PROTOCOL. DISCUSSED DRINKING WITH PATIENT. STATES HE DOES NOT PLAN TO QUIT DRINKING AND WILL LIKELY LEAVE HOSPITAL WHEN DISCHARGED AND BUY BEER IMMEDIATELY. DENIES ANY CM NEEDS AT THIS TIME. VANCE COLBY, STATES HIS NIECE IS ON HER WAY TO THE HOSPITAL TO SEE PATIENT AND WILL LIKELY WANT TO SPEAK WITH CM WHEN SHE ARRIVES.
--- NOTE | 2025-03-21 11:26 | NUR ---
pt remains up in the chair warm blankets given and braded pt hair for him. made ice tea for him also.
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
[2025-03-21] MEDS ORDERED: PHARMACY RENAL DOSE ADJUSTMENT 1 DOSE MISC PO SCH (12:00)
--- NOTE | 2025-03-21 12:06 | NUR ---
Mortin 600mg give for neck, back, and feet pain at this time. Pt remains up in the chair. Call light with in reach, warm blankets and in view of the nurses station. Pt talked with his brother on the phone this afternoon.
--- NOTE | 2025-03-21 13:35 | NUR ---
PT REMAINS UP IN THE CHAIR HE ATE LUNCH AND CHANDAN-WELL. WARM BLANKET GIVEN AND ROOM TEMP TURNED UP.
[2025-03-21] MEDS ORDERED: NICOTINE 21 MG/24 HR 1 EA TDSY TD SCH (14:20)
--- NOTE | 2025-03-21 15:00 | NUR ---
PT BACK TO BED AT THIS TIME, CALL LIGHT WITHIN REACH, SIDE RAILS X3 AND BED IN LOWEST POSITION. BED ALARM ON. LAB HERE OBTAIN SAMPLE FROM CENTRAL LINE WASTED 5MLS OF BLOOD AND GAVE LAB STAFF 8MLS OF BLOOD. LINE FLUSHED AND LOCKED AT THIS TIME. ABLE TO OBTAIN BLOOD SAMPLE WITH EASE. RESTARTED ALL IV FLUIDS AFTER THIS.
[2025-03-21 15:06] LABS: BASOPHILS 1.9 % (0.2-1.2); EOSINOPHILS 4.2 % (0.8-7.0); LYMPHOCYTES 16.0 % (21.8-53.1); MCH 24.0 PG (25.7-32.2); MCHC 30.9 g/dL (32.3-36.5); MCV 77.6 fL (79.0-92.2); MONOCYTES 9.7 % (5.3-12.2); NEUTROPHILS 68.0 % (34.0-67.9); RBC 3.17 M/uL (4.63-6.08)
[2025-03-21 15:16] LABS: GLOMERULAR FILTRATION RATE,EST 95.0 mL/min (>60); UREA NITROGEN 6.0 mg/dL (7-18)
[2025-03-21] MEDS ORDERED: SODIUM CHLORIDE 0.9% 1,000 ML IV SCH (15:45)
[2025-03-21] MEDS ORDERED: ALBUTEROL SULFATE 0.083% 3 ML VIAL INH PRN (16:00)
[2025-03-21] MEDS ORDERED: ALBUTEROL/IPRATROPIUM 3 ML NEB INH SCH (16:00)
--- NOTE | 2025-03-21 16:00 | NUR ---
pt up to the bathroom, voided and had small bm. back to bed.
--- NOTE | 2025-03-21 16:40 | NUR ---
PT BACK UP TO THE BATHROOM AT THIS TIME.
--- NOTE | 2025-03-21 16:54 | NUR ---
PT FAMILY INTO VISIT PUT NAME AND NUMBER ON THE DRY BOARD FOR STAFF. PT UP IN THE CHAIR FOR DINNER AT THIS TIEM WITH TWO WARM BLANKETS.
--- NOTE | 2025-03-21 17:26 | NUR ---
PT BACK TO BED, SITTING UP DRINKING A SPRIT AND WATCHING TV. CALL LIGHT WITHIN REACH SIDERAILS X3 AND ACROSS FROM NURSES STATION.
--- NOTE | 2025-03-21 17:51 | NUR ---
PT HAS BEEN UP TO THE CHAIR FOR MEALS AND TO THE BATHROOM NEEDED. PT REPORTS THAT HE SMOKES A PK A DAY OF "SMOKES". aND HE WOULD LIKE ONE, BUT KNOWS HE CAN'T WHILE IN THE HOSPITAL. HE IS ALSO WEARING A MICHAEL-PATCH ON HIS LEFT SHOULDER. HE HAS BEEN AMBULATING WELL WHEN UP. HE DOES GET SOB AND CAN RECOVER IN A FEW MINUTES. REMAINS ON ROOM AIR SPO2 100% AT THIS TIME. FAMILY HAS BEEN INTO SEE HIM TWICE TODAY SO FAR. PT HAS NOT REPORTED ANY PAIN AT THIS TIME.
--- NOTE | 2025-03-21 18:18 | NUR ---
PT UP TO THE BATHROOM VOIDED AND HAD BM, THEN AMBULATED TO THE CHAIR. UP WATCHING TV CALL LIGHT WITHIN REACH.
--- NOTE | 2025-03-21 18:37 | NUR ---
PT BACK TO BED, CALL LIGHT WITHIN REACH, SIDE RAILS X3, PT HAS NO C/O'S AT THIS TIME. I WANT TO WATCH THE NEWS, TOLD HIM THE CHANNEL AND HE FOUND IT. CURTAIN OPEN, BUT DOOR CLOSED DUE TO THE VOLUM OF THE TV.
--- NOTE | 2025-03-21 18:42 | NUR ---
PT APPEARS TO BE SLEEPING AT THIS TIME RR EVEN AND UNLABORED AT THIS TIME. SPO2 97% ON ROOM AIR.
--- NOTE | 2025-03-21 19:10 | NUR ---
REPORT GIVEN TO CRUTCHING CONTRACTOR. ALL QUESTIONS ANSWERED.
--- NOTE | 2025-03-21 19:30 | NUR ---
HANDOFF RPEORT RECEIVED FROM DAYSHIFT RN. ALL QUESTIONS ANSWERED. PATIENT SITTING UP IN BED WATCHING TV. VITAL SIGNS STABLE. NO EVIDENCE OF ACUTE DISTRESS NOTED. CALL LIGHT IN REACH.
--- NOTE | 2025-03-21 20:00 | NUR ---
PATIENT CALL LIGHT ANSWERED. PATIENT REQUESTING ASSISTANCE W/ URINAL. ASSISTANCE PROVIDED. PATIENT VOIDS 150 ML OF CLEAR YELLOW URINE. PATIENT BRIEF REPOSITIONED. NO FURTHER NEEDS IDENTIFIED AT THIS TIME. PATIENT UPDATED ON POC. CALL LIGHT IN REACH. BED ALARM ON.
--- NOTE | 2025-03-21 20:49 | NUR ---
PATIENT ASSESSMENT COMPLETE. PATIENT ALERT AND ORIENTED. PATIENT RESPONDS APPROPRIATELY TO QUESTIONS. HR 90'S-100'S, NSR TO ST. SPO2 98% ON RA. LUNGS CLEAR IN BILATERAL UPPER LOBES AND DIMINISHED IN BILATERAL LOWER LOBES.PATIENT REPORTS SOME ABDOMINAL TENDERNESS UPON PALPATION. ABDOMEN NON DISTENDED, BOWEL TONES ACTIVE. GUARDING NOTED UPON PALPATION. PATIENT ABLE TO STAND AT SIDE OF BED, SBA. VITAL SIGNS STABLE. CENTRAL LINE INTACT, IVF INFUSING PER EMAR. R. FA IV INTACT. PATIENT PROVIDED SNACK AND PO FLUIDS. PATIENT PROVIDED ICE PACKS FOR NECK AND BACK PAIN. PATIENT RATING PAIN 8/10. PRN PAIN MEDICATION ADMINISTERED PER EMAR. BED ALARM ON, CALL LIGHT IN REACH.
--- NOTE | 2025-03-21 21:21 | NUR ---
PATIENT SITTING UP IN BED WATCHING TV. NO EVIDENCE OF ACUTE DISTRESS NOTED. VITAL SIGNS STABLE. CALL LIGHT IN REACH.
--- NOTE | 2025-03-21 21:56 | NUR ---
PATIENT CALL LIGHT ANSWERED. PATIENT VOIDED IN URINAL, 150ML OF CLEAR, YELLOW URINE. BRIEF ADJUSTED. PATIENT DENIES FURTHER NEEDS AT THIS TIME. PATIENT REPOSITIONED. BED ALARM ON, CALL LIGHT IN REACH.
--- NOTE | 2025-03-21 22:46 | NUR ---
PATIENT CALL LIGHT ANSWERED. PATIENT ASSISTED UP TO BATHROOM, SBA. PATIENT HAS SMALL SEMI LIQUID SOFT BM MIXED W/ URINE. PATIENT UP TO CHAIR PER PATIENT REQUEST. PATIENT GAIT STEADY. CENTRAL LINE INTACT AND WNL. IVF INFUSING PER EMAR. PATIENT UPDATED ON POC. PATIENT DENIES VIGIL. PATIENT REMINDED OF SAFETY PRECAUTIONS. NO FURTHER NEEDS IDENTIFIED. CALL LIGHT IN REACH. PATIENT IN DIRECT OBSERVATION OF RN STATION.
--- NOTE | 2025-03-21 23:00 | NUR ---
patient call light answered. patient requesting to get back to bed. patient assisted back to bed from chair, sba. snack provided. patient denies further needs. call light in reach, bed alarm on
--- NOTE | 2025-03-21 23:52 | NUR ---
PATIENT DESATURATES TO 87% WHILE ASLEEP. PATIENT AWAKENS UPON ENTERING ROOM. PATIENT PLACED ON 2L NC. PATIENT SPO2 NOW 98%. NO EVIDENCE OF ACUTE DISTRESS NOTED. PATIENT DENIES FURTHER NEEDS. PATIENT REPOSITIONED IN BED. CALL LIGHT IN REACH. BED ALARM ON.
[2025-03-22] VITALS (8 sets, daily range): BP systolic 104–137; BP diastolic 54–79
--- NOTE | 2025-03-22 00:30 | NUR ---
PATIENT CALL LIGHT ANSWERED. PATIENT REQUESTING URINAL. URINAL PROVIDED. PATIENT VOIDS W/O DIFFICULTY. PATIENT REPOSITIONED IN BED. PATIENT DENIES FURTHER NEEDS. BED ALARM ON, CALL LIGHT IN REACH
--- NOTE | 2025-03-22 01:17 | NUR ---
patient call light answered. patient requesting urinal. urinal provided. patient voids w/o difficulty. central line intact, ivf infusing per emar. vital signs stable. call light in reach. bed alarm on
--- NOTE | 2025-03-22 01:42 | NUR ---
call light answered. patient requesting urinal. urinal provided. patient voids w/o difficulty. rest encourage. patient repositioned in bed. ivf infusing per emar. bed alarm on, call light in reach
--- NOTE | 2025-03-22 01:53 | NUR ---
IV ABX AND IVF INFUSING PER EMAR. PATIENT RESTING IN BED W/ EYES CLOSED, SPO2 98% ON 2LNC. PATIENT AWAKENS BUT QUICKLY DRIFTS BACK TO SLEEP. NO EVIDENCE OF ACUTE DISTRESS NOTED. BED ALARM ON, CALL LIGHT IN REACH
--- NOTE | 2025-03-22 03:26 | NUR ---
PATIENT RESTING IN BED W/ EYES CLOSED. SPO2 96% ON 2LNC. NO EVIDENCE OF ACUTE DISTRESS NOTED. BED ALARM ON, CALL LIGHT IN REACH
--- NOTE | 2025-03-22 04:34 | NUR ---
PATIENT SITTING UP IN BEEN EXPECTORATING SECRETIONS. CIWA 1. NO EVIDENCE OF ACUTE DISTRESS NOTED. PATIENT REPOSITIONED IN BED. CENTRAL LINE INTACT AND WNL. VITAL SIGNS STABLE. CALL LIGHT IN REACH, BED ALARM ON.
[2025-03-22 05:22] LABS: BASOPHILS 2.0 % (0.2-1.2); EOSINOPHILS 7.4 % (0.8-7.0); LYMPHOCYTES 24.6 % (21.8-53.1); MCH 23.9 PG (25.7-32.2); MCHC 31.0 g/dL (32.3-36.5); MCV 77.3 fL (79.0-92.2); MONOCYTES 9.1 % (5.3-12.2); NEUTROPHILS 56.8 % (34.0-67.9); RBC 3.09 M/uL (4.63-6.08)
[2025-03-22 05:38] LABS: ALT (SGPT) 17.0 U/L (14-59); AST (SGOT) 40.0 U/L (15-37); GLOMERULAR FILTRATION RATE,EST 101.0 mL/min (>60); PHOSPHORUS, INORGANIC 4.2 mg/dL (2.5-4.9); PROTEIN, TOTAL 6.2 g/dL (6.4-8.2); UREA NITROGEN 4.0 mg/dL (7-18)
--- NOTE | 2025-03-22 05:45 | NUR ---
PATIENT RESTING IN BED. RR25. NO EVIDENCE OF ACUTE DISTRESS NOTED. BED ALARM ON,CALL LIGHT IN REACH
--- NOTE | 2025-03-22 06:40 | NUR ---
PATIENT CALL LIGHT ANSWERED. PATIENT ASSISTED UP TO BR, SBA. GAIT STEADY. PATIENT INCONTINENT OF STOOL. PATIENT HAS X1 SMALL SEMI LIQUID SOFT BM MIXED W/ URINE. TOÑO CARE COMPLETE. NEW BRIEF PLACED. PATIENT BACK TO BED. PATIENT PROVIDED SNACK AND PO FLUIDS. CENTRAL LINE INTACT. IVF INFUSING PER EMAR. VITAL SIGNS STABLE. SPO2 97% ON 2L NC. CALL LIGHT IN REACH, BED ALARM.
[2025-03-22] MEDS ORDERED: DEXTROSE 5% 1,000 ML IV SCH (07:45)
[2025-03-22] MEDS ORDERED: MAGNESIUM SULFATE 2 GM/50 ML BAG IV SCH (07:45)
[2025-03-22] MEDS ORDERED: MULTIVITAMINS THERAPEUTIC 1 EA TAB PO SCH (08:00)
--- NOTE | 2025-03-22 08:00 | NUR ---
PT UP TO THE BATHROOM VOIDED AND HAD BM, THEN TO THE CHAIR FOR BKF. HAD NEB TX FRIST AND THEN ATE BKF. WANTED TO STAY IN THE CHAIR AFTER BKF. CALL LIGHT WITHIN REACH AND IN VIEW OF NURSES STATION.
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
--- NOTE | 2025-03-22 09:25 | NUR ---
PT BACK TO BED AT THIS TIME, "I WANT TO REST UP IF I GET TO GO HOME TODAY" CALL LIGHT WITHIN REACH.
--- NOTE | 2025-03-22 10:09 | NUR ---
PT UP TO THE BATHROOM AMBULATES WELL, BACK TO BED. OBTAIN LAB SAMPLE WASTED 5MLS AND SENT 4 MLS IN GREEN TOP.
[2025-03-22 10:25] LABS: GLOMERULAR FILTRATION RATE,EST 99.0 mL/min (>60); UREA NITROGEN 3.0 mg/dL (7-18)
[2025-03-22] MEDS ORDERED: POTASSIUM CHLORIDE 10 MEQ TABCR PO ONE (11:15)
[2025-03-22] MEDS ORDERED: AMOX TR-K CLV1 EAC1 PO (11:40)
[2025-03-22] MEDS ORDERED: FOLIC ACID1 MG PO (11:40)
[2025-03-22] MEDS ORDERED: AZITHROMYCIN250 MG PO (11:40)
[2025-03-22] MEDS ORDERED: VITAMIN B-1100 MG PO (11:40)
--- NOTE | 2025-03-22 12:07 | NUR ---
pt discharged to home. jose follow up appointment made, central line removed and saline lock removed also at this time. Pt given rx for medications. Explained that he can talk with jose about treatment for his lungs then he states "why if I dont want to do anything" I explained so that they know what your wishes are and what is going on with your health at this time. "well maybe I will try something once" He states he is not going to stop drinking or smoking "it hard too". I agree with him that it was hard. pt family came for him and was taken out via wheelchair by nursing staff. central line site and iv site where WNL's at discharge. No bleeding noted.
[2025-03-23] MEDS ORDERED: THIAMINE HCL 100 MG TAB PO SCH (08:00)
[2025-03-23] MEDS ORDERED: FOLIC ACID 1 MG TAB PO SCH (08:00)
== END 2025-03-22 12:10 | disposition home or self-care (01) | DRG 178 ==
LOC: ED 19:06 → CCU 23:38
PROVIDERS: Family Medicine; ADMIT Family Medicine; ATTEND Family Medicine
PROC: 3E03329 Introduction of Other Anti-infective into Peripheral Vein, Percutaneous Approach (ICD-10-PCS; principal; 2025-03-20)
PROC: 3E033XZ Introduction of Vasopressor into Peripheral Vein, Percutaneous Approach (ICD-10-PCS; 2025-03-20)
PROC: 02HV33Z Insertion of Infusion Device into Superior Vena Cava, Percutaneous Approach (ICD-10-PCS; 2025-03-20)
PROC: 30233N1 Transfusion of Nonautologous Red Blood Cells into Peripheral Vein, Percutaneous Approach (ICD-10-PCS; 2025-03-20)
DX: J69.0 Pneumonitis due to inhalation of food and vomit (principal); C77.1 Secondary and unspecified malignant neoplasm of intrathoracic lymph nodes; E87.1 Hypo-osmolality and hyponatremia; E87.20 Acidosis, unspecified; C79.31 Secondary malignant neoplasm of brain; I95.9 Hypotension, unspecified; F10.229 Alcohol dependence with intoxication, unspecified; D63.8 Anemia in other chronic diseases classified elsewhere; F17.200 Nicotine dependence, unspecified, uncomplicated; Z66 Do not resuscitate; Z80.9 Family history of malignant neoplasm, unspecified; Z71.6 Tobacco abuse counseling
CPT/HCPCS: 36415; 36430; 36556; 36592; 51701; 71045; 71275; 74174; 80048; 80053; 80307; 81001; 83605; 83735; 83880; 84100; 85025; 86850; 86900; 86901; 86922; 94640; 96361; 96365; 96367; 96375; 97161; 97165; 97530; 97535; 99285-25; A9270; C1751; J0295; J0456; J0696; J1650; J2312; J2405; J3411; J3475; J7030; J7060; J7070; J7121; P9016; Q9967

== ENCOUNTER 2025-04-18 01:32 | Inpatient (IN) | payer MEDICARE, OTHER ==
[~2025-04-18] VITALS: Ht 165.1 cm; Wt 65.5 kg
--- OUTSIDE RECORDS SUMMARY | ~2025-04-18 | XMS | Continuity of Care Document ---
Demographics + + + | Address | [address] | | | [place] [address] | + + + | Preferred Language | Unknown | + + + | Marital Status | | + + + | Druze Affiliation | Unknown | + + + | Race | or | + + + | Ethnic Group | Not or | + + + Author + + + | Author | [place] | + + + | Organization | [place] | + + + | Address | [address] | | | [place] [address] | + + + | Phone | | + + + Care Team Providers + + + + | Care Material Handler Name | Role | Phone | + + + + Unavailable | Unavailable | + + + + Unavailable | Unavailable | + + + + Allergies No information. Encounters No information. Functional Status No information. Immunizations No information. Medications + + + + | date | description | facility | + + + + | (no date) | ONDAN[facility]RON | [facility] | | | | [facility] | + + + + | (no date) | OXYCODONE HCL | [facility] | | | | [facility] | + + + + | (no date) | HYDROCORTISONE | [facility] | | | | [facility] | + + + + | (no date) | DOCUSATE SODIUM | [facility] | | | | [facility] | + + + + | (no date) | TIZANIDINE HCL | [facility] | | | | [facility] | + + + + | (no date) | METHOCARBAMOL | [facility] | | | | [facility] | + + + + | (no date) | MAGNESIUM HYDROXIDE | [facility] | | | | [facility] | + + + + | (no date) | FERROUS SULFATE | [facility] | | | | [facility] | + + + + | (no date) | GABAPENTIN | [facility] | | | | [facility] | + + + + | (no date) | Sodium Chloride | [facility] | | | | [facility] | + + + + | (no date) | TIZANIDINE HCL | [facility] | | | | [facility] | + + + + | (no date) | ACETAMINOPHEN | [facility] | | | | [facility] | + + + + | (no date) | ASPIRIN | [facility] | | | | [facility] | + + + + | (no date) | CYCLOBENZAPRINE HCL | [facility] | | | | [facility] | + + + + | (no date) | TRAMADOL HCL | [facility] | | | | [facility] | + + + + | (no date) | TRAMADOL HCL | [facility] | | | | [facility] | + + + + | (no date) | POLYETHYLENE GLYCOL 3350 | [facility] | | | | [facility] | + + + + Problems [...]
--- OUTSIDE RECORDS SUMMARY | ~2025-04-18 | XMS | Continuity of Care Document ---
Demographics + + + | Address | [address] | | | [place] [address] | + + + | Preferred Language | Unknown | + + + | Marital Status | | + + + | Moravian Affiliation | Unknown | + + + | Race | or | + + + | Ethnic Group | Not or | + + + Author + + + | Author | [place] | + + + | Organization | [place] | + + + | Address | [address] | | | [place] [address] | + + + | Phone | | + + + Care Team Providers + + + + | Care Supervisor General Name | Role | Phone | + + + + Unavailable | Unavailable | + + + + Unavailable | Unavailable | + + + + Allergies No information. Encounters No information. Functional Status No information. Immunizations No information. Medications + + + + | date | description | facility | + + + + | (no date) | [facility]NDANSETRON | [facility] | | | | [facility] | + + + + | (no date) | OXYCODONE HCL | [facility] | | | | [facility] | + + + + | (no date) | HYDROCORTISONE | [facility] | | | | [facility] | + + + + | (no date) | DOCUSATE SODIUM | [facility] | | | | [facility] | + + + + | (no date) | TIZANIDINE HCL | [facility] | | | | [facility] | + + + + | (no date) | METHOCARBAMOL | [facility] | | | | [facility] | + + + + | (no date) | MAGNESIUM HYDROXIDE | [facility] | | | | [facility] | + + + + | (no date) | FERROUS SULFATE | [facility] | | | | [facility] | + + + + | (no date) | GABAPENTIN | [facility] | | | | [facility] | + + + + | (no date) | Sodium Chloride | [facility] | | | | [facility] | + + + + | (no date) | TIZANIDINE HCL | [facility] | | | | [facility] | + + + + | (no date) | ACETAMINOPHEN | [facility] | | | | [facility] | + + + + | (no date) | ASPIRIN | [facility] | | | | [facility] | + + + + | (no date) | CYCLOBENZAPRINE HCL | [facility] | | | | [facility] | + + + + | (no date) | TRAMADOL HCL | [facility] | | | | [facility] | + + + + | (no date) | TRAMADOL HCL | [facility] | | | | [facility] | + + + + | (no date) | POLYETHYLENE GLYCOL 3350 | [facility] | | | | [facility] | + + + + Problems No [...]
[~2025-04-18 01:32] MED LIST changes: +AMOX TR-K CLV1 EAC1 PO; +AZITHROMYCIN250 MG PO
[2025-04-18] MEDS ORDERED: HYDROmorphone HCL 1 MG/ML SYR IV PRN (01:45)
[2025-04-18] MEDS ORDERED: SODIUM CHLORIDE 0.9% 1,000 ML IV ONE (02:00)
[2025-04-18 02:22] LABS: BASOPHILS 0.8 % (0.2-1.2); EOSINOPHILS 2.1 % (0.8-7.0); LYMPHOCYTES 13.3 % (21.8-53.1); MCH 23.9 PG (25.7-32.2); MCHC 30.5 g/dL (32.3-36.5); MCV 78.4 fL (79.0-92.2); MONOCYTES 10.2 % (5.3-12.2); NEUTROPHILS 73.0 % (34.0-67.9); RBC 3.93 M/uL (4.63-6.08)
[2025-04-18 02:33] LABS: INR 1.03 (0.80-1.30); PROTIME 13.1 Sec (11.2-14.2)
[2025-04-18 02:38] LABS: ALCOHOL, MEDICAL 89.0 ng/dL (<3); ALT (SGPT) 25.0 U/L (14-59); AST (SGOT) 45.0 U/L (15-37); GLOMERULAR FILTRATION RATE,EST 100.0 mL/min (>60); PROTEIN, TOTAL 8.0 g/dL (6.4-8.2); UREA NITROGEN 20.0 mg/dL (7-18)
[2025-04-18 02:42] LABS: LACTIC ACID, BLOOD 2.4 mmol/L (0.4-2.0)
[2025-04-18] MEDS ORDERED: THIAMINE HCL 200 MG/2 ML VIAL IV ONE (02:45)
[2025-04-18] MEDS ORDERED: LACTATED RINGER'S 1,000 ML IV ONE (02:45)
[2025-04-18] MEDS ORDERED: MAGNESIUM SULFATE 2 GM/50 ML BAG IV ONE (02:45)
[2025-04-18 02:58] LABS: INFLUENZA B NAA NEGATIVE (NEGATIVE); RESPIRATORY SYNCYTIAL VIR NAA NEGATIVE (NEGATIVE)
[2025-04-18] MEDS ORDERED: MULTIVITAMINS THERAPEUTIC 1 EA TAB PO ONE (03:00)
[2025-04-18] MEDS ORDERED: diazePAM 10 MG/2 ML SYR IV ONE (03:00)
[2025-04-18] MEDS ORDERED: AZITHROMYCIN 500 MG in DEXTROSE 5% 250 ML IV ONE (03:15)
[2025-04-18 04:26] LABS: BLOOD/HGB, URINE NEGATIVE (Negative); KETONE, URINE NEGATIVE (Negative); LEUK ESTERASE, URINE NEGATIVE (negative); NITRITE, URINE NEGATIVE (negative)
[2025-04-18] MEDS ORDERED: LORazepam 1 MG TAB PO ONE (10:45)
[2025-04-18] MEDS ORDERED: FOLIC ACID 1 MG/0.2 ML ML IV SCH (13:12)
[2025-04-18] MEDS ORDERED: THIAMINE HCL 200 MG/2 ML VIAL IV SCH (13:12)
[2025-04-18] MEDS ORDERED: LORazepam 1 MG TAB PO PRN (13:15)
[2025-04-18] MEDS ORDERED: SODIUM CHLORIDE 0.9% 1,000 ML IV SCH (13:15)
[2025-04-18] MEDS ORDERED: LORazepam 2 MG/ML VIAL IV/IM PRN (13:15)
--- NOTE | 2025-04-18 13:42 | NUR ---
SPOKE WITH PATIENT IN ER. HE LIVES IN HOUSE WITH NIECE, OPHELIA. HE HAS WALKER, CANE. HE USES CANE AT BASELINE. HE HAS BEEN INCREASINGLY WEAK. HE DRINKS DAILY. HE CAN NOT GET UP WITHOUT ASSISTANCE. PT EVALUATED HIM IN THE ER AND FEEL HE NEEDS SNF. HE IS AGREEABLE TO GO TO SNF. STATES HIS NIECE DOES NOT ALWAYS HELP AND IS OUT OF THE HOME AT TIMES SO HE HAS NO ASSISTANCE WHEN SHE IS GONE. PLAN TO DC TO SNF WHEN MEDICALLY READY. PREVIOUSLY HE HAS BEEN TO [facility]. WILL SEND REFERRALS FOR SNF TO FACILITY OF HIS PREFERENCE.
--- NOTE | 2025-04-18 14:00 | NUR ---
REPORT RECEEIVED FROM ER/RN CARE ASSUMED. PT TO MED SURG VIA [facility] STAFF MOVE HIM TO THE BED PT IS SLEEPING SOUNDLY. SKIN CHECK AND ASSESSMENT COMPLETE PT RESPONDS VERY LITTLE ONLY MOANING WHEN TURNED. PT CONTINUES RESTING SOUNDLY DR VIRGEN IN TO SEE HIM. UNDERGARMENT CHANGED PURWIK APPLIED ALONG WITH BARRIER CREAM TO VARIOUS AREAS.
[2025-04-18 14:13] VITALS: BP 109/53
[2025-04-18] MEDS ORDERED: AMP/SULBACTAM SOD 3 GM in SODIUM CHLORIDE 0.9% 100 ML IV SCH (14:45)
--- NOTE | 2025-04-18 14:49 | NUR ---
THIS WORK OVER RIG OPERATOR IN TO ASSIST RN WITH CLEANING PATIENT UP FROM INC. VOID. TOÑO CARE AND SKIN CARE DONE. NEW DEPENDS AND MALE PUREWICK IN PLACE. RN STILL IN ROOM DOING ADMIT. CALL LIGHT IN REACH.
--- NOTE | 2025-04-18 15:29 | NUR ---
PT AWAKENS BRIEFLY AGREES HE IS COLD. WARM BLANKET APPLIED PT RETURNS TO SNNORING SOFTLY. BED ALARM IS SET PT IS VISIBLE TO RN STATION, CALL LIGHT IN LAP
[2025-04-18 16:18] VITALS: BP 109/53
--- NOTE | 2025-04-18 17:17 | NUR ---
PT CONTINUES TO SLEEP SOUNDLY SATS 95% PT NOT WAKING FOR EVENING MEAL DESPITE EFFORTS. BED ALARM IS SET
[2025-04-18 17:19] VITALS: BP 114/61
--- NOTE | 2025-04-18 19:11 | NUR ---
DR VIRGEN IN TO SEE PT. HE ANSWERS QUESTIONS THEN RETURNS TO RESTING SOUNDLY.
--- NOTE | 2025-04-18 19:28 | NUR ---
REPORT RECEIVED FROM DAY SHIFT RN. PT LYING IN BED RESTING WITH EYES CLOSED. RESPIRATIONS EVEN. BED ALARM FOR SAFETY. WHITE BOARD UPDATED. CALL LIGHT IN REACH.
[2025-04-18 20:14] VITALS: BP 111/62
[2025-04-18 20:17] VITALS: BP 111/62
--- NOTE | 2025-04-18 20:32 | NUR ---
PT RESTING IN BED WITH EYES CLOSED. AWAKENS TO VOICE. ORIENTED X 4. PT ABLE TO ANSWER QUESTIONS APPROPRIATELY. EVENING ASSESSMENT COMPLETE. IV ABX INFUSING PER ORDER. MALE PUREWICK PATENT WITH QS YELLOW URINE. VS AND I&O OBTAINED. SpO2 86-90% ON RA. 2L/NC AND CPOX PLACED. PT DENIES SOB. NON PRODUCTIVE COUGH NOTED. WATER PROVIDED WITH NO COUGHING OR CHOKING. TELE #[address]. HR LOW 100'S. VARIOUS WOUNDS AND EXCORIATIONS NOTED IN TOÑO AREA AND THIGHS. BARRIER CREAM APPLIED. 2PA TO REPOSTION IN BED WITH PILLOWS. CIWA SCORE 1 AT THIS TIME. NO FURTHER NEEDS. BED ALARM FOR SAFETY. CALL LIGHT IN REACH.
--- NOTE | 2025-04-18 22:23 | NUR ---
PT IN BED RESTING WITH EYES CLOSED. SpO2 95% ON 2L/NC. HR 100'S. BED ALARM IN PLACE. CALL LIGHT IN REACH.
--- NOTE | 2025-04-18 22:32 | EKG ---
[facility] [address] [place] [address] Signed Poor data quality, interpretation may be adversely affected Sinus tachycardia Otherwise normal ECG When compared with ECG of 08-JUL-2024 20:43, Vent. rate has increased BY 38 BPM Confirmed by Uziel Virgen MD () on 04/18/2025 10:32:08 PM Electronically Signed By: UZIEL VIRGEN MD 04/18/25 223 PATIENT NAME: GABRIELA ABBASI Electrocardiogram DATE OF : 59 PHYSICIAN: UZIEL VIRGEN MD REPORT #: [id number] REPORT IS CONFIDENTIAL AND NOT TO BE RELEASED WITHOUT AUTHORIZATION
[2025-04-19] VITALS (11 sets, daily range): BP systolic 101–126; BP diastolic 53–75
--- NOTE | 2025-04-19 00:39 | NUR ---
CPOX ALARMING. SpO2 85% ON 2L/NC. OXYGEN TITRATED TO 3L. PT AWAKENS FROM COUGH. HOB ELEVATED. PT DRANK APPROX 300 ML WATER. REPOSITIONED TO RIGHT SIDE WITH PILLOWS. WARM BLANKET PROVIDED. NO FURTHER NEEDS. BED ALARM FOR SAFETY. CALL LIGHT IN REACH.
--- NOTE | 2025-04-19 01:13 | NUR ---
CALL LIGHT ANSWERED. PT HUNGRY. HOB ELEVATED. SNACKS AND ENSURE PROVIDED. PT ABLE TO FEED SELF INDEPENDENTLY. CIWA SCORE 0 AT THIS TIME. BED ALARM FOR SAFETY. CALL LIGHT IN REACH.
--- NOTE | 2025-04-19 02:18 | NUR ---
PT FINISHED EATING SNACKS AND SANDWICH BOX INDEPENDENTLY. ASSISTED WITH CLEAN UP. VS AND I&O OBTAINED. IV ABX INFUSING PER ORDER. NO C/O PAIN. NO S/SX OF ETOH WITHDRAWAL. PT COOPERATIVE AND PLEASANT. ASSISTED TO REPOSITION IN BED. NO FURTHER NEEDS. BED ALARM FOR SAFETY. CALL LIGHT IN REACH.
--- NOTE | 2025-04-19 03:14 | NUR ---
PT ASSISTED TO BED INGRAM FOR MEDIUM SOFT BM. TOÑO CARE DONE. NEW ATTENDS IN PLACE. PT REPOSITIONED WITH PILLOW UNDER RIGHT HIP. WARM BLANKET PROVIDED. NO FURTHER NEEDS. BED ALARM IN PLACE. CALL LIGHT IN REACH.
[2025-04-19 05:28] LABS: BASOPHILS 0.8 % (0.2-1.2); EOSINOPHILS 6.6 % (0.8-7.0); LYMPHOCYTES 13.8 % (21.8-53.1); MCH 24.0 PG (25.7-32.2); MCHC 30.6 g/dL (32.3-36.5); MCV 78.5 fL (79.0-92.2); MONOCYTES 8.6 % (5.3-12.2); NEUTROPHILS 69.8 % (34.0-67.9); RBC 3.21 M/uL (4.63-6.08)
--- NOTE | 2025-04-19 05:30 | NUR ---
CALL LIGHT ANSWERED. WATER PROVIDED PER REQUEST. VS AND I&O OBTAINED. NO FURTHER NEEDS. CALL LIGHT IN REACH. BED ALARM FOR SAFETY.
[2025-04-19 05:45] LABS: ALT (SGPT) 20.0 U/L (14-59); AST (SGOT) 59.0 U/L (15-37); GLOMERULAR FILTRATION RATE,EST 100.0 mL/min (>60); PHOSPHORUS, INORGANIC 3.4 mg/dL (2.5-4.9); PROTEIN, TOTAL 5.7 g/dL (6.4-8.2); UREA NITROGEN 10.0 mg/dL (7-18)
--- NOTE | 2025-04-19 07:01 | NUR ---
ASSISTED PT TO BED INGRAM FOR LARGE SOFT BM. TOÑO CARE DONE. WOUNDS ON THIGHS AND BUTTOCKS DRESSED BY SUPERVISOR CEMETERY WORKERS. PT REPOSITIONED ON LEFT SIDE WITH PILLOWS. REPORTS WOUND PAIN 5/10. PRN FOR PAIN ADMIN PER EMAR. WARM BLANKET AND ICE WATER PROVIDED. NO FURTHER NEEDS. BED ALARM IN PLACE. CALL LIGHT IN REACH.
--- NOTE | 2025-04-19 07:25 | NUR ---
RECEIVED REPORT FROM VANCE DUGAN. PT LAYING IN BED WITH EYES CLOSED, UNLABORED BREATHING. CPOX AT 96%. CALL LIGHT WITHIN REACH, BED AT LOWEST POSITION.
[2025-04-19] MEDS ORDERED: MULTIVITAMINS THERAPEUTIC 1 EA TAB PO SCH (08:00)
[2025-04-19] MEDS ORDERED: MAGNESIUM SULFATE 2 GM/50 ML BAG IV SCH (08:00)
--- NOTE | 2025-04-19 08:12 | NUR ---
UR CLINICAL REVIEW: 2 MN FOR VERSALUS-PER CLERICAL ADMINISTRATOR MEETS INPT FOR WEAKNESS SECONDARY TO AUD WITH NEED FOR PT/OT, CIWA AND WOUND CARE MEDICARE INPT 04/18/25 @ 1311 ORDER MATCHES REG NO AUTH REQUIRED PER MEDICARE GUIDELINES DISCHARGE TO SNF WHEN STABLE
--- NOTE | 2025-04-19 08:27 | NUR ---
PATIENT IN BED AT THIS TIME. STAGE PRODUCER CHARTED HOURYL ROUNDS. CALL LIGHT WITHIN REACH, NO FURTHER NEEDS.
[2025-04-19] MEDS ORDERED: POTASSIUM CHLORIDE 40 MEQ,LIDOCAINE HCL 1% 40 MG in DEXTROSE 5% 250 ML IV ONE (08:30)
[2025-04-19] MEDS ORDERED: ENOXAPARIN SODIUM 40 MG/0.4 ML SYR SUB-Q SCH (09:00)
--- NOTE | 2025-04-19 09:40 | NUR ---
PATIENT IN BED AT THIS TIME. SECONDARY SCHOOL TEACHER CHARTED VITALS AND I&O'S. CALL LIGHT WITHIN REACH, NO FURTHER NEEDS.
--- NOTE | 2025-04-19 10:10 | NUR ---
Spoke with Ladarius. He is resting in his chair, listening to music. He denies needs. He cont. to want to discharge to [place]. We discussed he will have a 3 night IP stay to meet criteria. He denies any issues from his withdrawals.
--- NOTE | 2025-04-19 10:30 | NUR ---
PTS IV INFILTRATED AND FELL OUT WITH CATH INTACT. HEAT PACK APPLIED. MUSIC PUT ON FOR PT, NO OTHER NEEDS AT THIS TIME. CALL LIGHT WITHIN REACH.
--- NOTE | 2025-04-19 11:46 | NUR ---
REPOSITIONED PT IN CHAIR, SET UP LUNCH TRAY. NO OTHER NEEDS AT THIS TIME. CALL LIGHT WITHIN REACH.
--- NOTE | 2025-04-19 11:50 | NUR ---
PATIENT IN CHAIR AT THIS TIME. THIS REPAIR WEAVER CHANGED PATIENTS LINENS. CALL LIGHT WITHIN REACH, NO FURTHER NEEDS AT THIS TIME.
[2025-04-19] MEDS ORDERED: PHARMACY RENAL DOSE ADJUSTMENT 1 DOSE MISC PO SCH (12:00)
--- NOTE | 2025-04-19 12:12 | NUR ---
DR ROSENBERG IN ROOM TO ASSESS PT AND DISCUSS POC.
--- NOTE | 2025-04-19 12:30 | NUR ---
PHYSICAL THERAPY WORKING WITH PT. PT APPEARED TO HAVE AN BM THAT WAS INVOLUNTARY. TOÑO CARE, PURWICK CHANGE, LINEN CHANGE, AND NEW ALLEVYN ON SACRUM. PT TOLERATED WELL, DENIED PAIN. NO OTHER NEEDS AT THIS TIME, CALL LIGHT WITHIN REACH.
--- NOTE | 2025-04-19 13:10 | NUR ---
PT RESTING IN BED WITH EYES CLOSED, UNLABORED BREATHING. CALL LIGHT WITHIN REACH.
--- NOTE | 2025-04-19 14:03 | NUR ---
PATIENT IN BED AT THIS TIME. RN LAB CHARTED VITALS AND I&O'S. CALL LIGHT WITHIN REACH, NO FURTHER NEEDS.
[2025-04-19 14:05] LABS: BASOPHILS 0.8 % (0.2-1.2); EOSINOPHILS 6.9 % (0.8-7.0); LYMPHOCYTES 17.7 % (21.8-53.1); MCH 23.9 PG (25.7-32.2); MCHC 29.8 g/dL (32.3-36.5); MCV 79.9 fL (79.0-92.2); MONOCYTES 10.9 % (5.3-12.2); NEUTROPHILS 63.3 % (34.0-67.9); RBC 3.94 M/uL (4.63-6.08)
--- NOTE | 2025-04-19 14:14 | NUR ---
PATIENT IN BED AT THIS TIME. PATIENT AGREED TO BED BATH. CALL LIGHT WITHIN REACH, NO FRUTHER NEEDS.
--- NOTE | 2025-04-19 15:51 | NUR ---
REPOSITIONED PT WITH PILLOW UNDER LEFT HIP, TOLERATED WELL. NO OTHER NEEDS AT THIS TIME, CALL LIGHT WITHIN REACH.
--- NOTE | 2025-04-19 16:47 | NUR ---
PT CURRENTLY ON BEDPAN, CALL LIGHT IN REACH, BED LOWERED.
--- NOTE | 2025-04-19 17:15 | NUR ---
PT ASSISTED IN SETTING UP DINNER TRAY, NO OTHER NEEDS AT THIS TIME. CALL LIGHT WITHIN REACH..
--- NOTE | 2025-04-19 18:10 | NUR ---
PATIENT IN BED WATCHING TV AT THIS TIME. VITALS AND I&O'S DONE AND CHARTED. BED ALARM ON. CALL LIGHT IN REACH. NO FURTHER NEEDS AT THIS TIME.
--- NOTE | 2025-04-19 18:32 | NUR ---
STAPLE NOTICED ON PTS RIGHT CALF. NOTIFIED AND AT BEDSIDE REMOVING STAPLE. PT TOLERATED WELL, ABX OINTMENT AND BANDAID APPLIED. NO OTHER NEEDS AT THIS TIME, CALL LIGHT WITHIN REACH.
[2025-04-19] MEDS ORDERED: OXYCODONE HCL 5 MG TAB PO PRN (18:45)
--- NOTE | 2025-04-19 19:33 | NUR ---
REPORT RECEIVED FROM VANCE MALONEY AND VANCE ROSS. ROUNDED ON pt. RESTING IN BED WITH EYES CLOSED, AWAKENS RN ENTERS ROOM. IV SITE ASSESSED, INFUSING WNL. pt DENIES PAIN. SITTING UP DRINKING WATER. NO REQUESTS AT THIS TIME. BED ALARM SET.
--- NOTE | 2025-04-19 19:40 | NUR ---
PHONE CALL FROM LAB, NOTIFIED THAT BLOOD CULTURES POSITIVE FOR GRAM + COCCI IN CLUSTERS IN AEROBIC BOTTLE WELL AT 0213. NO GROWTH TO DATE IN ALTERNATIVE SITE. ROUNDING ON MED SURG UNIT, UPDATED. NO NEW ORDERS AT THIS TIME.
--- NOTE | 2025-04-19 20:15 | NUR ---
pt AWAKE RESTING IN BED. CIWA 1, UNSURE OF DATE. COMPLAINS OF BACK, NECK AND ABDOMINAL PAIN, 01/22. PRN PAIN MEDICATION ADMINISTERED. NEW CHUX AND ATTENDS PLACED ON pt. ATTENDS DRY WITH FLAKING SKIN IN BRIEF. MALE PUREWICK IN PLACE. ASSESSMENT COMPLETE. pt REPOSITIONED TO FLOATING WITH PILLOWS UNDER HIPS BILATERALLY AND LEGS ELEVATED WITH PILLOWS. SPO2 DROPS TO 87% WITH 1L OXYGEN BY NC IN PLACE AFTER pt COUGHING, TITRATED TO 2L TO MAINTAIN SATURATIONS WNL. BED IN LOW POSITION. IV SITE FLUSHED AND ANTIBIOTIC INFUSING WNL. BED ALARM ON. CALL LIGHT IN REACH.
--- NOTE | 2025-04-19 20:57 | NUR ---
CHECKED ON pt. IV ANTIBIOTIC COMPLETE. NEW BAG IVF INFUSING WNL. pt SLEEPING, SNORING. SPO2 92% ON CPOX, 2L OXYGEN BY NC IN PLACE.
--- NOTE | 2025-04-19 21:30 | NUR ---
PT RESTING QUIETLY IN BED, IV NS @ 125ML/HR TO R A/C, O2 IN PLACE AT 2LNC, SPO2 95%, HR 110, CALL KNIGHT IN REACH, BED IN LOW POSITION AND LOCKED, SIDE RAILS UP.
--- NOTE | 2025-04-19 22:45 | NUR ---
PT COUGHING EPISODE, O2 SATS 84-86%. PT ABLE TO PRODUCE SMALL AMOUNT OF MUCUS. O2 SATS RETURNED TO 90% ON 2LNC. OFFERED FLUIDS. NO ADDITIONAL C/O OR INTERVENTIONS NEEDED. PT INSTRUCTED TO CALL FOR ASSISTANCE. CALL KNIGHT IN REACH, BED IN LOW POSITION, WHEELS LOCKED SR UP X4. CPOX IN USE AT BEDSIDE.
--- NOTE | 2025-04-19 23:25 | NUR ---
PT AWAKE, FLUIDS OFFERED. NO C/O VERBALIZED. O2 REMAINS AT 2LNC, SPO2 90%. PT INSTRUCTED TO CALL FOR ASSISTANCE. CALL KNIGHT IN REACH, BED IN LOW POSITION AND LOCKED, SIDERAILS UP X 4.
[2025-04-20] VITALS (11 sets, daily range): BP systolic 113–130; BP diastolic 66–71
--- NOTE | 2025-04-20 00:27 | NUR ---
PT AWAKE AND ALERT, REQUESTING FOOD. PT PROVIDED SANDWICH, CUT INTO BITE SIZE PIECES, HOB ELEVATED 45 DEGREES. PT ETOH WITHDRAWAL ASSESSMENT COMPLETED, SCORE OF 0. PT A&OX4. DENIES PAIN. SPO2 92%, HR 109. O2 IN PLACE 2LNC. CALL KNIGHT IN REACH, BED IN LOW POSITION AND LOCKED, SIDERAILS UP X4
--- NOTE | 2025-04-20 00:43 | NUR ---
IV PUMP ALARMING, DISTAL OCCLUSION. ARM STRAIGHTENED, IVF INFUSING WNL. PUREWICK CANNISTER EMPTIED, 950 MLS. pt SITTING UP IN BED EATING SANDWICH, NO REQUESTS.
--- NOTE | 2025-04-20 01:08 | NUR ---
VS COMPLETE. pt'S HR 111, pt COUGHING. 2L OXYGEN BY NC IN PLACE, SPO2 WNL. CALL LIGHT IN REACH. BED ALARM ON.
--- NOTE | 2025-04-20 02:56 | NUR ---
IN ROOM FOR ANTIBIOTIC ADMINISTRATION. pt SLEEPING, AWAKENS TO VOICE THEN CLOSES EYES. IV SITE FLUSHED WNL, BLOOD RETURN NOTED. ANTIBIOTIC INFUSING WNL. NO DISTRESS NOTED. BED IN LOW POSITION, ALARM ON.
--- NOTE | 2025-04-20 04:57 | NUR ---
pt SLEEPING IN BED. EYES CLOSED. BREATHING EQUAL AND UNLABORED. SPO2 WNL WITH 2L OXYGEN BY NC IN PLACE. NEW BAG IVF INFUSING WNL. NO DISTRESS NOTED.
[2025-04-20 05:29] LABS: BASOPHILS 0.8 % (0.2-1.2); EOSINOPHILS 9.5 % (0.8-7.0); LYMPHOCYTES 15.1 % (21.8-53.1); MCH 24.1 PG (25.7-32.2); MCHC 31.3 g/dL (32.3-36.5); MCV 77.1 fL (79.0-92.2); MONOCYTES 7.5 % (5.3-12.2); NEUTROPHILS 66.7 % (34.0-67.9); RBC 3.15 M/uL (4.63-6.08)
--- NOTE | 2025-04-20 05:35 | NUR ---
CALL LIGHT ANSWERED. PT WANTED MORE WATER. CANTILEVER CRANE OPERATOR GAVE PT FRESH ICE WATER AND VITALS AND I&O OBTAINED. [employer] CANNISTER EMPTIED. PT STATES NO FURTHER NEEDS AT THIS TIME. CALL LIGHT WITHIN REACH.
[2025-04-20 05:47] LABS: ALT (SGPT) 21.0 U/L (14-59); AST (SGOT) 45.0 U/L (15-37); GLOMERULAR FILTRATION RATE,EST 105.0 mL/min (>60); PROTEIN, TOTAL 5.5 g/dL (6.4-8.2); UREA NITROGEN 7.0 mg/dL (7-18)
--- NOTE | 2025-04-20 06:21 | NUR ---
CALL LIGHT ANSWERED. pt STATES NEED TO HAVE BM. 2PA WITH FWW TO PIVOT TO BSC. INCONTINENT OF MEDIUM SOFT BM IN ATTENDS. ADDITIONAL BM IN BSC. BACK TO BED, ALLEVYN ON SACRUM AND LEFT THIGH REPLACED SOILED WITH STOOL. WOUND CARE PER ORDERS. BARRIER CREAM APPLIED TO BACKSIDE, LEGS, TOÑO AREA. FLAKY SKIN. pt STIFF WITH AMBULATION. COMPLAINS OF 7/10 PAIN IN SACRUM. PRN OXYCODONE ADMINISTERED. REPOSITIONED WITH PILLOWS UNDER HIPS, LEGS ELEVATED. HOB LOWERED TO RELIEVE PRESSURE FROM SACRAL AREA. BED ALARM ON. CALL LIGHT IN REACH. IVF INFUSING WNL.
--- NOTE | 2025-04-20 07:17 | NUR ---
DC REVIEW: CONTINUED NEED FOR CIWA PROTOCOL, PT/OT/ST TREATMENT, IV ANTIBIOTICS, IV FLUIDS. PLAN TO DC TO SNF WHEN MEDICALLY READY. ADD: 04/21/2025
--- NOTE | 2025-04-20 07:20 | NUR ---
RECIEVED REPORT FROM VNACE KYLE. PT LAYING IN BED WITH EYES CLOSED, UNLABORED RBEATHING. CPOX SHOWS 96% ON 1L NC. CALL LIGHT WITHIN REACH.
[2025-04-20] MEDS ORDERED: MAGNESIUM SULFATE 2 GM/50 ML BAG IV SCH (08:00)
[2025-04-20] MEDS ORDERED: FOLIC ACID 1 MG TAB PO SCH (08:00)
[2025-04-20] MEDS ORDERED: THIAMINE HCL 100 MG TAB PO SCH (08:00)
--- NOTE | 2025-04-20 08:11 | NUR ---
PATIENT IN BED AT THIS TIME. SENIOR ASIC DESIGN ENGINEER CHARTED HOURLY ROUNDS. CALL LIGHT WITHIN REACH, NO FURTHER NEEDS.
--- NOTE | 2025-04-20 08:50 | NUR ---
INCISING MACHINE OPERATOR (JAYLYN) LET THIS RN DR VIRGEN STATED TO HOLD THE UNASYN IV ABX THIS AM DUE TO MD WANTED TO START PATIENT ON PO ABX. THIS RN LET VANCE MALONEY (PATIENT'S PRIMARY RN) KNOW TO HOLD MEDICATION UNTIL NEW ORDERS ARE INPUT FROM MD.
--- NOTE | 2025-04-20 09:15 | NUR ---
PT REPORTS PAIN IN HEELS, ASSESSED, REPOSITIONED WITH PILLOW UNDER. NEW ICE WATER GIVEN. NO OTHER NEEDS AT THIS TIME, CALL LIGHT WITHIN REACH.
--- NOTE | 2025-04-20 09:24 | NUR ---
PATIENT IN BED AT IN TIME. CROWN IRONER CHARTED VITALS AND I&O'S. CALL LIGHT WITHIN REACH, NO FURTHER NEEDS.
[2025-04-20] MEDS ORDERED: AMOXICILLIN/CLAVULANATE K 875 MG TAB PO SCH (09:30)
--- NOTE | 2025-04-20 10:30 | NUR ---
PT REPORTS 12/22 PIAN, PRN OXY GIVEN. NO OTHER NEEDS AT THIS TIME, UP TO CHAIR. CALL LIGHT WITHIN REACH.
--- NOTE | 2025-04-20 11:00 | NUR ---
Left a message for Declan at [facility] asking if they have decided about accepting
--- NOTE | 2025-04-20 11:01 | NUR ---
MED REC COMPLETE
--- NOTE | 2025-04-20 11:22 | NUR ---
PATIENT IN CHAIR AT THIS TIME. SOW FARM BARN TECHNICIAN CHARTED HOURLY ROUNDS, THIS SOW FARM BARN TECHNICIAN CHANGED PATIENTS LINENS. CALL LIGHT WITHIN REACH, NO FURTHER NEEDS.
--- NOTE | 2025-04-20 12:15 | NUR ---
TRAY REMOVED FROM PTS BEDSIDE, PT REPORTS NO OTHER NEEDS. PT UP IN CHAIR WATCHIGN TV, CALL LIGHT WITHIN REACH.
[2025-04-20] MEDS ORDERED: NICOTINE 21 MG/24 HR 1 EA TDSY TD SCH (12:27)
--- NOTE | 2025-04-20 13:00 | NUR ---
Received a message from [facility] requesting updated notes on pts wounds. Faxed wound notes, Clinical note, orders for wound care, PT/OT/ST notes.
--- NOTE | 2025-04-20 13:15 | NUR ---
ASSISTED PHYSICAL THERAPY IN MOVING PT TO BED. PT REPORTS PAIN IN LEFT CALF, MD CALLED AND AWARE. NO OTHER NEEDS AT THIS TIME, CALL LIGHT WITHIN REACH.
[2025-04-20] MEDS ORDERED: ALBUTEROL SULFATE 0.083% 3 ML VIAL INH PRN (13:45)
--- NOTE | 2025-04-20 14:07 | NUR ---
PATIENT IN BED AT THIS TIME. PARKING LINE PAINTER CHARTED VITALS AND I&O'S. CALL LIGHT WITHIN REACH, NO FURTHER NEEDS.
[2025-04-20 14:15] LABS: BASOPHILS 0.7 % (0.2-1.2); EOSINOPHILS 9.0 % (0.8-7.0); LYMPHOCYTES 19.2 % (21.8-53.1); MCH 23.8 PG (25.7-32.2); MCHC 30.2 g/dL (32.3-36.5); MCV 78.8 fL (79.0-92.2); MONOCYTES 8.7 % (5.3-12.2); NEUTROPHILS 62.0 % (34.0-67.9); RBC 3.49 M/uL (4.63-6.08)
--- NOTE | 2025-04-20 15:10 | NUR ---
PT ASSISTED TO THE BSC BY 2PA AND FWW, PT BACK TO BED AND CALL LIGHT WITHIN REACH.
--- NOTE | 2025-04-20 16:00 | NUR ---
Ultrasound in with pt at this time
--- NOTE | 2025-04-20 17:17 | NUR ---
ASSISTED PT IN SETTING UP DINNER TRAY, NO OTHER NEEDS AT THIS TIME, CALL LIGHT WITHIN REACH.
--- NOTE | 2025-04-20 17:51 | NUR ---
PATIENT IN BED AT THIS TIME. MIX MILL TENDER CHARTED VITALS AND I&O'S. CALL LIGHT WITHIN REACH, NO FURTHER NEEDS.
--- NOTE | 2025-04-20 18:29 | NUR ---
PC from VANCE Castillo in CCU, advising that this pt has sustained tachycardia in the 120s since about 1630 hours this date. PC to Dr. Ochoa to update him on this. He advised he will enter an order for an ECG and will be down to reassess. Primary RN notified.
--- NOTE | 2025-04-20 19:01 | NUR ---
DR VIRGEN AT BEDSIDE
--- NOTE | 2025-04-20 19:59 | NUR ---
REPORT RECEIVED FROM VANCE MOHAN AND VANCE MALONEY. PT LAYING IN BED, AWAKE. RESPIRATIONS EVEN AND UNLABORED. REPOSITIONED IN BED WITH JENNY ANDERSON. DENIES NEEDS. CALL LIGHT WITHIN REACH.
[2025-04-20] MEDS ORDERED: ALBUTEROL/IPRATROPIUM 3 ML NEB INH SCH (20:00)
--- NOTE | 2025-04-20 20:20 | NUR ---
REASSESSED CIWA FOR THIS PT, SCORED 4. VITAL SIGNS TAKEN AND RECORDED, PT STILL IN THE 120S PER TELE. REPOSITIONED PT WITH JENNY ANDERSON. DENIES FURTHER NEEDS. DR. ROSENBERG UPDATED.
[2025-04-21] VITALS (11 sets, daily range): BP systolic 106–128; BP diastolic 60–79
--- NOTE | 2025-04-21 01:35 | NUR ---
RESIDENT CARE SUPERVISOR OBTAINED VITALS AND I&O. PT STATES NO NEEDS AT THIS TIME. CALL LIGHT WITHIN REACH AND BED ALARM ON.
--- NOTE | 2025-04-21 02:07 | NUR ---
PT LAYING IN BED. RESPIRATIONS EVEN AND UNLABORED. SATS AT 95% ON 1L O2/NC. IV FLUID INFUSING WELL. NO NEEDS NOTED AT THIS TIME. CALL LIGHT IN REACH.
--- NOTE | 2025-04-21 02:20 | NUR ---
PT RESTING IN BED WATCHING TV. RESPIRATIONS EVEN AND UNLABORED. IV FLUID INFUSING WELL. DENIES NEEDS AT THIS TIME. CALL LIGHT IN REACH.
--- NOTE | 2025-04-21 04:38 | NUR ---
PT LAYING IN BED WATCHING TV. RESPIRATIONS EVEN AND UNLABORED SPO2 AT 93% WITH 1L O2/NC. IV FLUID INFUSING WELL. DENIES FURTHER NEEDS. CALL LIGHT IN NEEDS.
[2025-04-21 05:38] LABS: BASOPHILS 0.7 % (0.2-1.2); EOSINOPHILS 9.5 % (0.8-7.0); LYMPHOCYTES 14.7 % (21.8-53.1); MCH 24.0 PG (25.7-32.2); MCHC 31.3 g/dL (32.3-36.5); MCV 76.6 fL (79.0-92.2); MONOCYTES 8.0 % (5.3-12.2); NEUTROPHILS 66.6 % (34.0-67.9); RBC 3.29 M/uL (4.63-6.08)
[2025-04-21 05:53] LABS: ALT (SGPT) 20.0 U/L (14-59); AST (SGOT) 37.0 U/L (15-37); GLOMERULAR FILTRATION RATE,EST 104.0 mL/min (>60); PROTEIN, TOTAL 5.6 g/dL (6.4-8.2); UREA NITROGEN 5.0 mg/dL (7-18)
--- NOTE | 2025-04-21 06:25 | NUR ---
PT LAYING IN BED WATCHING TV. VITAL SIGNS TAKEN AND RECORDED.INTAKE AND OUTPUT RECORDED. PUREWICK CHANGED. GOWN AND LINEN CHANGED. PT WAS INCOTINENT OF BOTH BOWEL AND URINE. HAD ONE EPISODE OF BOWEL MOVEMENT THIS SHIFT. DENIES FURTHER NEEDS. CALL LIGHT IN REACH.
--- NOTE | 2025-04-21 06:46 | NUR ---
CALL LIGHT ANSWERED. PT STATED THAT HE HAD A BM. THIS SUBGRADE TESTER AND SUBGRADE TESTER LEXIS CHANGED PT BRIEF AND CHUCKS PAD. PT STATES NO FURTHER NEEDS AT THIS TIME. CALL LIGHT WITHIN REACH AND BED ALARM ON.
--- NOTE | 2025-04-21 07:10 | NUR ---
REPORT REC'D FROM VANCE NEAL. PT RESING IN BED, SIDERAILS UP X4, BED IN LOW POSITION AND LOCKED. SPO2 91%, HR 107, O2 IN PLACE @ 2LNC. PT DENIES PAIN. PT INSTRUCTED TO CALL FOR ASSISTANCE.
--- NOTE | 2025-04-21 07:23 | NUR ---
PT REQUESTING TO USE BSC. PT ASSISTED OOB MOD ASSIST X 2 WITH FWW. PT INCONTINENT OF STOOL PRIOR TO SITTING ON COMMODE. LINEN CHANGED AND BATH PROVIDED. PT PLACED IN RECLINER CHAIR, CHAIR ALARM PLACED AND ACTIVATED. PT CPOX REMAINS IN PLACE WITH 2LNC. PT PROVIDED AM MEAL, INSTRUCTED TO CALL FOR ASSISTANCE. RECLINER LOCKED, CALL KNIGHT IN REACH.
[2025-04-21] MEDS ORDERED: POTASSIUM CHLORIDE 40 MEQ,LIDOCAINE HCL 1% 40 MG in DEXTROSE 5% 250 ML IV ONE (09:00)
[2025-04-21] MEDS ORDERED: MAGNESIUM SULFATE 2 GM/50 ML BAG IV SCH (09:00)
--- NOTE | 2025-04-21 09:49 | NUR ---
STILL PENDING ACCEPTANCE AT A FACILITY. INTO SEE PATIENT. PATIENT AGREEABLE TO SNF. PATIENT WILL POTENTIALLY NEED A TAXI RIDE AT TIME OF DISCHARGE.
--- NOTE | 2025-04-21 11:35 | NUR ---
PT REMAINS SITTING UP IN CHAIR, STATES PAIN IS "OK" AT THIS TIME. IV INFUSING RL&POTASSIUM WITHOUT S&S OF INFILTRATION. CALL KNIGHT REMAINS IN REACH, CHAIR ALARM ACTIVATED, RECLINER LOCKED
--- NOTE | 2025-04-21 12:21 | NUR ---
PT SITTING UP IN CHAIR EATING LUNCH MEAL. NO C/O VERBALIZED.
--- NOTE | 2025-04-21 13:17 | NUR ---
PT CIWA SCORE OF 9, PT PULLING AT TELEMETRY, REMOVING OXYGEN. REMAINS PLEASANT AND COOPERATIVE. UNABLE TO TELL RN DATE AT THIS TIME, REPORTS FEELING LIKE THERE IS SOMETHING CRAWLING UNDER HIS SKIN. PT MEDICATED WITH 1MG ATIVAN PO.
--- NOTE | 2025-04-21 13:36 | NUR ---
PT RETURNED TO BED, MOD ASSIST X2 WITH GAIT BELT AND FWW. SIDERAILS UP X4, CALL KNIGHT IN REACH, BED IN LOW POSITION AND LOCKED. CPOX ON SPO2 90%, HR 109, O2 AT 2LNC.
--- NOTE | 2025-04-21 18:50 | NUR ---
DR. ROSENBERG NOTIFIED OF PATIENT I&O, ORDER OBTAINED TO DC IVF. IV SALINE LOCKED CUROS APPLIED.
--- NOTE | 2025-04-21 18:56 | NUR ---
PT CARED FOR T/O SHIFT, O2 SATS VARY FROM LOW 80'S WITH MINIMAL ACTIVITY TO 94% ON 1.5-2.5LNC. PT OOB TO CHAIR FOR AM MEAL AND LUNCH. PT WITH GOOD I&O, IVF DC'D. PT REC'D POTASSIUM AND MAGNESIUM IV SUPPLEMENTS. PT CONTINUES TO HAVE BILAT LE EDEMA. PT COMPLIANT WITH ACTIVITY RESTRICTIONS AND USING CALL KNIGHT APPROPRIATELY. MEDICATED WITH PAIN MEDICATION X1 FOR BACK AND LEG PAIN, ATIVAN X2 FOR ELEVATED CIWA. PT RESTING AT THIS TIME, SIDERAILS UP X4, BED IN LOW POSITION AND LOCKED, CALL KNIGHT IN REACH
--- NOTE | 2025-04-21 19:34 | NUR ---
REPORT RECIEVED FROM VANCE RUTHERFORD. PATIENT RESTING IN BED ON HIS RIGHT SIDE WITH HIS EYES CLOSED. EVEN AND UNLABORED RESPIRATIONS NOTED. CALL LIGHT AND PERSONAL BELONGINGS ARE WITHIN REACH.
--- NOTE | 2025-04-21 20:10 | NUR ---
GABRIELA'S (aka: CADY) SPO2 WAS HOVERING AT 85% ON A 2L NC, SO RT TITRATED O2 TO 3L ON THE NC TO BRING CADY ABOVE 88%. CADY IS ABLE TO USE THE CORNET +5 W/O DIFFICULTY, BUT WITH COACHING.
--- NOTE | 2025-04-21 20:51 | NUR ---
PATIENT REPOSITIONED TO COMFORT. PATIENT ASSESSMENT COMPLETED. PATIENT CIWA AT A 4 AT THIS TIME. FRESH ICE WATER AND GARRICK PROVIDED TO PATIENT PER PATIENT REQUEST. PATIENT IS WITHOUT FURTHER NEEDS AT THIS TIME. CALL LIGHT AND PERSONAL BELONGINGS ARE WITHIN REACH. VITAL SIGNS TAKEN AND ARE STABLE.
--- NOTE | 2025-04-21 22:12 | EKG ---
[facility] [address] [place] [address] Signed Sinus tachycardia Otherwise normal ECG When compared with ECG of 18-APR-2025 02:11, No significant change was found Confirmed by Uziel Virgen MD () on 04/21/2025 10:12:10 PM Electronically Signed By: UZIEL VIRGEN MD 04/21/25 221 PATIENT NAME: GABRIELA ABBASI Electrocardiogram DATE OF : 59 PHYSICIAN: UZIEL VIRGEN MD REPORT #: [id number] REPORT IS CONFIDENTIAL AND NOT TO BE RELEASED WITHOUT AUTHORIZATION
--- NOTE | 2025-04-21 22:19 | NUR ---
PATIENT RESTING IN BED WITH HOB ELEVATED. PATIENT IS 97% ON 3L NC. OXYGEN TURNED DOWN TO 2L NC AT THIS TIME. PATIENT IS WITHOUT ANY NEEDS AT THIS TIME. CALL LIGHT AND PERSONAL BELONGINGS ARE WITHIN REACH.
[2025-04-22] VITALS (9 sets, daily range): BP systolic 107–144; BP diastolic 61–79
--- NOTE | 2025-04-22 00:26 | NUR ---
PATIENT RESTING IN BED WITH HIS EYES CLOSED. EVEN AND UNLABORED RESPIRATIONS NOTED. CALL LIGHT AND PERSONAL BELONGINGS ARE WITHIN REACH. PATIENT IS 92%-93% ON 2L NC. CPOX AT BEDSIDE.
--- NOTE | 2025-04-22 02:01 | NUR ---
SKY CAP OBTAINED VITALS AND I&O. PUREWICK CANNISTER EMPTIED. PT STATES NO NEEDS AT THIS TIME. CALL LIGHT WITHIN REACH AND BED ALARM ON.
--- NOTE | 2025-04-22 02:30 | NUR ---
PATIENT RESTING IN BED AND DENIES ANY NEEDS. JENNY ANDERSON IN ROOM PRIOR TO CHECKNG ON PATIENT AND PROVIDED ICE WATER, GARRICK, AND WARM BLANKET. CALL LIGHT AND PERSONAL BELONGINGS ARE WITHIN REACH.
--- NOTE | 2025-04-22 03:21 | NUR ---
PATIENT CALLED REPORTING PAIN. PRN DOSE OF PAIN MEDICATION ADMINISTERED. PATIENT CIWA OF 4. PATIENT REFUSES REPOSITIONING AT THIS TIME. PATIENT WITHOUT FURTHER NEEDS. CALL LIGHT AND PERSONAL BELONGINGS ARE WITHIN REACH.
[2025-04-22 05:30] LABS: BASOPHILS 0.7 % (0.2-1.2); EOSINOPHILS 7.9 % (0.8-7.0); LYMPHOCYTES 16.5 % (21.8-53.1); MCH 24.0 PG (25.7-32.2); MCHC 31.4 g/dL (32.3-36.5); MCV 76.3 fL (79.0-92.2); MONOCYTES 7.6 % (5.3-12.2); NEUTROPHILS 66.8 % (34.0-67.9); RBC 3.42 M/uL (4.63-6.08)
--- NOTE | 2025-04-22 05:42 | NUR ---
PT WAS AWAKE, TV ON, NO VISITORS IN THE ROOM. GOT PT FRESH ICE WATER AND EMPTIED TRASH IN ROOM. PICKED UP ROOM FOR NEXT SHIFT. PT HAS CALL LIGHT NEXT TO HIM AND IS REQUESTING NOTHING MORE AT THIS TIME.
[2025-04-22 05:54] LABS: ALT (SGPT) 18.0 U/L (14-59); AST (SGOT) 37.0 U/L (15-37); GLOMERULAR FILTRATION RATE,EST 111.0 mL/min (>60); PROTEIN, TOTAL 6.4 g/dL (6.4-8.2); UREA NITROGEN 5.0 mg/dL (7-18)
--- NOTE | 2025-04-22 06:00 | NUR ---
PUREWICK CHANGED, FRESH LINEN PROVIDED. PATIENT REPOSITIONED TO COMFORT. PATIENT IS WITHOUT FURTHER NEEDS AT THIS TIME. CALL LIGHT AND PERSONAL BELONGINGS ARE WITHIN REACH.
--- NOTE | 2025-04-22 07:15 | NUR ---
REPORT REC'D FROM VANCE MOHAN. PT RESTING QUIETLY IN BED. CALL KNIGHT IN REACH, BED IN LOW POSITION AND LOCKED, SIDERAILS UP X4. CPOX IN USE AT BEDSIDE, SPO2 88% ON 2LNC. PT INSTRUCTED TO CALL FOR ASSISTANCE.
[2025-04-22] MEDS ORDERED: MAGNESIUM CHLORIDE 64 MG TABCR PO ONE (07:45)
--- NOTE | 2025-04-22 08:47 | NUR ---
THIS UNIT CONTROL WORKER IN TO ASSIST RN WITH TRANSFERING PATIENT. PATIENT UP TO CHAIR, 2PA FWW PIVOT. CHAIR ALARM ON. LINENS CHANGED. CALL LIGHT IN REACH. NO FURTHER NEEDS AT THIS TIME.
[2025-04-22] MEDS ORDERED: ARFORMOTEROL TARTRATE 15 MCG/2 ML VIAL INH SCH (09:06)
[2025-04-22] MEDS ORDERED: BUDESONIDE 0.5 MG/2 ML VIAL INH SCH (09:07)
[2025-04-22] MEDS ORDERED: predniSONE 20 MG TAB PO SCH (09:16)
[2025-04-22] MEDS ORDERED: AZITHROMYCIN 500 MG in DEXTROSE 5% 250 ML IV SCH (09:17)
[2025-04-22] MEDS ORDERED: guaiFENesin 600 MG TABCR PO PRN (09:30)
[2025-04-22] MEDS ORDERED: AZITHROMYCIN 250 MG TAB PO SCH (10:00)
--- NOTE | 2025-04-22 11:10 | NUR ---
PT SITTING UP IN CHAIR, REQUESTING TO RETURN BACK TO BED, PT ENCOURAGED TO STAY UP IN CHAIR UNTIL AFTER LUNCH TIME. PT AGREEABLE. SPO2 92% ON 2LNC. CALL LIGHT IN REACH, RECLINER LOCKED, CHAIR ALARM ACTIVATED
--- NOTE | 2025-04-22 12:43 | NUR ---
PT SITTING UP IN CHAIR WITH LUNCH TRAY. PROVIDED FLUIDS.CALL KNIGHT IN REACH
--- NOTE | 2025-04-22 14:05 | NUR ---
2PA BY THIS TRIP MOTOR OPERATOR AND TRIP MOTOR OPERATOR TAWANA BACK INTO BED AT 1315 FROM THE RECLINER. CALL LIGHT AND PERSONAL ITEMS ARE WITHIN REACH. ICE WATER PROVIDED. NO OTHER CARES WERE REQUESTED.
--- NOTE | 2025-04-22 15:37 | NUR ---
THIS RELIGIOUS EDUCATION DIRECTOR ASSISTED VANCE RUIZ TO CHANGE PATIENT'S ALLEVYNS. BRIEF CHANGED, TOÑO CARE DONE, AND PUREWICK CHANGED BY THIS RELIGIOUS EDUCATION DIRECTOR. BARRIER CREAM APPLIED TO PATIENT'S BELLY. GOWN AND BED LINENS CHANGED.
--- NOTE | 2025-04-22 18:10 | NUR ---
PT NOTED TO BE ATTEMPTING TO GET OOB, PULLING AT TELEMETRY, INCREASED AGITATION AND HEART RATE TO 110-120'S. TREMORS NOTED TO HANDS. PT UNABLE TO TELL FULL DATE. PT WANTING TO GET OOB AND TAKE THE CART TO GO AND SMOKE. LOZENGERS ORDERED. CIWA SCORED AT 8, MEDICATED WITH 1MG ATIVAN PO. PT TURNED & POSITIONED. BED ALARM ACTIVATED, SIDERAILS UP X4, CALL KNIGHT IN REACH, BED LOW POSITION AND LOCKED.
[2025-04-22] MEDS ORDERED: NICOTINE POLACRILEX 4 MG LOZENGE BUCCAL PRN (18:15)
--- NOTE | 2025-04-22 18:39 | NUR ---
PT CARED FOR T/O SHIFT. PT OOB TO CHAIR FROM AM MEAL THROUGH LUNCH. DRESSINGS CHANGED, SPO2 IN USE T/O SHIFT WITH SATS NOTED IN LOW 80'S WITH ACTIVITY AND AGITATION TO LOW 90'S AT REST, 2LNC. PT VOIDING WITH MALE PUREWICK IN USE, CLEAR DILUTE URINE. PT TURNED AND POSITIONED, WAFFLE MATTRESS APPLIED TO BED. PT MEDICATED X2 FOR PAIN AND X1 FOR CIWA SCORE OF 8. BED ALARM IN USE, SIDERAILS UP X4, CALL KNIGHT IN REACH, BED IN LOW POSITION AND LOCKED.
--- NOTE | 2025-04-22 19:20 | NUR ---
REPORT RECIEVED FROM VANCE RUTHERFORD. PATIENT RESTING IN HIS CHAIR WATCHING TV AND DENIES ANY NEEDS AT THIS TIME. CALL LIGHT AND PERSONAL BELONGINGS ARE WITHIN REACH. WHITE BOARD UPDATED.
--- NOTE | 2025-04-22 20:40 | NUR ---
VANCE GODINEZ AND JENNY CAMPBELL IN ROOM ASSISTING PATIENT BACK TO BED.
--- NOTE | 2025-04-22 21:03 | NUR ---
PATIENT ASSESSMENT COMPLETED. PATIENT WITH CIWA OF 5 AT THIS TIME. PATIENT SITTING UP IN BED WATCHING TV. PATIENT MEDICATED PER EMAR. PATIENT IS WITHOUT ANY NEEDS AT THIS TIME. CALL LIGHT AND PERSONAL BELONGINGS ARE WITHIN REACH.
--- NOTE | 2025-04-22 23:18 | NUR ---
PATIENT RESTING IN BED WITH HIS EYES CLOSED. EVEN AND UNLABORED RESPIRATIONS NOTED. CALL LIGHT AND PERSONAL BELONGINGS ARE WITHIN REACH.
[2025-04-23] VITALS (10 sets, daily range): BP systolic 116–136; BP diastolic 67–87
--- NOTE | 2025-04-23 00:21 | NUR ---
PATIENT RESTING IN BED ON HIS BACK AND NOTED TO BE SLEEPING, BUT COUGHING INTERMITTENTLY. HOB ELEVATED AND APPEARS TO BE HELPING WITH THE COUGHING. PATIENT WAS 87%-89% ON 1L NC, OXYGEN TURNED UP TO 2L NC AT THIS TIME. CPOX AT BEDSIDE. CALL LIGHT AND PERSONAL BELONGINGS ARE WITHIN REACH.
--- NOTE | 2025-04-23 02:23 | NUR ---
PATIENT RESTING IN BED WITH HIS EYES CLOSED. EVEN AND UNLABORED RESPIRATIONS NOTED. CALL LIGHT AND PERSONAL BELONGINGS ARE WITHIN REACH.
[2025-04-23 05:10] LABS: BASOPHILS 0.2 % (0.2-1.2); EOSINOPHILS 0.1 % (0.8-7.0); LYMPHOCYTES 19.7 % (21.8-53.1); MCH 24.4 PG (25.7-32.2); MCHC 32.1 g/dL (32.3-36.5); MCV 75.9 fL (79.0-92.2); MONOCYTES 8.0 % (5.3-12.2); NEUTROPHILS 71.6 % (34.0-67.9); RBC 3.20 M/uL (4.63-6.08)
[2025-04-23 05:26] LABS: ALT (SGPT) 18.0 U/L (14-59); AST (SGOT) 29.0 U/L (15-37); GLOMERULAR FILTRATION RATE,EST 104.0 mL/min (>60); PROTEIN, TOTAL 6.3 g/dL (6.4-8.2); UREA NITROGEN 10.0 mg/dL (7-18)
--- NOTE | 2025-04-23 06:20 | NUR ---
PATIENT WAS ASSISTED TO THE BSC, FWW WITH THIS CONTRACTOR FIELD HAULING AND RN. PATIENT BRIEF WAS CHANGED AND PERICARE WAS PREFORMED. PATIENT IS LAYING IN BED. CALL LIGHT IS WITHIN REACH AND NO FURTHER NEEDS AT THIS TIME.
--- NOTE | 2025-04-23 07:35 | NUR ---
PT RESTING EYES CLOSED AT TIME OF SHIFT REPORT. CALL LIGHT IN REACH. SATS 94% O2 TURNED OFF SATS 89-91%
--- NOTE | 2025-04-23 08:35 | NUR ---
PT TO CT VIA W/C
[2025-04-23] MEDS ORDERED: MAGNESIUM OXIDE 400 MG TABLET PO ONE (09:00)
[2025-04-23] MEDS ORDERED: HEParin SOD (PORCINE) 5,000 UNIT/ML SYR IV PRN ×3 (09:30)
[2025-04-23] MEDS ORDERED: HEParin SOD (PORCINE) 5,000 UNIT/ML SYR IV ONE (09:30)
[2025-04-23] MEDS ORDERED: HEPARIN SOD,PORK IN 0.45% NACL 500 ML IV SCH (09:30)
--- NOTE | 2025-04-23 09:40 | NUR ---
PT COMPLETES MORNING MEAL THEN EATS A SANDWICH BOX WELL. RESTING IN BED WATCHING TV. SATS 91% HAS BEEN RETURNED TO 02 1L
[2025-04-23 09:43] LABS: BASOPHILS 0.5 % (0.2-1.2); EOSINOPHILS 0.9 % (0.8-7.0); LYMPHOCYTES 16.9 % (21.8-53.1); MCH 23.7 PG (25.7-32.2); MCHC 30.8 g/dL (32.3-36.5); MCV 77.1 fL (79.0-92.2); MONOCYTES 8.9 % (5.3-12.2); NEUTROPHILS 72.4 % (34.0-67.9); RBC 3.54 M/uL (4.63-6.08)
[2025-04-23 09:54] LABS: INR 1.04 (0.80-1.30); PROTIME 12.9 Sec (11.2-14.2)
--- NOTE | 2025-04-23 10:01 | NUR ---
PT WAS WHEELCHAIRED TO A CT SCAN. WHILE GONE THIS SADDLE TREE STITCHER COMPLETED A FULL LINEN CHANGE, TOOK OUT ROOM TRASH AND CLEANED UP THE ROOM. GOT PT FRESH ICE WATER.
--- NOTE | 2025-04-23 10:43 | NUR ---
DR WHITFIELD NOT NOTIFIED OF INCREASED MEWS SCORE HR HAS BEEN ELEVATED THIS ENTIRE STAY. NO CHANGE FROM BASELINE
--- NOTE | 2025-04-23 10:45 | NUR ---
STARTED HEP. DRIP WITH VANCE KATZ, DOUBLE CHECKED WITH VANCE LEHMAN. PT VERBALIZED UNDERSTANDING.
--- NOTE | 2025-04-23 12:02 | NUR ---
PT REPOSITIONED IN BED FOR NOON MEAL. HE IS ALERT AND COOPERATIVE NO S/S OF ELEVATED CIWA. H20 REFILLED. PT IS DRINKING A LARGE QUANTITIY OF H20 STAFF ENCOURAGED NOT TO REFILL HIS CUP UNLESS HE ASKS
--- NOTE | 2025-04-23 14:15 | NUR ---
PT REPORTING NAUSEA, REQUESTING VOMIT BAG. PT MEDICATED WITH ZOFRAN 4MG IVP. CIWA COMPLETED, SCORE 6. PT INSTRUCTED TO CALL FOR ASSISTANCE, CALL KNIGHT IN REACH, BED IN LOW POSITION AND LOCKED. CPOX 88-89%, HR 109, RA
--- NOTE | 2025-04-23 14:54 | NUR ---
PT DECLINES UP TO THE CHAIR. HAS BEEN UP TO BSC TO MOVE HIS BOWELS 2X THIS SHIFT. WATER PROVIDED PER REQUEST OTHER NEEDS DENIED
--- NOTE | 2025-04-23 17:11 | NUR ---
PT REPOSITIONED IN BED EATING EVENING MEAL.
--- NOTE | 2025-04-23 18:16 | NUR ---
PT IN BED, HEAD UP, TV ON, AND NO VISITORS IN ROOM. TOOK OUT TRASH AND CLEANED UP ROOM. GOT PT FRESH ICE WATER AND CALL LIGHT WITHIN REACH OF PT.
--- NOTE | 2025-04-23 18:18 | NUR ---
CLEANED UP ROOM AND EMPTIED TRASH FOR NEXT SHIFT. PT IN BED, HEAD UP. LINENS WERE CHANGED TWICE TODAY DUE TO BM, PT NOT MAKING IT TO THE COMMODE. RN CHANGED BOTTOM DRESSING FOLLOWING BM.
--- NOTE | 2025-04-23 18:23 | NUR ---
PT UP TO THE BSC AGAIN MOVES HIS BOWELS FOR THE 3RD TIME TODAY. PURKSENIAK CHANGED AND ANTONIO COMPLETED PT BACK TO REST IN BED.
--- NOTE | 2025-04-23 19:19 | NUR ---
REPORT RECEIVED FROM DAY SHIFT RN. PT LYING IN BED ALERT AND ORIENTED. DENIES NEEDS. WHITE BOARD UPDATED. CALL LIGHT IN REACH.
[2025-04-23] MEDS ORDERED: ACETAMINOPHEN 500 MG TAB PO PRN (19:30)
--- NOTE | 2025-04-23 19:34 | NUR ---
PT C/O HEADACHE 12/22. NIO PLACED. PT MEDICATED WITH 1 500MG TYLENOL PO. SIDERAILS UP X3, CALL KNIGHT IN REACH, BED IN LOW POSITION AND LOCKED.
--- NOTE | 2025-04-23 20:16 | NUR ---
EVENING ASSESSMENT COMPLETE. HEPARIN DRIP INFUSING PER ORDER. VS AND I&O OBTAINED. 0.5L/NC IN PLACE. SpO2 LOW 90'S. WHEEZE HEARD THROUGHOUT. TELE #[address] HR ONE TEENS. ASSISTED PT TO REPOSITION IN BED. NO FURTHER NEEDS. CALL LIGHT IN REACH.
--- NOTE | 2025-04-23 21:22 | NUR ---
ICE WATER AND SODA PROVIDED PER PATIENT'S REQUEST.
--- NOTE | 2025-04-23 23:03 | NUR ---
PT RESTING IN BED WITH EYES CLOSED. RESPIRATIONS EVEN. CALL LIGHT IN REACH.
[2025-04-24] VITALS (11 sets, daily range): BP systolic 129–140; BP diastolic 75–89
--- NOTE | 2025-04-24 01:01 | NUR ---
PTT RESULTS REVIEWED. NO CHANGES IN HEPARIN DRIP AT THIS TIME. VERIFIED WITH QUARRY SUPERVISOR RN. ORDER FOR NEXT PTT DRAW ENTERED FOR 629 PER PROTOCOL.
--- NOTE | 2025-04-24 01:10 | NUR ---
PT AWAKE IN BED. VS OBTAINED. ATTENDS SLIGHTLY WET. TOÑO CARE COMPLETE. BARRIER CREAM APPLIED TO BUTTOCKS. NEW ATTENDS IN PLACE. PT ABLE TO ASSIST WITH CARES. 2PA TO REPOSTIION IN BED. NO FURTHER NEEDS. CALL LIGHT IN REACH.
--- NOTE | 2025-04-24 01:40 | NUR ---
CALL LIGHT ANSWERED. PT HOLDING CHANNEL TO IV PUMP. PT REPORTS CHANNEL FELL OFF IV PUMP AND LANDED ON HIS CHEST. APPROX 1in X 1in SKIN TEAR NOTED ON CENTER OF PT CHEST. SKIN TEAR COVERED WITH ALLEVYN. ASSISTED PT TO REPOSITION. NO FURTHER NEEDS.
--- NOTE | 2025-04-24 03:17 | NUR ---
PT RESTING IN BED WITH EYES CLOSED. RESPIRATIONS EVEN. CALL LIGHT IN REACH.
--- NOTE | 2025-04-24 05:01 | NUR ---
CALL LIGHT ANSWERED. PT REPORTS BACK/ABD PAIN 11/22. PRN FOR PAIN ADMIN PER EMAR. VS AND I&O OBTAINED. NO FURTHER NEEDS. CALL LIGHT IN REACH.
[2025-04-24 05:49] LABS: AST (SGOT) 38.0 U/L (15-37); GLOMERULAR FILTRATION RATE,EST 107.0 mL/min (>60); PROTEIN, TOTAL 6.3 g/dL (6.4-8.2); UREA NITROGEN 11.0 mg/dL (7-18)
[2025-04-24 05:59] LABS: ALT (SGPT) 22.0 U/L (14-59)
--- NOTE | 2025-04-24 07:18 | NUR ---
MD UPDATED VIA PHONE REGARDING SKIN TEAR ON CHEST.
[2025-04-24] MEDS ORDERED: MAGNESIUM OXIDE 400 MG TABLET PO ONE (07:30)
--- NOTE | 2025-04-24 07:37 | NUR ---
PT AWAKE AND INTERACTIVE AT TIME OF SHIFT REPORT. C/O DISCOMFORT IN HIS LEGS, PT MOVED TO THE RECLINER FOR COMFORT. IV SITE INFILTRATED HEPARIN PAUSED UNTIL NEW SITE CAN BE ESTABLISHED. CALL LIGHT AND NEEDED ITEMS CHAIRSIDE
--- NOTE | 2025-04-24 08:25 | NUR ---
PT CONTINUES UP IN THE CHAIR NEW IV SITE ESTABLISHED HEPARIN INFUSING. PT TOLERATES MORNING MEAL WITHOUT C/O. WATCHING TV CALL LIGHT IN LAP
--- NOTE | 2025-04-24 08:41 | NUR ---
PT DOWN TO MRI
--- NOTE | 2025-04-24 09:35 | NUR ---
Spoke with Ladarius. He states he cont. to have pain in r calf and ferris. He denies needs, would like to have a cola. Discussed the hospital only carrys sprite or catalina ragini. He requests a sprite. Updated he was discussed in IDT meeting this morning and per Dr. Mcneal pt is not medically ready for dc.
--- NOTE | 2025-04-24 09:51 | NUR ---
HOURLY ROUNDING PATIENT IS BACK FROM MRI, TRANSFERRED PATIENT A TWOP PERSON TRANSFER, PATIENT COMPLAINS OF FEET PAIN NURSE NOTIFIED. NO REQUEST FROM PATIENT BOARD HAS BEEN UODATED AND CALL LIGHT HAS BEEN PLACED WIHTIN REACH, PUREWICK HAS BEEN HOOKED BACK ON TO PATIENT
--- NOTE | 2025-04-24 10:38 | NUR ---
PT WORKING WITH PT/OT
--- NOTE | 2025-04-24 10:43 | NUR ---
HOURLY ROUNDING PATIENT WORKING WITH OT. EMPTIED PURWICK AMOUNT OF 1200 DOCUMENTED ON THE I &O'S SHEET. NO REQUEST FROM PATIENT AT THIS TIME. CALL LIGHT HAS BEEN PALCED WITHIN REACH
--- NOTE | 2025-04-24 11:36 | NUR ---
PT RETURNS TO RESTING IN BED PER HIS REQUEST. NEEDED ITEMS AT BEDSIDE
[2025-04-24] MEDS ORDERED: PANTOPRAZOLE SODIUM 40 MG TABEC PO SCH (11:57)
--- NOTE | 2025-04-24 12:41 | NUR ---
PT TO MRI
--- NOTE | 2025-04-24 13:23 | NUR ---
HOURLY ROUNDING PATIENT LAYING IN BED, CALL LIGHT HAS BEEN PLACED WITHIN REACH
--- NOTE | 2025-04-24 13:37 | NUR ---
PT IS BACK FROM 2ND MRI TODAY RESTING IN BED HAVING A BREATHING TREATMENT. HE DENIES NEEDS AT THIS TIME.
--- NOTE | 2025-04-24 15:10 | NUR ---
ALL DRESSINGS REMOVED AND PT TAKEN TO SHOWER. ASSIST TO WASH HAIR AND ENTIRE BODY. WATER LEFT TO RUN OVER WOUNDS. PT TO THE BED AND NEW PURWIK PLACED WOUNDS ASSESSED AND RE-DRESSED. SKIN IS GREATLY IMPROVED FROM ADMISSION SOME WOUNDS HEALED ENTIRELY OTHERS ARE SUPERFICIAL AND HEALING WELL. ACTIVITY WELL TOLERATED BY PT WARM BLANKET APPLIED AFTER RETURN TO BED. HE AGREES HE IS COMFORTABLE. PT CURRENTLY BRUSHING HIS HAIR. CALL LIGHT AND FRESH H20 TO BEDSIDE
--- NOTE | 2025-04-24 16:16 | NUR ---
IN TO SPEAK WITH PT R/T BRAIN CANCER AND WHAT TO DO GOING FORWARD. PT DECLINES OFFER OF TREATMENT QUITE CLEARLY. ONGOING DICUSSION ALL QUESTIONS ANSWERED. ASKED PT IF HE'D LIKE TO SPEAK WITH CLERGY OR OTHER HE GIVES A NAME AND THIS PERSON IS CONTACTED PER HIS REQUEST AND AGREES TO COME IN LATER THIS EVENING
--- NOTE | 2025-04-24 17:40 | NUR ---
PT SPEAKS TO HIS BROTHER WELL HIS NEICE VIA THE PHONE. REPOSITIONED UPRIGHT IN BED FOR EVENING MEAL
--- NOTE | 2025-04-24 19:30 | NUR ---
PT PUREWICK SYSTEM NOTED TO NOT BE CLOSED, URINE TO SHEETS AND GOWN. PT COMPLETE LINEN CHANGE, CLEASENED WITH WIPES, LOTION APPLIED, BARRIER CREAM TO GROIN. PT INCONTINENT OF SMALL BM. ALLEVYN CHANGED TO LEFT SIDE OF COCCYX. PT TURNED AND POSITIONED, FEET ELEVATED ON PILLOWS. CALL KNIGHT IN REACH, PT USING CALL KNIGHT APPROPRIATELY, PT INSTRUCTED TO CALL FOR ASSISTANCE, VERBALIZED UNDERSTANDING. BED IN LOW POSITION AND LOCKED, CPOX IN USE AT BEDSIDE, SPO2 91%. O2 IN PLACE AT 1LNC. RT IN TO SEE PATIENT
--- NOTE | 2025-04-24 19:34 | NUR ---
VERBAL REPORT RECEIVED BY GIANNA WOODARD. PATIENT AWAKE IN BED AT THIS TIME WITH CPOX AT BEDSIDE. MARIUSZ ALVARADO AND SHARDA RN IN THE ROOM AT THIS TIME PERFORMING TOÑO CARE.
[2025-04-24] MEDS ORDERED: GABAPENTIN 300 MG CAP PO SCH (21:00)
[2025-04-24] MEDS ORDERED: DEXAMETHASONE SOD PHOS 4 MG/ML VIAL IV SCH (21:00)
--- NOTE | 2025-04-24 21:54 | NUR ---
PATIENT SITTING UP IN BED AT THIS TIME WATCHING TV. PATIENT COMPLAINS OF NAUSEA AT THIS TIME, PRN ZOFRAN GIVEN (SEE EMAR). PATIENT COMPLAINS OF 6/10 LEGS AND BACK PAIN, PRN OXYCODONE 5 MG PO GIVEN (SEE EMAR). DENIES ANY FURTHER NEEDS AT THIS TIME. CALL LIGHT IN REACH.
[2025-04-25] VITALS (9 sets, daily range): BP systolic 130–139; BP diastolic 78–82
--- NOTE | 2025-04-25 00:01 | NUR ---
PATIENT RESTING IN BED EYES CLOSED BREATHING EVEN AND UNLABORED. CPOX AT BEDSIDE SPO2 92%, BPM 108. NASAL CANNULA IN PLACE 0.5/NC. BED ALARM ON FOR PATIENT SAFETY. CALL LIGHT IN REACH.
--- NOTE | 2025-04-25 02:15 | NUR ---
VITAL SIGNS HELD AT THIS TIME TO ALLOW PATIENT TO REST. CPOX AT BEDSIDE SPO2 92%, BPM 109. NASAL CANULA IN PLACE .5 LPM. CALL LIGHT IN REACH.
--- NOTE | 2025-04-25 04:07 | NUR ---
FOCUSED ASSESMENT COMPLETE. LUNGS CLEAR THROUGHOUT. ICE CHIPS PROVIDED PER PATIENT REQUEST. PATIENT SITTING UP IN BED WATCHING TV. CPOX AT BEDSIDE, SPO2 92% ON .5 LPM VIA NC, BPM 109. PATIENT DENIES ANY FURTHER NEEDS AT THIS TIME. CALL LIGHT IN REACH.
--- NOTE | 2025-04-25 04:54 | NUR ---
CALL LIGHT ANSWERED. PRN PAIN MEDICATION ADMINISTERED FOR 6/10 BACK, LEG PAIN. SNACK AT BEDSIDE. LIGHTS OFF IN ROOM. BED ALARM ON. pt DENIES ADDITIONAL NEEDS.
--- NOTE | 2025-04-25 06:36 | NUR ---
PATIENT IS RESTING IN BED EYES CLOSED, BREATHING EVEN AND UNLABORED. CPOX AT BEDSIDE SPO2 91 %, NC .5 LPM, BPM 99. NO NEEDS AT THIS TIME. CALL LIGHT IN REACH.
--- NOTE | 2025-04-25 07:15 | NUR ---
RECEIVED REPORT FROM VANCE GODFREY AND VANCE DUGAN. PATIENT RESTING IN BED WITH EYES CLOSED, RESPIRATIONS EVEN AND UNLABORED. IVF INFUSING WITHOUT DIFFICULTY. CPOX ON. PUREWICK TO SUCTION. NO NEEDS IDENTIFIED AT THIS TIME. CALL LIGHT AND BELONGINGS IN REACH.
[2025-04-25] MEDS ORDERED: APIXABAN 5 MG TAB PO SCH (09:00)
--- NOTE | 2025-04-25 09:10 | NUR ---
HEPARIN DRIP TURNED OFF AT THIS TIME PER MD ORDER. OXYGEN NOT TO EXCEED 92%, ON RA AT THIS TIME. NO LONGER ON O2 AT THIS TIME.
[2025-04-25 09:16] LABS: BASOPHILS 0.4 % (0.2-1.2); EOSINOPHILS 0 % (0.8-7.0); LYMPHOCYTES 20.6 % (21.8-53.1); MCH 23.7 PG (25.7-32.2); MCHC 30.8 g/dL (32.3-36.5); MCV 77.2 fL (79.0-92.2); MONOCYTES 3.8 % (5.3-12.2); NEUTROPHILS 74.9 % (34.0-67.9); RBC 3.37 M/uL (4.63-6.08)
[2025-04-25 09:28] LABS: ALT (SGPT) 47.0 U/L (14-59); AST (SGOT) 71.0 U/L (15-37); GLOMERULAR FILTRATION RATE,EST 97.0 mL/min (>60); PROTEIN, TOTAL 7.0 g/dL (6.4-8.2); UREA NITROGEN 10.0 mg/dL (7-18)
--- NOTE | 2025-04-25 10:00 | NUR ---
Spoke with Ladarius. He is now considering going home and starting Chemo and radiation. We discussed how he could do this as he does not have a cg and is a heavy 2 person assist. Pt has stated several times his niece lives with him, but is not his cg. I let him know, most likely [facility] will not accept him if he is taking chemo and radiation. He states he will just go home. I did confirm with Declan at [facility]. They do not take pts actively getting treatment for chemo and radiation. They also do not have a private room for this pt. I asked if I could call his cg to check for family to stay with him. I called the phone number and I reach Francisco Sheriff his niece. She states his other niece has not really been providing care. She requests we change the phone number and name to her. Her dad is Kanu brother and her mom is a nurse. She will have her mom call me to discuss a plan.
--- NOTE | 2025-04-25 10:15 | NUR ---
PATIENT UP TO BS WITH 2PA FWW. PATIENT HAS A WEAK GAIT WITH WEAKNESS IN LEGS. PERICARE PERFORMED AND PATIENT SITTING UP IN RECLINER WITH PUREWICK PLACED TO SUCTION. CALL LIGHT AND BELONGINGS IN REACH.
--- NOTE | 2025-04-25 11:02 | NUR ---
ROUNDED ON PATIENT. SCHEDULED PRN MEDICATIONS GIVEN PER ORDER WITHOUT DIFFICULTY. PATIENT SITTING UP IN RECLINER WITH FEET ELEVATED. PUREWICK IN PLACE. PATIENT DENIES NEEDS AT THIS TIME. CALL LIGHT IN REACH.
--- NOTE | 2025-04-25 11:24 | NUR ---
PATIENT WASHED THEIR FACE AND HANDS AND BRUSHED THEIR TEETH WITH SET UP ASSISTANCE FROM THIS CHILD CARE DEVELOPMENT SPECIALIST. FRESH ICE WATER AND SODA WAS PROVIDED.
--- NOTE | 2025-04-25 12:19 | NUR ---
ROUNDED ON PATIENT, LAYING IN BED WATCHING TV. NO SIGNS OF DISTRESS OR DISCOMFORT. NO NEEDS IDENTIFIED AT THIS TIME. CALL LIGHT IN REACH.
--- NOTE | 2025-04-25 13:40 | NUR ---
Received a call from JUSTIN Tracy. Gave her pts options of going to a SNF for 20-30 days then starting Chemo, going to SNF and not seeking treatment which was pts original plan, or home with family and see oncology and start treatment when able. Jessica states there is family that could provide care. She will speak with her spouse and other family and call me tomorrow.
--- NOTE | 2025-04-25 15:05 | NUR ---
ASSESSMENT COMPLETED, SCHEDULED MEDICATIONS GIVEN PER ORDER. PATIENT SITTING IN RECLINER WITH LEGS ELEVATED WITH PULLOW WATCHING TV. PUREWICK IN PLACE TO SUCTION. PATIENT ON RA. PATIENT C/O BACJ/LEG PAIN AFTER PHYSICAL THERAPY, PRN PAIN MED GIVEN PER PATIENT REQUEST FOR 710 PAIN. PATIENT DENIES FURTHER NEEDS. CALL LIGHT AND BELONGINGS IN REACH.
[2025-04-25] MEDS ORDERED: AMOXICILLIN/CLAVULANATE K 875 MG TAB PO SCH (17:00)
--- NOTE | 2025-04-25 17:10 | NUR ---
PATIENT SITTING UP IN RECLINER WITH FEET ELEVATED. DENIES NEEDS AT THIS TIME. CALL LIGHT AND BELONGINGS IN REACH.
--- NOTE | 2025-04-25 19:25 | NUR ---
PT REPORT REC'D FROM TIA. PT RESTING IN BED NO C/O. IV SL TO R FA FLUSHED. PT PROVIDED SODA. O2 AT 1LNC CPOX 95%, DECREASED TO RA. SIDERAILS UPX 3, CALL KNIGHT IN REACH, BED IN LOW POSITION AND LOCKED. PT INSTRUCTED TO CALL FOR ASSIST, VERBALIZED UNDERSTANDING.
[2025-04-26] VITALS (12 sets, daily range): BP systolic 130–147; BP diastolic 74–84
--- NOTE | 2025-04-26 01:05 | NUR ---
PT RESTING IN BED. SPO2 95% ON RA.
--- NOTE | 2025-04-26 04:45 | NUR ---
PT CALLED FOR ASSIST TO BSC, PT WITH LARGE BM. ALLEVYN TO COCCYX CHANGED. PT REQUESTED TO SIT IN RECLINER. PROVIDED WARM WASHCLOTH FOR FACE. RECLINER LOCKED, CALL KNIGHT IN REACH, FLUID PROVIDED.
[2025-04-26 05:23] LABS: BASOPHILS 0.2 % (0.2-1.2); EOSINOPHILS 0 % (0.8-7.0); LYMPHOCYTES 14.0 % (21.8-53.1); MCH 23.2 PG (25.7-32.2); MCHC 29.7 g/dL (32.3-36.5); MCV 78.0 fL (79.0-92.2); MONOCYTES 5.2 % (5.3-12.2); NEUTROPHILS 80.4 % (34.0-67.9); RBC 3.45 M/uL (4.63-6.08)
[2025-04-26 05:42] LABS: ALT (SGPT) 67.0 U/L (14-59); AST (SGOT) 104.0 U/L (15-37); GLOMERULAR FILTRATION RATE,EST 98.0 mL/min (>60); PROTEIN, TOTAL 7.1 g/dL (6.4-8.2); UREA NITROGEN 11.0 mg/dL (7-18)
--- NOTE | 2025-04-26 05:55 | NUR ---
PT CARED FOR T/O SHIFT WITHOUT C/O. PT RESTING THROUGHOUT NIGHT AND PLACED IN RECLINER, RETURNED TO BED AT THIS TIME. TELEMETRY REMAINED ST 100'S. TOLERATING PO, SPO2 90'S ON RA. CALL KNIGHT IN REACH, BED IN LOW POSITION AND LOCKED. BED ALARM ACTIVATED, SR UP X 3
--- NOTE | 2025-04-26 07:46 | NUR ---
REPORT RECEIVED FROM SHARDA WOODARD. PATIENT IN BED, CALL LIGHT AND PERSONAL BELONGINGS IN REACH. PATIENT DENIES CONCERNS.
--- NOTE | 2025-04-26 09:16 | NUR ---
PATIENT SITTING UPRIGHT IN CHAIR. MEDICATIONS ADMINISTERED, ASSESMENT COMPLETE. PATIENT DENIES CONCERNS. CALL LIGHT AND PERSONAL BELONGINGS IN REACH OF PATIENT.
--- NOTE | 2025-04-26 11:00 | NUR ---
No call received from family as they stated yesterday.
--- NOTE | 2025-04-26 12:10 | NUR ---
Spoke with Ladarius. His cousin is present and pt gives permission for discussion in front of cousin. We again spoke about his options as he now has decided he would like to seek full treatment for his cancer. Pt was discussed in am meeting and is considering discharging this pt. Pt discussing he was not really aware of his cancer and did not have a work up in the past as he did not plan on treatment. It is pts belief he has lung cancer, cancer in his abdomen, and now a lesion in his brain. This has not been comfirmed. We discussed placement to a SNF and not seeking treatment for a month or so until he can get stronger and walk, placement to SNF and not seeking treatment, or going home and finding care givers. I discussed with pt he really isn't able to walk on his own. He states he was able to stand with his walker for 1 minute today. He is aware he cannot go home alone and cousin adds he would have to have a cg. Pt states he does not have anyone to be his cg. He now feels he will go to [place] and stay for a month or so, then home and find an Oncologist for a work up.
--- NOTE | 2025-04-26 12:43 | NUR ---
PATIENT SITTING UPRIGHT IN CHAIR. CALL LIGHT AND PERSONAL BELONGINGS IN REACH
--- NOTE | 2025-04-26 12:58 | NUR ---
ANSWERED CALL LIGHT. PROVIDED PATIENT WITH YURIY HENDRICKSON AT HIS REQUEST. CALL LIGHT AND PERSONAL BELONGINGS IN REACH OF PATIENT. PATIENT DENIES FURTHER CONCERNS AT THIS TIME.
--- NOTE | 2025-04-26 13:00 | NUR ---
Attempted to contact [facility] to see if they can accept this pt today. Message left. I spoke with Dr. Mcneal earlier and he plans on dc of this pt if [facility] can accept today.
--- NOTE | 2025-04-26 14:13 | NUR ---
CALL LIGHT ANSWERED. PATIENT PROVIDED WITH ICE AT HIS REQUEST. PATIENT SITTING UP IN CHAIR. PATIENT DENIES FURTHER CONCERNS CALL LIGHT AND PERSONAL BELONGINGS IN REACH OF PATIENT.
--- NOTE | 2025-04-26 14:46 | NUR ---
SCHEDULED MEDICATION ADMINISTERED. PRN PAIN MEDICATION ADMINISTERED FOR HEADACHE PER PATIENT REQUEST. PATIENT SITTING IN CHAIR, CALL LIGHT AND PERSONAL BELONGINGS IN REACH. PATIENT DENIES CONCERNS AT THIS TIME.
--- NOTE | 2025-04-26 15:00 | NUR ---
Received a call from [facility]. They can accept this pt tomorrow at 10 am. I called and scheduled the WC and asked [facility] to put a wc out in the morning. She confirmed. Charge and Dr. melendrez
[2025-04-26] MEDS ORDERED: DEXAMETHASONE4 MG PO (15:12)
[2025-04-26] MEDS ORDERED: VITAMIN B-1100 MG PO (15:12)
[2025-04-26] MEDS ORDERED: GABAPENTIN300 MG PO (15:12)
[2025-04-26] MEDS ORDERED: OXYCODONE HCL5 M1 PO (15:12)
[2025-04-26] MEDS ORDERED: AMOX TR-K CLV1 EAC1 PO (15:12)
[2025-04-26] MEDS ORDERED: ELIQUIS5 MG PO ×2 (15:12)
[2025-04-26] MEDS ORDERED: NICOTINE1 EAC2 TD (15:12)
[2025-04-26] MEDS ORDERED: FOLIC ACID1 MG PO (15:12)
[2025-04-26] MEDS ORDERED: MUCINEX600 MG PO (15:12)
--- NOTE | 2025-04-26 15:44 | NUR ---
Spoke with Ladarius. He states his niece will be in before 5 to have his check signed and deposited. I let him know he will dc to [facility] tomorrow at 10 am. I asked if he can let his niece know to bring him some clothing and personal items for [place].
--- NOTE | 2025-04-26 17:12 | NUR ---
PATIENT IN CHAIR. SCHEDULED MEDICATION ADMINISTERED, DINNER AT BEDSIDE. CALL LIGHT AND PERSONAL BELONGINGS IN REACH OF PATIENT. PATIENT DENIES CONCERNS.
--- NOTE | 2025-04-26 17:25 | NUR ---
ASSISTED PATIENT TO BED FROM CHAIR. PATIENT IN BED. CALL LIGHT AND PERSONAL BELONGINGS IN REACH. PATIENT PROVIDED WITH ICE AT HIS REQUEST. PATIENT DENIES CONCERNS AT THIS TIME.
--- NOTE | 2025-04-26 17:37 | NUR ---
PRN PAIN MEDICATION ADMINISTERED PER PATIENT REQUEST.
--- NOTE | 2025-04-26 18:45 | NUR ---
PATIENT IN BED, CALL LIGHT IN REACH
--- NOTE | 2025-04-26 19:30 | NUR ---
RECEIVED REPORT FROM VANCE DAVIS. PATIENT LAYING IN BED, EVEN UNLABORED RESPIRATIONS. PT DENIES ANY NEEDS AT THIS TIME, WHITEBOARD UPDATED, CALL LIGHT WITHIN REACH.
--- NOTE | 2025-04-26 20:03 | NUR ---
AIR MARSHAL OBTAINED VITALS AND I&O. PT STATES NO NEEDS AT THIS TIME. CALL LIGHT WITHIN REACH.
--- NOTE | 2025-04-26 20:30 | NUR ---
PT REPOSITIONED IN BED, PT C/O PAIN IN TOES, ASESSED, BLANCHABLE REDNESS NOTED ON L TOE/ ALLEVYN PLACED. PTS ASSESSMENT COMPLETED, VSS, URINE EMPTIED. PT GIVEN FRESH WATER. IV FLUSHED AND LEAKING NOTED, DRESSING CHANGED/NO MORE LEAKING . PT REPORTS NO OTHER NEEDS AT THIS TIME, CALL LIGHT WITHIN REACH, BED LOWERED.
--- NOTE | 2025-04-26 21:50 | NUR ---
PT LAYING IN BED, UNLABORED BREATHING, WATCHING TV. CALL LIGHT WITHIN REACH.
--- NOTE | 2025-04-26 21:56 | NUR ---
MEDICAL INFORMATION SPECIALIST ASSISTED PT IN REPOSITIONING ONTO PT LEFT SIDE IN BED. PT STATES NO FURTHER NEEDS AT THIS TIME. CALL LIGHT WITHIN REACH.
--- NOTE | 2025-04-26 22:37 | NUR ---
PT LAYING IN BED WATCHING TV, DENIES ANY NEEDS AT THIS TIME, CALL LIGHT WITHIN REACH.
--- NOTE | 2025-04-26 23:12 | NUR ---
PT REPORTS 4/10 PAIN IN THE BACK, FEET AND NECK, PRN PAIN MED GIVEN. NO OTHER NEEDS AT THIS TIME, CALL LIGHT WITHIN REACH.
--- NOTE | 2025-04-26 23:55 | NUR ---
PT LAYING IN BED, EYES CLOSED, UNLABORED BREATHING. TV MUSIC ON, CALL LIGHT WITHIN REACH.
[2025-04-27 01:14] VITALS: BP 134/70
--- NOTE | 2025-04-27 01:14 | NUR ---
VS TAKEN, PT LAYING IN BED REPORTING NO NEEDS AT THIS TIME, CALL LIGHT WITHIN REACH.
[2025-04-27 01:26] VITALS: BP 134/70
--- NOTE | 2025-04-27 02:27 | NUR ---
PT WANTING MORE ICE FOR ROOT BEER, GIVEN. NO OTHER NEEDS REPORTED, CALL LIGHT WITHIN REACH.
--- NOTE | 2025-04-27 03:29 | NUR ---
PT LAYING IN BED WITH EYES CLOSED AND UNLABORED BREATHING, TV ON, CALL LIGHT WITHIN REACH.
[2025-04-27 05:39] LABS: BASOPHILS 0.1 % (0.2-1.2); EOSINOPHILS 0 % (0.8-7.0); LYMPHOCYTES 14.5 % (21.8-53.1); MCH 23.8 PG (25.7-32.2); MCHC 31.1 g/dL (32.3-36.5); MCV 76.5 fL (79.0-92.2); MONOCYTES 5.5 % (5.3-12.2); NEUTROPHILS 79.6 % (34.0-67.9); RBC 3.15 M/uL (4.63-6.08)
[2025-04-27 05:45] VITALS: BP 110/61
--- NOTE | 2025-04-27 05:45 | NUR ---
VS TAKEN, URINE EMPTIED, PT GIVEN NEW WATER. PT REPOSITIONED WITH PILLOW ON L SIDE, NO NEEDS REPORTED, CALL LIGHT WITHIN REACH. LUNGS ASSESSED, SPOX REMOVED PER RT.
[2025-04-27 05:56] LABS: ALT (SGPT) 111.0 U/L (14-59); AST (SGOT) 149.0 U/L (15-37); GLOMERULAR FILTRATION RATE,EST 104.0 mL/min (>60); PROTEIN, TOTAL 6.5 g/dL (6.4-8.2); UREA NITROGEN 11.0 mg/dL (7-18)
[2025-04-27 05:59] VITALS: BP 110/61
--- NOTE | 2025-04-27 06:34 | NUR ---
PT CALLED FOR BACK PAIN 6/10 PRN PAIN MED GIVEN. NO OTHER NEEDS AT THIS TIME, CALL LIGHT WITHIN REACH.
--- NOTE | 2025-04-27 07:10 | NUR ---
RECIEVED REPORT FROM VANCE MALONEY AND VANCE KYLE. PT AWAKE IN BED, REQUESTS ASSISTANCE PUTTING HAIR IN HAIR TIE, ASSISTANCE GIVEN. PT STATES PAIN HAS DECREASED TO 3/10 AFTER THIS MORNING'S PAIN MEDICATION. PT DENIES ANY FURTHER NEEDS AT THIS TIME. CALL LIGHT WITHIN REACH.
--- NOTE | 2025-04-27 07:30 | NUR ---
Orders, PASRR, dc summary, emar, PT/OT notes faxed to [facility] at [facility]. Pt is scheduled to dc at 10:00.
--- NOTE | 2025-04-27 08:30 | NUR ---
IM letter completed. Pt declines to stay 4 hrs to consider appeal.
--- NOTE | 2025-04-27 09:20 | NUR ---
Received a call from [facility]. Updated Ladarius will go to [place] around 10 by donnie pandey. I updated I have attempted to call Cheyenne to see if she can bring clothing and person hygiene supplies. She asks I get his size and she will buy him sweats, underclothing, socks, and slippers. She will also cook pickled meat toiletries. She states Cheyenne has an addiction issue and is not currently in town. She visit him today or tomorrow.
[2025-04-27 09:30] VITALS: BP 125/80
[2025-04-27 09:31] VITALS: BP 125/80
--- NOTE | 2025-04-27 10:07 | NUR ---
PT VOIDS INTO URINAL, SIMULTANEOUSLY HAS INCONTINENT BM. PT CLEANED, NEW ALLEVYN PLACED ON SACRAL AREA, DEPENDS IN PLACE, SCRUB PANTS IN PLACE PT CLOTHES ARE SOILED. PT UP TO CHAIR WITH 1PA AND FWW. WHEELCHAIR VAN ARRIVES FOR PT, PT AMBULATES TO WHEELCHAIR, WHEELED TO FRONT OF BUILDING BY NURSING PERSONEL WITH ALL PERSONAL BELONGINGS.
--- NOTE | 2025-04-27 10:45 | NUR ---
REPORT CALLED AND GIVEN TO BHASKAR AT [place].
== END 2025-04-27 10:07 | DRG 177 ==
LOC: ED 01:32 → MS 13:18
PROVIDERS: Family Medicine; ADMIT Family Medicine; ATTEND Student in an Organized Health Care Education/Training Program
DX: J69.0 Pneumonitis due to inhalation of food and vomit (principal); A41.81 Sepsis due to Enterococcus; G93.6 Cerebral edema; I26.99 Other pulmonary embolism without acute cor pulmonale; J96.01 Acute respiratory failure with hypoxia; A41.89 Other specified sepsis; F10.239 Alcohol dependence with withdrawal, unspecified; C34.90 Malignant neoplasm of unspecified part of unspecified bronchus or lung; C79.31 Secondary malignant neoplasm of brain; Z66 Do not resuscitate; E87.20 Acidosis, unspecified; F10.229 Alcohol dependence with intoxication, unspecified; S30.11XA Contusion of abdominal wall, initial encounter; F17.200 Nicotine dependence, unspecified, uncomplicated; E83.42 Hypomagnesemia; R23.8 Other skin changes; D64.89 Other specified anemias; E87.6 Hypokalemia; X58.XXXA Exposure to other specified factors, initial encounter; Y90.4 Blood alcohol level of 80-99 mg/100 ml; Z74.1 Need for assistance with personal care
CPT/HCPCS: 36415; 51701; 70551; 70552; 71045; 71260; 74177; 80053; 81003; 82140; 83605; 83690; 83735; 84100; 85025; 85610; 85730; 87040; 87077; 87186; 87502; 92526; 92610; 93005; 93010; 94640; 94667; 94668; 94762; 94799; 96365; 96367; 96375; 96376; 97110; 97162; 97166; 97530; 97535; 99285-25; A9270; A9270-GY; A9573; G0480; J0295; J0456; J0696; J1100; J1171; J1644; J1650; J2405; J3360; J3411; J3475; J3480; J3490; J7030; J7060; J7121; J7512; J7605; J8540; Q9967; U0002

== ENCOUNTER 2025-05-27 02:32 | Emergency (ER) | payer MEDICARE, OTHER ==
--- OUTSIDE RECORDS SUMMARY | ~2025-05-27 | XMS | Continuity of Care Document ---
Demographics + + + | Address | [address] | | | [place] [address] | + + + | Preferred Language | Unknown | + + + | Marital Status | Unknown | + + + | Rastafari Affiliation | Unknown | + + + | Race | or | + + + | Ethnic Group | Not or | + + + Author + + + | Author | [facility] | + + + | Organization | [facility] | + + + | Address | [address] | | | [place] [address] | + + + | Phone | | + + + Care Team Providers + + + + | Care Element Setter Name | Role | Phone | + + + + Unavailable | Unavailable | + + + + Allergies No information. Encounters No information. Functional Status No information. Immunizations No information. Medications + + + + | date | description | facility | + + + + | (no date) | ONDANSETRON | [facility] | | | | [facility] | + + + + | (no date) | OXYCODONE HCL | [facility] | | | | [facility] | + + + + | (no date) | HYDROCORTISONE | [facility] | | | | [facility] | + + + + | (no date) | DOCUSATE SODIUM | [facility] | | | | [facility] | + + + + | (no date) | TIZANIDINE HCL | [facility] | | | | [facility] | + + + + | (no date) | METHOCARBAMOL | [facility] | | | | [facility] | + + + + | (no date) | MAGNESIUM HYDROXIDE | [facility] | | | | [facility] | + + + + | (no date) | FERROUS SULFATE | [facility] | | | | [facility] | + + + + | (no date) | GABAPENTIN | [facility] | | | | [facility] | + + + + | (no date) | Sodium Chloride | [facility] | | | | [facility] | + + + + | (no date) | TIZANIDINE HCL | [facility] | | | | [facility] | + + + + | (no date) | ACETAMINOPHEN | [facility] | | | | [facility] | + + + + | (no date) | ASPIRIN | [facility] | | | | [facility] | + + + + | (no date) | CYCLOBENZAPRINE HCL | [facility] | | | | [facility] | + + + + | (no date) | TRAMADOL HCL | [facility] | | | | [facility] | + + + + | (no date) | TRAMADOL HCL | [facility] | | | | [facility] | + + + + | (no date) | POLYETHYLENE GLYCOL 3350 | [facility] | | | | [facility] | + + + + Problems No information. Procedures No information. Results/Labs No information. Social History +--------+ + + | date | description | facility | +--------+ + + Vital Signs No information."
[~2025-05-27 02:32] MED LIST changes: +DEXAMETHASONE4 MG PO; +ELIQUIS5 MG PO; +GABAPENTIN300 MG PO; +MUCINEX600 MG PO; +OXYCODONE HCL5 M1 PO
[2025-05-27] MEDS ORDERED: LIDOCAINE 2% VISCOUS 6 ML SYR TOP ONE (03:15)
[2025-05-27] MEDS ORDERED: ROCURONIUM BROMIDE 50 MG/5 ML SYR IV ONE (03:15)
[2025-05-27] MEDS ORDERED: IBLOOD GLUCOSE TEST STRIP 1 EA TEST XX ONE (03:15)
[2025-05-27 03:20] LABS: BASOPHILS 0.3 % (0.2-1.2); EOSINOPHILS 0.9 % (0.8-7.0); LYMPHOCYTES 5.0 % (21.8-53.1); MCH 22.5 PG (25.7-32.2); MCHC 29.9 g/dL (32.3-36.5); MCV 75.2 fL (79.0-92.2); MONOCYTES 4.7 % (5.3-12.2); NEUTROPHILS 87.5 % (34.0-67.9); RBC 3.83 M/uL (4.63-6.08)
[2025-05-27 03:23] LABS: INR 0.97 (0.80-1.30); PROTIME 12.2 Sec (11.2-14.2)
[2025-05-27] MEDS ORDERED: THIAMINE HCL 200 MG/2 ML VIAL IV ONE (03:30)
[2025-05-27] MEDS ORDERED: SODIUM CHLORIDE 0.9% 1,000 ML IV SCH (03:30)
[2025-05-27] MEDS ORDERED: ETOMIDATE 40 MG/20 ML VIAL IV ONE (03:30)
[2025-05-27] MEDS ORDERED: FOLIC ACID 1 MG/0.2 ML ML IV ONE (03:30)
[2025-05-27 03:31] LABS: ALCOHOL, MEDICAL <3 mg/dL (<3); ALT (SGPT) 39 U/L (14-59); AST (SGOT) 21 U/L (15-37); GLOMERULAR FILTRATION RATE,EST 68 mL/min (>60); PROTEIN, TOTAL 7.1 g/dL (6.4-8.2); UREA NITROGEN 12 mg/dL (7-18)
[2025-05-27] MEDS ORDERED: DEXAMETHASONE SOD PHOS 10 MG/ML VIAL IV ONE (04:30)
[2025-05-27 04:56] LABS: AMPHETAMINES, URINE NEGATIVE (NEGATIVE); BARBITURATES, URINE NEGATIVE (NEGATIVE); BENZODIAZEPINE, URINE POSITIVE (NEGATIVE); CANNABINOID, URINE POSITIVE (NEGATIVE); COCAINE, URINE NEGATIVE (NEGATIVE); ECSTASY, URINE NEGATIVE (NEGATIVE); FENTANYL, URINE NEGATIVE (NEGATIVE); METHADONE, URINE NEGATIVE (NEGATIVE); OPIATES, URINE NEGATIVE (NEGATIVE); OXYCODONE, URINE NEGATIVE (NEGATIVE); PHENCYCLIDINE, URINE NEGATIVE (NEGATIVE)
[2025-05-27] MEDS ORDERED: FENTANYL CITRATE-0.9 % NACL/PF 100 ML IV SCH (06:00)
[2025-05-27 07:46] VITALS: BP 104/69
--- NOTE | 2025-06-01 22:02 | EKG ---
[facility] [address] [place] [address] Signed Sinus tachycardia Otherwise normal ECG When compared with ECG of 20-APR-2025 18:40, No significant change was found Confirmed by Uziel Virgen MD () on 06/01/2025 10:02:24 PM Electronically Signed By: UZIEL VIRGEN MD 06/01/[id number] PATIENT NAME: GABRIELA ABBASI Electrocardiogram DATE OF : 59 PHYSICIAN: UZIEL VIRGEN MD REPORT #: [id number] REPORT IS CONFIDENTIAL AND NOT TO BE RELEASED WITHOUT AUTHORIZATION
== END 2025-05-27 07:45 | disposition other institution, planned readmission (95) ==
LOC: ED 02:32
PROVIDERS: Family Medicine
DX: G93.6 Cerebral edema (principal); G93.9 Disorder of brain, unspecified; R56.9 Unspecified convulsions; R59.1 Generalized enlarged lymph nodes; F17.200 Nicotine dependence, unspecified, uncomplicated; Z79.2 Long term (current) use of antibiotics; Z79.899 Other long term (current) drug therapy
CPT/HCPCS: 31500; 36415; 36556; 70450; 70496; 70498; 71045; 80053; 80307; 82803; 83605; 83735; 84484; 85025; 85610; 85730; 93005; 93010; 96365; 96375; 99291; C1751; G0480; J1100; J1953; J2704; J3010; J3411; J3490; J7030